=== PATIENT | male | born 1950 | race Caucasian/White ===

== ENCOUNTER → 2017-05-01 09:56 | Outpatient (CLI) | payer MEDICARE, SELFPAY ==
--- NOTE | 2017-05-01 10:01 | US_ITS ---
STUDY: RENAL ULTRASOUND - COMPLETE REASON FOR EXAM: Male, 66 years old. Hematuria TECHNIQUE: Ultrasound evaluation of the kidneys was performed with real-time and static mata-scale imaging. COMPARISON: None. FINDINGS: RIGHT KIDNEY: Normal location of the right kidney, which is normal in size. The right kidney measures 10.7 x 4.9 x 3.7 cm. There is a normal cortex of the right kidney. There is a right renal cyst which measures 3.5 x 3.4 x 1.9 cm. There is a nonobstructing calculus within the lower pole of the right kidney which measures up to 5 mm. There is no right hydronephrosis. DISTAL RIGHT URETER: There is a visualized right ureteral jet. LEFT KIDNEY: Normal location of the left kidney, which is normal in size. The left kidney measures 12.2 x 4.6 x 4.8 cm. There is a normal cortex of the left kidney. . There is a left renal cyst which measures 2.2 x 1.9 x 2.1 cm. There are nonobstructing left renal calculi. There is no left hydronephrosis. DISTAL LEFT URETER: There is no demonstrated left ureteral jet. I.V.C.: The IVC is patent. BLADDER: The bladder is incompletely distended with a volume of 156.7 There is a normal wall thickness of the distended urinary bladder. There is no demonstrated mass within the urinary bladder. There are no demonstrated bladder calculi. The prostate volume measures 38.4 mL. There is a calcification within the prostate gland. US/Kidney and Bladder IMPRESSION: Enlarged prostate gland. Bilateral nonobstructing renal calculi. Bilateral renal cysts. Electronically Signed: Ericka Eller MD at 22:14 EST Tel , Service support ,
== END ==
PROVIDERS: Family Provider Preventive Medicine Occupational Medicine; PCP Preventive Medicine Occupational Medicine; Visit Provider Preventive Medicine Occupational Medicine
DX: R31.9 Hematuria, unspecified (principal)
CPT/HCPCS: 76770

== ENCOUNTER → 2017-05-10 09:58 | Outpatient (CLI) | payer MEDICARE, SELFPAY ==
[2017-05-10 11:32] LABS: PSA,Total - Annual Screen 0.76 ng/mL (0.00-4.00)
== END ==
PROVIDERS: Family Provider Preventive Medicine Occupational Medicine; PCP Preventive Medicine Occupational Medicine; Visit Provider Nurse Practitioner Adult Health
DX: Z12.5 Encounter for screening for malignant neoplasm of prostate (principal)
CPT/HCPCS: 36415; 84153; G0103

== ENCOUNTER → 2017-05-17 13:05 | Outpatient (CLI) | payer MEDICARE, SELFPAY ==
--- NOTE | 2017-05-17 13:07 | CT_ITS ---
CT Abdomen And Pelvis WO/W Contrast INDICATION: Gross hematuria intermittently. Prior cholecystectomy, lumbar. COMPARISON: None TECHNIQUE: Precontrast CT of the abdomen and postcontrast CT of the abdomen and pelvis with coronal and sagittal reformatted images. 75 mL of Isovue-300 were given intravenously. Radiation dose optimization technique applied. FINDINGS: Precontrast images demonstrate numerous bilateral nonobstructing renal calculi, measuring between less than 1 mm and 3 mm on the right and less than 1 mm and 1.5 mm on the left. There is no evidence of hydronephrosis at this time. There is symmetric cortical renal enhancement. A right cortical renal cyst measures 3.8 cm in size, a left cortical renal cyst measures 2.2 cm in size. There is evidence of a heterogeneously enhancing 1.9 cm mass arising from the superior pole region of the right kidney, most compatible with a small renal cell carcinoma. The visualized lung bases are clear. The liver is prominent in size, measuring 20 cm in craniocaudal dimension. The gallbladder is surgically absent. The spleen is normal in size. Adrenal glands and pancreas are unremarkable. The bowel loops are nondistended. The appendix is unremarkable. The urinary bladder is unremarkable. The prostate gland is mildly enlarged and heterogenous, measuring 4 cm in diameter. There is no evidence of free air or free fluid. Osseous structures demonstrate multilevel degenerative disc disease, endplate degenerative changes and facet arthritic changes with lumbar spinal stenosis most severe at L3-4 and L4-5. CT/CT Abd/Pelvis W/WO Contrast IMPRESSION: 1.9 cm mass arising from the superior pole region of the right kidney with heterogenous enhancement, most compatible with a renal cell carcinoma. Bilateral nephrolithiasis. Bilateral cortical renal cysts. No evidence of hydronephrosis at this time. Hepatomegaly. Status post cholecystectomy. Degenerative changes of the lumbar spine with multilevel lumbar spinal stenosis. at 2210 Reported and signed by: Jennifer Mckinney MD N.B. : Dr. Hoskins, Covering Physician, confirmed on 05/17/2017 22:35:17 (ET) that the referring physician received the results and did not require a verbal consultation. Electronically Signed: Jennifer Mckinney MD at 21:09 EST Tel , Service support , Raghavendra : Dr. Hoskins, Covering Physician, confirmed on 05/17/2017 22:35:17 (ET) that the referring physician received the results and did not require a verbal consultation.
[2017-05-17 13:31] LABS: CREATININE FINGERSTICK 1.8 mg/dL (0.70-1.30)
== END ==
PROVIDERS: Family Provider Preventive Medicine Occupational Medicine; PCP Preventive Medicine Occupational Medicine; Visit Provider Nurse Practitioner Adult Health
DX: R31.9 Hematuria, unspecified (principal)
CPT/HCPCS: 74178; Q9967

== ENCOUNTER 2017-09-27 09:41 | Inpatient (IN) | payer MEDICARE, SELFPAY ==
[2017-09-27 09:42] VITALS: BP 123/85; PULSE 80; RESP 16; TEMP 36.9; O2SAT 98; BMI 29.0
--- NOTE | 2017-09-27 09:57 | EKG12_ITS ---
Test Reason : MS CHANGES Blood Pressure : / mmHG Vent. Rate : 063 BPM Atrial Rate : 063 BPM P-R Int : 134 ms QRS Dur : 096 ms QT Int : 430 ms P-R-T Axes : 066 028 025 degrees QTc Int : 440 ms Normal sinus rhythm Normal ECG Confirmed by LEONARDO WEST, RACQUEL ([id number]), assistant editor BLESSING PEREZ ([id number]) on 10/02/2017 3:38:35 PM Referred By: AARON Confirmed By:RACQUEL PATTERSON MD
--- NOTE | 2017-09-27 09:57 | RAD_ITS ---
STUDY: X-RAY CHEST REASON FOR EXAM: Male, 67 years old. Confusion, mental status change TECHNIQUE: Single AP portable view of the chest. COMPARISON: 03/03/2016 FINDINGS: Cardiac monitoring leads overlie the chest. The lungs are clear and expanded. There is no demonstrated pleural abnormality. Normal size heart. Normal mediastinum and mookie. Normal visualized pulmonary arteries. There is atherosclerotic tortuosity of the aortic arch and descending thoracic aorta. There are diffuse degenerative changes of the visualized thoracic spine. Normal visualized ribs, clavicles, and shoulders. There is no demonstrated abnormality of the visualized soft tissue structures of the upper abdomen. RAD/Chest 1 View (Portable) IMPRESSION: Degenerative changes, as described above. No demonstrated acute cardiopulmonary process. Electronically Signed: Lee Ruffin DO at 11:19 EDT Tel , Service support ,
--- NOTE | 2017-09-27 09:57 | CT_ITS ---
STUDY: CT BRAIN WITHOUT CONTRAST REASON FOR EXAM: Male, 67 years old. Confusion RADIATION DOSAGE (If Supplied By Facility): CTDIvol = ( 44.99 ) mGy, DLP = ( 812.98 ) mGycm TECHNIQUE: Transaxial CT imaging of the brain was performed without administration of intravenous contrast material. Sagittal and coronal reconstructed images are provided and reviewed. Individualized dose optimization techniques were used for this CT. COMPARISON: None. FINDINGS: Normal soft tissue structures. Normal calvarium. There is moderate cerebral atrophy with widening of the extra-axial spaces and ventricular dilatation. Normal white matter tracts of the cerebral hemispheres. Normal basal ganglia and thalami. Normal brainstem. Normal cerebellum. There is no intracranial hemorrhage. There are no findings of an acute ischemic infarction. Normal visualized paranasal sinuses. CT/Brain/Head without Contrast IMPRESSION: Chronic involutional changes. No acute intracranial abnormality. Electronically Signed: Lee Ruffin DO at 10:34 EDT Tel , Service support ,
[2017-09-27 10:17] LABS: Absolute Lymphocyte Count 0.72 X10^3/ul (0.83-4.51); Absolute Neutrophil Count 3.9 X10^3/uL (2.0-7.7); Basophil# 0.04 X10^3/uL; Basophil% 0.8 % (0-1); Eosinophil# 0.08 X10^3/uL; Eosinophils% 1.6 % (0-5); Hematocrit 45.1 % (40-54); Hemoglobin 15.5 g/dl (13.0-16.5); Lymphocyte # 0.72 X10^3/ul (4.0); Mean Corp Hgb Conc 34.4 g/gl (32-36); Mean Corpuscular Hgb 29.8 pg (27.0-32.0); Mean Corpuscular Volume 86.6 fL (80-94); Mean Platelet Vol. 9.9 fl (6.2-12.0); Monocyte# 0.43 X10^3/uL; Monocyte% 8.4 % (0-10); Neutrophil # 3.85 X10^3/uL (2.7-7.7); Platelet Count 187 K/mm3 (150-450); RBC Distribution Width CV 12.6 % (11.6-14.6); RBC Distribution Width SD 39.7 fl (35.1-43.9); Red Blood Count 5.21 M/mm3 (4.6-6.2); White Blood Count 5.1 K/mm3 (4.4-11.0)
[2017-09-27 10:18] LABS: POSITIVE COUNT NO; POSITIVE DIFFERENTIAL NO; POSITIVE MORPHOLOGY NO
[2017-09-27 10:34] LABS: Anion Gap 5 (5-15); BUN 14 mg/dL (7-18); BUN/Creat Ratio 9.6 RATIO (10-20); Calcium,Total 8.9 mg/dL (8.5-10.1); Chloride 110 mmol/L (98-107); Creatinine, Serum 1.46 mg/dL (0.70-1.30); EST Glomerular Filtration Rate 51 mL/min (>60); Est Glom Filt Rate - Afr Amer 62 mL/min (>60); Estimated Creatinine Clearance 44.31 ml/min; Glucose 111 mg/dL (74-106); Potassium 3.5 mmol/L (3.5-5.1); Sodium Level 141 mmol/L (136-145)
--- NOTE | 2017-09-27 10:47 | ED.DCSUM_ITS ---
- ER Visit Summary Date of Service: 09/27/17 Chief Complaint: [Mental status change] History of Present Illness: The patient is a 67 M [presents to the emergency department with complaint of mental status change since yesterday morning. Patient states that he developed a sudden onset of a headache and also blurred vision from both eyes. states that patient was confused yesterday and had a hard time figuring out how to open the door to their bedroom. Patient also walked here today and did not recognize areas of town that he should have known. Patient also has been repeating himself. There have been no falls or head injuries. No recent illness. No new medications. Patient has a history of hypertension, high cholesterol, and history of PEs. Patient has been off his Eliquis since the early part of the year. Currently patient rates his headache as an 8 out of 10.] Physical Examination: [HEENT-PERRLA, EOMI. Cranial nerves II through XII grossly intact. TMs clear. Mucous membranes moist. No adenopathy. Cardiovascular-regular rate and rhythm without murmur or ectopy Lungs-clear to auscultation, chest wall stable without crepitus or subcu emphysema Abdomen-normoactive bowel sounds, soft, nontender, no rebound or rigidity, no peritoneal signs. Neuro xrwr-[id number]-[id number] and heel bello testing within normal limits, negative Romberg, negative pronator drift. No focal weakness noted. Extremities-intact ?4, normal range of motion, normal pulses, atraumatic] Test Results: [EKG obtained on arrival showed a sinus rhythm with a ventricular rate of 63 bpm with no acute ST segment changes noted. CT scan of the brain without contrast showed chronic involutional changes otherwise nothing acute. CBC with differential showing a 5.1, hemoglobin 15, hematocrit 45, platelets 187. Chemistries unremarkable. BUN was 14 and creatinine 1.46. Troponin was less than 0.015.] Emergency Department Course and Treatment: [] Treatment Plan: [Admit for further workup and evaluation as the etiology of symptoms unclear at this time. There is still some concern for possibility of stroke. Patient is not a thrombolytic candidate as symptoms have been ongoing for more than 24 hours and his NIH stroke scale here is 0.] Disposition: [Admit] Impression: [Mental status change-etiology uncertain Cephalgia] This note was generated with [employer] dictation software. It may contain incorrect words, spelling, and punctuation that were not noted in review of the chart prior to signing ED Disposition - Plan for ED Patient: Chief Complaint: Mental Status Change Referrals: Damien Vizcarra DO [Primary Care Provider] -
--- NOTE | 2017-09-27 11:51 | CT_ITS ---
STUDY: CTA OF THE BRAIN REASON FOR EXAM: Male, 67 years old. Stroke RADIATION DOSAGE (If Supplied By Facility): CTDIvol = ( 29.70 ) mGy, DLP = ( 1361.83 ) mGycm TECHNIQUE: CT angiography was performed with a multi-detector CT scanner. Data acquisition was obtained from the skull base through the vertex following intravenous administration of 75 ml of Isovue-370. MIP images were reconstructed from the axial data set. Post-processing of the angiographic images was performed, with multiplanar reformation and 3D reconstruction. Individualized dose optimization techniques were used for this CT. COMPARISON: None. FINDINGS: Normal bilateral petrous carotid arteries. Normal right cavernous carotid artery with a normal supraclinoid bifurcation. Normal left cavernous carotid artery with a normal supraclinoid bifurcation. Normal right A1 segments of the anterior cerebral artery. Normal left A1 segments of the anterior cerebral artery. Normal intact anterior communicating artery (ACOM). Normal bilateral A2 segments of the anterior cerebral arteries. Normal right M1 and M2 segments of the middle cerebral arteries, with a normal M1 bifurcation. Normal left M1 and M2 segments of the middle cerebral arteries, with a normal M1 bifurcation. Nonvisualization of the posterior communicating arteries (PCOM). Normal bilateral vertebral arteries. Normal basilar artery with a normal basilar bifurcation. The visualized bilateral superior cerebellar (SCA) arteries are normal. Normal bilateral P1, P2 and visualized P3 segments of the posterior cerebral arteries. There is no demonstrated aneurysm of the [place]. There are chronic age-related changes of the visualized brain. IMPRESSION: Normal [place] without a demonstrated aneurysm or hemodynamically significant stenosis. Electronically Signed: Kwadwo Marcos DO at 13:09 EDT Tel [phone], Service support , STUDY: CTA NECK WITH CONTRAST REASON FOR EXAM: Male, 67 years old. Stroke TECHNIQUE: CT angiography with multi-detector data acquisition was performed from the aortic arch to the skull base following intravenous administration of 75ML ml of Isovue 370 contrast. MIP images were reconstructed from the axial data set. Post-processing of the angiographic images was performed, with multiplanar reformation and 3D reconstruction. Individualized dose optimization techniques were used for this CT. COMPARISON: None. FINDINGS: AORTIC ARCH: Minimal atherosclerotic aspirations of the visualized aortic arch. Normal origins of the brachiocephalic, left common carotid, and left subclavian arteries. RIGHT CAROTID ARTERIES: Normal right common carotid artery (CCA). Normal right common carotid bulb. Normal origin of the right internal carotid (ICA) artery without a hemodynamically significant stenosis. Normal visualized cervical portion of the right internal carotid artery. Normal origin of the right external carotid artery (ECA). LEFT CAROTID ARTERIES: Normal left common carotid artery (CCA). Normal left common carotid bulb. Normal origin of the left internal carotid (ICA) artery without a hemodynamically significant stenosis. Normal visualized cervical portion of the left internal carotid artery. Normal origin of the left external carotid artery (ECA). VERTEBRAL ARTERIES: Normal bilateral vertebral arteries. CT/CTA Head W/WO Contrast IMPRESSION: Normal bilateral cervical carotid and vertebral arteries. Electronically Signed: Kwadwo Marcos DO at 13:10 EDT Tel [phone], Service support ,
--- NOTE | 2017-09-27 11:51 | CT_ITS ---
STUDY: CTA OF THE BRAIN REASON FOR EXAM: Male, 67 years old. Stroke RADIATION DOSAGE (If Supplied By Facility): CTDIvol = ( 29.70 ) mGy, DLP = ( 1361.83 ) mGycm TECHNIQUE: CT angiography was performed with a multi-detector CT scanner. Data acquisition was obtained from the skull base through the vertex following intravenous administration of 75 ml of Isovue-370. MIP images were reconstructed from the axial data set. Post-processing of the angiographic images was performed, with multiplanar reformation and 3D reconstruction. Individualized dose optimization techniques were used for this CT. COMPARISON: None. FINDINGS: Normal bilateral petrous carotid arteries. Normal right cavernous carotid artery with a normal supraclinoid bifurcation. Normal left cavernous carotid artery with a normal supraclinoid bifurcation. Normal right A1 segments of the anterior cerebral artery. Normal left A1 segments of the anterior cerebral artery. Normal intact anterior communicating artery (ACOM). Normal bilateral A2 segments of the anterior cerebral arteries. Normal right M1 and M2 segments of the middle cerebral arteries, with a normal M1 bifurcation. Normal left M1 and M2 segments of the middle cerebral arteries, with a normal M1 bifurcation. Nonvisualization of the posterior communicating arteries (PCOM). Normal bilateral vertebral arteries. Normal basilar artery with a normal basilar bifurcation. The visualized bilateral superior cerebellar (SCA) arteries are normal. Normal bilateral P1, P2 and visualized P3 segments of the posterior cerebral arteries. There is no demonstrated aneurysm of the [place]. There are chronic age-related changes of the visualized brain. IMPRESSION: Normal [place] without a demonstrated aneurysm or hemodynamically significant stenosis. Electronically Signed: Kwadwo Marcos DO at 13:09 EDT Tel [phone], Service support , STUDY: CTA NECK WITH CONTRAST REASON FOR EXAM: Male, 67 years old. Stroke TECHNIQUE: CT angiography with multi-detector data acquisition was performed from the aortic arch to the skull base following intravenous administration of 75ML ml of Isovue 370 contrast. MIP images were reconstructed from the axial data set. Post-processing of the angiographic images was performed, with multiplanar reformation and 3D reconstruction. Individualized dose optimization techniques were used for this CT. COMPARISON: None. FINDINGS: AORTIC ARCH: Minimal atherosclerotic aspirations of the visualized aortic arch. Normal origins of the brachiocephalic, left common carotid, and left subclavian arteries. RIGHT CAROTID ARTERIES: Normal right common carotid artery (CCA). Normal right common carotid bulb. Normal origin of the right internal carotid (ICA) artery without a hemodynamically significant stenosis. Normal visualized cervical portion of the right internal carotid artery. Normal origin of the right external carotid artery (ECA). LEFT CAROTID ARTERIES: Normal left common carotid artery (CCA). Normal left common carotid bulb. Normal origin of the left internal carotid (ICA) artery without a hemodynamically significant stenosis. Normal visualized cervical portion of the left internal carotid artery. Normal origin of the left external carotid artery (ECA). VERTEBRAL ARTERIES: Normal bilateral vertebral arteries. CT/CTA Neck W/WO Contrast IMPRESSION: Normal bilateral cervical carotid and vertebral arteries. Electronically Signed: Kwadwo Marcos DO at 13:10 EDT Tel [phone], Service support ,
--- NOTE | 2017-09-27 12:18 | HP.PCM_ITS ---
Problem List (1) Pulmonary emboli Status: Acute (2) Acute respiratory failure Status: Resolved (3) Altered mental status Status: Acute (4) Ischemic stroke Status: Acute (5) Hypertension Status: Chronic (6) Dyslipidemia Status: Acute History of Present Illness Date of Admission: 09/27/17 Chief Complaint: Altered mental status since yesterday The patient is a 67 year old M with history of bilateral extensive PE and DVT in February 2016 was on Eliquis until early part of the year was brought in by ambulance after patient was not acting right as per the . Patient was confused, not able to understand or comprehend the speech, repeating words, not able to recognize common things and perform simple tasks since yesterday morning. As per the , patient was asking repeated cues as he is not able to understand. He also complained of blurry vision both eyes and to me left eye. Complain of occipital and parietal headache which is new to him. Also noted to have slight left facial droop. Patient denies weakness, numbness , tingling, bowel or bladder incontinence or seizure or syncope. Patient denies any previous history of stroke or NC or cardiac stent. [] In ED, EKG shows normal sinus rhythm at [address] head without contrast does not show any acute change Past Medical History Past Medical History (Chronic Problems): Chronic Problems Hypertension (Chronic) Allergies codeine Adverse Reaction (Verified 09/27/17 09:41) Unknown Home Medications: Ambulatory Orders Medication Instructions Recorded Hydrochlorothiazide 25 mg PO DAILY 01/30/16 Multivitamin [Daily Multiple 1 each PO DAILY 01/30/16 Vitamin] Pravastatin [Pravachol] 40 mg PO QHS 01/30/16 Gabapentin [Neurontin] 300 mg PO BIDCM 03/03/16 Gabapentin [Neurontin] 600 mg PO QHS 03/03/16 Hydrocodone Bitart/Apap 5-325 1 tablet PO Q6H PRN PRN 03/03/16 [[place] 5/325] Ramipril [Altace] 5 mg PO DAILY 03/03/16 Apixaban [Eliquis] 10 mg PO BID #60 tablet 03/05/16 Escitalopram Oxalate [Lexapro] 10 mg PO DAILY #30 tablet 03/05/16 Polyethylene Glycol 3350 [Miralax] 17 gm PO DAILY #15 packet 03/31/16 Smoking Status: Former smoker - *Family History Maternal History Items: No pertinent history Review of Systems Constitutional: Denies: Fever Eyes: Reports: Vision Change HEENT: Reports: Head Aches Cardiovascular: Denies: Chest Pain Respiratory: Denies: Shortness of Breath Unable to obtain accurate/complete ROS d/t: Patient is not able to comprehend verbal command or his speech. VTE Information - Inpt Only VTE Present on Admission: No VTE Mechan Device Prophylaxis: SCD's VTE Pharm Prophylaxis ordered?: Yes Patient Problems: Active and Suspected Problems Altered mental status (Acute) Ischemic stroke (Acute) Dyslipidemia (Acute) - Physical Exam General: Cooperative, Confused, Disoriented - To time, place and situation HEENT: Atraumatic, PERRLA, EOMI, Normocephalic Oral: Moist Mucosa Neck: Supple, No JVD, Negative Carotid Bruits Lungs: Clear to auscultation, No rhonchi, No wheeze, Diminished - Bilateral lung bases Cardiovascular: Regular rate, Regular Rhythm, Normal S1, Normal S2, No murmurs Abdomen: Bowel Sounds Present, Soft, Non Tender, Non-Distended Extremities: No edema, Capillary Refill Less than 3 Seconds Skin: No rashes, No breakdown Musculoskeletal: No Tenderness to Palpation of Joints or Extremities Neurological: Muscle tone normal, Sensory exam intact to light touch and pain, - - Possible loss of vision on left side although difficult to say definitely as patient is not able to comprehend the command. Slight left-sided facial palsy. Inability to comprehend visual, written or spoken language NIH stroke scale although difficult to calculate but seems to be 5-7 Psych/Mental Status: Normal Affect, Appropriate Vital Signs Temp Pulse Resp BP Pulse Ox 98.4 F 80 16 123/85 H 98 09/27/17 09:42 09/27/17 09:42 09/27/17 09:42 09/27/17 09:42 09/27/17 09:42 Oxygen Delivery Method Room Air Weight: 180 lb Body Mass Index (BMI) 29.0 Laboratory Tests Past 24 Hrs 09/27/17 09/27/17 10:10 10:10 WBC 5.1 RBC 5.21 Hgb 15.5 Hct 45.1 MCV 86.6 MCH 29.8 MCHC 34.4 RDW 12.6 RDW Differential 39.7 Plt Count 187 MPV 9.9 Immature Gran % (Auto) 0.200 Neut % (Auto) 75.0 H Lymph % (Auto) 14.0 L [place] % (Auto) 8.4 Eos % (Auto) 1.6 Baso % (Auto) 0.8 Absolute Neuts (auto) 3.9 Absolute Lymphs (auto) 0.72 L Total Counted Not Reportable Sodium 141 Potassium 3.5 Chloride 110 H Carbon Dioxide 26.0 Anion Gap 5 BUN 14 Creatinine 1.46 H Estim Creat Clear Calc 44.31 Est GFR (MDRD) Af Amer 62 Est GFR (MDRD) Non-Af 51 L BUN/Creatinine Ratio 9.6 L Glucose 111 H Calcium 8.9 Troponin I < 0.015 Assessment/Plan All Active Problems Altered mental status (Acute) Ischemic stroke (Acute) Dyslipidemia (Acute) Acute respiratory failure (Resolved) Pulmonary emboli (Acute) The patient is a 67 year old M with history of bilateral extensive PE and DVT in February 2016 was on Eliquis until early part of the year was brought in by ambulance after patient was not acting right as per the . Patient was confused, not able to understand or comprehend the speech, repeating words, not able to recognize common things and perform simple tasks since yesterday morning. As per the , patient was asking repeated cues as he is not able to understand. He also complained of blurry vision both eyes and to me left eye. Complain of occipital and parietal headache which is new to him. Also noted to have slight left facial droop. Patient denies weakness, numbness , tingling, bowel or bladder incontinence or seizure or syncope. Patient denies any previous history of stroke or NC or cardiac stent. [] In ED, EKG shows normal sinus rhythm at [address] head without contrast does not show any acute change. In ED, NIH stroke scale calculated 5, 2 points for LOC questions, partial gaze palsy and complete hemianopia 1. Possible acute/subacute ischemic stroke: Patient has multiple neurological symptoms including severe language aphasia, altered mental status, disorganized behavior probably related to acute ischemic stroke. Patient is being admitted in PCU. Ischemic stroke workup ordered including CT angiogram of head and neck , MRI of brain. Discussed with neurologist Dr. Robles and he advised CTA of head and neck and primary stroke workup. BP and glucose control as per stroke guidelines. 2D echo ordered. On aspirin and a statin. NIH stroke scale 2. Acute encephalopathy possible related to acute stroke/metabolic encephalopathy: U tox, serum alcohol ordered. UA is ordered. 3. Acute kidney injury possibly prerenal: Patient did not had any recent kidney function evaluated. Last creatinine 0.9 in February 2016 with estimated creatinine clearance 72 mL/min. IV fluid normal saline ordered. Monitor electrolytes and kidney function 4. Other chronic problems include chronic back pain, hypertension and dyslipidemia history of pulmonary embolism and DVT in 2016, : Blood pressure is controlled within stroke guidelines. Home medication reconciliation done. DVT prophylaxis: On heparin 5000 subcutaneous twice daily and bilateral SCDs. Laboratory Results 09/27/17 10:10: WBC 5.1, RBC 5.21, Hgb 15.5, Hct 45.1, MCV 86.6, MCH 29.8, MCHC 34.4, RDW 12.6, RDW Differential 39.7, Plt Count 187, MPV 9.9, Immature Gran % ( Auto) 0.200, Neut % (Auto) 75.0 H, Lymph % (Auto) 14.0 L, [place] % (Auto) 8.4, Eos % (Auto) 1.6, Baso % (Auto) 0.8, Absolute Neuts (auto) 3.9, Absolute Lymphs (auto) 0.72 L, Total Counted Not Reportable 09/27/17 10:10: Sodium 141, Potassium 3.5, Chloride 110 H, Carbon Dioxide 26.0, Anion Gap 5, BUN 14, Creatinine 1.46 H, Estim Creat Clear Calc 44.31, Est GFR ( MDRD) Af Amer 62, Est GFR (MDRD) Non-Af 51 L, BUN/Creatinine Ratio 9.6 L, Glucose 111 H, Calcium 8.9, Troponin I < 0.015 Clinical Impression(s) from Imaging Studies Brain CT 09/27/17 09:57 IMPRESSION: Chronic involutional changes. No acute intracranial abnormality. Chest X-Ray 09/27/17 09:57 IMPRESSION: Degenerative changes, as described above. No demonstrated acute cardiopulmonary process. Code Visit Inpatient E&M: 09628 Init Hosp L3
[2017-09-27 12:34] VITALS: BP 132/48; PULSE 60; RESP 18
[2017-09-27] MEDS: 0.9% Normal Saline 1,000 ML 150 ML IV (12:37)
[2017-09-27] MEDS: Acetaminophen 325 MG Tablet 650 MG PO (12:38)
--- NOTE | 2017-09-27 13:14 | MRI_ITS ---
STUDY: MRI BRAIN WITHOUT CONTRAST REASON FOR EXAM: Male, 67 years old. Confusion. Patient is unable to follow instructions. TECHNIQUE: Standardized multiplanar fat and water weighted pulse sequences were obtained. COMPARISON: CT of the head dated September 27, 2017. FINDINGS: There is mild cerebral atrophy with widening of the extra-axial spaces and moderate ventricular dilatation. There are multiple white matter hyperintensities, distributed throughout the deep white matter tracts of the cerebral hemispheres, consistent with moderate chronic white matter ischemic changes. There is a tiny focus of restricted diffusion within the right paramedian piotr that suggest sequela of an acute infarct. There is a small focus of restricted diffusion within the right centrum semiovale ovale consistent with an acute infarct. There is a tiny focus of restricted diffusion and the left basal ganglia suggesting sequela of acute infarct. Normal T2* images of the brain without demonstrated susceptibility artifact. There is no demonstrated hemosiderin stain. Normal bilateral basal ganglia. Normal thalami. There is no extra-axial fluid accumulation. Normal flow voids within the major intracranial circulation suggesting patency by spin echo criteria. There is tortuosity of the vertebrobasilar arteries. Normal sella turcica, pituitary gland, infundibular stalk, optic chiasm and hypothalamus. Normal tectal plate and pineal gland. Normal midbrain, piotr and medulla. There are multiple small areas of encephalomalacia in the cerebellum consistent with old infarcts. There are mild involutional changes of the cerebellum. There are large basal cisterns. Normal bilateral temporal bones. Normal bilateral internal auditory canals. No demonstrated orbital abnormality, within the constraints of a routine brain study. Normal visualized paranasal sinuses. There is mild mucoperiosteal thickening in ethmoid sinuses. There is moderate deviation of the nasal septum towards the right. Normal visualized soft tissue structures. Normal visualized upper cervical spine. MRI/Brain without Contrast IMPRESSION: 1. Involutional changes of the brain, as described above. 2. Multiple scattered tiny infarcts as described. 3. Moderate ventriculomegaly may be the result of normal pressure hydrocephalus. N.B. : The above information has been verbally conveyed by Fawn Godoy MD to Sheryl Green, RN, Hospital- In-Patient RN, on 09/28/2017 11:14:22 (ET). Electronically Signed: Fawn Godoy MD at 11:17 EDT , Service support , N.B. : The above information has been verbally conveyed by Fawn Godoy MD to Sheryl Green, RN, Hospital- In-Patient RN, on 09/28/2017 11:14:22 (ET).
--- NOTE | 2017-09-27 13:14 | ECHOD_ITS ---
Reason For Study: TIA Procedure This was a 2D Doppler, Color Flow transthoracic echocardiogram. Pt has altered mental status s/p TIA . Exam performed portable in patient room. Left Ventricle Normal LV size. Left ventricular systolic function is normal. The estimated ejection fraction is 60 %. Transmitral diastolic flow velocities suggest mild (stage 1) diastolic dysfunction (reversed pattern). No regional wall motion abnormalities noted. Right Ventricle Normal RV size. Normal systolic function. Atria Normal left atrium. Normal right atrium. Probable patent foramen ovale. Mitral Valve Normal mitral valve. Mild (1+) eccentric mitral valve insufficiency. Tricuspid Valve Normal tricuspid valve. Mild (1+) tricuspid valve insufficiency. Pulmonary artery systolic pressure is 25 mmHg. Aortic Valve Normal aortic valve. Trisinus/trileaflet aortic valve. Pulmonic Valve Normal pulmonic valve. Great Vessels Normal aortic root. The pulmonary artery is normal size. Normal inferior vena cava. Pericardium/Pleural No pericardial effusion. Medication Performed a rapid injection of agitated mix of 9 cc saline and 1cc air to assess for atrial septal defect. MMode/2D Measurements & Calculations LVIDd: 4.6 cm IVSd: 0.88 cm Ao root diam: 3.8 cm LVIDs: 2.7 cm LVPWd: 0.92 cm RVDd: 4.0 cm FS: 42.0 % LAV(MOD-bp): 52.4 ml LAV(MOD-bp) Indexed: 27.6 ml/m2 LA A4 area: 10.3 cm2 RA A4 area: 8.2 cm2 LAV(MOD-sp2): 68.3 ml LAV(MOD-sp4): 23.6 ml Time Measurements MV dec time: 0.29 sec Doppler Measurements & Calculations MV E max shashank: 57.5 cm/sec Lat Peak E' Shashank: 7.7 cm/sec Med Peak E' Shashank: 6.8 cm/sec MV A max shashank: 66.1 cm/sec E/E' lat: 7.4 E/E' med: 8.4 MV E/A: 0.87 Ao V2 max: 88.2 cm/sec LV V1 max: 68.6 cm/sec TR max shashank: 234.8 cm/sec Ao max P.1 mmHg LV V1 max P.9 mmHg TR max P.1 mmHg Interpretation Summary Normal LV size. Left ventricular systolic function is normal. The estimated ejection fraction is 60 %. Transmitral diastolic flow velocities suggest mild (stage 1) diastolic dysfunction (reversed pattern). Mild (1+) tricuspid valve insufficiency. Pulmonary artery systolic pressure is 25 mmHg. Ordering Physician: Jamar Kasper Referring Physician: CONRADO MAYA Performed By: Madison Lee, JAVED, RVT
[2017-09-27 13:15] VITALS: BP 141/82; PULSE 53; RESP 18; TEMP 36.6
--- NOTE | 2017-09-27 13:32 | NURSING ---
Pt having difficulty seeing NIH papers. He states it is from not having his glasses...
[2017-09-27 13:39] VITALS: BMI 28.4; BMI 29.1
[2017-09-27 13:58] VITALS: O2SAT 98
[2017-09-27 14:10] LABS: Alcohol, Blood (Medical)-Serum < 3.0 mg/dL
[2017-09-27 14:13] VITALS: PULSE 57
[2017-09-27 14:15] LABS: Ammonia < 10.0 umol/L (11-32)
[2017-09-27 14:23] LABS: AST(SGOT) 16 U/L (15-37); Alanine Aminotransfer ALT/SGPT 16 U/L (16-61); Albumin, Serum 3.6 g/dL (3.2-5.0); Alkaline Phosphatase 98 U/L (45-117); Bilirubin, Direct 0.15 mg/dL (0.00-0.30); Globulin 3.4 g/dL (2.2-4.2); Thyroid Stim Hormone (TSH) 1.47 uIU/mL (0.358-3.74)
[2017-09-27 15:18] VITALS: PULSE 65
[2017-09-27] MEDS: Aspirin 325 MG Tablet PO (15:26)
[2017-09-27] MEDS: 0.9% Normal Saline 1,000 ML 100 ML IV (15:26)
[2017-09-27 16:51] LABS: Bedside Glucose 89 mg/dL (70-110)
[2017-09-27 17:00] VITALS: BMI 28.4
--- NOTE | 2017-09-27 17:00 | NURSING ---
pt getting irritated. refusing vital signs and NIHH stroke scale at this time. Will let pt eat dinner with and try again
[2017-09-27] MEDS: Haloperidol Lactate 5 MG/ML Vial 2 MG IV (17:52)
[2017-09-27] MEDS: Ziprasidone IM 20 MG/ML VIAL IM (18:49)
--- NOTE | 2017-09-27 22:15 | NURSING ---
This RN attempted to obtain patient's blood glucose and vital signs and patient is refusing care at this time. When trying to get BP, patient jerks arm away and starts to get agitated.
[2017-09-28 00:44] VITALS: BMI 28.4
--- NOTE | 2017-09-28 02:00 | NURSING ---
Pt refusing/uncooperative with care. Unable to complete NIH at this time
[2017-09-28 05:40] VITALS: BP 133/79; PULSE 68; RESP 18; TEMP 36.8; O2SAT 97
--- NOTE | 2017-09-28 05:40 | NURSING ---
Patient allowed RN to obtain blood sugar and VS at this time. Attempted NIH with little success, pt starting to get agitated.
[2017-09-28 05:45] LABS: Bedside Glucose 93 mg/dL (70-110)
[2017-09-28 06:32] LABS: Anion Gap 6 (5-15); BUN 11 mg/dL (7-18); BUN/Creat Ratio 7.9 RATIO (10-20); Calcium,Total 9.5 mg/dL (8.5-10.1); Chloride 109 mmol/L (98-107); Cholesterol 147 mg/dL (200); EST Glomerular Filtration Rate 54 mL/min (>60); Est Glom Filt Rate - Afr Amer 65 mL/min (>60); Glucose 102 mg/dL (74-106); High Density Lipoprotein 59 mg/dL; Potassium 4.3 mmol/L (3.5-5.1); Sodium Level 143 mmol/L (136-145); Triglycerides 51 mg/dL; Very Low Density Lipoprotein 10 mg/dL (5-40)
[2017-09-28 06:58] VITALS: O2SAT 97
[2017-09-28 09:29] VITALS: BP 172/92; PULSE 59; RESP 18; TEMP 37.3; O2SAT 97
[2017-09-28] MEDS: Ziprasidone IM 20 MG/ML VIAL IM (09:34)
[2017-09-28] MEDS: Famotidine 20 MG Tablet PO (09:35)
[2017-09-28] MEDS: Aspirin 325 MG Tablet PO (09:35)
[2017-09-28] MEDS: Multivitamins,Therapeutic Tablet 1 TABLET PO (09:38)
[2017-09-28] MEDS: Ramipril 5 MG Capsule PO (09:38)
[2017-09-28] MEDS: Heparin Injection (Vial) 5,000 UNIT/ML VIAL 5000 UNIT SC (09:39)
[2017-09-28] MEDS: Haloperidol Lactate 5 MG/ML Vial 2 MG IM (10:00)
[2017-09-28 11:29] VITALS: BMI 28.4
[2017-09-28 12:11] VITALS: BP 160/95; PULSE 64; RESP 18; TEMP 36.6; O2SAT 97
--- NOTE | 2017-09-28 12:38 | PCM.CONS.GEN ---
Problem List (1) Altered mental status Status: Acute Qualifiers: Altered mental status type: unspecified Qualified Code(s): R41.82 - Altered mental status, unspecified (2) Ischemic stroke Status: Acute Reason for Consult Date of Consultation: 09/28/17 Reason for Consultation: Stroke, confusion History of Present Illness: The patient is a 67 year old CM with PMH HTN, HLD, H/O bilateral PE and DVT in February 2016, was on Eliquis, during the February 2016 admission he had suicidal ideation, diagnosed with depression and started on Lexapro, now admitted with altered mental status. History could not be obtained from patient, History is obtained from medical records. Per documentation on admission patient was confused, repeating words, had difficulty in performing simple tasks since 2 days (09/26/17), per ED documentation there was BINGHAM and blurred vision. At present patient has a sitter, continues to be confused, has agitation episodes, but denies any BINGHAM, visual disturbances, focal motor weakness or sensory loss. Per patient he lives with his , does not use cane or walker to ambulate, denies any frequent falls but complained of some difficulty in walking about 2 weeks ago. He denies any new onset memory issues or urinary incontinence. Per ED documentation NIHSS was 3 on admission since patient had left homonymous hemianopia. MRI brain done on admission reported to show tiny focus of restricted diffusion in the right paramedian piotr, right centrum semiovale and left basal ganglia (report per Dr. Fawn Godoy but on my review probably there is only one area of tiny restricted diffusion in the right AEROSPACE ASSEMBLER) and per Dr. Godoy there is moderate ventriculomegaly may be a result of NPH. CTA head/neck reported not to show any hemodynamically significant stenosis or occlusion. Past Medical History Past Medical History (Chronic Problems): Chronic Problems Hypertension (Chronic) Allergies codeine Adverse Reaction (Verified 09/27/17 09:41) Unknown Home Medications: Ambulatory Orders Medication Instructions Recorded Multivitamin [Daily Multiple 1 each PO DAILY 01/30/16 Vitamin] Pravastatin [Pravachol] 40 mg PO QHS 01/30/16 Hydrocodone Bitart/Apap 5-325 1 tablet PO Q6H PRN PRN 03/03/16 [[place] 5/325] Ramipril [Altace] 5 mg PO DAILY 03/03/16 Escitalopram Oxalate [Lexapro] 10 mg PO DAILY 09/27/17 Polyethylene Glycol 3350 [Miralax] 17 gm PO DAILY 09/27/17 Lives: Spouse/ Significant Other Smoking Status: Unknown if ever smoked Alcohol: None Drugs: None - *Family History Maternal History Items: No pertinent history Review of Systems Constitutional: Reports: - - complete ROS negative except as documented in HPI Patient Problems: Active and Suspected Problems Altered mental status (Acute) Ischemic stroke (Acute) Dyslipidemia (Acute) - Physical Exam General: - - awake, disoriented to place, oreinted to person and time at present. was able to tell his name and age. HEENT: Atraumatic Neck: Supple Lungs: Clear to auscultation Cardiovascular: Normal S1, Normal S2 Abdomen: Bowel Sounds Present Extremities: No cyanosis Skin: No rashes Musculoskeletal: No Tenderness to Palpation of Joints or Extremities Neurological: - - awake,disoriented to place, oreinted to person and time at present. was able to tell his name and age, AoAx2, CN 2-12 grossly intact except left homonymous hemianopia, power 5/5 all 4 extremities, denies any sensory loss, no cerebellar signs, Reflexes + B/L B/S/T/K/A, gait deferred. NIHSS 2 at present. Vital Signs Temp Pulse Resp BP Pulse Ox 97.9 F 64 18 160/95 H 97 09/28/17 12:11 09/28/17 12:11 09/28/17 12:11 09/28/17 12:11 09/28/17 12:11 Oxygen Delivery Method Room Air Weight: 80 kg Body Mass Index (BMI) 28.4 Intake and Output for Last 24 Hours 09/26/17 09/27/17 09/28/17 23:59 23:59 23:59 Intake Total 240 / 240 Output Total 450 / 450 350 / 350 Balance -450 / -450 -110 / -110 Laboratory Tests Past 24 Hrs 09/27/17 09/27/17 09/27/17 13:40 13:40 13:40 Sodium Potassium Chloride Carbon Dioxide Anion Gap BUN Creatinine Estim Creat Clear Calc Est GFR (MDRD) Af Amer Est GFR (MDRD) Non-Af BUN/Creatinine Ratio Glucose Calcium Total Bilirubin 0.50 Direct Bilirubin 0.15 AST 16 ALT 16 Alkaline Phosphatase 98 Ammonia < 10.0 L Troponin I < 0.015 Total Protein 7.0 Albumin 3.6 Globulin 3.4 Triglycerides Cholesterol LDL Cholesterol VLDL Cholesterol HDL Cholesterol TSH 1.47 Ethyl Alcohol < 3.0 09/28/17 05:30 Sodium 143 Potassium 4.3 Chloride 109 H Carbon Dioxide 28.0 Anion Gap 6 BUN 11 Creatinine 1.40 H Estim Creat Clear Calc 46.20 Est GFR (MDRD) Af Amer 65 Est GFR (MDRD) Non-Af 54 L BUN/Creatinine Ratio 7.9 L Glucose 102 Calcium 9.5 Total Bilirubin Direct Bilirubin AST ALT Alkaline Phosphatase Ammonia Troponin I Total Protein Albumin Globulin Triglycerides 51 Cholesterol 147 LDL Cholesterol 78 VLDL Cholesterol 10 HDL Cholesterol 59 TSH Ethyl Alcohol POC Glucose 09/28/17 09/27/17 05:31 16:44 POC Glucose 93 89 Assessment/Plan All Active Problems Altered mental status (Acute) Ischemic stroke (Acute) Dyslipidemia (Acute) Acute respiratory failure (Resolved) Pulmonary emboli (Acute) The patient is a 67 year old CM with PMH HTN, HLD, H/O bilateral PE and DVT in February 2016, was on Eliquis, during the February 2016 admission he had suicidal ideation, diagnosed with depression and started on Lexapro, now admitted with altered mental status. History could not be obtained from patient, History is obtained from medical records. Per documentation on admission patient was confused, repeating words, had difficulty in performing simple tasks since 2 days (09/26/17), per ED documentation there was BINGHAM and blurred vision. At present patient has a sitter, continues to be confused, has agitation episodes, but denies any BINGHAM, visual disturbances, focal motor weakness or sensory loss. Per patient he lives with his , does not use cane or walker to ambulate, denies any frequent falls but complained of some difficulty in walking about 2 weeks ago. He denies any new onset memory issues or urinary incontinence. Per ED documentation NIHSS was 3 on admission since patient had left homonymous hemianopia. MRI brain done on admission reported to show tiny focus of restricted diffusion in the right paramedian piotr, right centrum semiovale and left basal ganglia (report per Dr. Fawn Godoy but on my review probably there is only one area of tiny restricted diffusion in the right AEROSPACE ASSEMBLER) and per Dr. Godoy there is moderate ventriculomegaly may be a result of NPH. CTA head/neck reported not to show any hemodynamically significant stenosis or occlusion. Impression Possible Small Right AEROSPACE ASSEMBLER (right MCA) stroke Metabolic encephalopathy ? NPH Plan -On ASA, Start Plavix 75 mg PO once daily, dual AP for 3 weeks, then switch to single AP, Bleeding risks discussed in detail. Patient understands the same -On Lipitor 80 mg PO q hs -MRI brain images reviewed-reported to show tiny focus of restricted diffusion in the right paramedian piotr, right centrum semiovale and left basal ganglia (report per Dr. Fawn Godoy but on my review probably there is only one area of tiny restricted diffusion in the right AEROSPACE ASSEMBLER) and per Dr. Godoy there is moderate ventriculomegaly may be a result of NPH -CTA head/neck- no hemodynamically significant stenosis or occlusion -LDL-78 -Await Hba1c -TTE-EF 60%, normal LA size, probable PFO -Recommend B/L LE venous Doppler -Recommend ophthalmology consult -Recommend Neurosurgery consult for possible NPH -Recommend Psychiatry consult -Goal BP < 130/80 mmHg and Hba1c <7% -Recommend EEG -Further medical management per primary team -Stroke risk factors discussed, stroke education provided -GI/DVT prophylaxis -Fall precautions -PT/OT/ST -Follow up with Neurology as outpatient in 2-3 weeks after discharge. -Please call with questions if any -Thank you for allowing us to participate in patient's care and management I spent 60 minutes taking history, doing physical examination, reviewing medical records, coordinating care and counseling the patient. Code Visit Inpatient E&M: [id number] Init Hosp L3
--- NOTE | 2017-09-28 12:48 | CON.PCM_ITS ---
Problem List (1) Altered mental status Status: Acute Qualifiers: Altered mental status type: unspecified Qualified Code(s): R41.82 - Altered mental status, unspecified (2) Ischemic stroke Status: Acute Reason for Consult Date of Consultation: 09/28/17 Reason for Consultation: Stroke, confusion History of Present Illness: The patient is a 67 year old CM with PMH HTN, HLD, H/O bilateral PE and DVT in February 2016, was on Eliquis, during the February 2016 admission he had suicidal ideation, diagnosed with depression and started on Lexapro, now admitted with altered mental status. History could not be obtained from patient , History is obtained from medical records. Per documentation on admission patient was confused, repeating words, had difficulty in performing simple tasks since 2 days (09/26/17), per ED documentation there was BINGHAM and blurred vision. At present patient has a sitter, continues to be confused, has agitation episodes, but denies any BINGHAM, visual disturbances, focal motor weakness or sensory loss. Per patient he lives with his , does not use cane or walker to ambulate, denies any frequent falls but complained of some difficulty in walking about 2 weeks ago. He denies any new onset memory issues or urinary incontinence. Per ED documentation NIHSS was 3 on admission since patient had left homonymous hemianopia. MRI brain done on admission reported to show tiny focus of restricted diffusion in the right paramedian piotr, right centrum semiovale and left basal ganglia (report per Dr. Fawn Godoy but on my review probably there is only one area of tiny restricted diffusion in the right WRITER PRODUCER) and per Dr. Godoy there is moderate ventriculomegaly may be a result of NPH. CTA head/neck reported not to show any hemodynamically significant stenosis or occlusion. Past Medical History Past Medical History (Chronic Problems): Chronic Problems Hypertension (Chronic) Allergies codeine Adverse Reaction (Verified 09/27/17 09:41) Unknown Home Medications: Ambulatory Orders Medication Instructions Recorded Multivitamin [Daily Multiple 1 each PO DAILY 01/30/16 Vitamin] Pravastatin [Pravachol] 40 mg PO QHS 01/30/16 Hydrocodone Bitart/Apap 5-325 1 tablet PO Q6H PRN PRN 03/03/16 [[place] 5/325] Ramipril [Altace] 5 mg PO DAILY 03/03/16 Escitalopram Oxalate [Lexapro] 10 mg PO DAILY 09/27/17 Polyethylene Glycol 3350 [Miralax] 17 gm PO DAILY 09/27/17 Lives: Spouse/ Significant Other Smoking Status: Unknown if ever smoked Alcohol: None Drugs: None - *Family History Maternal History Items: No pertinent history Review of Systems Constitutional: Reports: - - complete ROS negative except as documented in HPI Patient Problems: Active and Suspected Problems Altered mental status (Acute) Ischemic stroke (Acute) Dyslipidemia (Acute) - Physical Exam General: - - awake, disoriented to place, oreinted to person and time at present. was able to tell his name and age. HEENT: Atraumatic Neck: Supple Lungs: Clear to auscultation Cardiovascular: Normal S1, Normal S2 Abdomen: Bowel Sounds Present Extremities: No cyanosis Skin: No rashes Musculoskeletal: No Tenderness to Palpation of Joints or Extremities Neurological: - - awake,disoriented to place, oreinted to person and time at present. was able to tell his name and age, AoAx2, CN 2-12 grossly intact except left homonymous hemianopia, power 5/5 all 4 extremities, denies any sensory loss, no cerebellar signs, Reflexes + B/L B/S/T/K/A, gait deferred. NIHSS 2 at present. Vital Signs Temp Pulse Resp BP Pulse Ox 97.9 F 64 18 160/95 H 97 09/28/17 12:11 09/28/17 12:11 09/28/17 12:11 09/28/17 12:11 09/28/17 12:11 Oxygen Delivery Method Room Air Weight: 80 kg Body Mass Index (BMI) 28.4 Intake and Output for Last 24 Hours 09/26/17 09/27/17 09/28/17 23:59 23:59 23:59 Intake Total 240 / 240 Output Total 450 / 450 350 / 350 Balance -450 / -450 -110 / -110 Laboratory Tests Past 24 Hrs 09/27/17 09/27/17 09/27/17 13:40 13:40 13:40 Sodium Potassium Chloride Carbon Dioxide Anion Gap BUN Creatinine Estim Creat Clear Calc Est GFR (MDRD) Af Amer Est GFR (MDRD) Non-Af BUN/Creatinine Ratio Glucose Calcium Total Bilirubin 0.50 Direct Bilirubin 0.15 AST 16 ALT 16 Alkaline Phosphatase 98 Ammonia < 10.0 L Troponin I < 0.015 Total Protein 7.0 Albumin 3.6 Globulin 3.4 Triglycerides Cholesterol LDL Cholesterol VLDL Cholesterol HDL Cholesterol TSH 1.47 Ethyl Alcohol < 3.0 09/28/17 05:30 Sodium 143 Potassium 4.3 Chloride 109 H Carbon Dioxide 28.0 Anion Gap 6 BUN 11 Creatinine 1.40 H Estim Creat Clear Calc 46.20 Est GFR (MDRD) Af Amer 65 Est GFR (MDRD) Non-Af 54 L BUN/Creatinine Ratio 7.9 L Glucose 102 Calcium 9.5 Total Bilirubin Direct Bilirubin AST ALT Alkaline Phosphatase Ammonia Troponin I Total Protein Albumin Globulin Triglycerides 51 Cholesterol 147 LDL Cholesterol 78 VLDL Cholesterol 10 HDL Cholesterol 59 TSH Ethyl Alcohol POC Glucose 09/28/17 09/27/17 05:31 16:44 POC Glucose 93 89 Assessment/Plan All Active Problems Altered mental status (Acute) Ischemic stroke (Acute) Dyslipidemia (Acute) Acute respiratory failure (Resolved) Pulmonary emboli (Acute) The patient is a 67 year old CM with PMH HTN, HLD, H/O bilateral PE and DVT in February 2016, was on Eliquis, during the February 2016 admission he had suicidal ideation, diagnosed with depression and started on Lexapro, now admitted with altered mental status. History could not be obtained from patient , History is obtained from medical records. Per documentation on admission patient was confused, repeating words, had difficulty in performing simple tasks since 2 days (09/26/17), per ED documentation there was BINGHAM and blurred vision. At present patient has a sitter, continues to be confused, has agitation episodes, but denies any BINGHAM, visual disturbances, focal motor weakness or sensory loss. Per patient he lives with his , does not use cane or walker to ambulate, denies any frequent falls but complained of some difficulty in walking about 2 weeks ago. He denies any new onset memory issues or urinary incontinence. Per ED documentation NIHSS was 3 on admission since patient had left homonymous hemianopia. MRI brain done on admission reported to show tiny focus of restricted diffusion in the right paramedian piotr, right centrum semiovale and left basal ganglia (report per Dr. Fawn Godoy but on my review probably there is only one area of tiny restricted diffusion in the right WRITER PRODUCER) and per Dr. Godoy there is moderate ventriculomegaly may be a result of NPH. CTA head/neck reported not to show any hemodynamically significant stenosis or occlusion. Impression Possible Small Right WRITER PRODUCER (right MCA) stroke Metabolic encephalopathy ? NPH Plan -On ASA, Start Plavix 75 mg PO once daily, dual AP for 3 weeks, then switch to single AP, Bleeding risks discussed in detail. Patient understands the same -On Lipitor 80 mg PO q hs -MRI brain images reviewed-reported to show tiny focus of restricted diffusion in the right paramedian piotr, right centrum semiovale and left basal ganglia ( report per Dr. Fawn Godoy but on my review probably there is only one area of tiny restricted diffusion in the right WRITER PRODUCER) and per Dr. Godoy there is moderate ventriculomegaly may be a result of NPH -CTA head/neck- no hemodynamically significant stenosis or occlusion -LDL-78 -Await Hba1c -TTE-EF 60%, normal LA size, probable PFO -Recommend B/L LE venous Doppler -Recommend ophthalmology consult -Recommend Neurosurgery consult for possible NPH -Recommend Psychiatry consult -Goal BP < 130/80 mmHg and Hba1c <7% -Recommend EEG -Further medical management per primary team -Stroke risk factors discussed, stroke education provided -GI/DVT prophylaxis -Fall precautions -PT/OT/ST -Follow up with Neurology as outpatient in 2-3 weeks after discharge. -Please call with questions if any -Thank you for allowing us to participate in patient's care and management I spent 60 minutes taking history, doing physical examination, reviewing medical records, coordinating care and counseling the patient. Code Visit Inpatient E&M: 40956 Init Hosp L3
--- NOTE | 2017-09-28 13:04 | VDLE_ITS ---
Reason For Study: DVT RIGHT LEFT GSV is normal. GSV is normal. CFV is compressible, spontaneous, phasic, CFV is compressible, spontaneous, phasic, competent and demonstrates normal competent, and demonstrates normal augmentation. augmentation. FV is compressible, spontaneous, phasic, FV is compressible, spontaneous, phasic, competent and demonstrates normal competent and demonstrates normal augmentation. augmentation. POP V is compressible, spontaneous, phasic, POP V is compressible, spontaneous, phasic, competent and demonstrates normal competent and demonstrates normal augmentation. augmentation. T/P Trunk is compressible. T/P Trunk is compressible. PTV is compressible. PTV is compressible. RT PerV is compressible. LT PerV is compressible. Procedure Exam performed portable in patient room. The exam was diagnostic. A preliminary report was called and/or faxed to the pt's RN. Interpretation Summary No evidence for acute deep venous thrombosis bilateral lower extremities with patent and compressible bilateral great saphenous veins. Ordering Physician: Carrie Robles Performed By: Octavio Morgan RVT
--- NOTE | 2017-09-28 13:30 | CASEMGMT ---
According to the [facility] website, the following are in-network tertiary facilities: [facility], [place] [facility], [facility], [facility], [facility], and . Fay GAMEZ CM
--- NOTE | 2017-09-28 14:07 | PCM.DC.SUM ---
<Yarelis Ruffin - Last Filed: 09/28/17 14:17> Discharge Date and Diagnosis Date of Admission: 09/27/17 Date of Discharge: 09/28/17 - Primary Discharge Diagnosis Active and Suspected Problems 1. Acute metabolic encephalopathy 2. Acute small right MCA stroke 3. NPH 4. Acute kidney injury - Secondary Discharge Diagnosis Chronic Problems Hypertension (Chronic) Hospital Course and Treatment Imaging Results: Diagnostic Data Brain CT 09/27/17 09:57 IMPRESSION: Chronic involutional changes. No acute intracranial abnormality. Electronically Signed: eLe Ruffin DO at 10:34 EDT Tel , Service support , Chest X-Ray 09/27/17 09:57 IMPRESSION: Degenerative changes, as described above. No demonstrated acute cardiopulmonary process. Electronically Signed: Lee Ruffin DO at 11:19 EDT Tel , Service support , Head CTA 09/27/17 11:51 IMPRESSION: Normal bilateral cervical carotid and vertebral arteries. Electronically Signed: Kwadwo Marcos DO at 13:10 EDT Tel [phone], Service support , Neck CTA 09/27/17 11:51 IMPRESSION: Normal bilateral cervical carotid and vertebral arteries. Electronically Signed: Kwadwo Marcos DO at 13:10 EDT Tel [phone], Service support , Brain MRI 09/27/17 13:14 IMPRESSION: 1. Involutional changes of the brain, as described above. 2. Multiple scattered tiny infarcts as described. 3. Moderate ventriculomegaly may be the result of normal pressure hydrocephalus. N.B. : The above information has been verbally conveyed by Fawn Godoy MD to Sheryl Green, RN, Hospital- In-Patient RN, on 09/28/2017 11:14:22 (ET). Electronically Signed: Fawn Godoy MD at 11:17 EDT , Service support , N.B. : The above information has been verbally conveyed by Fawn Godoy MD to Sheryl Green RN, Hospital- In-Patient RN, on 09/28/2017 11:14:22 (ET). Dr. Robles- Neurology Operations: None Procedures: 2-D Echocardiogram Summary of Care Provided: The patient is a 67 year old M admitted 09/27/2017 due to altered mental status. He has a past medical history of PE/DVT, hypertension, hyperlipidemia, depression with history of suicidal ideation, bipolar disorder. Acute metabolic encephalopathy, unclear etiology. Patient's noted to have small right MCA infarct. Possible NPH. Neurology consulted. Patient started on aspirin 81 mg daily, Plavix 75 mg once daily. Patient will continue dual antiplatelet therapy for 3 weeks. Continue Lipitor 80 mg p.o. nightly. MRI of brain completed, see report above. Neurology recommending transfer to tertiary care facility for neurosurgery evaluation of NPH. Recommend psychiatric and ophthalmology consult. Venous duplex ultrasound and EEG not completed prior to discharge but recommended per neurology. Patient's mental status improved but remains confused. Echocardiogram showed an EF of 60%, stage I diastolic dysfunction, mild tricuspid valve insufficiency, pulmonary artery systolic pressure 25 mmHg. Acute kidney injury improving with IV fluids. Patient stable for transfer to [facility] for evaluation of NPH. Patient seen exam prior to discharge. Alert, confused, no acute distress. Lungs clear. Heart regular in rate and rhythm. Skin intact. No edema. No tenderness to palpation of joints or extremities. Neuro grossly intact. Abdomen soft, nontender. Vital signs stable. This patient was seen by CELSO Trevino under the supervision of Dr. Kasper. Home Medications: Medications to take at Discharge Multivitamin [Daily Multiple Vitamin] 1 each PO DAILY 01/30/16 Pravastatin [Pravachol] 40 mg PO QHS 01/30/16 Hydrocodone Bitart/Apap 5-325 [[place] 5/325] 1 tablet PO Q6H PRN PRN 03/03/16 Ramipril [Altace] 5 mg PO DAILY 03/03/16 Escitalopram Oxalate [Lexapro] 10 mg PO DAILY 09/27/17 Polyethylene Glycol 3350 [Miralax] 17 gm PO DAILY 09/27/17 Primary Care Physician: Damien Vizcarra DO [Primary Care Provider] - Disposition: Acute care Hospital Minutes spent on discharge:: 35 Patient Condition:: Stable Medical Necessity - Tobacco Use Smoking Status: Unknown if ever smoked Meaningful Use Info Meaningful Use Diagnoses (Choose all that apply): Ischemic CVA - CVA Therapy Assessed for PT,OT and/or ST?: Yes - Ischemic Stroke Antithrombotic order at d/c?: Yes Dx of Atrial fib/flutter?: No Statins at discharge?: Yes Primary Dx Acute Ischemic CVA?: Yes IV tPA ordered during stay?: No Reason IV t-PA not ordered: Medical Contraindication <RanjithJamar - Last Filed: 09/28/17 16:37> Discharge Date and Diagnosis - Primary Discharge Diagnosis History of depression and psychosis - Secondary Discharge Diagnosis Chronic Problems Hypertension (Chronic) Hospital Course and Treatment Summary of Care Provided: This patient was seen in conjunction with [employer] INST[employer]ER SUPERVISOR, Yarelis. I have independently interviewed and examined the patient and reviewed pertinent history, examination findings, laboratory and plan of management. I have reviewed the note and agree with the documented findings with the few additional points. In brief, patient is 67 year old M with history of bilateral extensive PE and DVT in February 2016 was on Eliquis until early part of the year (reason for discontinuation unclear possible noncompliance) was brought in by ambulance altered mental status and not able to see on left side as per the . Patient was confused, not able to understand or comprehend the speech, repeating words, not able to recognize common things and perform simple tasks since yesterday morning. As per the , patient was asking repeated cues as he is not able to understand. He also complained of occipital and parietal headache which is new to him. Also noted to have slight left facial droop. Patient denies weakness, numbness, tingling, bowel or bladder incontinence or seizure or syncope. Patient denies any previous history of stroke or [place] or cardiac stent. [] In ED, EKG shows normal sinus rhythm at [address] head without contrast does not show any acute change. Patient also had agitation, confusion and was put on one-to-one watch and was given Haldol Patient was admitted on PCU floor as per stroke protocol CT angiogram of head and neck does not show any major stenosis or occlusion. The patient was seen and examined today General: Not cooperative, Confused, Disoriented - To time, place and situation. HEENT: Atraumatic, PERRLA, EOMI, Normocephalic Oral: Moist Mucosa Neck: Supple, No JVD, Negative Carotid Bruits Lungs: Clear to auscultation, No rhonchi, No wheeze, Diminished - Bilateral lung bases Cardiovascular: Regular rate, Regular Rhythm, Normal S1, Normal S2, No murmurs Abdomen: Bowel Sounds Present, Soft, Non Tender, Non-Distended Extremities: No edema, Capillary Refill Less than 3 Seconds Skin: No rashes, No breakdown Musculoskeletal: No Tenderness to Palpation of Joints or Extremities Neurological: Muscle tone normal, Sensory exam intact to light touch and pain, difficult to assess neurologically as patient is not able to comprehend the command. Slight left-sided facial palsy. Inability to comprehend visual, written or spoken language Psych/Mental Status: Normal Affect, Appropriate His further hospital course as follows MRI brain office today reported multiple scattered tiny infarcts and moderate ventriculomegaly suggestive of possible NPH. As per neurologist, he appreciates only tiny acute infarct on the right paramedian piotr but is more concerned of moderate ventriculomegaly, change in mental status, gait abnormality (patient complaining of balance/disequilibrium about 1-2 weeks ago as per the neurologist), symptom complex suggestive of possible NPH. He suggested transfer to tertiary neurosurgery center for further evaluation of NPH and potential lumbar drainage and monitor for improvement of symptoms. [facility] transfer line was called and clinical information, hospital course was exchanged. Patient is accepted in [facility] and in the process of being transferred. I have discussed my assessment with STEEL POST INSTALLER SUPERVISORYarelis and orders have been reviewed. [] Clinical Impression(s) from Imaging Studies Brain CT 09/27/17 09:57 IMPRESSION: Chronic involutional changes. No acute intracranial abnormality. Electronically Signed: Lee Ruffin DO at 10:34 EDT Tel , Service support , Chest X-Ray 09/27/17 09:57 IMPRESSION: Degenerative changes, as described above. No demonstrated acute cardiopulmonary process. Electronically Signed: Lee Ruffin DO at 11:19 EDT Tel , Service support , Head CTA 09/27/17 11:51 IMPRESSION: Normal bilateral cervical carotid and vertebral arteries. Electronically Signed: Kwadwo Marcos DO at 13:10 EDT Tel [phone], Service support , Neck CTA 09/27/17 11:51 IMPRESSION: Normal bilateral cervical carotid and vertebral arteries. Electronically Signed: Kwadwo Marcos DO at 13:10 EDT Tel [phone], Service support , Brain MRI 09/27/17 13:14 IMPRESSION: 1. Involutional changes of the brain, as described above. 2. Multiple scattered tiny infarcts as described. 3. Moderate ventriculomegaly may be the result of normal pressure hydrocephalus. Code Visit Inpatient E&M: 88024 Disch Hosp
--- NOTE | 2017-09-28 14:16 | DS.PCM_ITS ---
<Yarelis Ruffin - Last Filed: 09/28/17 14:17> Discharge Date and Diagnosis Date of Admission: 09/27/17 Date of Discharge: 09/28/17 - Primary Discharge Diagnosis Active and Suspected Problems 1. Acute metabolic encephalopathy 2. Acute small right MCA stroke 3. NPH 4. Acute kidney injury - Secondary Discharge Diagnosis Chronic Problems Hypertension (Chronic) Hospital Course and Treatment Imaging Results: Diagnostic Data Brain CT 09/27/17 09:57 IMPRESSION: Chronic involutional changes. No acute intracranial abnormality. Electronically Signed: Lee Ruffin DO at 10:34 EDT Tel , Service support , Chest X-Ray 09/27/17 09:57 IMPRESSION: Degenerative changes, as described above. No demonstrated acute cardiopulmonary process. Electronically Signed: Lee Ruffin DO at 11:19 EDT Tel , Service support , Head CTA 09/27/17 11:51 IMPRESSION: Normal bilateral cervical carotid and vertebral arteries. Electronically Signed: Kwadwo Marcos DO at 13:10 EDT Tel [phone], Service support , Neck CTA 09/27/17 11:51 IMPRESSION: Normal bilateral cervical carotid and vertebral arteries. Electronically Signed: Kwadwo Marcos DO at 13:10 EDT Tel [phone], Service support , Brain MRI 09/27/17 13:14 IMPRESSION: 1. Involutional changes of the brain, as described above. 2. Multiple scattered tiny infarcts as described. 3. Moderate ventriculomegaly may be the result of normal pressure hydrocephalus. N.B. : The above information has been verbally conveyed by Fawn Godoy MD to Sheryl Green, RN, Hospital- In-Patient RN, on 09/28/2017 11:14:22 (ET). Electronically Signed: Fawn Godoy MD at 11:17 EDT , Service support , N.B. : The above information has been verbally conveyed by Fawn Godoy MD to Sheryl Green RN, Hospital- In-Patient RN, on 09/28/2017 11:14:22 (ET). Dr. Robles- Neurology Operations: None Procedures: 2-D Echocardiogram Summary of Care Provided: The patient is a 67 year old M admitted 09/27/2017 due to altered mental status. He has a past medical history of PE/DVT, hypertension, hyperlipidemia, depression with history of suicidal ideation, bipolar disorder. Acute metabolic encephalopathy, unclear etiology. Patient's noted to have small right MCA infarct. Possible NPH. Neurology consulted. Patient started on aspirin 81 mg daily, Plavix 75 mg once daily. Patient will continue dual antiplatelet therapy for 3 weeks. Continue Lipitor 80 mg p.o. nightly. MRI of brain completed, see report above. Neurology recommending transfer to tertiary care facility for neurosurgery evaluation of NPH. Recommend psychiatric and ophthalmology consult. Venous duplex ultrasound and EEG not completed prior to discharge but recommended per neurology. Patient's mental status improved but remains confused. Echocardiogram showed an EF of 60%, stage I diastolic dysfunction, mild tricuspid valve insufficiency, pulmonary artery systolic pressure 25 mmHg. Acute kidney injury improving with IV fluids. Patient stable for transfer to [facility] for evaluation of NPH. Patient seen exam prior to discharge. Alert, confused, no acute distress. Lungs clear. Heart regular in rate and rhythm. Skin intact. No edema. No tenderness to palpation of joints or extremities. Neuro grossly intact. Abdomen soft, nontender. Vital signs stable. This patient was seen by CELSO Trevino under the supervision of Dr. Kasper. Home Medications: Medications to take at Discharge Multivitamin [Daily Multiple Vitamin] 1 each PO DAILY 01/30/16 Pravastatin [Pravachol] 40 mg PO QHS 01/30/16 Hydrocodone Bitart/Apap 5-325 [[place] 5/325] 1 tablet PO Q6H PRN PRN 03/03/16 Ramipril [Altace] 5 mg PO DAILY 03/03/16 Escitalopram Oxalate [Lexapro] 10 mg PO DAILY 09/27/17 Polyethylene Glycol 3350 [Miralax] 17 gm PO DAILY 09/27/17 Primary Care Physician: Damien Vizcarra DO [Primary Care Provider] - Disposition: Acute care Hospital Minutes spent on discharge:: 35 Patient Condition:: Stable Medical Necessity - Tobacco Use Smoking Status: Unknown if ever smoked Meaningful Use Info Meaningful Use Diagnoses (Choose all that apply): Ischemic CVA - CVA Therapy Assessed for PT,OT and/or ST?: Yes - Ischemic Stroke Antithrombotic order at d/c?: Yes Dx of Atrial fib/flutter?: No Statins at discharge?: Yes Primary Dx Acute Ischemic CVA?: Yes IV tPA ordered during stay?: No Reason IV t-PA not ordered: Medical Contraindication <RanjithJamar - Last Filed: 09/28/17 16:37> Discharge Date and Diagnosis - Primary Discharge Diagnosis History of depression and psychosis - Secondary Discharge Diagnosis Chronic Problems Hypertension (Chronic) Hospital Course and Treatment Summary of Care Provided: This patient was seen in conjunction with PROJECT PORTFOLIO ANALYST, Yarelis. I have independently interviewed and examined the patient and reviewed pertinent history, examination findings, laboratory and plan of management. I have reviewed the note and agree with the documented findings with the few additional points. In brief, patient is 67 year old M with history of bilateral extensive PE and DVT in February 2016 was on Eliquis until early part of the year (reason for discontinuation unclear possible noncompliance) was brought in by ambulance altered mental status and not able to see on left side as per the . Patient was confused, not able to understand or comprehend the speech, repeating words, not able to recognize common things and perform simple tasks since yesterday morning. As per the , patient was asking repeated cues as he is not able to understand. He also complained of occipital and parietal headache which is new to him. Also noted to have slight left facial droop. Patient denies weakness, numbness , tingling, bowel or bladder incontinence or seizure or syncope. Patient denies any previous history of stroke or [place] or cardiac stent. [] In ED, EKG shows normal sinus rhythm at [address] head without contrast does not show any acute change. Patient also had agitation, confusion and was put on one-to-one watch and was given Haldol Patient was admitted on PCU floor as per stroke protocol CT angiogram of head and neck does not show any major stenosis or occlusion. The patient was seen and examined today General: Not cooperative, Confused, Disoriented - To time, place and situation. HEENT: Atraumatic, PERRLA, EOMI, Normocephalic Oral: Moist Mucosa Neck: Supple, No JVD, Negative Carotid Bruits Lungs: Clear to auscultation, No rhonchi, No wheeze, Diminished - Bilateral lung bases Cardiovascular: Regular rate, Regular Rhythm, Normal S1, Normal S2, No murmurs Abdomen: Bowel Sounds Present, Soft, Non Tender, Non-Distended Extremities: No edema, Capillary Refill Less than 3 Seconds Skin: No rashes, No breakdown Musculoskeletal: No Tenderness to Palpation of Joints or Extremities Neurological: Muscle tone normal, Sensory exam intact to light touch and pain, difficult to assess neurologically as patient is not able to comprehend the command. Slight left-sided facial palsy. Inability to comprehend visual, written or spoken language Psych/Mental Status: Normal Affect, Appropriate His further hospital course as follows MRI brain office today reported multiple scattered tiny infarcts and moderate ventriculomegaly suggestive of possible NPH. As per neurologist, he appreciates only tiny acute infarct on the right paramedian piotr but is more concerned of moderate ventriculomegaly, change in mental status, gait abnormality (patient complaining of balance/disequilibrium about 1-2 weeks ago as per the neurologist), symptom complex suggestive of possible NPH. He suggested transfer to tertiary neurosurgery center for further evaluation of NPH and potential lumbar drainage and monitor for improvement of symptoms. [facility] transfer line was called and clinical information, hospital course was exchanged. Patient is accepted in [facility] and in the process of being transferred. I have discussed my assessment with PROJECT PORTFOLIO ANALYSTYarelis and orders have been reviewed. [] Clinical Impression(s) from Imaging Studies Brain CT 09/27/17 09:57 IMPRESSION: Chronic involutional changes. No acute intracranial abnormality. Electronically Signed: Lee Ruffin DO at 10:34 EDT Tel , Service support , Chest X-Ray 09/27/17 09:57 IMPRESSION: Degenerative changes, as described above. No demonstrated acute cardiopulmonary process. Electronically Signed: Lee Ruffin DO at 11:19 EDT Tel , Service support , Head CTA 09/27/17 11:51 IMPRESSION: Normal bilateral cervical carotid and vertebral arteries. Electronically Signed: Kwadwo Marcos DO at 13:10 EDT Tel [phone], Service support , Neck CTA 09/27/17 11:51 IMPRESSION: Normal bilateral cervical carotid and vertebral arteries. Electronically Signed: Kwadwo Marcos DO at 13:10 EDT Tel [phone], Service support , Brain MRI 09/27/17 13:14 IMPRESSION: 1. Involutional changes of the brain, as described above. 2. Multiple scattered tiny infarcts as described. 3. Moderate ventriculomegaly may be the result of normal pressure hydrocephalus. Code Visit Inpatient E&M: 02541 Disch Hosp
[2017-09-28 14:17] LABS: Hemoglobin A1c 5.4 % (4.2-6.3)
[2017-09-28 16:10] VITALS: BP 138/89; PULSE 74; RESP 16; TEMP 37.1; O2SAT 95
[2017-09-28 16:45] LABS: Bedside Glucose 98 mg/dL (70-110)
[2017-09-28 17:23] LABS: Bacteria 0 SEEN /hpf (None Seen); Mucous, Urine 0 SEEN /hpf (<or=2+); Red Blood Cells-Urine 0 SEEN /hpf (0-5); Squamous Epithelial Cells - UA 0 SEEN /hpf (0-5)
[2017-09-28 17:37] LABS: Color, Urine Yellow (Yellow); Glucose, Dipstick Normal (Normal); Ketone-Dipstick Negative (Negative); Leukocyte Esterase-Dipstick 25 /ul (Negative); Nitrite-Dipstick Negative (Negative); Occult Blood-Urine 10 /ul (Negative); Protein-Dipstick Negative (Negative); Urine Bilirubin Dipstick Negative (Negative); Urine Clarity Clear (Clear); Urine Urobilinogen Normal (Normal); Urine pH 6.5 (5.0 - 8.0)
[2017-09-28 17:50] LABS: White Blood Cells 0-5 SEEN /hpf (0-5)
[2017-09-28 18:12] LABS: Amphetamine Urine VISTA NEGATIVE (<1000 ng/mL); Barbiturate Urine VISTA NEGATIVE (< 200 ng/mL); Benzodiazepine Urine VISTA NEGATIVE (< 200 ng/mL); Cocaine Urine VISTA NEGATIVE (< 300 ng/mL); Ecstacy Urine VISTA NEGATIVE (< 500 ng/mL); Methadone Urine VISTA NEGATIVE (< 300 ng/mL); PCP Urine VISTA NEGATIVE (< 25 ng/mL); THC Urine VISTA NEGATIVE (< 50 ng/mL); Vista UDS pH Range 6
--- NOTE | 2017-09-28 19:42 | NURSING ---
Report called to Yarelis at [facility]
[2017-09-28 20:20] VITALS: BP 125/75; PULSE 70; RESP 18; TEMP 36.6; O2SAT 96
== END 2017-09-28 21:04 | disposition short-term general hospital (02) | DRG 64 ==
LOC: ED 10:16 → PCU 11:52
PROVIDERS: Psychiatry & Neurology Neurology; Admitting Provider Internal Medicine; Emergency Provider Emergency Medicine; Family Provider Preventive Medicine Occupational Medicine; PCP Preventive Medicine Occupational Medicine; Visit Provider Internal Medicine
DX: I63.511 Cerebral infarction due to unspecified occlusion or stenosis of right middle cerebral artery (principal); G93.41 Metabolic encephalopathy; N17.9 Acute kidney failure, unspecified; G91.2 (Idiopathic) normal pressure hydrocephalus; R29.703 NIHSS score 3; I10 Essential (primary) hypertension
CPT/HCPCS: 36415; 70450; 70496; 70498; 70551; 71045; 80048; 80061; 80076; 80307; 80320; 81001; 82140; 82962; 83036; 84443; 84484; 85025; 92507; 92523; 93005; 93306; 93970; 99251; 99283; J7030; Q9967; A4216; G0463; G0480; J3486

== ENCOUNTER 2017-11-19 17:15 | Emergency (ER) | payer MEDICARE, SELFPAY ==
[2017-11-19 17:16] VITALS: BP 146/95; PULSE 70; RESP 17; TEMP 37.1; O2SAT 96; BMI 29.1
--- NOTE | 2017-11-19 17:37 | ED.DCSUM_ITS ---
- ER Visit Summary Date of Service: 11/19/17 Chief Complaint: Fall History of Present Illness: The patient is a 67 M presenting after fall. This occurred 2 days ago. 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 He did hit his head but did not lose consciousness. He is on blood thinners, he does not know which medication he is on. He states that since that time he has felt dizzy. He has had no syncope. Denies other complaints. Physical Examination: Vitals are stable. Patient is afebrile. Alert no acute distress. HEENT exam is unremarkable. Neck is nontender Lungs are clear and equal bilaterally. Heart is regular rate and rhythm. Abdomen is soft nontender nondistended. Extremities are unremarkable. Skin is warm and dry. No focal neurologic deficit. Remainder of exam is unremarkable. Emergency Department Course and Treatment: EKG is sinus rate of 61, unchanged from previous. CBC, Chemistries unremarkable other than potassium 3.2, creatinine 1.47 which is at his baseline. Troponin is negative. CT head and neck showed no acute process. Patient is resting comfortably in the emergency room. He is able to ambulate without difficulty. He will follow-up with his primary care physician. Advised to return to ED for any worsening complaints. Disposition: Discharged home Impression: Closed head injury, dizziness This note was generated with [employer] dictation software. It may contain incorrect words, spelling, and punctuation that were not noted in review of the chart prior to signing ED Disposition - Plan for ED Patient: Chief Complaint: Fall Instructions: ED Mechanical Fall Referrals: Damien Vizcarra DO [Primary Care Provider] -
[2017-11-19 18:05] LABS: Absolute Lymphocyte Count 1.11 X10^3/ul (0.83-4.51); Absolute Neutrophil Count 2.8 X10^3/uL (2.0-7.7); Basophil# 0.03 X10^3/uL; Basophil% 0.7 % (0-1); Eosinophil# 0.08 X10^3/uL; Eosinophils% 1.8 % (0-5); Hematocrit 45.8 % (40-54); Hemoglobin 15.4 g/dl (13.0-16.5); Lymphocyte # 1.11 X10^3/ul (4.0); Lymphocyte % 24.7 % (19-41); Mean Corp Hgb Conc 33.6 g/gl (32-36); Mean Corpuscular Hgb 29.4 pg (27.0-32.0); Mean Corpuscular Volume 87.4 fL (80-94); Mean Platelet Vol. 9.7 fl (6.2-12.0); Monocyte% 11.1 % (0-10); Neutrophil # 2.76 X10^3/uL (2.7-7.7); Neutrophil % 61.5 % (47-70); POSITIVE COUNT NO; POSITIVE DIFFERENTIAL NO; POSITIVE MORPHOLOGY NO; Platelet Count 180 K/mm3 (150-450); RBC Distribution Width CV 12.9 % (11.6-14.6); RBC Distribution Width SD 41.3 fl (35.1-43.9); Red Blood Count 5.24 M/mm3 (4.6-6.2); White Blood Count 4.5 K/mm3 (4.4-11.0)
[2017-11-19 18:13] LABS: Anion Gap 12 (5-15); BUN 16 mg/dL (7-18); BUN/Creat Ratio 10.9 RATIO (10-20); Calcium,Total 9.3 mg/dL (8.5-10.1); Chloride 109 mmol/L (98-107); Creatinine, Serum 1.47 mg/dL (0.70-1.30); EST Glomerular Filtration Rate 51 mL/min (>60); Est Glom Filt Rate - Afr Amer 61 mL/min (>60); Estimated Creatinine Clearance 42.42 ml/min; Glucose 94 mg/dL (74-106); Potassium 3.2 mmol/L (3.5-5.1); Sodium Level 145 mmol/L (136-145)
--- NOTE | 2017-11-19 19:15 | ED.DEP ---
ED Disposition - Plan for ED Patient: Chief Complaint: Fall Instructions: ED Mechanical Fall Referrals: Damien Vizcarra DO [Primary Care Provider] -
[2017-11-19 19:40] VITALS: BP 140/86; PULSE 86; RESP 18; O2SAT 97
== END 2017-11-19 19:41 | disposition home or self-care (01) ==
LOC: ED 18:47
PROVIDERS: Emergency Provider Emergency Medicine; Family Provider Preventive Medicine Occupational Medicine; PCP Preventive Medicine Occupational Medicine
DX: S09.90XA Unspecified injury of head, initial encounter (principal); R42 Dizziness and giddiness; W19.XXXA Unspecified fall, initial encounter; Y93.9 Activity, unspecified; Y92.9 Unspecified place or not applicable; Z86.73 Personal history of transient ischemic attack (TIA), and cerebral infarction without residual deficits; Z79.899 Other long term (current) drug therapy
CPT/HCPCS: 70450; 72125; 80048; 84484; 85025; 93005; 99284; A4216

== ENCOUNTER 2018-03-16 16:30 | Emergency (ER) | payer MEDICARE, SELFPAY ==
[2018-03-16 16:31] VITALS: BP 143/91; PULSE 87; RESP 19; TEMP 36.6; O2SAT 99; BMI 28.3
--- NOTE | 2018-03-16 16:35 | CT_ITS ---
STUDY: CTA NECK WITH AND WITHOUT CONTRAST REASON FOR EXAM: Male, 67 years old. Stroke protocol RADIATION DOSAGE (If Supplied By Facility): CTDIvol = ( 24.80 ) mGy, DLP = ( 823.31 ) mGycm TECHNIQUE: CT angiography with multi-detector data acquisition was performed from the aortic arch to the skull base prior to and after intravenous administration of 100CC ml of Isovue 370 contrast. MIP images were reconstructed from the axial data set. Post-processing of the angiographic images was performed, with multiplanar reformation and 3D reconstruction. Individualized dose optimization techniques were used for this CT. COMPARISON: CT brain March 16, 2018 and CTA neck September 27, 2017 FINDINGS: AORTIC ARCH: Normal visualized aortic arch. Normal origins of the brachiocephalic, left common carotid, and left subclavian arteries. RIGHT CAROTID ARTERIES: Normal right common carotid artery (CCA). Normal right common carotid bulb. Normal origin of the right internal carotid (ICA) artery without a hemodynamically significant stenosis. Normal visualized cervical portion of the right internal carotid artery. Normal origin of the right external carotid artery (ECA). LEFT CAROTID ARTERIES: Normal left common carotid artery (CCA). Normal left common carotid bulb. Normal origin of the left internal carotid (ICA) artery without a hemodynamically significant stenosis. Normal visualized cervical portion of the left internal carotid artery. Normal origin of the left external carotid artery (ECA). VERTEBRAL ARTERIES: Normal bilateral vertebral arteries. CT/CTA Neck W/WO Contrast IMPRESSION: Normal bilateral cervical carotid and vertebral arteries. Electronically Signed: Italo Guadalupe MD at 18:01 EST , Service support ,
--- NOTE | 2018-03-16 16:35 | EKG12_ITS ---
Test Reason : STROKE Blood Pressure : / mmHG Vent. Rate : 084 BPM Atrial Rate : 084 BPM P-R Int : 136 ms QRS Dur : 090 ms QT Int : 370 ms P-R-T Axes : 063 055 032 degrees QTc Int : 437 ms Normal sinus rhythm Normal ECG Confirmed by VAUGHN LOMELI ([id number]), art editor BLESSING PEREZ ([id number]) on 03/19/2018 1:05:37 PM Referred By: BRIANNE Confirmed By:VAUGHN LOMELI
--- NOTE | 2018-03-16 16:35 | CT_ITS ---
STUDY: CTA OF THE BRAIN REASON FOR EXAM: Male, 67 years old. Stroke protocol RADIATION DOSAGE (If Supplied By Facility): CTDIvol = ( 24.80 ) mGy, DLP = ( 823.31 ) mGycm TECHNIQUE: CT angiography was performed with a multi-detector CT scanner. Data acquisition was obtained from the skull base through the vertex following intravenous administration of 100 ml of Isovue-370. MIP images were reconstructed from the axial data set. Post-processing of the angiographic images was performed, with multiplanar reformation and 3D reconstruction. Individualized dose optimization techniques were used for this CT. COMPARISON: CT brain March 16, 2018 and CTA brain September 27, 2017 FINDINGS: Normal bilateral petrous carotid arteries. Normal right cavernous carotid artery with a normal supraclinoid bifurcation. Normal left cavernous carotid artery with a normal supraclinoid bifurcation. Normal right A1 segments of the anterior cerebral artery. Normal left A1 segments of the anterior cerebral artery. Normal intact anterior communicating artery (ACOM). Normal bilateral A2 segments of the anterior cerebral arteries. Normal right M1 and M2 segments of the middle cerebral arteries, with a normal M1 bifurcation. Normal left M1 and M2 segments of the middle cerebral arteries, with a normal M1 bifurcation. There is non-visualization of the right posterior communicating artery (PCOM). There is non-visualization of the left posterior communicating artery (PCOM). Normal bilateral vertebral arteries. Normal basilar artery with a normal basilar bifurcation. The visualized bilateral superior cerebellar (SCA) arteries are normal. Normal bilateral P1, P2 and visualized P3 segments of the posterior cerebral arteries. There is no demonstrated aneurysm of the deering of Hernandez. Dense intraparenchymal hemorrhage is again noted within the tail of the caudate on the left which appears essentially unchanged. Hematocrit effect is noted in the occipital horns bilaterally. IMPRESSION: Stable intraparenchymal hemorrhage left caudate tail and intraventricular hemorrhage otherwise Normal deering of Hernandez without a demonstrated aneurysm or hemodynamically significant stenosis. Electronically Signed: Italo Guadalupe MD at 17:57 EST , Service support , CT/CTA Head W/WO Contrast
--- NOTE | 2018-03-16 16:35 | CT_ITS ---
STUDY: CT BRAIN WITHOUT CONTRAST REASON FOR EXAM: Male, 67 years old. Stroke protocol. RADIATION DOSAGE (If Supplied By Facility): CTDIvol = ( ) mGy, DLP = ( ) mGycm TECHNIQUE: Transaxial CT imaging of the brain was performed without administration of intravenous contrast material. Individualized dose optimization techniques were used for this CT. COMPARISON: November 19, 2017 FINDINGS: Normal soft tissue structures. There are stable postsurgical changes from a right occipital craniotomy. There is mild cerebral atrophy with widening of the extra-axial spaces and ventricular dilatation. There are areas of decreased attenuation within the white matter tracts of the supratentorial brain, consistent with microvascular disease changes. There is an acute left thalamic hemorrhage measuring 1.6 x 2.4 cm. There is associated high attenuation fluid within the posterior horns of the lateral ventricles. Normal visualized paranasal sinuses. CT/Brain/Head without Contrast IMPRESSION: Acute left thalamic hemorrhage with subarachnoid extension of hemorrhage within the lateral ventricles. Small vessel ischemia. N.B. : The above information has been verbally conveyed by Ericka Eller MD to Abran Ma MD t, MD, on 03/16/2018 16:56:35 (ET). Electronically Signed: Ericka Eller MD at 16:57 EST Tel , Service support ,
[2018-03-16 16:48] VITALS: BP 147/93; PULSE 86; RESP 12; TEMP 36.6; O2SAT 97
--- NOTE | 2018-03-16 16:50 | RAD_ITS ---
STUDY: X-RAY CHEST REASON FOR EXAM: Male, 67 years old. Found on bathroom floor with right-sided facial droop. TECHNIQUE: Single frontal view of the chest. COMPARISON: September 27, 2017 FINDINGS: There is a vague nodular rounded opacity within the right mid/upper lung. Normal size heart. Normal mediastinum and mookie. Normal visualized pulmonary arteries. Normal visualized aortic arch and descending thoracic aorta. Normal visualized thoracic spine. Normal visualized ribs, clavicles, and shoulders. There is no demonstrated abnormality of the visualized soft tissue structures of the upper abdomen. RAD/Chest 1 View IMPRESSION: Vague nodular opacity within the right mid/upper lung that is likely secondary to a confluence of shadows however cannot exclude underlying nodule, a PA and lateral radiograph may be useful for further characterization. Electronically Signed: Ericka Eller MD at 17:15 EST Tel , Service support ,
--- NOTE | 2018-03-16 16:57 | CM.ED ---
Social Work Note Responded to stroke alert. Face to face with the pt's . Introduced self and role at [facility]. Per the pt's the pt was last seen by his son around 11 am and she found him on the floor when she returned from work this afternoon and called the squad. Pt had a mild stroke in September per the pt's and also has a hx of dementia. She is his primary caregiver, and also work FT at [employer]. Their son lives with them, but she states that he often stays in his room. In September the pt was transferred to [facility] and then home. She states that someone from [facility] came out once and he was discharged. She states that if he would need additional therapy before returning home [place] would be convenient, but also states it could be stressful as it is her place of employment. Educate the pt to alternative options as well as in addition to [employer]. Made aware of Inpatient Rehab Unit at [facility] if they felt the pt could handle 3 hrs of therapy once discharged from his hospitalization. The pt does not have advanced directives per the . Dr. Robles came to talk to the pt's and informed her that the pt would need to be transferred. Emotional support provided. denies any needs at this time, and is made aware that this manual writer is available if needs arise. PLAN: Transfer to tertiary care center. Yarelis Anglin, PIT CLERK, [employer]
--- NOTE | 2018-03-16 17:00 | CON.PCM_ITS ---
Problem List (1) ICH (intracerebral hemorrhage) Status: Acute (2) Altered mental status Status: Acute Qualifiers: Reason for Consult Date of Consultation: 03/16/18 Reason for Consultation: ICH History of Present Illness: The patient is a 67 year old CM with PMH HTN, HLD, H/O bilateral PE and DVT in February 2016, was on Eliquis, during the February 2016 admission he had suicidal ideation, diagnosed with depression and started on Lexapro, H/O small acute right MCA stroke in September 2017 now admitted with altered mental status as a stroke alert. History could not be obtained from patient, History is obtained from medical records and patients . Per he was last seen normal around 11 am, then when she came back from work in the evening she found him down, in the ED patient has right sided weakness, with right facial droop. NIHSS was 8 on admission. Per he uses cane to ambulate, has intermittent falls, does drive and does need assistance for his ADLs. Per she is not sure if she is taking any AP like ASA or Plavix. 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 Past Medical History Past Medical History (Chronic Problems): Chronic Problems Hypertension (Chronic) Allergies codeine Adverse Reaction (Verified 03/16/18 16:48) Unknown Home Medications: Ambulatory Orders Medication Instructions Recorded Multivitamin [Daily Multiple 1 each PO DAILY 01/30/16 Vitamin] Pravastatin [Pravachol] 40 mg PO QHS 01/30/16 Hydrocodone Bitart/Apap 5-325 1 tablet PO Q6H PRN PRN 03/03/16 [[place] 5/325] Ramipril [Altace] 5 mg PO DAILY 03/03/16 Escitalopram Oxalate [Lexapro] 10 mg PO DAILY 09/27/17 Polyethylene Glycol 3350 [Miralax] 17 gm PO DAILY 09/27/17 Lives: With Family Smoking Status: Former smoker Alcohol: None Drugs: None - *Family History Maternal History Items: No pertinent history Review of Systems Constitutional: Reports: - - ROS could not be obtained as patient has AMS Patient Problems: Active and Suspected Problems ICH (intracerebral hemorrhage) (Acute) - Physical Exam General: - - awake, intermittently follows VC. HEENT: Normocephalic Neck: Supple Lungs: Normal air movement Cardiovascular: Normal S1, Normal S2 Abdomen: Bowel Sounds Present Extremities: No cyanosis Neurological: - - awake, intermittently follows VC, CN 2-12 grossly intact except right UMN facial palsy, ? right homonymous hemianopia, Power right UE/LE 3/5, pronator drift present both right UE/LE, denies any sensory loss, no cerebellar signs, Reflexes + B/L B/S/T/K/A, gait deferred, NIHSS 8 at present. mRS 2 at baseline Vital Signs Temp Pulse Resp BP Pulse Ox 98 F 87 19 H 143/91 H 99 03/16/18 16:31 03/16/18 16:31 03/16/18 16:31 03/16/18 16:31 03/16/18 16:31 Oxygen Delivery Method Room Air Weight: 82.2 kg Body Mass Index (BMI) 28.3 Assessment/Plan All Active Problems ICH (intracerebral hemorrhage) (Acute) Altered mental status (Acute) Ischemic stroke (Acute) Dyslipidemia (Acute) Acute respiratory failure (Resolved) Pulmonary emboli (Acute) The patient is a 67 year old CM with PMH HTN, HLD, H/O bilateral PE and DVT in February 2016, was on Eliquis, during the February 2016 admission he had suicidal ideation, diagnosed with depression and started on Lexapro, H/O small acute right MCA stroke in September 2017 now admitted with altered mental status as a stroke alert. History could not be obtained from patient, History is obtained from medical records and patients . Per he was last seen normal around 11 am, then when she came back from work in the evening she found him down, in the ED patient has right sided weakness, with right facial droop. NIHSS was 8 on admission. Per he uses cane to ambulate, has intermittent falls, does drive and does need assistance for his ADLs. Per she is not sure if she is taking any AP like ASA or Plavix. 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 -Neurosurgery consult -Frequent neuro checks -Monitor BP, keep SBP between 140-160 mmHg -Further management per neurosurgery -Further medical management per hospitalist -GI/DVT prophylaxis -PT/OT/ST -Fall precautions -Please call with questions if any -Thank you for allowing us to participate in patient's care and management Code Visit Inpatient E&M: [id number] Init Hosp L3
[2018-03-16 17:01] VITALS: BP 139/97; PULSE 92; RESP 16; O2SAT 97
[2018-03-16 17:08] LABS: Absolute Lymphocyte Count 0.36 X10^3/ul (0.83-4.51); Absolute Neutrophil Count 8.6 X10^3/uL (2.0-7.7); Basophil# 0.01 X10^3/uL; Basophil% 0.1 % (0-1); Hematocrit 43.6 % (40-54); Hemoglobin 15.1 g/dl (13.0-16.5); Lymphocyte # 0.36 X10^3/ul (4.0); Lymphocyte % 3.8 % (19-41); Mean Corp Hgb Conc 34.6 g/gl (32-36); Mean Corpuscular Hgb 30.3 pg (27.0-32.0); Mean Corpuscular Volume 87.4 fL (80-94); Mean Platelet Vol. 9.8 fl (6.2-12.0); Monocyte# 0.63 X10^3/uL; Monocyte% 6.6 % (0-10); Neutrophil # 8.55 X10^3/uL (2.7-7.7); Neutrophil % 89.3 % (47-70); Platelet Count 191 K/mm3 (150-450); RBC Distribution Width CV 12.8 % (11.6-14.6); RBC Distribution Width SD 40.3 fl (35.1-43.9); Red Blood Count 4.99 M/mm3 (4.6-6.2); White Blood Count 9.6 K/mm3 (4.4-11.0)
[2018-03-16 17:10] LABS: International Normalized Ratio 1.2; Prothrombin Time (Protime)PT. 15.2 SECONDS (11.7-14.9)
[2018-03-16 17:11] LABS: Differential Indicated SCAN CRITERIA MET; POSITIVE COUNT NO; POSITIVE DIFFERENTIAL YES; POSITIVE MORPHOLOGY NO
[2018-03-16 17:20] LABS: Anion Gap 10 (5-15); BUN 16 mg/dL (7-18); BUN/Creat Ratio 11.2 RATIO (10-20); Bedside Glucose 114 mg/dL (70-110); Calcium,Total 9.1 mg/dL (8.5-10.1); Chloride 107 mmol/L (98-107); Creatinine, Serum 1.43 mg/dL (0.70-1.30); EST Glomerular Filtration Rate 52 mL/min (>60); Est Glom Filt Rate - Afr Amer 63 mL/min (>60); Estimated Creatinine Clearance 46.87 ml/min; Glucose 106 mg/dL (74-106); Potassium 3.3 mmol/L (3.5-5.1); Sodium Level 141 mmol/L (136-145)
--- NOTE | 2018-03-16 17:26 | NURSING ---
CALLED [facility]
--- NOTE | 2018-03-16 17:33 | ED.DCSUM_ITS ---
- ER Visit Summary Date of Service: 03/16/18 Chief Complaint: Right-sided weakness, facial droop, speech difficulty History of Present Illness: The patient is a 67 M who around 11 AM started with the symptoms. He had weakness on the right side as well as a facial droop. When family returned to 4 PM he had the symptoms. He denies a headache, nausea or vomiting. He had a stroke, ischemic in September. states that he was on a blood thinner and aspirin but she did not refill the medication when it ran out and she does not believe he is taking any aspirin. Physical Examination: Vital signs reviewed. HEENT exam unremarkable. Heart is regular rate and rhythm without murmurs. Lungs are clear to auscultation. Abdomen is soft and nontender. Extremities reveal no edema. Skin exam normal. Neurologic exam shows right-sided weakness with facial droop and slurred speech. He does have some expressive aphasia. NIH score is 9 Test Results: CAT scan of the head reveals a left thalamic bleed with intraventricular extension. INR 1.2. Potassium 3.3. Emergency Department Course and Treatment: The neurologist, Dr. Robles was present at bedside upon patient's arrival. He dilated the CAT scan and recommended transfer. I discussed with family and they would like to be through to [place]. I discussed to the emergency department and patient will be transferred through the emergency department there. 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 It may contain incorrect words, spelling, and punctuation that were not noted in review of the chart prior to signing ED Disposition - Plan for ED Patient: Chief Complaint: Neuro S/Sx Referrals: Damien Vizcarra DO [Primary Care Provider] -
--- NOTE | 2018-03-16 17:40 | NURSING ---
[id number] CALLED
[2018-03-16 18:32] VITALS: BP 145/91; PULSE 82; RESP 18; O2SAT 98
== END 2018-03-16 18:15 | disposition short-term general hospital (02) ==
PROVIDERS: Emergency Provider Emergency Medicine; Family Provider Preventive Medicine Occupational Medicine; PCP Preventive Medicine Occupational Medicine
DX: I61.8 Other nontraumatic intracerebral hemorrhage (principal); G81.91 Hemiplegia, unspecified affecting right dominant side; R29.810 Facial weakness; R47.01 Aphasia; R29.709 NIHSS score 9; I10 Essential (primary) hypertension; E78.00 Pure hypercholesterolemia, unspecified; Z86.73 Personal history of transient ischemic attack (TIA), and cerebral infarction without residual deficits; Z86.711 Personal history of pulmonary embolism; Z79.899 Other long term (current) drug therapy; Z72.0 Tobacco use
CPT/HCPCS: 70450; 70496; 70498; 71045; 80048; 82962; 84484; 85025; 85610; 85730; 93005; 99285; Q9967

== ENCOUNTER 2018-04-14 10:50 | Inpatient (IN) | payer MEDICARE, SELFPAY ==
[2018-04-14] VITALS (9 sets, daily range): BP systolic 90–108; BP diastolic 62–78; PULSE 67–77; RESP 15–20; TEMP 36.5–38.2; O2SAT 93–96; BMI 28.0; BMI 28.1
--- NOTE | 2018-04-14 11:29 | CT_ITS ---
STUDY: CT ABDOMEN AND PELVIS WITHOUT CONTRAST REASON FOR EXAM: Male, 67 years old. Fever, acute renal failure and urinary tract infection. RADIATION DOSAGE (If Supplied By Facility): CTDIvol = ( 13.79 ) mGy, DLP = ( 682.31 ) mGycm TECHNIQUE: Transaxial images were obtained from the dome of the diaphragm to the symphysis pubis without oral contrast, and without intravenous contrast. Sagittal and coronal images were reconstructed. Individualized dose optimization techniques were used for this CT. COMPARISON: 05/17/2017. FINDINGS: The visualized portions of lung bases demonstrate prominent pulmonary vasculature in the left lower lung and mild atelectatic changes. The visualized portions of the heart are within normal limits. There are significant artifacts. No focal lesion is definitely identified in the liver on this noncontrast examination. The liver is enlarged. There are surgical clips in the gallbladder fossa consistent with a prior cholecystectomy. Normal spleen. Normal pancreas. Normal bilateral adrenal glands. There again is a lesion in the upper pole of the right kidney posteriorly unchanged since the prior examination difficult to accurately evaluate without contrast and due to motion artifact. There is no evidence of hydronephrosis. Bilateral nonobstructing renal stones are again seen. Normal visualized stomach. The small bowel loops are normal in caliber. The examination is limited due to motion. There is no evidence of acute diverticulitis. There is fecal retention. The appendix is not definitely identified. There is tortuosity of the abdominal aorta without evidence of aneurysm. Normal inferior vena cava. Normal retroperitoneum. Normal urinary bladder. The prostate is slightly prominent. There are prostatic calcifications. Normal abdominal wall. There are diffuse degenerative changes of the visualized lumbar spine. CT/Abdomen/Pelvis without Cont IMPRESSION: 1. Right renal lesion as described above essentially unchanged since prior examination. 2. Stable bilateral nonobstructing renal stones. No evidence of hydronephrosis. 3. Hepatomegaly. 4. Status post cholecystectomy. Electronically Signed: Christopher Gamble MD at 13:35 EST Tel , Service support ,
--- NOTE | 2018-04-14 11:52 | ED.VISSUMM ---
- ER Visit Summary Date of Service: 04/14/18 Chief Complaint: [] Renal failure fever recent stroke History of Present Illness: The patient is a 67 M [] patient has a history of having a recent hemorrhagic stroke he was recently admitted to [facility] and discharged to local senior living facility, Dr. Abel Godoy his physician was notified today that the patient had poor urine output and was having fevers despite the institution of Rocephin a few days ago. Dr. Godoy called gave the above information and asked the patient be evaluated in the emergency department for further management and disposition and admission, per the who is here with the patient she reports the same history nothing additional he has had poor p.o. intake, she indicates nurses cath him at the senior living today and got what sounds like 10 cc of urine, he is unable to able to provide history he is otherwise at his normal status he breathes through his mouth he is paralyzed to the right side and cannot move, he has a red afsaneh on his coccyx that is being managed with local skin care but otherwise has no lesions to his skin otherwise he has had no cough he has had no vomiting no obvious signs of aspiration he is taking thickened foods by mouth He is DNR Comfort Care arrest with reasonable medical management no ACLS or intubation prime focus is his comfort Physical Examination: [] 100.7, 98/60 General, no distress resting comfortably HEENT is generally unremarkable, he is breathing through his mouth his mucous memories are very dry The neck is supple no adenopathy Cardiovascular, regular rate and rhythm Lungs, clear bilateral Abdomen, soft nontender Extremities, no clubbing cyanosis or 4+ bilaterally edema, to the posterior coccyx there is a red lesion it is not ulcerated there is no drainage no fluid no fluctuance the rest of the skin is unremarkable Neurologic, awake scanning the room he is nonverbal he has no movement really to any of his extremities to palpation or stimuli at this time Test Results: [] Emergency Department Course and Treatment: [] In all the above screening labs are obtained IV fluids blood and urine cultures Patient screening labs reveal a creatinine of about 8, see those reports, the chest x-ray and abdominal CT showed nothing acute nonspecific prior changes, he has been he with IV fluids, pending UA bladder scan antibiotics at this time given all the above we have asked the hospital see him further management and admission Treatment Plan: [] Disposition: [] Admit stable Impression: [] Febrile illness, acute renal failure, stroke with right-sided paralysis, DNR Comfort Care reasonable medical management no ACLS This note was generated with [employer] dictation software. It may contain incorrect words, spelling, and punctuation that were not noted in review of the chart prior to signing ED Disposition - Plan for ED Patient: Chief Complaint: Abn Labs Referrals: Damien Vizcarra DO [Primary Care Provider] -
--- NOTE | 2018-04-14 11:55 | ED.DCSUM_ITS ---
- ER Visit Summary Date of Service: 04/14/18 Chief Complaint: [] Renal failure fever recent stroke History of Present Illness: The patient is a 67 M [] patient has a history of having a recent hemorrhagic stroke he was recently admitted to [facility] and discharged to local [facility] facility, Dr. Abel Goody his physician was notified today that the patient had poor urine output and was having fevers despite the institution of Rocephin a few days ago. Dr. Godoy called gave the above information and asked the patient be evaluated in the emergency department for further management and disposition and admission, per the who is here with the patient she reports the same history nothing additional he has had poor p.o. intake, she indicates nurses cath him at the [facility] today and got what sounds like 10 cc of urine, he is unable to able to provide history he is otherwise at his normal status he breathes through his mouth he is paralyzed to the right side and cannot move, he has a red afsaneh on his coccyx that is being managed with local skin care but otherwise has no lesions to his skin otherwise he has had no cough he has had no vomiting no obvious signs of aspiration he is taking thickened foods by mouth He is DNR Comfort Care arrest with reasonable medical management no ACLS or intubation prime focus is his comfort Physical Examination: [] 100.7, 98/60 General, no distress resting comfortably HEENT is generally unremarkable, he is breathing through his mouth his mucous memories are very dry The neck is supple no adenopathy Cardiovascular, regular rate and rhythm Lungs, clear bilateral Abdomen, soft nontender Extremities, no clubbing cyanosis or 4+ bilaterally edema, to the posterior coccyx there is a red lesion it is not ulcerated there is no drainage no fluid no fluctuance the rest of the skin is unremarkable Neurologic, awake scanning the room he is nonverbal he has no movement really to any of his extremities to palpation or stimuli at this time Test Results: [] Emergency Department Course and Treatment: [] In all the above screening labs are obtained IV fluids blood and urine cultures Patient screening labs reveal a creatinine of about 8, see those reports, the chest x-ray and abdominal CT showed nothing acute nonspecific prior changes, he has been he with IV fluids, pending UA bladder scan antibiotics at this time given all the above we have asked the hospital see him further management and admission Treatment Plan: [] Disposition: [] Admit stable Impression: [] Febrile illness, acute renal failure, stroke with right-sided paralysis, DNR Comfort Care reasonable medical management no ACLS This note was generated with [employer] dictation software. It may contain incorrect words, spelling, and punctuation that were not noted in review of the chart prior to signing ED Disposition - Plan for ED Patient: Chief Complaint: Abn Labs Referrals: Damien Vizcarra DO [Primary Care Provider] -
--- NOTE | 2018-04-14 11:55 | RAD_ITS ---
STUDY: X-RAY CHEST REASON FOR EXAM: Male, 67 years old. Fever TECHNIQUE: Single view of the chest was obtained COMPARISON: March 16, 2018 FINDINGS: Ill-defined nodular density in the right middle and upper lobe seen on previous examination is not well characterized on this exam however patient may benefit from outpatient chest CT. Aortic tortuosity. Prominent aortic knob. No pneumothorax. No definite consolidation. Osseous structures demonstrate no acute abnormalities. IMPRESSION: No evidence for focal airspace disease. Ill-defined nodular density in the right middle and upper lobe seen on previous examination is not well characterized on this exam however patient may benefit from outpatient chest CT Electronically Signed: Lopez Pereira, at 12:47 EST Tel , Service support , RAD/Chest 1 View (Portable)
[2018-04-14 12:05] LABS: Absolute Lymphocyte Count 0.77 X10^3/ul (0.83-4.51); Basophil# 0.02 X10^3/uL; Basophil% 0.1 % (0-1); Hematocrit 40.9 % (40-54); Hemoglobin 13.3 g/dl (13.0-16.5); Lymphocyte # 0.77 X10^3/ul (4.0); Lymphocyte % 3.4 % (19-41); Mean Corp Hgb Conc 32.5 g/gl (32-36); Mean Corpuscular Hgb 29.8 pg (27.0-32.0); Mean Corpuscular Volume 91.7 fL (80-94); Mean Platelet Vol. 10.8 fl (6.2-12.0); Monocyte# 2.03 X10^3/uL; Monocyte% 8.9 % (0-10); Neutrophil # 20.01 X10^3/uL (2.7-7.7); Neutrophil % 87.2 % (47-70); Platelet Count 109 K/mm3 (150-450); RBC Distribution Width CV 14.5 % (11.6-14.6); RBC Distribution Width SD 48.2 fl (35.1-43.9); Red Blood Count 4.46 M/mm3 (4.6-6.2); White Blood Count 22.9 K/mm3 (4.4-11.0)
[2018-04-14 12:08] LABS: Differential Indicated SCAN CRITERIA MET; POSITIVE COUNT NO; POSITIVE DIFFERENTIAL YES; POSITIVE MORPHOLOGY NO
[2018-04-14 12:10] LABS: Lactic Acid 0.9 mmol/L (0.4-2.0)
[2018-04-14 12:17] LABS: AST(SGOT) 99 U/L (15-37); Alanine Aminotransfer ALT/SGPT 140 U/L (16-61); Albumin, Serum 1.9 g/dL (3.2-5.0); Alkaline Phosphatase 162 U/L (45-117); Anion Gap 11 (5-15); BUN 103 mg/dL (7-18); BUN/Creat Ratio 14.9 RATIO (10-20); Bilirubin, Direct 0.97 mg/dL (0.00-0.30); Calcium,Total 9.1 mg/dL (8.5-10.1); Chloride 112 mmol/L (98-107); Creatinine, Serum 6.89 mg/dL (0.70-1.30); EST Glomerular Filtration Rate 9 mL/min (>60); Est Glom Filt Rate - Afr Amer 10 mL/min (>60); Estimated Creatinine Clearance 9.05 ml/min; Globulin 3.7 g/dL (2.2-4.2); Glucose 123 mg/dL (74-106); Lipase 134 U/L (73-393); Potassium 5.4 mmol/L (3.5-5.1); Protein, Total 5.6 g/dL (6.4-8.2); Sodium Level 145 mmol/L (136-145)
--- NOTE | 2018-04-14 12:17 | ED.RN ---
LAB CALLS WITH CRITICAL RESULTS, BUN 103, CREATININE 6.89, DR. KINCAID MADE AWARE.
[2018-04-14 12:25] LABS: Differential Comment SCANNED
[2018-04-14] MEDS: Piperacil/Tazobactam 3.375 GM/50 ML ML IV (12:26)
[2018-04-14] MEDS: 0.9% Normal Saline 1,000 ML 1000 ML IV (12:26)
--- NOTE | 2018-04-14 13:45 | EKG12_ITS ---
Test Reason : ABNORMAL LABS Blood Pressure : / mmHG Vent. Rate : 070 BPM Atrial Rate : 070 BPM P-R Int : 114 ms QRS Dur : 090 ms QT Int : 412 ms P-R-T Axes : 067 021 031 degrees QTc Int : 444 ms Normal sinus rhythm Normal ECG Confirmed by CHACE WEST, AUNG ([id number]), online content editor BLESSING PEREZ ([id number]) on 04/24/2018 3:56:43 PM Referred By: ALLISON Confirmed By:AUNG MAS MD
--- NOTE | 2018-04-14 14:35 | HP.PCM_ITS ---
Problem List (1) ICH (intracerebral hemorrhage) Status: Chronic (2) Altered mental status Status: Acute Qualifiers: (3) Ischemic stroke Status: Acute (4) Hypertension Status: Chronic (5) Dyslipidemia Status: Chronic (6) Acute respiratory failure Status: Resolved (7) Pulmonary emboli Status: Chronic (8) KEIKO (acute kidney injury) Status: Acute History of Present Illness Date of Admission: 04/14/18 Chief Complaint: Unresponsive and acute kidney injury The patient is a 67 year old M with recent history of left thalamic hemorrhage for which she was transferred to [facility] on 03/16/2018 and after that he was in acute rehab for 2 weeks and then transferred to [facility] SN[facility] was brought into ER for fever, acute kidney injury and unresponsiveness. As per the , he was awake and ate his food about 2 days ago after that becoming less responsive and was unresponsive in the morning today. Patient also had poor urine output for last 2 days although exact urine output not known. Patient has condom catheter. Patient having fever, decreased urine output and unresponsiveness despite put on Rocephin a few days ago in the retirement and therefore his PCP Dr. Godoy sent to ER. Patient is DNR CC arrest with no intubation or ACLS. In ED, vital signs temperature 100.7 Fahrenheit, pulse 73, BP 97/78, pulse ox 93% on room air respiratory rate 16-17/min. Blood work in ED shows leukocytosis 23,000, with left shift, platelet count 109,000, lactic acid normal, BUN 103, creatinine 6.89, K5.4, bicarb 22, anion gap 11. No coagulopathy. Total bili 1.4, elevated ALT and AST. Patient had vancomycin and Zosyn 1 dose in ED. He had about 2 L of normal saline fluid. Patient is further admitted in PCU. Past Medical History Past Medical History (Chronic Problems): Chronic Problems ICH (intracerebral hemorrhage) (Chronic) Hypertension (Chronic) Dyslipidemia (Chronic) Pulmonary emboli (Chronic) Allergies codeine Adverse Reaction (Verified 04/14/18 10:52) Unknown Home Medications: Ambulatory Orders Medication Instructions Recorded Acetaminophen 650 mg RC Q4H PRN 04/14/18 Acetaminophen [Tylenol] 2 tab PO Q4H PRN 04/14/18 Albuterol Aerosols [Ventolin 2.5 mg INHALATION Q4HWA.RT 04/14/18 Aerosols] Amlodipine [Norvasc] 10 mg PO DAILY 04/14/18 Ceftriaxone [Rocephin] 1 gm IV DAILY 04/14/18 Docusate Sodium [Colace] 100 mg PO BID 04/14/18 Ensure Enlive 120 ml PO BID 04/14/18 Levetiracetam [Keppra] 4 ml PO BID 04/14/18 Magnesium Hydroxide [Milk Of 30 ml PO DAILY PRN PRN 04/14/18 Magnesia] Metoprolol Tartrate 25 mg PO DAILY 04/14/18 Ramipril [Altace] 10 mg PO BID 04/14/18 Smoking Status: Former smoker - *Family History Maternal History Items: No pertinent history Review of Systems Constitutional: Reports: Anorexia, Chills, Fever. Denies: Weight Change Eyes: Reports: - - Eyes closed. Cardiovascular: Denies: Palpitations Respiratory: Reports: Shortness of Breath Genitourinary: Reports: - - Condom catheter present Skin: Reports: Rash - On the coccyx. Stage I coccyx with erythema.. Denies: Wounds Hematologic/ Lymphatic: Denies: Easy Bruising, Easy Bleeding Comment: Patient is unresponsive. 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 VTE Information - Inpt Only VTE Present on Admission: No VTE Mechan Device Prophylaxis: SCD's VTE Pharm Prophylaxis ordered?: Yes Patient Problems: Active and Suspected Problems KEIKO (acute kidney injury) (Acute) - Physical Exam General: - - Unresponsive with eye closed. Grimaces on painful stimulus. HEENT: Atraumatic, PERRLA, Normocephalic Oral: Dry Mucosa - Dry and crusted mucous membrane. Neck: Supple, No JVD, Negative Carotid Bruits Lungs: Diminished - Air entry is diminished., Short of Breath Cardiovascular: Regular rate, Regular Rhythm, Normal S1, Normal S2, No murmurs Abdomen: Bowel Sounds Present, Soft, Non Tender, Non-Distended, Hypoactive Bowel Sounds Extremities: No cyanosis, Capillary Refill Less than 3 Seconds, Edema Skin: Rash Present - Stage I coccygeal pressure sore with nonblanching erythema Musculoskeletal: No Muscle Wasting, Muscle Wasting Neurological: - - Aphasia with right-sided hemiplegia. Right-sided facial droop. Unresponsive. Psych/Mental Status: Normal Affect, Appropriate Vital Signs Temp Pulse Resp BP Pulse Ox 97.7 F L 69 17 104/70 95 04/14/18 13:00 04/14/18 14:00 04/14/18 14:00 04/14/18 14:00 04/14/18 13:00 Oxygen Delivery Method Room Air Weight: 168 lb 13.985 oz Body Mass Index (BMI) 28.0 Finger Stick Blood Glucose 114 Laboratory Tests Past 24 Hrs 04/14/18 04/14/18 04/14/18 11:38 11:38 11:38 WBC 22.9 H RBC 4.46 L Hgb 13.3 Hct 40.9 MCV 91.7 MCH 29.8 MCHC 32.5 RDW 14.5 RDW Differential 48.2 H Plt Count 109 L MPV 10.8 Immature Gran % (Auto) 0.400 Neut % (Auto) 87.2 H Lymph % (Auto) 3.4 L [place] % (Auto) 8.9 Eos % (Auto) 0.0 Baso % (Auto) 0.1 Absolute Neuts (auto) 20.0 H Absolute Lymphs (auto) 0.77 L Total Counted Not Reportable Differential Comment SCANNED Sodium 145 Potassium 5.4 H Chloride 112 H Carbon Dioxide 22.0 Anion Gap 11 BUN 103 H* Creatinine 6.89 H Estim Creat Clear Calc 9.05 Est GFR (MDRD) Af Amer 10 L Est GFR (MDRD) Non-Af 9 L BUN/Creatinine Ratio 14.9 Glucose 123 H Lactic Acid 0.9 Calcium 9.1 Total Bilirubin 1.40 H Direct Bilirubin 0.97 H AST 99 H ALT 140 H Alkaline Phosphatase 162 H Total Protein 5.6 L Albumin 1.9 L Globulin 3.7 Lipase 134 Assessment/Plan All Active Problems KEIKO (acute kidney injury) (Acute) Altered mental status (Acute) Ischemic stroke (Acute) Acute respiratory failure (Resolved) The patient is a 67 year old M with recent history of left thalamic hemorrhage for which she was transferred to [facility] on 03/16/2018 and after that he was in acute rehab for 2 weeks and then transferred to [facility] SN[facility] was brought into ER for fever, acute kidney injury and unresponsiveness. As per the , he was awake and ate his food about 2 days ago after that becoming less responsive and was unresponsive in the morning today. Patient also had poor urine output for last 2 days although exact urine output not known. Patient has condom catheter. Patient having fever, decreased urine output and unresponsiveness despite put on Rocephin a few days ago in the retirement and therefore his PCP Dr. Godoy sent to ER. Patient is DNR CC arrest with no intubation or ACLS. In ED, vital signs temperature 100.7 Fahrenheit, pulse 73, BP 97/78, pulse ox 93% on room air respiratory rate 16-17/min. Blood work in ED shows leukocytosis 23,000, with left shift, platelet count 109,000, lactic acid normal, BUN 103, creatinine 6.89, K5.4, bicarb 22, anion gap 11. No coagulopathy. Total bili 1.4, elevated ALT and AST. Patient had vancomycin and Zosyn 1 dose in ED. He had about 2 L of normal saline fluid. Patient is further admitted in PCU. 1. Severe sepsis, exact etiology unclear but suspicion of UTI: UA done in retirement from today shows WBC 0-5, LE 500, nitrite negative, 0 bacteria therefore no convincing evidence of UTI. Chin catheter ordered. Patient had 2 L of IV fluid normal saline. 1 L of normal saline bolus and then RL 150 mL/h. Monitor intake and output. Discussed with the welding machine operator electro gas, Dr. Cabrera and agree with the plan. CT abdomen shows right renal lesion unchanged from previous CT of 04/2017, stable bilateral nonobstructive renal stones. No evidence of hydronephrosis. Echo in September 2017 shows EF 60% with a stage I diastolic dysfunction suggestive of chronic diastolic heart failure. Mild TR, RVSP 25 ABG. Mild eccentric MR. 2. Acute kidney injury, most likely prerenal.: Patient had normal creatinine 1.18 in April 11, 2018. Prior to that had one instance of acute kidney injury and October 2017. IV fluid normal saline. Discussed was the welding machine operator electro gas, for now patient does not need VEHICLE MONITOR TECHNICIAN/hemodialysis. Rest as above. 3. 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 As per the he was taking food by mouth, last one 2 days ago. PT OT and speech evaluation when patient improves. Patient is on Keppra by retirement, most likely after hemorrhagic stroke. 4. Other comorbidities include hypertension, dyslipidemia and pulmonary emboli in the past: Home medication reconciliation done. Patient on metoprolol, amlodipine, and ramipril: Hold the medication as patient in severe sepsis and hypotension. DVT propylaxis: Heparin 500 units subcutaneous twice daily; discontinue if platelet count drops less than 90,000 or hemoglobin less than 8 g%. Bilateral SCDs Advanced directive: Discussed with the patient's near the bedside. She agrees with DNR CC arrest with no intubation and no S ileus protocol. Discussed briefly about future need of renal replacement therapy/hemodialysis, she is not clear not sure. Clinical Impression(s) from Imaging Studies Abdomen/Pelvis CT 04/14/18 11:29 IMPRESSION: 1. Right renal lesion as described above essentially unchanged since prior examination. 2. Stable bilateral nonobstructing renal stones. No evidence of hydronephrosis. 3. Hepatomegaly. 4. Status post cholecystectomy. Laboratory Results 04/14/18 11:38: WBC 22.9 H, RBC 4.46 L, Hgb 13.3, Hct 40.9, MCV 91.7, MCH 29.8, MCHC 32.5, RDW 14.5, RDW Differential 48.2 H, Plt Count 109 L, MPV 10.8, Immature Gran % (Auto) 0.400, Neut % (Auto) 87.2 H, Lymph % (Auto) 3.4 L, [place] % (Auto) 8.9, Eos % (Auto) 0.0, Baso % (Auto) 0.1, Absolute Neuts (auto) 20.0 H, Absolute Lymphs (auto) 0.77 L, Total Counted Not Reportable, Differential Comment SCANNED 04/14/18 11:38: Sodium 145, Potassium 5.4 H, Chloride 112 H, Carbon Dioxide 22.0, Anion Gap 11, BUN 103 H*, Creatinine 6.89 H, Estim Creat Clear Calc 9.05, Est GFR (MDRD) Af Amer 10 L, Est GFR (MDRD) Non-Af 9 L, BUN/Creatinine Ratio 14.9, Glucose 123 H, Calcium 9.1, Total Bilirubin 1.40 H, Direct Bilirubin 0.97 H, AST 99 H, ALT 140 H, Alkaline Phosphatase 162 H, Total Protein 5.6 L, Albumin 1.9 L, Globulin 3.7, Lipase 134 04/14/18 11:38: Lactic Acid 0.9 04/14/18 11:38: Magnesium 2.6 Code Visit Inpatient E&M: 50331 Init Hosp L3 Procedures: 65547 Advncd Care Plan 30 Min
[2018-04-14 15:23] LABS: Magnesium 2.6 mg/dL (1.6-2.6)
[2018-04-14] MEDS: 0.9% Normal Saline 1,000 ML 999 ML IV (15:54)
[2018-04-14 17:43] LABS: AST(SGOT) 104 U/L (15-37); Alanine Aminotransfer ALT/SGPT 133 U/L (16-61); Albumin, Serum 1.9 g/dL (3.2-5.0); Alkaline Phosphatase 183 U/L (45-117); Bilirubin, Direct 0.96 mg/dL (0.00-0.30); Protein, Total 4.9 g/dL (6.4-8.2)
[2018-04-14] MEDS: Lactated Ringers 1,000 ML 150 ML IV ×2 (17:56→22:35)
[2018-04-14 18:07] LABS: Mucous, Urine 0 SEEN /hpf (<or=2+)
[2018-04-14 18:13] LABS: Color, Urine Yellow (Yellow); Glucose, Dipstick Normal (Normal); Ketone-Dipstick Negative (Negative); Leukocyte Esterase-Dipstick 100 /ul (Negative); Nitrite-Dipstick Negative (Negative); Occult Blood-Urine 250 /ul (Negative); Protein-Dipstick 500 mg/dl (Negative); Specific Gravity, Urine 1.015 (1.002-1.030); Urine Bilirubin Dipstick Negative (Negative); Urine Clarity Sl. Cloudy (Clear); Urine Urobilinogen Normal (Normal)
--- NOTE | 2018-04-14 18:18 | EKG12_ITS ---
Test Reason : Blood Pressure : / mmHG Vent. Rate : 076 BPM Atrial Rate : 076 BPM P-R Int : 112 ms QRS Dur : 098 ms QT Int : 398 ms P-R-T Axes : 065 022 016 degrees QTc Int : 447 ms Normal sinus rhythm Inferior infarct , age undetermined Abnormal ECG When compared with ECG of 14-APR-2018 13:55, MANUAL COMPARISON REQUIRED, DATA IS UNCONFIRMED Confirmed by LEONARDO WEST, RACQUEL ([id number]), greeting card editor MARYANN JAVIER ([id number]) on 04/17/2018 1:14:44 PM Referred By: BRET Confirmed By:RACQUEL PATTERSON MD
[2018-04-14 18:23] LABS: Bacteria RARE /hpf (None Seen); Red Blood Cells-Urine 25-50 SEEN /hpf (0-5); White Blood Cells 10-25 SEEN /hpf (0-5)
[2018-04-14 18:25] LABS: Squamous Epithelial Cells - UA 0-5 SEEN /hpf (0-5)
[2018-04-14 18:26] LABS: Fine Granular Cast- Urine 0-5 SEEN /lpf (0-5)
[2018-04-14] MEDS: Albuterol 2.5 MG/3 ML VIAL.NEB. INHALATION (19:39)
[2018-04-14] MEDS: Heparin Injection (Vial) 5,000 UNIT/ML VIAL 5000 UNIT SC (22:35)
[2018-04-15] VITALS (17 sets, daily range): BP systolic 122–145; BP diastolic 70–81; PULSE 74–92; RESP 16–20; TEMP 36.3–37.3; O2SAT 92–95
[2018-04-15] MEDS: Lactated Ringers 1,000 ML 150 ML IV ×2 (05:57→20:43)
[2018-04-15 06:16] LABS: Absolute Lymphocyte Count 0.76 X10^3/ul (0.83-4.51); Absolute Neutrophil Count 13.2 X10^3/uL (2.0-7.7); Basophil# 0.01 X10^3/uL; Basophil% 0.1 % (0-1); Eosinophil# 0.02 X10^3/uL; Eosinophils% 0.1 % (0-5); Hematocrit 36.7 % (40-54); Hemoglobin 11.7 g/dl (13.0-16.5); Lymphocyte # 0.76 X10^3/ul (4.0); Mean Corp Hgb Conc 31.9 g/gl (32-36); Mean Corpuscular Hgb 29.3 pg (27.0-32.0); Mean Corpuscular Volume 91.8 fL (80-94); Mean Platelet Vol. 10.8 fl (6.2-12.0); Monocyte# 1.04 X10^3/uL; Monocyte% 6.9 % (0-10); Neutrophil # 13.18 X10^3/uL (2.7-7.7); Neutrophil % 87.6 % (47-70); Platelet Count 90 K/mm3 (150-450); RBC Distribution Width CV 14.2 % (11.6-14.6); RBC Distribution Width SD 48.3 fl (35.1-43.9); White Blood Count 15.1 K/mm3 (4.4-11.0)
[2018-04-15 06:20] LABS: POSITIVE COUNT NO; POSITIVE DIFFERENTIAL NO; POSITIVE MORPHOLOGY NO
[2018-04-15 06:34] LABS: Anion Gap 14 (5-15); BUN 117 mg/dL (7-18); BUN/Creat Ratio 16.3 RATIO (10-20); Calcium,Total 8.7 mg/dL (8.5-10.1); Chloride 115 mmol/L (98-107); Creatinine, Serum 7.17 mg/dL (0.70-1.30); EST Glomerular Filtration Rate 8 mL/min (>60); Est Glom Filt Rate - Afr Amer 10 mL/min (>60); Glucose 97 mg/dL (74-106); Potassium 5.2 mmol/L (3.5-5.1); Sodium Level 148 mmol/L (136-145)
[2018-04-15] MEDS: Albuterol 2.5 MG/3 ML VIAL.NEB. INHALATION ×4 (07:34→19:52)
[2018-04-15] MEDS: Heparin Injection (Vial) 5,000 UNIT/ML VIAL 5000 UNIT SC ×2 (09:17→22:23)
--- NOTE | 2018-04-15 09:32 | PCM.PN.HOSP ---
Patient Problems: Active and Suspected Problems KEIKO (acute kidney injury) (Acute) Subjective: Seen and examined. Patient is more awake. No fever after admission. Follows simple commands like closing eyes. Had 700 mL urine output yesterday. Urine was 225 mL until 9:00 a.m. Day, 1 L normal saline over 2 hours ordered and patient had 210 mL after that total for 435 midnight Vitals/I&O's: Vital Signs Temp Pulse Resp BP Pulse Ox 98.6 F 84 18 145/70 H 94 04/15/18 09:22 04/15/18 09:22 04/15/18 09:22 04/15/18 09:22 04/15/18 09:22 Oxygen Delivery Method Room Air Weight: 168 lb 13.985 oz Body Mass Index (BMI) 28.0 Finger Stick Blood Glucose 114 Intake and Output for Last 24 Hours 04/13/18 04/14/18 04/15/18 23:59 23:59 23:59 Intake Total 3727 / 3727 778 / 778 Output Total 700 / 700 225 / 225 Balance 3027 / 3027 553 / 553 General: - - Awake. Opens eyes follows simple commands. Verbal. HEENT: Atraumatic, PERRLA, EOMI, Normocephalic, - Neck: Supple, No JVD, Negative Carotid Bruits Lungs: No rhonchi, No wheeze, No rales, Diminished - Air entry diminished in bilateral lung bases Cardiovascular: Regular rate, Regular Rhythm, Normal S1, Normal S2, No murmurs Abdomen: Bowel Sounds Present, Soft, Non Tender, Non-Distended Extremities: No edema, Capillary Refill Less than 3 Seconds Musculoskeletal: No Tenderness to Palpation of Joints or Extremities, Arthritic Changes, Muscle Wasting Neurological: - - Left-sided hemiplegia. Aphasia. Right-sided facial droop. Psych/Mental Status: Normal Affect, Appropriate Laboratory Results 04/14/18 11:38: WBC 22.9 H, RBC 4.46 L, Hgb 13.3, Hct 40.9, MCV 91.7, MCH 29.8, MCHC 32.5, RDW 14.5, RDW Differential 48.2 H, Plt Count 109 L, MPV 10.8, Immature Gran % (Auto) 0.400, Neut % (Auto) 87.2 H, Lymph % (Auto) 3.4 L, [place] % (Auto) 8.9, Eos % (Auto) 0.0, Baso % (Auto) 0.1, Absolute Neuts (auto) 20.0 H, Absolute Lymphs (auto) 0.77 L, Total Counted Not Reportable, Differential Comment SCANNED 04/14/18 11:38: Sodium 145, Potassium 5.4 H, Chloride 112 H, Carbon Dioxide 22.0, Anion Gap 11, BUN 103 H*, Creatinine 6.89 H, Estim Creat Clear Calc 9.05, Est GFR (MDRD) Af Amer 10 L, Est GFR (MDRD) Non-Af 9 L, BUN/Creatinine Ratio 14.9, Glucose 123 H, Calcium 9.1, Total Bilirubin 1.40 H, Direct Bilirubin 0.97 H, AST 99 H, ALT 140 H, Alkaline Phosphatase 162 H, Total Protein 5.6 L, Albumin 1.9 L, Globulin 3.7, Lipase 134 04/14/18 11:38: Lactic Acid 0.9 04/14/18 11:38: Magnesium 2.6 04/14/18 11:38: Hepatitis A IgM Ab Pending, Hepatitis A Ab Total Pending, Hep Bs Antigen Pending, Hep B Core Total Ab Pending, Hep B Core IgM Ab Pending 04/14/18 16:52: Total Bilirubin 1.40 H, Direct Bilirubin 0.96 H, AST 104 H, ALT 133 H, Alkaline Phosphatase 183 H, Total Protein 4.9 L, Albumin 1.9 L, Globulin 3.0 04/14/18 18:00: Urine Color Yellow, Urine Clarity Sl. Cloudy, Urine pH 6.0, Ur Specific [place] 1.015, Urine Protein 500 H, Urine Glucose (UA) Normal, Urine Ketones Negative, Urine Occult Blood 250 H, Urine Nitrite Negative, Urine Bilirubin Negative, Urine Urobilinogen Normal, Ur Leukocyte Esterase 100 H, Urine RBC 25-50 SEEN, Urine WBC 10-25 SEEN, Ur Squamous Epith Cells 0-5 SEEN, Urine Bacteria RARE, Fine Granular Casts 0-5 SEEN, Urine Mucus 0 SEEN 04/15/18 05:10: Sodium 148 H, Potassium 5.2 H, Chloride 115 H, Carbon Dioxide 19.0 L, Anion Gap 14, BUN 117 H*, Creatinine 7.17 H, Estim Creat Clear Calc 8.70, Est GFR (MDRD) Af Amer 10 L, Est GFR (MDRD) Non-Af 8 L, BUN/Creatinine Ratio 16.3, Glucose 97, Calcium 8.7 04/15/18 05:10: WBC 15.1 H, RBC 4.00 L, Hgb 11.7 L, Hct 36.7 L, MCV 91.8, MCH 29.3, MCHC 31.9 L, RDW 14.2, RDW Differential 48.3 H, Plt Count 90 L, MPV 10.8, Immature Gran % (Auto) 0.300, Neut % (Auto) 87.6 H, Lymph % (Auto) 5.0 L, [place] % (Auto) 6.9, Eos % (Auto) 0.1, Baso % (Auto) 0.1, Absolute Neuts (auto) 13.2 H, Absolute Lymphs (auto) 0.76 L, Total Counted Not Reportable Current Medications Acetaminophen (Tylenol) 650 mg PO Q6H PRN PRN PRN Reason: Mild Pain (scale 0-3)/T>100.7 Albuterol Sulfate (Ventolin Aerosols) 2.5 mg INHALATION Q4HWA.RT [facility] Last Admin: 04/15/18 07:34 Dose: 2.5 mg Heparin Sodium (Porcine) (Heparin Na) 5,000 unit SC Q12 [facility] Last Admin: 04/15/18 09:17 Dose: 5,000 unit Pantoprazole Sodium 40 mg/ (Sodium Chloride) 110 mls @ 330 mls/hr IV Q24 [facility] Last Admin: 04/15/18 09:17 Dose: 330 mls/hr Lactated Ringer's () 1,000 mls @ 150 mls/hr IV .Q6H40M [facility] Last Admin: 04/15/18 05:57 Dose: 150 mls/hr Nutritional Formula (Lactose Free) (Ensure Enlive) 120 ml PO 4X/DAY [facility] Last Admin: 04/15/18 09:17 Dose: Not Given Ondansetron HCl (Zofran) 4 mg IV Q6H PRN PRN PRN Reason: NAUSEA Sodium Chloride () 5 - 15 ml IV UD PRN PRN Reason: SALINE FLUSH Medical Necessity - Tobacco Use Smoking Status: Former smoker Assessment/Plan All Active Problems KEIKO (acute kidney injury) (Acute) Altered mental status (Acute) Ischemic stroke (Acute) Acute respiratory failure (Resolved) The patient is a 67 year old M with recent history of left thalamic hemorrhage for which she was transferred to [facility] on 03/16/2018 and after that he was in acute rehab for 2 weeks and then transferred to [facility] SN[facility] was brought into ER for fever, acute kidney injury and unresponsiveness. As per the , he was awake and ate his food about 2 days ago after that becoming less responsive and was unresponsive in the morning today. Patient had 102 Fahrenheit fever in [facility]. Patient also had poor urine output for last 2 days although exact urine output not known. Patient has condom catheter. Patient having fever, decreased urine output and unresponsiveness despite put on Rocephin a few days ago in the [place] [facility] and therefore his PCP Dr. Godoy sent to ER. Patient is DNR CC arrest with no intubation or ACLS. In ED, vital signs temperature 100.7 Fahrenheit, pulse 73, BP 97/78, pulse ox 93% on room air respiratory rate 16-17/min. Blood work in ED shows leukocytosis 23,000, with left shift, platelet count 109,000, lactic acid normal, BUN 103, creatinine 6.89, K5.4, bicarb 22, anion gap 11. No coagulopathy. Total bili 1.4, elevated ALT and AST. Patient had vancomycin and Zosyn 1 dose in ED. He had about 2 L of normal saline fluid. Patient is further admitted in PCU. 1. sepsis, exact focus unclear unclear but suspicion of UTI: Septic shock/severe sepsis ruled out. LA normal. UA done in [facility] from today shows WBC 0-5, LE 500, nitrite negative, 0 bacteria therefore no convincing evidence of UTI. Chin catheter ordered. Patient had 2 L of IV fluid normal saline. 1 L of normal saline bolus and then RL 150 mL/h. Monitor intake and output. Discussed with the clinical athletic instructor, Dr. Cabrera and agree with the plan. CT abdomen shows right renal lesion unchanged from previous CT of 04/2017, stable bilateral nonobstructive renal stones. No evidence of hydronephrosis. Respiratory panel negative. Blood culture and urine culture pending. On broad-spectrum IV Zosyn for empiric coverage. Patient had vancomycin and Zosyn in ED. MRSA PCR negative. ID consult. Echo in September 2017 shows EF 60% with a stage I diastolic dysfunction suggestive of chronic diastolic heart failure. Mild TR, RVSP 25 ABG. Mild eccentric MR. 2. Acute kidney injury, most likely prerenal, with oliguria.: Patient had normal creatinine 1.18 in April 11, 2018. Prior to that had one instance of acute kidney injury and October 2017. IV fluid normal saline. 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 1 L normal saline was given in 2 hours. Urine output 210 mL after normal saline bolus. Total urine output 435 mL after midnight. 3. 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 As per the he was taking food by mouth, last one 2 days ago. PT OT and speech evaluation when patient improves. Patient is on Keppra by [facility], most likely after hemorrhagic stroke. 4. Other comorbidities include hypertension, dyslipidemia and pulmonary emboli in the past: Home medication reconciliation done. Patient on metoprolol, amlodipine, and ramipril: Hold the medication as patient in severe sepsis and hypotension. DVT propylaxis: Heparin 500 units subcutaneous twice daily; discontinue if platelet count drops less than 90,000 or hemoglobin less than 8 g%. Bilateral SCDs Erythema at the coccyx, nonblanching stage I sacral decubitus, present on admission: Change position every 2 hourly. Severe protein calorie malnutrition and debilitation secondary to hemiplegia: Filling Winder is consulted. PT OT and speech evaluation Advanced directive: Discussed with the patient's near the bedside. She agrees with DNR CC arrest with no intubation and ACLS protocol. Discussed briefly about future need of renal replacement therapy/hemodialysis, she is not clear AND not sure. Clinical Impression(s) from Imaging Studies Abdomen/Pelvis CT 04/14/18 11:29 IMPRESSION: 1. Right renal lesion as described above essentially unchanged since prior examination. 2. Stable bilateral nonobstructing renal stones. No evidence of hydronephrosis. 3. Hepatomegaly. 4. Status post cholecystectomy. Microbiology Past 72 Hours 04/14/18 18:00 Urine, Clean Catch Urine Culture - Preliminary Culture exhibits no growth. 04/14/18 19:55 Mucosa - Nasopharyngeal Respiratory Panel (PCR) - Final Laboratory Results 04/14/18 11:38: Magnesium 2.6 04/14/18 11:38: Hepatitis A IgM Ab Pending, Hepatitis A Ab Total Pending, Hep Bs Antigen Pending, Hep B Core Total Ab Pending, Hep B Core IgM Ab Pending 04/14/18 16:52: Total Bilirubin 1.40 H, Direct Bilirubin 0.96 H, AST 104 H, ALT 133 H, Alkaline Phosphatase 183 H, Total Protein 4.9 L, Albumin 1.9 L, Globulin 3.0 04/14/18 18:00: Urine Color Yellow, Urine Clarity Sl. Cloudy, Urine pH 6.0, Ur Specific [place] 1.015, Urine Protein 500 H, Urine Glucose (UA) Normal, Urine Ketones Negative, Urine Occult Blood 250 H, Urine Nitrite Negative, Urine Bilirubin Negative, Urine Urobilinogen Normal, Ur Leukocyte Esterase 100 H, Urine RBC 25-50 SEEN, Urine WBC 10-25 SEEN, Ur Squamous Epith Cells 0-5 SEEN, Urine Bacteria RARE, Fine Granular Casts 0-5 SEEN, Urine Mucus 0 SEEN 04/15/18 05:10: Sodium 148 H, Potassium 5.2 H, Chloride 115 H, Carbon Dioxide 19.0 L, Anion Gap 14, BUN 117 H*, Creatinine 7.17 H, Estim Creat Clear Calc 8.70, Est GFR (MDRD) Af Amer 10 L, Est GFR (MDRD) Non-Af 8 L, BUN/Creatinine Ratio 16.3, Glucose 97, Calcium 8.7 04/15/18 05:10: WBC 15.1 H, RBC 4.00 L, Hgb 11.7 L, Hct 36.7 L, MCV 91.8, MCH 29.3, MCHC 31.9 L, RDW 14.2, RDW Differential 48.3 H, Plt Count 90 L, MPV 10.8, Immature Gran % (Auto) 0.300, Neut % (Auto) 87.6 H, Lymph % (Auto) 5.0 L, [place] % (Auto) 6.9, Eos % (Auto) 0.1, Baso % (Auto) 0.1, Absolute Neuts (auto) 13.2 H, Absolute Lymphs (auto) 0.76 L, Total Counted Not Reportable 04/15/18 10:45: MRSA (PCR) Negative Code Visit Inpatient E&M: 29231 Subs Hosp L3
[2018-04-15] MEDS: 0.9% Normal Saline 1,000 ML 500 ML IV (10:14)
[2018-04-15] MEDS: Piperacil/Tazobactam 3.375 GM/50 ML ML IV ×2 (10:14→22:22)
[2018-04-15 12:24] LABS: M R Staph aureus DNA By PCR Negative (Negative); Probe Check PASS; Specimen Processing Control PASS
[2018-04-15] MEDS: levETIRAcetam Oral Solution 500 MG/5 ML 200 MG PO ×2 (16:29→22:23)
[2018-04-16] VITALS (17 sets, daily range): BP systolic 135–157; BP diastolic 83–88; PULSE 78–90; RESP 18–22; TEMP 36.8–37.4; O2SAT 94–97
[2018-04-16] MEDS: Lactated Ringers 1,000 ML 150 ML IV ×4 (02:47→22:43)
[2018-04-16] MEDS: Albuterol 2.5 MG/3 ML VIAL.NEB. INHALATION ×4 (06:59→19:25)
[2018-04-16 07:33] LABS: Absolute Neutrophil Count 8.7 X10^3/uL (2.0-7.7); Basophil# 0.01 X10^3/uL; Basophil% 0.1 % (0-1); Eosinophil# 0.07 X10^3/uL; Eosinophils% 0.7 % (0-5); Hematocrit 34.8 % (40-54); Hemoglobin 11.7 g/dl (13.0-16.5); Lymphocyte % 5.8 % (19-41); Mean Corp Hgb Conc 33.6 g/gl (32-36); Mean Corpuscular Hgb 30.2 pg (27.0-32.0); Mean Corpuscular Volume 89.9 fL (80-94); Mean Platelet Vol. 10.7 fl (6.2-12.0); Monocyte# 0.99 X10^3/uL; Monocyte% 9.5 % (0-10); Neutrophil # 8.69 X10^3/uL (2.7-7.7); Neutrophil % 83.3 % (47-70); Platelet Count 99 K/mm3 (150-450); RBC Distribution Width SD 45.4 fl (35.1-43.9); Red Blood Count 3.87 M/mm3 (4.6-6.2); White Blood Count 10.4 K/mm3 (4.4-11.0)
[2018-04-16 07:38] LABS: Differential Indicated SCAN CRITERIA MET; POSITIVE COUNT NO; POSITIVE DIFFERENTIAL YES; POSITIVE MORPHOLOGY NO
[2018-04-16 07:46] LABS: Anion Gap 13 (5-15); BUN 126 mg/dL (7-18); BUN/Creat Ratio 17.1 RATIO (10-20); Calcium,Total 8.6 mg/dL (8.5-10.1); Chloride 116 mmol/L (98-107); Creatinine, Serum 7.39 mg/dL (0.70-1.30); EST Glomerular Filtration Rate 8 mL/min (>60); Est Glom Filt Rate - Afr Amer 10 mL/min (>60); Estimated Creatinine Clearance 8.44 ml/min; Glucose 106 mg/dL (74-106); Potassium 5.3 mmol/L (3.5-5.1); Sodium Level 147 mmol/L (136-145)
[2018-04-16 08:12] LABS: Platelet Estimate MOD DEC (ADEQ); Platelet Morphology LARGE
[2018-04-16] MEDS: Heparin Injection (Vial) 5,000 UNIT/ML VIAL 5000 UNIT SC ×2 (09:29→22:54)
[2018-04-16] MEDS: levETIRAcetam Oral Solution 500 MG/5 ML 200 MG PO (09:30)
--- NOTE | 2018-04-16 09:47 | PCM.CONS.R ---
Problem List (1) KEIKO (acute kidney injury) Status: Acute Consultation - Renal PCP/ Referring MD: Requesting physician: [] Primary care physician: Damien Vizcarra DO - History of Present Illness History of Present Illness: The patient is a 67 year old M past medical history of recent hemorrhagic stroke. Patient has been in the rehab center for 2 weeks. Patient was brought into the hospital for change in mental status along with fever. Patient was found to have fever along with severe acute kidney injury with creatinine up to 6.8 at presentation from baseline 1.18 milligrams per deciliter 2 days prior to presentation. Patient received 1 L of normal saline in the emergency room then was kept on IV fluid Ringer lactate at 150 cc/h. Reviewed the patient medication at the intermediate. Patient has been on Rocephin for fever at intermediate also was on ramipril 10 grams p.o. by twice daily. Patient had condom urinary catheter at the intermediate. Patient was admitted for sepsis. Patient was started on antibiotics. Creatinine continues to rise. Creatinine today up to 7.3 mg a deciliter. Patient is making urine. As per the , patient is back to his mental status after the stroke. Patient currently is having Chin catheter. He is nonverbal but as per the that his baseline. Recent IV contrast exposure, no NSAIDs used. Review of system: 12 systems review cannot be obtained due to the patient's condition - Allergies Allergies: Allergies codeine Adverse Reaction (Verified 04/14/18 10:52) Unknown - Current Medications Current Medications: Current Medications Acetaminophen (Tylenol) 650 mg PO Q6H PRN PRN PRN Reason: Mild Pain (scale 0-3)/T>100.7 Albuterol Sulfate (Ventolin Aerosols) 2.5 mg INHALATION Q4HWA.RT [facility] Last Admin: 04/16/18 06:59 Dose: 2.5 mg Heparin Sodium (Porcine) (Heparin Na) 5,000 unit SC Q12 [facility] Last Admin: 04/16/18 09:29 Dose: 5,000 unit Pantoprazole Sodium 40 mg/ (Sodium Chloride) 110 mls @ 330 mls/hr IV Q24 [facility]ARREN Last Admin: 04/16/18 09:19 Dose: 330 mls/hr Lactated Ringer's () 1,000 mls @ 150 mls/hr IV .Q6H40M [facility] Last Admin: 04/16/18 09:18 Dose: 150 mls/hr Piperacillin Sod/Tazobactam Sod (Zosyn) 3.375 gm in 50 mls @ 12.5 mls/hr IV Q12 [facility] Last Admin: 04/15/18 22:22 Dose: 12.5 mls/hr Levetiracetam (Keppra Oral Solution) 200 mg PO BID [facility] Last Admin: 04/16/18 09:30 Dose: 200 mg Nutritional Formula (Lactose Free) (Ensure Enlive) 120 ml PO BID [facility] Last Admin: 04/16/18 09:30 Dose: 120 ml Ondansetron HCl (Zofran) 4 mg IV Q6H PRN PRN PRN Reason: NAUSEA Sodium Chloride () 5 - 15 ml IV UD PRN PRN Reason: SALINE FLUSH - Past Medical History Past Medical History (Chronic Problems): Chronic Problems ICH (intracerebral hemorrhage) (Chronic) Hypertension (Chronic) Dyslipidemia (Chronic) Pulmonary emboli (Chronic) - Social History Smoking Status: Former smoker - Family History Maternal History Items: No pertinent history Patient Problems: Active and Suspected Problems KEIKO (acute kidney injury) (Acute) - Physical Exam General: Lethargic HEENT: Atraumatic Oral: Dry Mucosa Neck: Supple, No JVD Lungs: Clear to auscultation, Normal air movement, No rhonchi Cardiovascular: Regular rate, Regular Rhythm, Normal S1, Normal S2 Abdomen: Bowel Sounds Present, Soft, Non Tender, Non-Distended Extremities: No clubbing, No cyanosis, No edema Skin: No rashes Lymphatic: No Cervical, Supraclavicular, or Inguinal Adenopathy Comment: Patient is not awake alert oriented during my encounter. Vital Signs Temp Pulse Resp BP Pulse Ox 98.2 F 90 18 157/88 H 94 04/16/18 07:52 04/16/18 07:58 04/16/18 07:52 04/16/18 07:52 04/16/18 08:16 Oxygen Delivery Method Room Air Weight: 76.6 kg Body Mass Index (BMI) 28.0 Finger Stick Blood Glucose 114 Intake and Output for Last 24 Hours 04/14/18 04/15/18 04/16/18 23:59 23:59 23:59 Intake Total 3727 / 3727 3808 / 3808 928.6 / 928.6 Output Total 700 / 700 850 / 850 425 / 425 Balance 3027 / 3027 2958 / 2958 503.6 / 503.6 Microbiology Past 72 Hours 04/14/18 18:00 Urine Culture - Preliminary Urine, Clean Catch Culture exhibits no growth. 04/14/18 19:55 Respiratory Panel (PCR) - Final Mucosa - Nasopharyngeal Laboratory Tests Past 24 Hrs 04/15/18 04/16/18 04/16/18 10:45 06:54 06:54 WBC 10.4 RBC 3.87 L Hgb 11.7 L Hct 34.8 L MCV 89.9 MCH 30.2 MCHC 33.6 RDW 14.0 RDW Differential 45.4 H Plt Count 99 L MPV 10.7 Immature Gran % (Auto) 0.600 Neut % (Auto) 83.3 H Lymph % (Auto) 5.8 L [place] % (Auto) 9.5 Eos % (Auto) 0.7 Baso % (Auto) 0.1 Absolute Neuts (auto) 8.7 H Absolute Lymphs (auto) 0.60 L Total Counted Not Reportable Platelet Estimate MOD DEC Plt Morphology Comment LARGE Sodium 147 H Potassium 5.3 H Chloride 116 H Carbon Dioxide 18.0 L Anion Gap 13 BUN 126 H* Creatinine 7.39 H Estim Creat Clear Calc 8.44 Est GFR (MDRD) Af Amer 10 L Est GFR (MDRD) Non-Af 8 L BUN/Creatinine Ratio 17.1 Glucose 106 Calcium 8.6 Total Creatine Kinase Total Protein (PEP) Albumin (PEP) Globulin (PEP) Albumin/Globulin (PEP) Yxvtd-8-Waiocxgzh Azuox-8-Rayscankd Beta Globulins Gamma Globulins M-Cabrera Rheumatoid Factor JOSEPHINE Screen c-ANCA Antibody p-ANCA Antibody SUHAIL-1 Antibody SS-A/Ro IgG Antibody SS-B/La IgG Antibody Sm (Hdez) Antibody CUSTOMS COMPLIANCE DIRECTOR Antibody Scl-70 Scleroderma Ab Double Strand DNA Ab Centromere B Antibody Glomerular Base Memb Ab Complement C3 Complement C4 MRSA (PCR) Negative 04/16/18 04/16/18 04/16/18 09:40 09:40 09:40 WBC RBC Hgb Hct MCV MCH MCHC RDW RDW Differential Plt Count MPV Immature Gran % (Auto) Neut % (Auto) Lymph % (Auto) [place] % (Auto) Eos % (Auto) Baso % (Auto) Absolute Neuts (auto) Absolute Lymphs (auto) Total Counted Platelet Estimate Plt Morphology Comment Sodium Potassium Chloride Carbon Dioxide Anion Gap BUN Creatinine Estim Creat Clear Calc Est GFR (MDRD) Af Amer Est GFR (MDRD) Non-Af BUN/Creatinine Ratio Glucose Calcium Total Creatine Kinase Pending Total Protein (PEP) Pending Albumin (PEP) Pending Globulin (PEP) Pending Albumin/Globulin (PEP) Pending Udqva-7-Fsfsjpfnk Pending Gkqmt-0-Rboxijawo Pending Beta Globulins Pending Gamma Globulins Pending M-Cabrera Pending Rheumatoid Factor Pending JOSEPHINE Screen Pending c-ANCA Antibody Pending p-ANCA Antibody Pending SUHAIL-1 Antibody Pending SS-A/Ro IgG Antibody Pending SS-B/La IgG Antibody Pending Sm (Hdez) Antibody Pending CUSTOMS COMPLIANCE DIRECTOR Antibody Pending Scl-70 Scleroderma Ab Pending Double Strand DNA Ab Pending Centromere B Antibody Pending Glomerular Base Memb Ab Pending Complement C3 Pending Complement C4 Pending MRSA (PCR) Assessment/Plan All Active Problems KEIKO (acute kidney injury) (Acute) Altered mental status (Acute) Ischemic stroke (Acute) Acute respiratory failure (Resolved) 1-Acute kidney injury on chronic kidney disease. Baseline creatinine 1.1 mg a deciliter. UA showed 500 protein, 250 blood, RBCs 25-50, WBC 10-25 Acute kidney injury might be related to prerenal versus ATN induced by sepsis and prolonged ischemia. Glomerulonephritis needs to rule out. She has been on IV fluid Ringer lactate 150 cc/h. Kidney function continues to worsen. Creatinine up to 7.39 today. BUN 126. Order C3-C4, JOSEPHINE, ANCA, anti-GBM, hepatitis panel, and rheumatoid factor No clear indication for dialysis. No kim uremic symptoms,slight hyperkalemia and mild acidosis. Patient made 850 mL of urine in the last 24-hour. I agree to continue IV fluids for now. I spoke to the and explained to her that dialysis is a possibility for him if his kidney function does not improve. Patient's is leaning toward dialysis if needed. I will reevaluate the patient for dialysis tomorrow. Please avoid NSAIDs and keep mean arterial pressure more than 65. Please dose medication for GFR less than 10 ml/min 2-hyperkalemia: Most probably related to acute kidney injury. I will give the patient Kayexalate 15 g p.o. 1 time. Renal diet 3-metabolic acidosis. Most probably from acute kidney injury. Continue Ringer lactate no indication for hemodialysis. Thank you for the consult. Renal team will continue to follow
--- NOTE | 2018-04-16 09:52 | CON.PCM_ITS ---
Problem List (1) KEIKO (acute kidney injury) Status: Acute Consultation - Renal PCP/ Referring MD: Requesting physician: [] Primary care physician: Damien Vizcarra DO - History of Present Illness History of Present Illness: The patient is a 67 year old M past medical history of recent hemorrhagic stroke. Patient has been in the rehab center for 2 weeks. Patient was brought into the hospital for change in mental status along with fever. Patient was found to have fever along with severe acute kidney injury with creatinine up to 6.8 at presentation from baseline 1.18 milligrams per deciliter 2 days prior to presentation. Patient received 1 L of normal saline in the emergency room then was kept on IV fluid Ringer lactate at 150 cc/h. Reviewed the patient medication at the half-way. Patient has been on Rocephin for fever at half-way also was on ramipril 10 grams p.o. by twice daily. Patient had condom urinary catheter at the half-way. Patient was admitted for sepsis. Patient was started on antibiotics. Creatinine continues to rise. Creatinine today up to 7.3 mg a deciliter. Patient is making urine. As per the , patient is back to his mental status after the stroke. Patient currently is having Chin catheter. He is nonverbal but as per the that his baseline. Recent IV contrast exposure, no NSAIDs used. Review of system: 12 systems review cannot be obtained due to the patient's condition - Allergies Allergies: Allergies codeine Adverse Reaction (Verified 04/14/18 10:52) Unknown - Current Medications Current Medications: Current Medications Acetaminophen (Tylenol) 650 mg PO Q6H PRN PRN PRN Reason: Mild Pain (scale 0-3)/T>100.7 Albuterol Sulfate (Ventolin Aerosols) 2.5 mg INHALATION Q4HWA.RT [facility] Last Admin: 04/16/18 06:59 Dose: 2.5 mg Heparin Sodium (Porcine) (Heparin Na) 5,000 unit SC Q12 [facility] Last Admin: 04/16/18 09:29 Dose: 5,000 unit Pantoprazole Sodium 40 mg/ (Sodium Chloride) 110 mls @ 330 mls/hr IV Q24 [facility] Last Admin: 04/16/18 09:19 Dose: 330 mls/hr Lactated Ringer's () 1,000 mls @ 150 mls/hr IV .Q6H40M [facility] Last Admin: 04/16/18 09:18 Dose: 150 mls/hr Piperacillin Sod/Tazobactam Sod (Zosyn) 3.375 gm in 50 mls @ 12.5 mls/hr IV Q12 [facility] Last Admin: 04/15/18 22:22 Dose: 12.5 mls/hr Levetiracetam (Keppra Oral Solution) 200 mg PO BID [facility] Last Admin: 04/16/18 09:30 Dose: 200 mg Nutritional Formula (Lactose Free) (Ensure Enlive) 120 ml PO BID [facility] Last Admin: 04/16/18 09:30 Dose: 120 ml Ondansetron HCl (Zofran) 4 mg IV Q6H PRN PRN PRN Reason: NAUSEA Sodium Chloride () 5 - 15 ml IV UD PRN PRN Reason: SALINE FLUSH - Past Medical History Past Medical History (Chronic Problems): Chronic Problems ICH (intracerebral hemorrhage) (Chronic) Hypertension (Chronic) Dyslipidemia (Chronic) Pulmonary emboli (Chronic) - Social History Smoking Status: Former smoker - Family History Maternal History Items: No pertinent history Patient Problems: Active and Suspected Problems KEIKO (acute kidney injury) (Acute) - Physical Exam General: Lethargic HEENT: Atraumatic Oral: Dry Mucosa Neck: Supple, No JVD Lungs: Clear to auscultation, Normal air movement, No rhonchi Cardiovascular: Regular rate, Regular Rhythm, Normal S1, Normal S2 Abdomen: Bowel Sounds Present, Soft, Non Tender, Non-Distended Extremities: No clubbing, No cyanosis, No edema Skin: No rashes Lymphatic: No Cervical, Supraclavicular, or Inguinal Adenopathy Comment: Patient is not awake alert oriented during my encounter. Vital Signs Temp Pulse Resp BP Pulse Ox 98.2 F 90 18 157/88 H 94 04/16/18 07:52 04/16/18 07:58 04/16/18 07:52 04/16/18 07:52 04/16/18 08:16 Oxygen Delivery Method Room Air Weight: 76.6 kg Body Mass Index (BMI) 28.0 Finger Stick Blood Glucose 114 Intake and Output for Last 24 Hours 04/14/18 04/15/18 04/16/18 23:59 23:59 23:59 Intake Total 3727 / 3727 3808 / 3808 928.6 / 928.6 Output Total 700 / 700 850 / 850 425 / 425 Balance 3027 / 3027 2958 / 2958 503.6 / 503.6 Microbiology Past 72 Hours 04/14/18 18:00 Urine Culture - Preliminary Urine, Clean Catch Culture exhibits no growth. 04/14/18 19:55 Respiratory Panel (PCR) - Final Mucosa - Nasopharyngeal Laboratory Tests Past 24 Hrs 04/15/18 04/16/18 04/16/18 10:45 06:54 06:54 WBC 10.4 RBC 3.87 L Hgb 11.7 L Hct 34.8 L MCV 89.9 MCH 30.2 MCHC 33.6 RDW 14.0 RDW Differential 45.4 H Plt Count 99 L MPV 10.7 Immature Gran % (Auto) 0.600 Neut % (Auto) 83.3 H Lymph % (Auto) 5.8 L [place] % (Auto) 9.5 Eos % (Auto) 0.7 Baso % (Auto) 0.1 Absolute Neuts (auto) 8.7 H Absolute Lymphs (auto) 0.60 L Total Counted Not Reportable Platelet Estimate MOD DEC Plt Morphology Comment LARGE Sodium 147 H Potassium 5.3 H Chloride 116 H Carbon Dioxide 18.0 L Anion Gap 13 BUN 126 H* Creatinine 7.39 H Estim Creat Clear Calc 8.44 Est GFR (MDRD) Af Amer 10 L Est GFR (MDRD) Non-Af 8 L BUN/Creatinine Ratio 17.1 Glucose 106 Calcium 8.6 Total Creatine Kinase Total Protein (PEP) Albumin (PEP) Globulin (PEP) Albumin/Globulin (PEP) Rieks-6-Wxpqrdmto Agwil-5-Zwqznaaol Beta Globulins Gamma Globulins M-Cabrera Rheumatoid Factor JOSEPHINE Screen c-ANCA Antibody p-ANCA Antibody SUHAIL-1 Antibody SS-A/Ro IgG Antibody SS-B/La IgG Antibody Sm (Hdez) Antibody NAIL MAKING MACHINE TENDER Antibody Scl-70 Scleroderma Ab Double Strand DNA Ab Centromere B Antibody Glomerular Base Memb Ab Complement C3 Complement C4 MRSA (PCR) Negative 04/16/18 04/16/18 04/16/18 09:40 09:40 09:40 WBC RBC Hgb Hct MCV MCH MCHC RDW RDW Differential Plt Count MPV Immature Gran % (Auto) Neut % (Auto) Lymph % (Auto) [place] % (Auto) Eos % (Auto) Baso % (Auto) Absolute Neuts (auto) Absolute Lymphs (auto) Total Counted Platelet Estimate Plt Morphology Comment Sodium Potassium Chloride Carbon Dioxide Anion Gap BUN Creatinine Estim Creat Clear Calc Est GFR (MDRD) Af Amer Est GFR (MDRD) Non-Af BUN/Creatinine Ratio Glucose Calcium Total Creatine Kinase Pending Total Protein (PEP) Pending Albumin (PEP) Pending Globulin (PEP) Pending Albumin/Globulin (PEP) Pending Xhakh-2-Poojylcut Pending Pbbdz-6-Amguonzcx Pending Beta Globulins Pending Gamma Globulins Pending M-Cabrera Pending Rheumatoid Factor Pending JOSEPHINE Screen Pending c-ANCA Antibody Pending p-ANCA Antibody Pending SUHAIL-1 Antibody Pending SS-A/Ro IgG Antibody Pending SS-B/La IgG Antibody Pending Sm (Hdez) Antibody Pending NAIL MAKING MACHINE TENDER Antibody Pending Scl-70 Scleroderma Ab Pending Double Strand DNA Ab Pending Centromere B Antibody Pending Glomerular Base Memb Ab Pending Complement C3 Pending Complement C4 Pending MRSA (PCR) Assessment/Plan All Active Problems KEIKO (acute kidney injury) (Acute) Altered mental status (Acute) Ischemic stroke (Acute) Acute respiratory failure (Resolved) 1-Acute kidney injury on chronic kidney disease. Baseline creatinine 1.1 mg a deciliter. UA showed 500 protein, 250 blood, RBCs 25-50, WBC 10-25 Acute kidney injury might be related to prerenal versus ATN induced by sepsis and prolonged ischemia. Glomerulonephritis needs to rule out. She has been on IV fluid Ringer lactate 150 cc/h. Kidney function continues to worsen. Creatinine up to 7.39 today. BUN 126. Order C3-C4, JOSEPHINE, ANCA, anti-GBM, hepatitis panel, and rheumatoid factor No clear indication for dialysis. No kim uremic symptoms,slight hyperkalemia and mild acidosis. Patient made 850 mL of urine in the last 24-hour. I agree to continue IV fluids for now. I spoke to the and explained to her that dialysis is a possibility for him if his kidney function does not improve. Patient's is leaning toward dialysis if needed. I will reevaluate the patient for dialysis tomorrow. Please avoid NSAIDs and keep mean arterial pressure more than 65. Please dose medication for GFR less than 10 ml/min 2-hyperkalemia: Most probably related to acute kidney injury. I will give the patient Kayexalate 15 g p.o. 1 time. Renal diet 3-metabolic acidosis. Most probably from acute kidney injury. Continue Ringer lactate no indication for hemodialysis. Thank you for the consult. Renal team will continue to follow
[2018-04-16] MEDS: Piperacil/Tazobactam 3.375 GM/50 ML ML IV ×2 (10:07→22:52)
[2018-04-16 10:28] LABS: CPK Total, Creatine Kinase 65 U/L (39-308); Rheumatoid Factor < 10.0 IU/mL (<15)
[2018-04-16 10:38] LABS: Urine Sodium 81 mmol/L (Not Establ.)
--- NOTE | 2018-04-16 13:06 | PCM.HP.ID ---
Problem List (1) KEIKO (acute kidney injury) Status: Acute Reason for Consult: pneumonia, keiko Consulted by: Dr. Dunne History of Present Illness: The patient is a 67 year old M with recent hemorrhagic stroke who presented with several days of altered mental status, not feeling well. Had concern for pneumonia at [facility], so had been started on ceftriaxone recently. Now with KEIKO, cr up to 7. at bedside who provided history as he is nonverbal. Reports mental status close to baseline this AM. Tmax 100.7 here, now afebrile. Wbc improved. ROS unobtainable due to mental status. - Medical History Past Medical History (Chronic Problems): Chronic Problems ICH (intracerebral hemorrhage) (Chronic) Hypertension (Chronic) Dyslipidemia (Chronic) Pulmonary emboli (Chronic) Allergies/Adverse Reactions: Allergies codeine Adverse Reaction (Verified 04/14/18 10:52) Unknown Home Medications: Ambulatory Orders Medication Instructions Recorded Acetaminophen 650 mg RC Q4H PRN 04/14/18 Acetaminophen [Tylenol] 2 tab PO Q4H PRN 04/14/18 Albuterol Aerosols [Ventolin 2.5 mg INHALATION Q4HWA.RT 04/14/18 Aerosols] Amlodipine [Norvasc] 10 mg PO DAILY 04/14/18 Ceftriaxone [Rocephin] 1 gm IV DAILY 04/14/18 Docusate Sodium [Colace] 100 mg PO BID 04/14/18 Ensure Enlive 120 ml PO BID 04/14/18 Levetiracetam [Keppra] 4 ml PO BID 04/14/18 Magnesium Hydroxide [Milk Of 30 ml PO DAILY PRN PRN 04/14/18 Magnesia] Metoprolol Tartrate 25 mg PO DAILY 04/14/18 Ramipril [Altace] 10 mg PO BID 04/14/18 - Social History SMOKING STATUS:: Former smoker Vital Signs Temp Pulse Resp BP Pulse Ox 98.2 F 90 18 157/88 H 94 04/16/18 07:52 04/16/18 11:00 04/16/18 10:40 04/16/18 07:52 04/16/18 08:16 Oxygen Delivery Method Room Air Weight: 76.6 kg Body Mass Index (BMI) 28.0 Finger Stick Blood Glucose 114 Microbiology Past 72 Hours 04/14/18 18:00 Urine Culture - Preliminary Urine, Clean Catch Culture exhibits no growth. 04/14/18 19:55 Respiratory Panel (PCR) - Final Mucosa - Nasopharyngeal Laboratory Tests Past 24 Hrs 04/16/18 04/16/18 04/16/18 06:54 06:54 09:40 WBC 10.4 RBC 3.87 L Hgb 11.7 L Hct 34.8 L MCV 89.9 MCH 30.2 MCHC 33.6 RDW 14.0 RDW Differential 45.4 H Plt Count 99 L MPV 10.7 Immature Gran % (Auto) 0.600 Neut % (Auto) 83.3 H Lymph % (Auto) 5.8 L [place] % (Auto) 9.5 Eos % (Auto) 0.7 Baso % (Auto) 0.1 Absolute Neuts (auto) 8.7 H Absolute Lymphs (auto) 0.60 L Total Counted Not Reportable Platelet Estimate MOD DEC Plt Morphology Comment LARGE Sodium 147 H Potassium 5.3 H Chloride 116 H Carbon Dioxide 18.0 L Anion Gap 13 BUN 126 H* Creatinine 7.39 H Estim Creat Clear Calc 8.44 Est GFR (MDRD) Af Amer 10 L Est GFR (MDRD) Non-Af 8 L BUN/Creatinine Ratio 17.1 Glucose 106 Calcium 8.6 Total Creatine Kinase Total Protein (PEP) Pending Albumin (PEP) Pending Globulin (PEP) Pending Albumin/Globulin (PEP) Pending Opmap-9-Mzxfgjybp Pending Iazkb-0-Hocskoqsa Pending Beta Globulins Pending Gamma Globulins Pending M-Cabrera Pending Ur Random Sodium Urine Creatinine Urine Total Protein Urine Albumin U Cgoif-0-Vglnqdyz U Orsyi-7-Aztkgjkd U Beta Globulin U Gamma Globulin U PEP M-Cabrera Rheumatoid Factor JOSEHPINE Screen c-ANCA Antibody Pending p-ANCA Antibody Pending SUHAIL-1 Antibody SS-A/Ro IgG Antibody SS-B/La IgG Antibody Sm (Hdez) Antibody QUALITY CONTROL ENGINEERING TECHNICIAN Antibody Scl-70 Scleroderma Ab Double Strand DNA Ab Centromere B Antibody Glomerular Base Memb Ab Pending Complement C3 Pending Complement C4 Pending 04/16/18 04/16/18 04/16/18 09:40 09:40 10:15 WBC RBC Hgb Hct MCV MCH MCHC RDW RDW Differential Plt Count MPV Immature Gran % (Auto) Neut % (Auto) Lymph % (Auto) [place] % (Auto) Eos % (Auto) Baso % (Auto) Absolute Neuts (auto) Absolute Lymphs (auto) Total Counted Platelet Estimate Plt Morphology Comment Sodium Potassium Chloride Carbon Dioxide Anion Gap BUN Creatinine Estim Creat Clear Calc Est GFR (MDRD) Af Amer Est GFR (MDRD) Non-Af BUN/Creatinine Ratio Glucose Calcium Total Creatine Kinase 65 Total Protein (PEP) Albumin (PEP) Globulin (PEP) Albumin/Globulin (PEP) Dhfmp-0-Rzpiaykoc Pxzby-7-Gikqxbmmz Beta Globulins Gamma Globulins M-Cabrera Ur Random Sodium Urine Creatinine Urine Total Protein Pending Urine Albumin Pending U Gbvdp-9-Azfnltfj Pending U Nmfxb-5-Zholhtcs Pending U Beta Globulin Pending U Gamma Globulin Pending U PEP M-Cabrera Pending Rheumatoid Factor < 10.0 JOSEPHINE Screen Pending c-ANCA Antibody p-ANCA Antibody SUHAIL-1 Antibody Pending SS-A/Ro IgG Antibody Pending SS-B/La IgG Antibody Pending Sm (Hdez) Antibody Pending QUALITY CONTROL ENGINEERING TECHNICIAN Antibody Pending Scl-70 Scleroderma Ab Pending Double Strand DNA Ab Pending Centromere B Antibody Pending Glomerular Base Memb Ab Complement C3 Complement C4 04/16/18 10:15 WBC RBC Hgb Hct MCV MCH MCHC RDW RDW Differential Plt Count MPV Immature Gran % (Auto) Neut % (Auto) Lymph % (Auto) [place] % (Auto) Eos % (Auto) Baso % (Auto) Absolute Neuts (auto) Absolute Lymphs (auto) Total Counted Platelet Estimate Plt Morphology Comment Sodium Potassium Chloride Carbon Dioxide Anion Gap BUN Creatinine Estim Creat Clear Calc Est GFR (MDRD) Af Amer Est GFR (MDRD) Non-Af BUN/Creatinine Ratio Glucose Calcium Total Creatine Kinase Total Protein (PEP) Albumin (PEP) Globulin (PEP) Albumin/Globulin (PEP) Lmaab-3-Dizwmnzii Oneme-8-Cadazskeu Beta Globulins Gamma Globulins M-Cabrera Ur Random Sodium 81 Urine Creatinine 38.20 Urine Total Protein Urine Albumin U Wmlps-2-Hnnufrqr U Nlrsw-7-Zhytmtdp U Beta Globulin U Gamma Globulin U PEP M-Cabrera Rheumatoid Factor JOSEPHINE Screen c-ANCA Antibody p-ANCA Antibody SUHAIL-1 Antibody SS-A/Ro IgG Antibody SS-B/La IgG Antibody Sm (Hdez) Antibody QUALITY CONTROL ENGINEERING TECHNICIAN Antibody Scl-70 Scleroderma Ab Double Strand DNA Ab Centromere B Antibody Glomerular Base Memb Ab Complement C3 Complement C4 - Other Studies Radiology: [] reviewed Other Studies: [] Route of nutrition/ use of supplements: [] Nutritional Intake: [] IV Site: [] Chin Catheter: [] - Physical Exam General: Non-Cooperative HEENT: Atraumatic, PERRLA, EOMI Neck: Supple, No Nodes Lungs: Clear to auscultation, Normal air movement Cardiovascular: Regular rate, Regular Rhythm Abdomen: Soft, Non Tender, Non-Distended Extremities: Edema - some BLE Skin: No rashes, Rash Present IV Site: Peripheral, without redness Musculoskeletal: No Tenderness to Palpation of Joints or Extremities Neurological: - - s/p stroke - Assessment/Plan Antibiotics: [] Assessment/Plan: [] Active and Suspected Problems KEIKO (acute kidney injury) (Acute) Sepsis with leukocytosis and low grade fever with recent diagnosis of pneumonia - cxr here clear, on room air. On zosyn; had been on ceftriaxone at [facility]. Respiratory viral panel neg. UA with 10-25 wbc. Some transaminitis. Cr rising. Neph following. says she is not interested in dialysis. Will check urine eosinophils. Will follow, thank you.
--- NOTE | 2018-04-16 13:11 | CON.PCM_ITS ---
Problem List (1) KEIKO (acute kidney injury) Status: Acute Reason for Consult: pneumonia, keiko Consulted by: Dr. Dunne History of Present Illness: The patient is a 67 year old M with recent hemorrhagic stroke who presented with several days of altered mental status, not feeling well. Had concern for pneumonia at [facility], so had been started on ceftriaxone recently. Now with KEIKO, cr up to 7. at bedside who provided history as he is nonverbal. Reports mental status close to baseline this AM. Tmax 100.7 here, now afebrile. Wbc improved. ROS unobtainable due to mental status. - Medical History Past Medical History (Chronic Problems): Chronic Problems ICH (intracerebral hemorrhage) (Chronic) Hypertension (Chronic) Dyslipidemia (Chronic) Pulmonary emboli (Chronic) Allergies/Adverse Reactions: Allergies codeine Adverse Reaction (Verified 04/14/18 10:52) Unknown Home Medications: Ambulatory Orders Medication Instructions Recorded Acetaminophen 650 mg RC Q4H PRN 04/14/18 Acetaminophen [Tylenol] 2 tab PO Q4H PRN 04/14/18 Albuterol Aerosols [Ventolin 2.5 mg INHALATION Q4HWA.RT 04/14/18 Aerosols] Amlodipine [Norvasc] 10 mg PO DAILY 04/14/18 Ceftriaxone [Rocephin] 1 gm IV DAILY 04/14/18 Docusate Sodium [Colace] 100 mg PO BID 04/14/18 Ensure Enlive 120 ml PO BID 04/14/18 Levetiracetam [Keppra] 4 ml PO BID 04/14/18 Magnesium Hydroxide [Milk Of 30 ml PO DAILY PRN PRN 04/14/18 Magnesia] Metoprolol Tartrate 25 mg PO DAILY 04/14/18 Ramipril [Altace] 10 mg PO BID 04/14/18 - Social History SMOKING STATUS:: Former smoker Vital Signs Temp Pulse Resp BP Pulse Ox 98.2 F 90 18 157/88 H 94 04/16/18 07:52 04/16/18 11:00 04/16/18 10:40 04/16/18 07:52 04/16/18 08:16 Oxygen Delivery Method Room Air Weight: 76.6 kg Body Mass Index (BMI) 28.0 Finger Stick Blood Glucose 114 Microbiology Past 72 Hours 04/14/18 18:00 Urine Culture - Preliminary Urine, Clean Catch Culture exhibits no growth. 04/14/18 19:55 Respiratory Panel (PCR) - Final Mucosa - Nasopharyngeal Laboratory Tests Past 24 Hrs 04/16/18 04/16/18 04/16/18 06:54 06:54 09:40 WBC 10.4 RBC 3.87 L Hgb 11.7 L Hct 34.8 L MCV 89.9 MCH 30.2 MCHC 33.6 RDW 14.0 RDW Differential 45.4 H Plt Count 99 L MPV 10.7 Immature Gran % (Auto) 0.600 Neut % (Auto) 83.3 H Lymph % (Auto) 5.8 L [place] % (Auto) 9.5 Eos % (Auto) 0.7 Baso % (Auto) 0.1 Absolute Neuts (auto) 8.7 H Absolute Lymphs (auto) 0.60 L Total Counted Not Reportable Platelet Estimate MOD DEC Plt Morphology Comment LARGE Sodium 147 H Potassium 5.3 H Chloride 116 H Carbon Dioxide 18.0 L Anion Gap 13 BUN 126 H* Creatinine 7.39 H Estim Creat Clear Calc 8.44 Est GFR (MDRD) Af Amer 10 L Est GFR (MDRD) Non-Af 8 L BUN/Creatinine Ratio 17.1 Glucose 106 Calcium 8.6 Total Creatine Kinase Total Protein (PEP) Pending Albumin (PEP) Pending Globulin (PEP) Pending Albumin/Globulin (PEP) Pending Ynvrz-1-Noxugxggx Pending Mcfrk-1-Ycjuujypg Pending Beta Globulins Pending Gamma Globulins Pending M-Cabrera Pending Ur Random Sodium Urine Creatinine Urine Total Protein Urine Albumin U Zetcp-1-Sgwmoaif U Ctkne-9-Nnviuvkd U Beta Globulin U Gamma Globulin U PEP M-Cabrera Rheumatoid Factor JOSEPHINE Screen c-ANCA Antibody Pending p-ANCA Antibody Pending SUHAIL-1 Antibody SS-A/Ro IgG Antibody SS-B/La IgG Antibody Sm (Hdez) Antibody ROOF BOLTER Antibody Scl-70 Scleroderma Ab Double Strand DNA Ab Centromere B Antibody Glomerular Base Memb Ab Pending Complement C3 Pending Complement C4 Pending 04/16/18 04/16/18 04/16/18 09:40 09:40 10:15 WBC RBC Hgb Hct MCV MCH MCHC RDW RDW Differential Plt Count MPV Immature Gran % (Auto) Neut % (Auto) Lymph % (Auto) [place] % (Auto) Eos % (Auto) Baso % (Auto) Absolute Neuts (auto) Absolute Lymphs (auto) Total Counted Platelet Estimate Plt Morphology Comment Sodium Potassium Chloride Carbon Dioxide Anion Gap BUN Creatinine Estim Creat Clear Calc Est GFR (MDRD) Af Amer Est GFR (MDRD) Non-Af BUN/Creatinine Ratio Glucose Calcium Total Creatine Kinase 65 Total Protein (PEP) Albumin (PEP) Globulin (PEP) Albumin/Globulin (PEP) Ixcri-5-Vwyqimdqv Cwgkl-5-Simmyjfch Beta Globulins Gamma Globulins M-Cabrera Ur Random Sodium Urine Creatinine Urine Total Protein Pending Urine Albumin Pending U Akybu-6-Affverwc Pending U Efybs-4-Yykbgyff Pending U Beta Globulin Pending U Gamma Globulin Pending U PEP M-Cabrera Pending Rheumatoid Factor < 10.0 JOSEPHINE Screen Pending c-ANCA Antibody p-ANCA Antibody SUHAIL-1 Antibody Pending SS-A/Ro IgG Antibody Pending SS-B/La IgG Antibody Pending Sm (Hdez) Antibody Pending ROOF BOLTER Antibody Pending Scl-70 Scleroderma Ab Pending Double Strand DNA Ab Pending Centromere B Antibody Pending Glomerular Base Memb Ab Complement C3 Complement C4 04/16/18 10:15 WBC RBC Hgb Hct MCV MCH MCHC RDW RDW Differential Plt Count MPV Immature Gran % (Auto) Neut % (Auto) Lymph % (Auto) [place] % (Auto) Eos % (Auto) Baso % (Auto) Absolute Neuts (auto) Absolute Lymphs (auto) Total Counted Platelet Estimate Plt Morphology Comment Sodium Potassium Chloride Carbon Dioxide Anion Gap BUN Creatinine Estim Creat Clear Calc Est GFR (MDRD) Af Amer Est GFR (MDRD) Non-Af BUN/Creatinine Ratio Glucose Calcium Total Creatine Kinase Total Protein (PEP) Albumin (PEP) Globulin (PEP) Albumin/Globulin (PEP) Beani-3-Egiaeclda Eycva-0-Qiyyaphnn Beta Globulins Gamma Globulins M-Cabrera Ur Random Sodium 81 Urine Creatinine 38.20 Urine Total Protein Urine Albumin U Eammr-6-Wdapydjl U Qcvvs-6-Jlixovrf U Beta Globulin U Gamma Globulin U PEP M-Cabrera Rheumatoid Factor JOSEPHINE Screen c-ANCA Antibody p-ANCA Antibody SUHAIL-1 Antibody SS-A/Ro IgG Antibody SS-B/La IgG Antibody Sm (Hdez) Antibody ROOF BOLTER Antibody Scl-70 Scleroderma Ab Double Strand DNA Ab Centromere B Antibody Glomerular Base Memb Ab Complement C3 Complement C4 - Other Studies Radiology: [] reviewed Other Studies: [] Route of nutrition/ use of supplements: [] Nutritional Intake: [] IV Site: [] Chin Catheter: [] - Physical Exam General: Non-Cooperative HEENT: Atraumatic, PERRLA, EOMI Neck: Supple, No Nodes Lungs: Clear to auscultation, Normal air movement Cardiovascular: Regular rate, Regular Rhythm Abdomen: Soft, Non Tender, Non-Distended Extremities: Edema - some BLE Skin: No rashes, Rash Present IV Site: Peripheral, without redness Musculoskeletal: No Tenderness to Palpation of Joints or Extremities Neurological: - - s/p stroke - Assessment/Plan Antibiotics: [] Assessment/Plan: [] Active and Suspected Problems KEIKO (acute kidney injury) (Acute) Sepsis with leukocytosis and low grade fever with recent diagnosis of pneumonia - cxr here clear, on room air. On zosyn; had been on ceftriaxone at [facility]. Resp iratory viral panel neg. UA with 10-25 wbc. Some transaminitis. Cr rising. Neph following. says she is not interested in dialysis. Will check urine eosinophils. Will follow, thank you.
--- NOTE | 2018-04-16 14:33 | PCM.PN.HOSP ---
Patient Problems: Active and Suspected Problems KEIKO (acute kidney injury) (Acute) Subjective: Patient confused and unable to provide any history. According to his , patient's mental status and is worse from today as he has not had any coherent conversation yet today. Vitals/I&O's: Vital Signs Temp Pulse Resp BP Pulse Ox 37.1 C 90 20 H 135/87 H 97 04/16/18 14:19 04/16/18 14:20 04/16/18 14:19 04/16/18 14:19 04/16/18 14:19 Oxygen Delivery Method Room Air Weight: 76.6 kg Body Mass Index (BMI) 28.0 Finger Stick Blood Glucose 114 Intake and Output for Last 24 Hours 04/14/18 04/15/18 04/16/18 23:59 23:59 23:59 Intake Total 3727 / 3727 3808 / 3808 1748.6 / 1748.6 Output Total 700 / 700 850 / 850 875 / 875 Balance 3027 / 3027 2958 / 2958 873.6 / 873.6 General: No apparent distress, - - Unresponsive to verbal or noxious stimuli HEENT: Atraumatic, Normocephalic Oral: Moist Mucosa, No Gingival or Mucosal Lesions/ Ulcerations Neck: No Nodes, Thyroid Normal Size and Texture Lungs: Clear to auscultation, Normal air movement, No rhonchi, No wheeze Cardiovascular: Regular rate, Regular Rhythm, Normal S1, Normal S2 Abdomen: Bowel Sounds Present, Soft, Non Tender, Non-Distended Extremities: No edema, No Calf Tenderness Microbiology Past 72 Hours 04/14/18 18:00 Urine, Clean Catch Urine Culture - Preliminary Culture exhibits no growth. 04/14/18 19:55 Mucosa - Nasopharyngeal Respiratory Panel (PCR) - Final Laboratory Results 04/16/18 06:54: WBC 10.4, RBC 3.87 L, Hgb 11.7 L, Hct 34.8 L, MCV 89.9, MCH 30.2, MCHC 33.6, RDW 14.0, RDW Differential 45.4 H, Plt Count 99 L, MPV 10.7, Immature Gran % (Auto) 0.600, Neut % (Auto) 83.3 H, Lymph % (Auto) 5.8 L, [place] % (Auto) 9.5, Eos % (Auto) 0.7, Baso % (Auto) 0.1, Absolute Neuts (auto) 8.7 H, Absolute Lymphs (auto) 0.60 L, Total Counted Not Reportable, Platelet Estimate MOD DEC, Plt Morphology Comment LARGE 04/16/18 06:54: Sodium 147 H, Potassium 5.3 H, Chloride 116 H, Carbon Dioxide 18.0 L, Anion Gap 13, BUN 126 H*, Creatinine 7.39 H, Estim Creat Clear Calc 8.44, Est GFR (MDRD) Af Amer 10 L, Est GFR (MDRD) Non-Af 8 L, BUN/Creatinine Ratio 17.1, Glucose 106, Calcium 8.6 04/16/18 09:40: Total Protein (PEP) Pending, Albumin (PEP) Pending, Globulin (PEP) Pending, Albumin/Globulin (PEP) Pending, Xpnyj-4-Zmqmplfpc Pending, Ghugr-4-Dcbbwarxz Pending, Beta Globulins Pending, Gamma Globulins Pending, M-Cabrera Pending, c-ANCA Antibody Pending, p-ANCA Antibody Pending, Glomerular Base Memb Ab Pending, Complement C3 Pending, Complement C4 Pending 04/16/18 09:40: JOSEPHINE Screen Pending, SUHAIL-1 Antibody Pending, SS-A/Ro IgG Antibody Pending, SS-B/La IgG Antibody Pending, Sm (Hdez) Antibody Pending, TROLLEY CLEANER Antibody Pending, Scl-70 Scleroderma Ab Pending, Double Strand DNA Ab Pending, Centromere B Antibody Pending 04/16/18 09:40: Total Creatine Kinase 65, Rheumatoid Factor < 10.0 04/16/18 10:15: Eos Smear Total Cells Pending, Urine Total Protein Pending, Urine Albumin Pending, U Qvmys-0-Bzkrvcso Pending, U Spcbg-7-Pvxnvdtg Pending, U Beta Globulin Pending, U Gamma Globulin Pending, U PEP M-Cabrera Pending 04/16/18 10:15: Ur Random Sodium 81, Urine Creatinine 38.20 04/16/18 10:15: Eos Smear Total Cells Cancelled 04/16/18 10:15: Absolute Eos (auto) Cancelled Current Medications Acetaminophen (Tylenol) 650 mg PO Q6H PRN PRN PRN Reason: Mild Pain (scale 0-3)/T>100.7 Albuterol Sulfate (Ventolin Aerosols) 2.5 mg INHALATION Q4HWA.RT [facility] Last Admin: 04/16/18 10:51 Dose: 2.5 mg Heparin Sodium (Porcine) (Heparin Na) 5,000 unit SC Q12 [facility] Last Admin: 04/16/18 09:29 Dose: 5,000 unit Pantoprazole Sodium 40 mg/ (Sodium Chloride) 110 mls @ 330 mls/hr IV Q24 [facility] Last Admin: 04/16/18 09:19 Dose: 330 mls/hr Lactated Ringer's () 1,000 mls @ 150 mls/hr IV .Q6H40M [facility] Last Admin: 04/16/18 09:18 Dose: 150 mls/hr Piperacillin Sod/Tazobactam Sod (Zosyn) 3.375 gm in 50 mls @ 12.5 mls/hr IV Q12 [facility] Last Admin: 04/16/18 10:07 Dose: 12.5 mls/hr Levetiracetam (Keppra Oral Solution) 200 mg PO BID [facility] Last Admin: 04/16/18 09:30 Dose: 200 mg Nutritional Formula (Lactose Free) (Ensure Enlive) 120 ml PO BID [facility] Last Admin: 04/16/18 09:30 Dose: 120 ml Ondansetron HCl (Zofran) 4 mg IV Q6H PRN PRN PRN Reason: NAUSEA Sodium Chloride () 5 - 15 ml IV UD PRN PRN Reason: SALINE FLUSH Medical Necessity - Tobacco Use Smoking Status: Former smoker Assessment/Plan All Active Problems KEIKO (acute kidney injury) (Acute) Altered mental status (Acute) Ischemic stroke (Acute) Acute respiratory failure (Resolved) 1. KEIKO non-oliguric FENA 10.72% suspect ATN continue IVF 2.SIRS POA etiology not identified infectious workup (resp panel, UCx, BCx negative so far) ID on consult 3. Metabolic encephalopathy 2/2 SIRS, KEIKO, prior CVA monitor avoid potentiating medications at this time 4. DVT proph: SQ heparin 5. Prognosis: guarded. DW patient's . She would like to see how the patient does overnight, if no change or even worse, she may pursue hospice care for the patient given his already poor quality of life and prior desire for no aggressive intervention. Code Visit Inpatient E&M: 49501 Subs Hosp L2
[2018-04-16] MEDS: Sodium Polystyrene Sulfonate 15 GM/60 ML UDC PO (14:37)
--- NOTE | 2018-04-16 14:44 | PN_ITS ---
Patient Problems: Active and Suspected Problems KEIKO (acute kidney injury) (Acute) Subjective: Patient confused and unable to provide any history. According to his , patient's mental status and is worse from today as he has not had any coherent conversation yet today. Vitals/I&O's: Vital Signs Temp Pulse Resp BP Pulse Ox 37.1 C 90 20 H 135/87 H 97 04/16/18 14:19 04/16/18 14:20 04/16/18 14:19 04/16/18 14:19 04/16/18 14:19 Oxygen Delivery Method Room Air Weight: 76.6 kg Body Mass Index (BMI) 28.0 Finger Stick Blood Glucose 114 Intake and Output for Last 24 Hours 04/14/18 04/15/18 04/16/18 23:59 23:59 23:59 Intake Total 3727 / 3727 3808 / 3808 1748.6 / 1748.6 Output Total 700 / 700 850 / 850 875 / 875 Balance 3027 / 3027 2958 / 2958 873.6 / 873.6 General: No apparent distress, - - Unresponsive to verbal or noxious stimuli HEENT: Atraumatic, Normocephalic Oral: Moist Mucosa, No Gingival or Mucosal Lesions/ Ulcerations Neck: No Nodes, Thyroid Normal Size and Texture Lungs: Clear to auscultation, Normal air movement, No rhonchi, No wheeze Cardiovascular: Regular rate, Regular Rhythm, Normal S1, Normal S2 Abdomen: Bowel Sounds Present, Soft, Non Tender, Non-Distended Extremities: No edema, No Calf Tenderness Microbiology Past 72 Hours 04/14/18 18:00 Urine, Clean Catch Urine Culture - Preliminary Culture exhibits no growth. 04/14/18 19:55 Mucosa - Nasopharyngeal Respiratory Panel (PCR) - Final Laboratory Results 04/16/18 06:54: WBC 10.4, RBC 3.87 L, Hgb 11.7 L, Hct 34.8 L, MCV 89.9, MCH 30.2, MCHC 33.6, RDW 14.0, RDW Differential 45.4 H, Plt Count 99 L, MPV 10.7, Immature Gran % (Auto) 0.600, Neut % (Auto) 83.3 H, Lymph % (Auto) 5.8 L, [place] % (Auto) 9.5, Eos % (Auto) 0.7, Baso % (Auto) 0.1, Absolute Neuts (auto) 8.7 H, A bsolute Lymphs (auto) 0.60 L, Total Counted Not Reportable, Platelet Estimate MOD DEC, Plt Morphology Comment LARGE 04/16/18 06:54: Sodium 147 H, Potassium 5.3 H, Chloride 116 H, Carbon Dioxide 18.0 L, Anion Gap 13, BUN 126 H*, Creatinine 7.39 H, Estim Creat Clear Calc 8.44, Est GFR (MDRD) Af Amer 10 L, Est GFR (MDRD) Non-Af 8 L, BUN/Creatinine Ratio 17.1, Glucose 106, Calcium 8.6 04/16/18 09:40: Total Protein (PEP) Pending, Albumin (PEP) Pending, Globulin (PEP) Pending, Albumin/Globulin (PEP) Pending, Btgtv-0-Eiwxzhhbk Pending, Rkavs-4-Xjyimtgiw Pending, Beta Globulins Pending, Gamma Globulins Pending, M- Cabrera Pending, c-ANCA Antibody Pending, p-ANCA Antibody Pending, Glomerular Base Memb Ab Pending, Complement C3 Pending, Complement C4 Pending 04/16/18 09:40: JOSEPHINE Screen Pending, SUHAIL-1 Antibody Pending, SS-A/Ro IgG Antibody Pending, SS-B/La IgG Antibody Pending, Sm (Hdez) Antibody Pending, COOK HELPER PRESERVES Antibody Pending, Scl-70 Scleroderma Ab Pending, Double Strand DNA Ab Pending, Centromere B Antibody Pending 04/16/18 09:40: Total Creatine Kinase 65, Rheumatoid Factor < 10.0 04/16/18 10:15: Eos Smear Total Cells Pending, Urine Total Protein Pending, Urine Albumin Pending, U Ejwkz-0-Xwsvfhbo Pending, U Lrnal-3-Fmkbmyxz Pending, U Beta Globulin Pending, U Gamma Globulin Pending, U PEP M-Cabrera Pending 04/16/18 10:15: Ur Random Sodium 81, Urine Creatinine 38.20 04/16/18 10:15: Eos Smear Total Cells Cancelled 04/16/18 10:15: Absolute Eos (auto) Cancelled Current Medications Acetaminophen (Tylenol) 650 mg PO Q6H PRN PRN PRN Reason: Mild Pain (scale 0-3)/T>100.7 Albuterol Sulfate (Ventolin Aerosols) 2.5 mg INHALATION Q4HWA.RT [facility] Last Admin: 04/16/18 10:51 Dose: 2.5 mg Heparin Sodium (Porcine) (Heparin Na) 5,000 unit SC Q12 [facility] Last Admin: 04/16/18 09:29 Dose: 5,000 unit Pantoprazole Sodium 40 mg/ (Sodium Chloride) 110 mls @ 330 mls/hr IV Q24 [facility] Last Admin: 04/16/18 09:19 Dose: 330 mls/hr Lactated Ringer's () 1,000 mls @ 150 mls/hr IV .Q6H40M [facility] Last Admin: 04/16/18 09:18 Dose: 150 mls/hr Piperacillin Sod/Tazobactam Sod (Zosyn) 3.375 gm in 50 mls @ 12.5 mls/hr IV Q12 [facility] Last Admin: 04/16/18 10:07 Dose: 12.5 mls/hr Levetiracetam (Keppra Oral Solution) 200 mg PO BID [facility] Last Admin: 04/16/18 09:30 Dose: 200 mg Nutritional Formula (Lactose Free) (Ensure Enlive) 120 ml PO BID [facility] Last Admin: 04/16/18 09:30 Dose: 120 ml Ondansetron HCl (Zofran) 4 mg IV Q6H PRN PRN PRN Reason: NAUSEA Sodium Chloride () 5 - 15 ml IV UD PRN PRN Reason: SALINE FLUSH Medical Necessity - Tobacco Use Smoking Status: Former smoker Assessment/Plan All Active Problems KEIKO (acute kidney injury) (Acute) Altered mental status (Acute) Ischemic stroke (Acute) Acute respiratory failure (Resolved) 1. KEIKO non-oliguric FENA 10.72% suspect ATN continue IVF 2.SIRS POA etiology not identified infectious workup (resp panel, UCx, BCx negative so far) ID on consult 3. Metabolic encephalopathy 2/2 SIRS, KEIKO, prior CVA monitor avoid potentiating medications at this time 4. DVT proph: SQ heparin 5. Prognosis: guarded. DW patient's . She would like to see how the patient does overnight, if no change or even worse, she may pursue hospice care for the patient given his already poor quality of life and prior desire for no aggressive intervention. Code Visit Inpatient E&M: [id number] Subs Hosp L2
--- NOTE | 2018-04-16 15:11 | NURSING ---
wound photo: sacrum/right buttock
--- NOTE | 2018-04-16 15:13 | NURSING ---
wound photo: right lateral ankle
--- NOTE | 2018-04-16 15:13 | NURSING ---
Avery from pharmacy was notified that med now is ordered to give rectally. Will send insert. Rosalia the pharmacist will check into this order and will enter the appropriate order.
[2018-04-16] MEDS: Sodium Polystyrene Sulfonate 15 GM/60 ML UDC 30 GM RECTAL (16:10)
[2018-04-16] MEDS: Menthol/Lanolin/Calamine/Znox 113 GM Tube 1 APPLIC TOPICAL (23:14)
[2018-04-17] VITALS (10 sets, daily range): BP systolic 136–145; BP diastolic 78–90; PULSE 77–89; RESP 18–21; TEMP 37.2–37.3; O2SAT 93–97
[2018-04-17] MEDS: Menthol/Lanolin/Calamine/Znox 113 GM Tube 1 APPLIC TOPICAL ×2 (05:59→13:18)
[2018-04-17] MEDS: Lactated Ringers 1,000 ML 150 ML IV (05:59)
[2018-04-17 06:07] LABS: HEPATITIS B SURFACE AG Negative (Negative); Hepatitis A AB, Total Negative (Negative); Hepatitis A IgM Antibody Negative (Negative); Hepatitis B Core AB IgM Negative (Negative); Hepatitis B Core Ab Total Negative (Negative); Hepatitis C Ab 0.1 s/co ratio (0.0-0.9)
[2018-04-17] MEDS: Albuterol 2.5 MG/3 ML VIAL.NEB. INHALATION ×3 (07:19→13:44)
--- NOTE | 2018-04-17 09:29 | PCM.PN.REN ---
Patient Problems: Active and Suspected Problems KEIKO (acute kidney injury) (Acute) Subjective: Patient is nonverbal. Patient opens his eyes but does not follow commands Cannot do ROS - Physical Exam General: Lethargic HEENT: Atraumatic Oral: Dry Mucosa Neck: Supple, No JVD Lungs: Clear to auscultation, Normal air movement, No rhonchi Cardiovascular: Regular rate, Regular Rhythm, Normal S1, Normal S2 Abdomen: Bowel Sounds Present, Soft, Non Tender Extremities: Edema - Trace edema of both feet Skin: No rashes Musculoskeletal: No Tenderness to Palpation of Joints or Extremities Lymphatic: No Cervical, Supraclavicular, or Inguinal Adenopathy Neurological: - - Not awake alert oriented. Patient does open his eyes. Does not follow commands Vital Signs Temp Pulse Resp BP Pulse Ox 99.2 F H 87 18 139/78 H 94 04/17/18 08:12 04/17/18 08:12 04/17/18 08:12 04/17/18 08:12 04/17/18 08:12 Oxygen Delivery Method Room Air Weight: 76.6 kg Body Mass Index (BMI) 28.0 Finger Stick Blood Glucose 114 Intake and Output for Last 24 Hours 04/15/18 04/16/18 04/17/18 23:59 23:59 23:59 Intake Total 3808 / 3808 3364.6 / 3364.6 969 / 969 Output Total 850 / 850 1675 / 1675 650 / 650 Balance 2958 / 2958 1689.6 / 1689.6 319 / 319 Microbiology Past 72 Hours 04/14/18 18:00 Urine Culture - Final Urine, Clean Catch Culture exhibits no growth. 04/14/18 19:55 Respiratory Panel (PCR) - Final Mucosa - Nasopharyngeal Laboratory Tests Past 24 Hrs 04/16/18 04/16/18 04/16/18 09:40 09:40 09:40 Absolute Eos (auto) Eos Smear Total Cells Sodium Potassium Chloride Carbon Dioxide BUN Creatinine Est GFR (MDRD) Af Amer Est GFR (MDRD) Non-Af BUN/Creatinine Ratio Glucose Calcium Phosphorus Total Creatine Kinase 65 Total Protein (PEP) Pending Albumin Albumin (PEP) Pending Globulin (PEP) Pending Albumin/Globulin (PEP) Pending Ymddh-8-Ssefhrkhl Pending Bovmw-9-Poiyrcnly Pending Beta Globulins Pending Gamma Globulins Pending M-Cabrera Pending Ur Random Sodium Urine Creatinine Urine Total Protein Urine Albumin U Udtde-3-Vopecvwy U Aaose-0-Vrfuhedm U Beta Globulin U Gamma Globulin U PEP M-Cabrera Rheumatoid Factor < 10.0 JOSEPHINE Screen Pending c-ANCA Antibody Pending p-ANCA Antibody Pending SUHAIL-1 Antibody Pending SS-A/Ro IgG Antibody Pending SS-B/La IgG Antibody Pending Sm (Hdez) Antibody Pending PLASTIC SHEETS SUPERVISOR Antibody Pending Scl-70 Scleroderma Ab Pending Double Strand DNA Ab Pending Centromere B Antibody Pending Glomerular Base Memb Ab Pending Complement C3 Pending Complement C4 Pending 04/16/18 04/16/18 04/16/18 10:15 10:15 10:15 Absolute Eos (auto) Eos Smear Total Cells Pending Cancelled Sodium Potassium Chloride Carbon Dioxide BUN Creatinine Est GFR (MDRD) Af Amer Est GFR (MDRD) Non-Af BUN/Creatinine Ratio Glucose Calcium Phosphorus Total Creatine Kinase Total Protein (PEP) Albumin Albumin (PEP) Globulin (PEP) Albumin/Globulin (PEP) Onzqg-4-Eywhwbluj Tmmbn-5-Tzhjpvqgk Beta Globulins Gamma Globulins M-Cabrera Ur Random Sodium 81 Urine Creatinine 38.20 Urine Total Protein Pending Urine Albumin Pending U Huvxr-4-Acgvopby Pending U Mqlnt-3-Nsqsatay Pending U Beta Globulin Pending U Gamma Globulin Pending U PEP M-Cabrera Pending Rheumatoid Factor JOSEPHINE Screen c-ANCA Antibody p-ANCA Antibody SUHAIL-1 Antibody SS-A/Ro IgG Antibody SS-B/La IgG Antibody Sm (Hdez) Antibody PLASTIC SHEETS SUPERVISOR Antibody Scl-70 Scleroderma Ab Double Strand DNA Ab Centromere B Antibody Glomerular Base Memb Ab Complement C3 Complement C4 04/16/18 04/17/18 10:15 08:48 Absolute Eos (auto) Cancelled Eos Smear Total Cells Sodium Pending Potassium Pending Chloride Pending Carbon Dioxide Pending BUN Pending Creatinine Pending Est GFR (MDRD) Af Amer Pending Est GFR (MDRD) Non-Af Pending BUN/Creatinine Ratio Pending Glucose Pending Calcium Pending Phosphorus Pending Total Creatine Kinase Total Protein (PEP) Albumin Pending Albumin (PEP) Globulin (PEP) Albumin/Globulin (PEP) Mwodb-2-Oelcdmlay Fyplg-8-Noouumzdu Beta Globulins Gamma Globulins M-Cabrera Ur Random Sodium Urine Creatinine Urine Total Protein Urine Albumin U Xvwyk-3-Jkuijywb U Cyhij-5-Vjkdxits U Beta Globulin U Gamma Globulin U PEP M-Cabrera Rheumatoid Factor JOSEPHINE Screen c-ANCA Antibody p-ANCA Antibody SUHAIL-1 Antibody SS-A/Ro IgG Antibody SS-B/La IgG Antibody Sm (Hdez) Antibody PLASTIC SHEETS SUPERVISOR Antibody Scl-70 Scleroderma Ab Double Strand DNA Ab Centromere B Antibody Glomerular Base Memb Ab Complement C3 Complement C4 Medical Necessity - Tobacco Use Smoking Status: Former smoker Assessment/Plan All Active Problems KEIKO (acute kidney injury) (Acute) Altered mental status (Acute) Ischemic stroke (Acute) Acute respiratory failure (Resolved) 1-Acute kidney injury on chronic kidney disease. Baseline creatinine 1.1 mg a deciliter. UA showed 500 protein, 250 blood, RBCs 25-50, WBC 10-25 Acute kidney injury might be related to prerenal versus ATN induced by sepsis and prolonged ischemia Vs AIN VS Glomerulonephritis needs to rule out. No labs for today. Renal chemistry still pending. Patient is making urine. Urine output 1.6 clear the last 24-hour. Creatinine was 7.39 mg/dL as of yesterday and BUN 126. I will continue IV fluid same rate at 150 cc/h. I will follow renal chemistry result for today C3-C4, JOSEPHINE, ANCA, anti-GBM, hepatitis panel, urine eosinophils and rheumatoid factor all pending No clear indication for dialysis for now. If kidney function continues to worsen, will arrange for hemodialysis tomorrow I spoke to the and explained to her that dialysis is a possibility for him if his kidney function does not improve. Patient's is leaning toward dialysis if needed. I will reevaluate the patient for dialysis tomorrow. Please avoid NSAIDs and keep mean arterial pressure more than 65. Please dose medication for GFR less than 10 ml/min 2-hyperkalemia: Most probably related to acute kidney injury. received kayexalate yesterday. check K today Renal diet 3-metabolic acidosis. Most probably from acute kidney injury. Continue Ringer lactate. follow HCO3 today Thank you for the consult. Renal team will continue to follow
--- NOTE | 2018-04-17 09:36 | PN.RENAL_ITS ---
Patient Problems: Active and Suspected Problems KEIKO (acute kidney injury) (Acute) Subjective: Patient is nonverbal. Patient opens his eyes but does not follow commands Cannot do ROS - Physical Exam General: Lethargic HEENT: Atraumatic Oral: Dry Mucosa Neck: Supple, No JVD Lungs: Clear to auscultation, Normal air movement, No rhonchi Cardiovascular: Regular rate, Regular Rhythm, Normal S1, Normal S2 Abdomen: Bowel Sounds Present, Soft, Non Tender Extremities: Edema - Trace edema of both feet Skin: No rashes Musculoskeletal: No Tenderness to Palpation of Joints or Extremities Lymphatic: No Cervical, Supraclavicular, or Inguinal Adenopathy Neurological: - - Not awake alert oriented. Patient does open his eyes. Does not follow commands Vital Signs Temp Pulse Resp BP Pulse Ox 99.2 F H 87 18 139/78 H 94 04/17/18 08:12 04/17/18 08:12 04/17/18 08:12 04/17/18 08:12 04/17/18 08:12 Oxygen Delivery Method Room Air Weight: 76.6 kg Body Mass Index (BMI) 28.0 Finger Stick Blood Glucose 114 Intake and Output for Last 24 Hours 04/15/18 04/16/18 04/17/18 23:59 23:59 23:59 Intake Total 3808 / 3808 3364.6 / 3364.6 969 / 969 Output Total 850 / 850 1675 / 1675 650 / 650 Balance 2958 / 2958 1689.6 / 1689.6 319 / 319 Microbiology Past 72 Hours 04/14/18 18:00 Urine Culture - Final Urine, Clean Catch Culture exhibits no growth. 04/14/18 19:55 Respiratory Panel (PCR) - Final Mucosa - Nasopharyngeal Laboratory Tests Past 24 Hrs 04/16/18 04/16/18 04/16/18 09:40 09:40 09:40 Absolute Eos (auto) Eos Smear Total Cells Sodium Potassium Chloride Carbon Dioxide BUN Creatinine Est GFR (MDRD) Af Amer Est GFR (MDRD) Non-Af BUN/Creatinine Ratio Glucose Calcium Phosphorus Total Creatine Kinase 65 Total Protein (PEP) Pending Albumin Albumin (PEP) Pending Globulin (PEP) Pending Albumin/Globulin (PEP) Pending Wepuh-3-Mpthscnza Pending Lktnx-5-Mytsgysul Pending Beta Globulins Pending Gamma Globulins Pending M-Cabrera Pending Ur Random Sodium Urine Creatinine Urine Total Protein Urine Albumin U Vxpbj-6-Sxzrarpo U Umjdf-8-Pnfhbtts U Beta Globulin U Gamma Globulin U PEP M-Cabrera Rheumatoid Factor < 10.0 JOSEPHINE Screen Pending c-ANCA Antibody Pending p-ANCA Antibody Pending SUHAIL-1 Antibody Pending SS-A/Ro IgG Antibody Pending SS-B/La IgG Antibody Pending Sm (Hdez) Antibody Pending OPEN CLAIMS REPRESENTATIVE Antibody Pending Scl-70 Scleroderma Ab Pending Double Strand DNA Ab Pending Centromere B Antibody Pending Glomerular Base Memb Ab Pending Complement C3 Pending Complement C4 Pending 04/16/18 04/16/18 04/16/18 10:15 10:15 10:15 Absolute Eos (auto) Eos Smear Total Cells Pending Cancelled Sodium Potassium Chloride Carbon Dioxide BUN Creatinine Est GFR (MDRD) Af Amer Est GFR (MDRD) Non-Af BUN/Creatinine Ratio Glucose Calcium Phosphorus Total Creatine Kinase Total Protein (PEP) Albumin Albumin (PEP) Globulin (PEP) Albumin/Globulin (PEP) Jflax-1-Xugupcaxo Eufcu-5-Hwsobljlm Beta Globulins Gamma Globulins M-Cabrera Ur Random Sodium 81 Urine Creatinine 38.20 Urine Total Protein Pending Urine Albumin Pending U Inyee-2-Clcslksm Pending U Axoae-2-Tzkpsktw Pending U Beta Globulin Pending U Gamma Globulin Pending U PEP M-Cabrera Pending Rheumatoid Factor JOSEPHINE Screen c-ANCA Antibody p-ANCA Antibody SUHAIL-1 Antibody SS-A/Ro IgG Antibody SS-B/La IgG Antibody Sm (Hdez) Antibody OPEN CLAIMS REPRESENTATIVE Antibody Scl-70 Scleroderma Ab Double Strand DNA Ab Centromere B Antibody Glomerular Base Memb Ab Complement C3 Complement C4 04/16/18 04/17/18 10:15 08:48 Absolute Eos (auto) Cancelled Eos Smear Total Cells Sodium Pending Potassium Pending Chloride Pending Carbon Dioxide Pending BUN Pending Creatinine Pending Est GFR (MDRD) Af Amer Pending Est GFR (MDRD) Non-Af Pending BUN/Creatinine Ratio Pending Glucose Pending Calcium Pending Phosphorus Pending Total Creatine Kinase Total Protein (PEP) Albumin Pending Albumin (PEP) Globulin (PEP) Albumin/Globulin (PEP) Xqfrb-0-Zflxawdmi Uewni-3-Ttjmhrbvj Beta Globulins Gamma Globulins M-Cabrera Ur Random Sodium Urine Creatinine Urine Total Protein Urine Albumin U Ptlfw-1-Qbjpails U Hhacs-3-Mejzynus U Beta Globulin U Gamma Globulin U PEP M-Cabrera Rheumatoid Factor JOSEPHINE Screen c-ANCA Antibody p-ANCA Antibody SUHAIL-1 Antibody SS-A/Ro IgG Antibody SS-B/La IgG Antibody Sm (Hdez) Antibody OPEN CLAIMS REPRESENTATIVE Antibody Scl-70 Scleroderma Ab Double Strand DNA Ab Centromere B Antibody Glomerular Base Memb Ab Complement C3 Complement C4 Medical Necessity - Tobacco Use Smoking Status: Former smoker Assessment/Plan All Active Problems KEIKO (acute kidney injury) (Acute) Altered mental status (Acute) Ischemic stroke (Acute) Acute respiratory failure (Resolved) 1-Acute kidney injury on chronic kidney disease. Baseline creatinine 1.1 mg a deciliter. UA showed 500 protein, 250 blood, RBCs 25-50, WBC 10-25 Acute kidney injury might be related to prerenal versus ATN induced by sepsis and prolonged ischemia Vs AIN VS Glomerulonephritis needs to rule out. No labs for today. Renal chemistry still pending. Patient is making urine. Urine output 1.6 clear the last 24-hour. Creatinine was 7.39 mg/dL as of yesterday and BUN 126. I will continue IV fluid same rate at 150 cc/h. I will follow renal chemistry result for today C3-C4, JOSEPHINE, ANCA, anti-GBM, hepatitis panel, urine eosinophils and rheumatoid factor all pending No clear indication for dialysis for now. If kidney function continues to worsen, will arrange for hemodialysis tomorrow I spoke to the and explained to her that dialysis is a possibility for him if his kidney function does not improve. Patient's is leaning toward dialysis if needed. I will reevaluate the patient for dialysis tomorrow. Please avoid NSAIDs and keep mean arterial pressure more than 65. Please dose medication for GFR less than 10 ml/min 2-hyperkalemia: Most probably related to acute kidney injury. received kayexalate yesterday. check K today Renal diet 3-metabolic acidosis. Most probably from acute kidney injury. Continue Ringer lactate. follow HCO3 today Thank you for the consult. Renal team will continue to follow
[2018-04-17 09:42] LABS: Albumin, Serum 1.6 g/dL (3.2-5.0); BUN 134 mg/dL (7-18); BUN/Creat Ratio 17.6 RATIO (10-20); Calcium,Total 8.1 mg/dL (8.5-10.1); Chloride 117 mmol/L (98-107); Creatinine, Serum 7.62 mg/dL (0.70-1.30); EST Glomerular Filtration Rate 8 mL/min (>60); Est Glom Filt Rate - Afr Amer 9 mL/min (>60); Estimated Creatinine Clearance 8.18 ml/min; Glucose 99 mg/dL (74-106); Potassium 5.4 mmol/L (3.5-5.1); Sodium Level 148 mmol/L (136-145)
[2018-04-17] MEDS: Heparin Injection (Vial) 5,000 UNIT/ML VIAL 5000 UNIT SC (10:32)
[2018-04-17] MEDS: Piperacil/Tazobactam 3.375 GM/50 ML ML IV (10:57)
--- NOTE | 2018-04-17 11:17 | PCM.PN.HOSP ---
Patient Problems: Active and Suspected Problems KEIKO (acute kidney injury) (Acute) Subjective: Still confused today. Unable to provide any history, given his confusion. Vitals/I&O's: Vital Signs Temp Pulse Resp BP Pulse Ox 37.3 C H 78 21 H 139/78 H 94 04/17/18 08:12 04/17/18 10:40 04/17/18 10:40 04/17/18 08:12 04/17/18 08:12 Oxygen Delivery Method Room Air Weight: 76.6 kg Body Mass Index (BMI) 28.0 Finger Stick Blood Glucose 114 Intake and Output for Last 24 Hours 04/15/18 04/16/18 04/17/18 23:59 23:59 23:59 Intake Total 3808 / 3808 3364.6 / 3364.6 969 / 969 Output Total 850 / 850 1675 / 1675 650 / 650 Balance 2958 / 2958 1689.6 / 1689.6 319 / 319 General: Confused, - - Afebrile. Opens eyes to voice and response to verbal stimuli but is incoherent. HEENT: Atraumatic, Normocephalic Oral: Dry Mucosa Lungs: Clear to auscultation, No rhonchi, No wheeze, Diminished Cardiovascular: Regular rate, Regular Rhythm, Normal S1, Normal S2, No murmurs Abdomen: Bowel Sounds Present, Soft, Non Tender, Non-Distended Extremities: No edema, No Calf Tenderness Skin: No rashes, No breakdown Psych/Mental Status: Normal Affect, Appropriate Microbiology Past 72 Hours 04/14/18 18:00 Urine, Clean Catch Urine Culture - Final Culture exhibits no growth. 04/14/18 19:55 Mucosa - Nasopharyngeal Respiratory Panel (PCR) - Final Laboratory Results 04/16/18 10:15: Eos Smear Total Cells Pending, Urine Total Protein Pending, Urine Albumin Pending, U Oqwrn-1-Yqrbtswd Pending, U Cbtcf-4-Xsxcavjr Pending, U Beta Globulin Pending, U Gamma Globulin Pending, U PEP M-Cabrera Pending 04/16/18 10:15: Eos Smear Total Cells Cancelled 04/16/18 10:15: Absolute Eos (auto) Cancelled 04/17/18 08:48: Sodium 148 H, Potassium 5.4 H, Chloride 117 H, Carbon Dioxide 17.0 L, BUN 134 H*, Creatinine 7.62 H*, Estim Creat Clear Calc 8.18, Est GFR (MDRD) Af Amer 9 L, Est GFR (MDRD) Non-Af 8 L, BUN/Creatinine Ratio 17.6, Glucose 99, Calcium 8.1 L, Phosphorus 6.0 H, Albumin 1.6 L Current Medications Acetaminophen (Tylenol) 650 mg PO Q6H PRN PRN PRN Reason: Mild Pain (scale 0-3)/T>100.7 Albuterol Sulfate (Ventolin Aerosols) 2.5 mg INHALATION Q4HWA.RT [facility] Last Admin: 04/17/18 10:25 Dose: 2.5 mg Calamine/Phenol (Calmoseptine Ointment) 1 applic TOPICAL TID [facility]; Protocol Last Admin: 04/17/18 05:59 Dose: 1 applicatio Heparin Sodium (Porcine) (Heparin Na) 5,000 unit SC Q12 [facility] Last Admin: 04/17/18 10:32 Dose: 5,000 unit Pantoprazole Sodium 40 mg/ (Sodium Chloride) 110 mls @ 330 mls/hr IV Q24 [facility] Last Admin: 04/17/18 10:29 Dose: 330 mls/hr Lactated Ringer's () 1,000 mls @ 150 mls/hr IV .Q6H40M [facility] Last Admin: 04/17/18 05:59 Dose: 150 mls/hr Piperacillin Sod/Tazobactam Sod (Zosyn) 3.375 gm in 50 mls @ 12.5 mls/hr IV Q12 [facility] Last Admin: 04/17/18 10:57 Dose: 12.5 mls/hr Levetiracetam (Keppra Oral Solution) 200 mg PO BID [facility] Last Admin: 04/17/18 10:24 Dose: Not Given Nutritional Formula (Lactose Free) (Ensure Enlive) 120 ml PO BID [facility] Last Admin: 04/17/18 10:24 Dose: Not Given Ondansetron HCl (Zofran) 4 mg IV Q6H PRN PRN PRN Reason: NAUSEA Sodium Chloride () 5 - 15 ml IV UD PRN PRN Reason: SALINE FLUSH Medical Necessity - Tobacco Use Smoking Status: Former smoker Assessment/Plan All Active Problems KEIKO (acute kidney injury) (Acute) Altered mental status (Acute) Ischemic stroke (Acute) Acute respiratory failure (Resolved) 1. KEIKO non-oliguric FENA 10.72% suspect ATN continue IVF Nephrology recommended dialysis, however the patient's declined as it will not necessary provide him any quality of life. She is a requesting hospice services at this time. Without dialysis and is ever worsening, patient will likely continue to decline without aggressive medical care. Patient's understands that and still insists on hospice services. 2.SIRS POA etiology not identified infectious workup (resp panel, UCx, BCx negative so far) ID on consult On Zosyn 3. Metabolic encephalopathy 2/2 SIRS, KEIKO, prior CVA monitor avoid potentiating medications at this time 4. DVT proph: SQ heparin 5. Prognosis: guarded. Given the overall worsening of his kidney function despite IV fluids, the patient's declining dialysis, hospice will evaluate the patient. In the meantime, we will de-escalate therapy and focus only on symptom control at this time. Without dialysis and other aggressive measures, life expectancy is less than 6 months. Code Visit Inpatient E&M: [id number] Subs Hosp L2
--- NOTE | 2018-04-17 11:21 | PN_ITS ---
Patient Problems: Active and Suspected Problems KEIKO (acute kidney injury) (Acute) Subjective: Still confused today. Unable to provide any history, given his confusion. Vitals/I&O's: Vital Signs Temp Pulse Resp BP Pulse Ox 37.3 C H 78 21 H 139/78 H 94 04/17/18 08:12 04/17/18 10:40 04/17/18 10:40 04/17/18 08:12 04/17/18 08:12 Oxygen Delivery Method Room Air Weight: 76.6 kg Body Mass Index (BMI) 28.0 Finger Stick Blood Glucose 114 Intake and Output for Last 24 Hours 04/15/18 04/16/18 04/17/18 23:59 23:59 23:59 Intake Total 3808 / 3808 3364.6 / 3364.6 969 / 969 Output Total 850 / 850 1675 / 1675 650 / 650 Balance 2958 / 2958 1689.6 / 1689.6 319 / 319 General: Confused, - - Afebrile. Opens eyes to voice and response to verbal stimuli but is incoherent. HEENT: Atraumatic, Normocephalic Oral: Dry Mucosa Lungs: Clear to auscultation, No rhonchi, No wheeze, Diminished Cardiovascular: Regular rate, Regular Rhythm, Normal S1, Normal S2, No murmurs Abdomen: Bowel Sounds Present, Soft, Non Tender, Non-Distended Extremities: No edema, No Calf Tenderness Skin: No rashes, No breakdown Psych/Mental Status: Normal Affect, Appropriate Microbiology Past 72 Hours 04/14/18 18:00 Urine, Clean Catch Urine Culture - Final Culture exhibits no growth. 04/14/18 19:55 Mucosa - Nasopharyngeal Respiratory Panel (PCR) - Final Laboratory Results 04/16/18 10:15: Eos Smear Total Cells Pending, Urine Total Protein Pending, Urine Albumin Pending, U Qtntu-9-Rfkfowus Pending, U Eiynd-9-Kqmvyfxa Pending, U Beta Globulin Pending, U Gamma Globulin Pending, U PEP M-Cabrera Pending 04/16/18 10:15: Eos Smear Total Cells Cancelled 04/16/18 10:15: Absolute Eos (auto) Cancelled 04/17/18 08:48: Sodium 148 H, Potassium 5.4 H, Chloride 117 H, Carbon Dioxide 17.0 L, BUN 134 H*, Creatinine 7.62 H*, Estim Creat Clear Calc 8.18, Est GFR (MDRD) Af Amer 9 L, Est GFR (MDRD) Non-Af 8 L, BUN/Creatinine Ratio 17.6, Glucose 99, Calcium 8.1 L, Phosphorus 6.0 H, Albumin 1.6 L Current Medications Acetaminophen (Tylenol) 650 mg PO Q6H PRN PRN PRN Reason: Mild Pain (scale 0-3)/T>100.7 Albuterol Sulfate (Ventolin Aerosols) 2.5 mg INHALATION Q4HWA.RT [facility] Last Admin: 04/17/18 10:25 Dose: 2.5 mg Calamine/Phenol (Calmoseptine Ointment) 1 applic TOPICAL TID [facility]; Protocol Last Admin: 04/17/18 05:59 Dose: 1 applicatio Heparin Sodium (Porcine) (Heparin Na) 5,000 unit SC Q12 [facility] Last Admin: 04/17/18 10:32 Dose: 5,000 unit Pantoprazole Sodium 40 mg/ (Sodium Chloride) 110 mls @ 330 mls/hr IV Q24 [facility] Last Admin: 04/17/18 10:29 Dose: 330 mls/hr Lactated Ringer's () 1,000 mls @ 150 mls/hr IV .Q6H40M [facility] Last Admin: 04/17/18 05:59 Dose: 150 mls/hr Piperacillin Sod/Tazobactam Sod (Zosyn) 3.375 gm in 50 mls @ 12.5 mls/hr IV Q12 [facility] Last Admin: 04/17/18 10:57 Dose: 12.5 mls/hr Levetiracetam (Keppra Oral Solution) 200 mg PO BID [facility] Last Admin: 04/17/18 10:24 Dose: Not Given Nutritional Formula (Lactose Free) (Ensure Enlive) 120 ml PO BID [facility] Last Admin: 04/17/18 10:24 Dose: Not Given Ondansetron HCl (Zofran) 4 mg IV Q6H PRN PRN PRN Reason: NAUSEA Sodium Chloride () 5 - 15 ml IV UD PRN PRN Reason: SALINE FLUSH Medical Necessity - Tobacco Use Smoking Status: Former smoker Assessment/Plan All Active Problems KEIKO (acute kidney injury) (Acute) Altered mental status (Acute) Ischemic stroke (Acute) Acute respiratory failure (Resolved) 1. KEIKO non-oliguric FENA 10.72% suspect ATN continue IVF Nephrology recommended dialysis, however the patient's declined as it will not necessary provide him any quality of life. She is a requesting hospice services at this time. Without dialysis and is ever worsening, patient will likely continue to decline without aggressive medical care. Patient's understands that and still insists on hospice services. 2.SIRS POA etiology not identified infectious workup (resp panel, UCx, BCx negative so far) ID on consult On Zosyn 3. Metabolic encephalopathy 2/2 SIRS, KEIKO, prior CVA monitor avoid potentiating medications at this time 4. DVT proph: SQ heparin 5. Prognosis: guarded. Given the overall worsening of his kidney function despite IV fluids, the patient's declining dialysis, hospice will evaluate the patient. In the meantime, we will de-escalate therapy and focus only on symptom control at this time. Without dialysis and other aggressive measures, life expectancy is less than 6 months. Code Visit Inpatient E&M: [id number] Subs Hosp L2
--- NOTE | 2018-04-17 11:35 | CASEMGMT ---
Social Work Pt received referral from physician that pt is interested in hospice care. SW met with pt and in room. Pt not responding at this time. Pt is tearful throughout the conversation. is agreeable to hospice consult and states she has had end of life conversations with pt in the past and pt would not want to live like this. Emotional support provided to pt and states her sister will be in shortly to be with her and pt dgt will come after work. Phone call to [facility] and Referral made to Amaya. Estefanias faxed. [facility] and set up [facility] for today. MOSES Oleary
--- NOTE | 2018-04-17 12:27 | PCM.PN.ID ---
Patient Problems: Active and Suspected Problems KEIKO (acute kidney injury) (Acute) Subjective: has decided not to pursue aggressive care at this point. No fever. - Physical Exam General: No apparent distress Lungs: Clear to auscultation, Normal air movement Cardiovascular: Regular rate, Regular Rhythm Abdomen: Soft, Non Tender, Non-Distended Skin: No rashes Vital Signs Temp Pulse Resp BP Pulse Ox 99.2 F H 78 21 H 139/78 H 94 04/17/18 08:12 04/17/18 10:40 04/17/18 10:40 04/17/18 08:12 04/17/18 08:12 Oxygen Delivery Method Room Air Weight: 76.6 kg Body Mass Index (BMI) 28.0 Finger Stick Blood Glucose 114 Intake and Output for Last 24 Hours 04/15/18 04/16/18 04/17/18 23:59 23:59 23:59 Intake Total 3808 / 3808 3364.6 / 3364.6 969 / 969 Output Total 850 / 850 1675 / 1675 650 / 650 Balance 2958 / 2958 1689.6 / 1689.6 319 / 319 Microbiology Past 72 Hours 04/14/18 18:00 Urine Culture - Final Urine, Clean Catch Culture exhibits no growth. 04/14/18 19:55 Respiratory Panel (PCR) - Final Mucosa - Nasopharyngeal Laboratory Tests Past 24 Hrs 04/16/18 04/16/18 04/16/18 10:15 10:15 10:15 Absolute Eos (auto) Cancelled Eos Smear Total Cells Pending Cancelled Sodium Potassium Chloride Carbon Dioxide BUN Creatinine Estim Creat Clear Calc Est GFR (MDRD) Af Amer Est GFR (MDRD) Non-Af BUN/Creatinine Ratio Glucose Calcium Phosphorus Albumin Urine Total Protein Pending Urine Albumin Pending U Qgmaj-[id number] Pending U Ljwck-4-Klepoqyn Pending U Beta Globulin Pending U Gamma Globulin Pending U PEP M-Cabrera Pending 04/17/18 08:48 Absolute Eos (auto) Eos Smear Total Cells Sodium 148 H Potassium 5.4 H Chloride 117 H Carbon Dioxide 17.0 L BUN 134 H* Creatinine 7.62 H* Estim Creat Clear Calc 8.18 Est GFR (MDRD) Af Amer 9 L Est GFR (MDRD) Non-Af 8 L BUN/Creatinine Ratio 17.6 Glucose 99 Calcium 8.1 L Phosphorus 6.0 H Albumin 1.6 L Urine Total Protein Urine Albumin U Nntgt-7-Nsvbxjhj U Erjbn-4-Fcibtotq U Beta Globulin U Gamma Globulin U PEP M-Cabrera Medical Necessity - Tobacco Use Smoking Status: Former smoker Route of nutrition/ use of supplements: [] Nutritional Intake: [] IV Site: [] Chin Catheter: [] - Assessment/Plan Antibiotics: [] Assessment/Plan: [] Active and Suspected Problems KEIKO (acute kidney injury) (Acute) Sepsis with leukocytosis and low grade fever with recent diagnosis of pneumonia - Off abx now, addressing goals of care. Will sign off.
[2018-04-17] MEDS: 0.9% NaCl Peripheral Flush Adult/Peds IV (13:18)
--- NOTE | 2018-04-17 15:37 | DCINST_ITS ---
- Discharge Diagnoses Current Active Problems: Current Active and Chronic Problems KEIKO (acute kidney injury) (Acute) You will use the following diet at home:: No restrictions Your food should be the consistency of: Regular Your liquids should be the consistency of: Regular/Thin Discharge Activity: - - activity as tolerated Allergies/Adverse Reactions: Allergies codeine Adverse Reaction (Verified 04/14/18 10:52) Unknown Medications to take at Discharge Acetaminophen 650 mg RC Q4H PRN 04/14/18 Acetaminophen [Tylenol] 2 tab PO Q4H PRN 04/14/18 Albuterol Aerosols [Ventolin Aerosols] 2.5 mg INHALATION Q4HWA.RT 04/14/18 Docusate Sodium [Colace] 100 mg PO BID 04/14/18 Levetiracetam [Keppra] 4 ml PO BID 04/14/18 Glycopyrrolate [Robinul] 1 mg PO TID PRN tablet 04/17/18 Primary Care Physician: Damien Vizcarra DO [Primary Care Provider] - Test Results: Test results from this visit will be discussed in further detail at your follow- up appointment, if applicable. Proposed Discharge Date: 04/17/18
--- NOTE | 2018-04-17 15:37 | PCM.DC.SUM ---
Discharge Date and Diagnosis - Problem List Patient Problems: Active and Suspected Problems KEIKO (acute kidney injury) (Acute) SIRS (systemic inflammatory response syndrome) (Acute) Date of Admission: 04/14/18 Date of Discharge: 04/17/18 - Primary Discharge Diagnosis Active and Suspected Problems KEIKO (acute kidney injury) (Acute) - Secondary Discharge Diagnosis Chronic Problems ICH (intracerebral hemorrhage) (Chronic) Hypertension (Chronic) Dyslipidemia (Chronic) Pulmonary emboli (Chronic) Hospital Course and Treatment Imaging Results: Clinical Impression(s) from Imaging Studies Abdomen/Pelvis CT 04/14/18 11:29 IMPRESSION: 1. Right renal lesion as described above essentially unchanged since prior examination. 2. Stable bilateral nonobstructing renal stones. No evidence of hydronephrosis. 3. Hepatomegaly. 4. Status post cholecystectomy. Electronically Signed: Christopher Gamble MD at 13:35 EST Tel , Service support , Chest X-Ray 04/14/18 11:55 Damien Celaya MD: Infectious Disease Leeann Cabrera MD: Nephrology. Operations: None Procedures: None Summary of Care Provided: The patient is a 67 year old M present with unresponsiveness, fever and KEIKO. Admission creatinine was 6.7, a day after it was 1.18. Etiology of KEIKO may have been due to ATN v AIN v glomerulonephritis. His creatinine seemed to get worse despite IV fluids. Today, the software security consultant recommended dialysis. The patient's declined that, patient is unable to make decisions on his own. She made the decision because she expressed that the patient had previously requested no life sustaining treatments of situation such as this. She has requested hospice and has been evaluated by hospice and move forward with hospice care. Will patient will be evaluated for the hospice care center today and if accepted the patient will be discharged. It was documented patient had severe sepsis but there is no sepsis source identified. Patient was put on empiric Zosyn. I do not feel the patient met criteria for severe sepsis but patient certainly had systemic inflammatory response syndrome. No further infectious workup is being performed given the patient's transition over to hospice and antibiotics will be discontinued. [] Patient Problems: Active and Suspected Problems KEIKO (acute kidney injury) (Acute) SIRS (systemic inflammatory response syndrome) (Acute) - Physical Exam Vital Signs Temp Pulse Resp BP Pulse Ox 37.2 C 86 19 H 145/90 H 97 04/17/18 14:55 04/17/18 14:55 04/17/18 14:55 04/17/18 14:55 04/17/18 14:55 Oxygen Delivery Method Room Air Weight: 76.6 kg Body Mass Index (BMI) 28.0 Finger Stick Blood Glucose 114 Intake and Output for Last 24 Hours 04/15/18 04/16/18 04/17/18 23:59 23:59 23:59 Intake Total 3808 / 3808 3364.6 / 3364.6 2068 / 2068 Output Total 850 / 850 1675 / 1675 1350 / 1350 Balance 2958 / 2958 1689.6 / 1689.6 718 / 718 Microbiology Past 72 Hours 04/14/18 18:00 Urine Culture - Final Urine, Clean Catch Culture exhibits no growth. 04/14/18 19:55 Respiratory Panel (PCR) - Final Mucosa - Nasopharyngeal Laboratory Tests Past 24 Hrs 04/17/18 08:48 Sodium 148 H Potassium 5.4 H Chloride 117 H Carbon Dioxide 17.0 L BUN 134 H* Creatinine 7.62 H* Estim Creat Clear Calc 8.18 Est GFR (MDRD) Af Amer 9 L Est GFR (MDRD) Non-Af 8 L BUN/Creatinine Ratio 17.6 Glucose 99 Calcium 8.1 L Phosphorus 6.0 H Albumin 1.6 L Discharge Diet: No Restrictions Discharge Activity: - - activity as tolerated Home Medications: Medications to take at Discharge Acetaminophen 650 mg RC Q4H PRN 04/14/18 Acetaminophen [Tylenol] 2 tab PO Q4H PRN 04/14/18 Albuterol Aerosols [Ventolin Aerosols] 2.5 mg INHALATION Q4HWA.RT 04/14/18 Docusate Sodium [Colace] 100 mg PO BID 04/14/18 Levetiracetam [Keppra] 4 ml PO BID 04/14/18 Glycopyrrolate [Robinul] 1 mg PO TID PRN tablet 04/17/18 Primary Care Physician: Damien Vizcarra DO [Primary Care Provider] - Disposition: Hospice Medical Facility Minutes spent on discharge:: 34 Patient Condition:: Poor Medical Necessity - Tobacco Use Smoking Status: Former smoker Meaningful Use Info Meaningful Use Diagnoses (Choose all that apply): None applicable Code Visit Inpatient E&M: 63249 Disch Hosp
--- NOTE | 2018-04-17 15:43 | DS.PCM_ITS ---
Discharge Date and Diagnosis - Problem List Patient Problems: Active and Suspected Problems KEIKO (acute kidney injury) (Acute) SIRS (systemic inflammatory response syndrome) (Acute) Date of Admission: 04/14/18 Date of Discharge: 04/17/18 - Primary Discharge Diagnosis Active and Suspected Problems KEIKO (acute kidney injury) (Acute) - Secondary Discharge Diagnosis Chronic Problems ICH (intracerebral hemorrhage) (Chronic) Hypertension (Chronic) Dyslipidemia (Chronic) Pulmonary emboli (Chronic) Hospital Course and Treatment Imaging Results: Clinical Impression(s) from Imaging Studies Abdomen/Pelvis CT 04/14/18 11:29 IMPRESSION: 1. Right renal lesion as described above essentially unchanged since prior examination. 2. Stable bilateral nonobstructing renal stones. No evidence of hydronephrosis. 3. Hepatomegaly. 4. Status post cholecystectomy. Electronically Signed: Christopher Gamble MD at 13:35 EST Tel , Service support , Chest X-Ray 04/14/18 11:55 Damien Celaya MD: Infectious Disease Leeann Cabrera MD: Nephrology. Operations: None Procedures: None Summary of Care Provided: The patient is a 67 year old M present with unresponsiveness, fever and KEIKO. Admission creatinine was 6.7, a day after it was 1.18. Etiology of KEIKO may have been due to ATN v AIN v glomerulonephritis. His creatinine seemed to get worse despite IV fluids. Today, the mechanical detailer recommended dialysis. The patient's declined that, patient is unable to make decisions on his own. She made the decision because she expressed that the patient had previously requested no life sustaining treatments of situation such as this. She has requested hospice and has been evaluated by hospice and move forward with hospice care. Will patient will be evaluated for the hospice care center today and if accepted the patient will be discharged. It was documented patient had severe sepsis but there is no sepsis source identified. Patient was put on empiric Zosyn. I do not feel the patient met criteria for severe sepsis but patient certainly had systemic inflammatory response syndrome. No further infectious workup is being performed given the patient's transition over to hospice and antibiotics will be discontinued. [] Patient Problems: Active and Suspected Problems KEIKO (acute kidney injury) (Acute) SIRS (systemic inflammatory response syndrome) (Acute) - Physical Exam Vital Signs Temp Pulse Resp BP Pulse Ox 37.2 C 86 19 H 145/90 H 97 04/17/18 14:55 04/17/18 14:55 04/17/18 14:55 04/17/18 14:55 04/17/18 14:55 Oxygen Delivery Method Room Air Weight: 76.6 kg Body Mass Index (BMI) 28.0 Finger Stick Blood Glucose 114 Intake and Output for Last 24 Hours 04/15/18 04/16/18 04/17/18 23:59 23:59 23:59 Intake Total 3808 / 3808 3364.6 / 3364.6 2068 / 2068 Output Total 850 / 850 1675 / 1675 1350 / 1350 Balance 2958 / 2958 1689.6 / 1689.6 718 / 718 Microbiology Past 72 Hours 04/14/18 18:00 Urine Culture - Final Urine, Clean Catch Culture exhibits no growth. 04/14/18 19:55 Respiratory Panel (PCR) - Final Mucosa - Nasopharyngeal Laboratory Tests Past 24 Hrs 04/17/18 08:48 Sodium 148 H Potassium 5.4 H Chloride 117 H Carbon Dioxide 17.0 L BUN 134 H* Creatinine 7.62 H* Estim Creat Clear Calc 8.18 Est GFR (MDRD) Af Amer 9 L Est GFR (MDRD) Non-Af 8 L BUN/Creatinine Ratio 17.6 Glucose 99 Calcium 8.1 L Phosphorus 6.0 H Albumin 1.6 L Discharge Diet: No Restrictions Discharge Activity: - - activity as tolerated Home Medications: Medications to take at Discharge Acetaminophen 650 mg RC Q4H PRN 04/14/18 Acetaminophen [Tylenol] 2 tab PO Q4H PRN 04/14/18 Albuterol Aerosols [Ventolin Aerosols] 2.5 mg INHALATION Q4HWA.RT 04/14/18 Docusate Sodium [Colace] 100 mg PO BID 04/14/18 Levetiracetam [Keppra] 4 ml PO BID 04/14/18 Glycopyrrolate [Robinul] 1 mg PO TID PRN tablet 04/17/18 Primary Care Physician: Damien Vizcarra DO [Primary Care Provider] - Disposition: Hospice Medical Facility Minutes spent on discharge:: 34 Patient Condition:: Poor Medical Necessity - Tobacco Use Smoking Status: Former smoker Meaningful Use Info Meaningful Use Diagnoses (Choose all that apply): None applicable Code Visit Inpatient E&M: 01428 Disch Hosp
--- NOTE | 2018-04-17 16:08 | CASEMGMT ---
Social Work Per Hospice nurse, pt will be transferring to Inpatient Hospice Unit today. Phone call to Lindsey at [facility] and updated on this information. MOSES Oleary
[2018-04-18 15:58] LABS: Complement C3 144 mg/dL (82-167); Cytoplasmic Ab (C-ANCA) <1:20 titer (Neg:<1:20); PROEL- A/G Ratio 0.7 (0.7-1.7); PROEL- Albumin 1.8 g/dL (2.9-4.4); PROEL- Alpha-1 Globulin 0.5 g/dL (0.0-0.4); PROEL- Alpha-2 Globulin 0.4 g/dL (0.4-1.0); PROEL- Beta Globulin 0.9 g/dL (0.7-1.3); PROEL- Gamma Globulin 0.7 g/dL (0.4-1.8); PROEL- Globulin, Total 2.5 g/dL (2.2-3.9); PROEL- TOTAL PROTEIN 4.3 g/dL (6.0-8.5)
[2018-04-18 16:26] LABS: Anti-Glomerular Basement Memb 4 units (0-20); Perinuclear Ab (P-ANCA) <1:20 titer (Neg:<1:20)
[2018-04-18 16:30] LABS: Hep B Surface Antibodies Non Reactive (.)
[2018-04-18 16:30] LABS: ANTINUCLEAR ANTIBODIES DIRECT Negative (Negative)
[2018-04-19 16:09] LABS: PROELU- Albumin, Urine 35.2 % (.); PROELU- Alpha-1-Globulin,Ur 10.2 % (.); PROELU- Alpha-2-Globulin,Ur 10.5 % (.); PROELU- Beta Globulin, Ur 22.8 % (.); PROELU- Gamma Globulin, Ur 21.2 % (.); PROELU- M-Spike, Ur 8.7 % (Not Observed); Total Protein, Ur 131.1 mg/dL (Not Estab.)
[2018-04-20 11:23] LABS: Eosinophil Ct. Urine No Eosinophils Seen % (.)
--- OUTSIDE RECORDS SUMMARY | 2018-06-18 10:14 | XMS RPT_ITS ---
:1950 Author Organization OHIP Support Name Relationship Address Phone R Unavailable Unavailable Unavailable JAZMIN CHILDS Unavailable [address] + [place] [address] R Unavailable Unavailable Unavailable JAZMIN CHILDS Unavailable [address] + [place] [address] R Unavailable Unavailable Unavailable JAZMIN CHILDS Unavailable [address] + [place] [address] R Unavailable Unavailable Unavailable JAZMIN CHILDS Unavailable [address] + [place] [address] R Unavailable Unavailable Unavailable JAZMIN CHILDS Unavailable [address] + [place] [address] R Unavailable Unavailable Unavailable Jazmin Childs Unavailable [address] + [place] [address] JAZMIN CHILDS Unavailable [address] + [place] [address] R Unavailable Unavailable Unavailable JAZMIN CHILDS Unavailable [address] + [place] [address] R Unavailable Unavailable Unavailable Jazmin Childs Unavailable [address] + [place] [address] JAZMIN CHILDS Unavailable [address] + [place] [address] JAZMIN CHILDS Unavailable [address] + [place] [address] R Unavailable Unavailable Unavailable JAZMIN CHILDS Unavailable [address] + [place] [address] JAZMIN CHILDS Unavailable [address] + [place] [address] JAZMIN CHILDS Unavailable [address] + [place] [address] AMADEO, JAZMIN Unavailable [address] + [place] [address] AMADEO JAZMIN Unavailable [address] + [place] [address] R Unavailable Unavailable Unavailable AMADEO JAZMIN Unavailable [address] + [place] [address] Amadeo Jazmin Unavailable Unavailable + R Unavailable Unavailable Unavailable AMADEO JAZMIN Unavailable [address] + [place] [address] R Unavailable Unavailable Unavailable AMADEO JAZMIN Unavailable [address] + [place] [address] R Unavailable Unavailable Unavailable AMADEO JAZMIN Unavailable [address] + [place] [address] R Unavailable Unavailable Unavailable AMADEO JAZMIN Unavailable [address] + [place] [address] R Unavailable Unavailable Unavailable AMADEO JAZMIN Unavailable [address] + [place] [address] JULITA CHILDSRA Unavailable [address] + [place] [address] JULITA CHILDSRA Unavailable [address] + [place] [address] R Unavailable Unavailable Unavailable AMADEOJULITARA Unavailable [address] + [place] [address] R Unavailable Unavailable Unavailable AMADEOJULITARA Unavailable [address] + [place] [address] R Unavailable Unavailable Unavailable AMADEO JAZMIN Unavailable [address] + [place] [address] Care Team Providers Name Role Phone Brenden Reynolds Attending Unavailable PROVIDER, UNKNOWN Referring Unavailable No, PCP Primary Care Unavailable CONRADO MAYA Attending Unavailable CONRADO MAYA Primary Care Unavailable KALANI ZAYAS MD, JR. Attending Unavailable CONRADO MAYA Primary Care Unavailable KALANI ZAYAS MD, JR. Attending Unavailable CONRADO MAYA Primary Care Unavailable CONRADO MAYA Primary Care Unavailable AYSE TUCKER MD Admitting Unavailable KRUPA JAIME, DR. HIRAM Carvajal Consulting Unavailable LOWELL HUANG Attending Unavailable KNOCH MD, VEE F. Consulting Unavailable SHERLEY WEST, MARK Consulting Unavailable ALIYA WEST, CONCETTA Consulting Unavailable EMETERIO SANTO Attending Unavailable FRANCESCO, CONRADO Primary Care Unavailable Francesco, Conrado Primary Care Unavailable Abran Ma Attending Unavailable Abel Perez Attending Unavailable Walt, Abel Attending Unavailable Abel Perez Attending Unavailable Francesco, Conrado Primary Care Unavailable Ranjith, Jamar Admitting Unavailable Bakhous, Aziz Consulting Unavailable Jopperi, Leandro Attending Unavailable Yomi, Conrado Consulting Unavailable Cebul, Conrado Consulting Unavailable Ranjith, Jamar Admitting Unavailable Ranjith, Jamar Attending Unavailable Francesco, Conrado Primary Care Unavailable Bakhous, Aziz Consulting Unavailable Ranjith, Jamar Consulting Unavailable Francesco, Conrado Attending Unavailable Francesco, Conrado Referring Unavailable Francesco, Conrado Primary Care Unavailable Neyda Roberts Attending Unavailable Neyda Roberts Referring Unavailable Francesco, Conrado Primary Care Unavailable Neyda Roberts Attending Unavailable Neyda Roberts Referring Unavailable Francesco, Conrado Primary Care Unavailable Francesco, Conrado Primary Care Unavailable Paintsil, Ripon Admitting Unavailable Margaret, Hemanth S. Consulting Unavailable Ranjith, Jamar Attending Unavailable Paintsil, Ripon Admitting Unavailable Ranjith, Jamar Attending Unavailable Francesco, Conrado Primary Care Unavailable Margaret, Hemanth S. Consulting Unavailable Paintsil, Ripon Consulting Unavailable Ranjith, Jamar Admitting Unavailable Ranjith, Jamar Attending Unavailable Francesco, Conrado Primary Care Unavailable Bakhous, Aziz Consulting Unavailable Ranjith, Jamar Consulting Unavailable Ranjith, Jamar Admitting Unavailable Vibha, Leandro Attending Unavailable Francesco, Conrado Primary Care Unavailable Bakhous, Aziz Consulting Unavailable Yomi, Conrado Consulting Unavailable Jopperi, Leandro Consulting Unavailable Ranjith, Jamar Admitting Unavailable Jopperi, Leandro Attending Unavailable Francesco, Conrado Primary Care Unavailable Bakhous, Aziz Consulting Unavailable Yomi, Conrado Consulting Unavailable Cebul, Conrado Consulting Unavailable Jopperi, Leandro Consulting Unavailable Paintsil, Ripon Admitting Unavailable Francesco, Conrado Primary Care Unavailable Margaret, Hemanth S. Consulting Unavailable Ranjith, Jamar Attending Unavailable Ranjith, Jamar Consulting Unavailable Cebul, Conrado Attending Unavailable Nicholas Isaac Attending Unavailable Francesco, Conrado Primary Care Unavailable Laquita Harris Attending Unavailable PROBLEMS PROBLEMS DATE TYPE CONDITION / CODE ATTENDING STATUS SOURCE 03/16/2018 Admitting Nontraumatic BAIBERS, Active [employer] Diagnosis [facility] hemorrhage, Repository unspecified / I61.9(ICD-10) 09/28/2017 Admitting Hydrocephalus, Elizak, Active [facility] Diagnosis unspecified / [facility] G91.9(ICD-10) Repository 09/28/2017 Admitting Cerebral Elinorarik, Active [facility] Diagnosis infarction, [facility] unspecified / Repository I63.9(ICD-10) 09/28/2017 Admitting Essential (primary) Elizak, Active [facility] Diagnosis hypertension / [facility] I10(ICD-10) Repository 09/28/2017 Admitting Hyperlipidemia, Elizak, Active [facility] Diagnosis unspecified / [facility] E78.5(ICD-10) Repository 09/28/2017 Admitting Personal history of Elizak, Active [facility] Diagnosis pulmonary embolism [facility] / Z86.711(ICD-10) Repository 09/28/2017 Admitting Personal history of Elinorarik, Active [facility] Diagnosis other venous [facility] thrombosis and Repository embolism / Z86.718(ICD-10) 09/28/2017 Admitting Overweight / Kolarik, Active [facility] Diagnosis E66.3(ICD-10) [facility] Repository 09/28/2017 Admitting Unspecified hearing Kolarik, Active [facility] Diagnosis loss, unspecified [facility] ear / Repository H91.90(ICD-10) 09/28/2017 Admitting [facility]esophageal [facility] Diagnosis reflux disease [facility] without esophagitis Repository / K21.9(ICD-10) 09/28/2017 Admitting NIHSS score 5 / Elizak, Active [facility] Diagnosis R29.705(ICD-10) [facility] Repository 09/28/2017 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 / [facility] Z79.82(ICD-10) Repository 09/28/2017 Admitting Disorientation, Eliazk, Active [facility] Diagnosis unspecified / [facility] R41.0(ICD-10) Repository 09/28/2017 Admitting Other visual [facility], [facility] Diagnosis disturbances / [facility] H53.8(ICD-10) Repository 10/20/2017 Unknown I82.409 - Acute CebulConrado Active [facility] embol[facility] Community thrombosis of Hospital unspecified deep Repository veins of unspecified lower extremity / I82.409(ICD-10) 07/12/2017 Admitting Other amnesia / FRANCESCO CONRADO Active [facility] Diagnosis R41.3(ICD-10) Foundation Repository 05/17/2017 Unknown R31.0 - Gross Neyda Roberts Active [facility] hematuria / [facility] R31.0(ICD-10) Hospital Repository PROCEDURES PROCEDURES No Procedure Records FoundRESULTS RESULTS DISCHARGE SUMMARY Observed: 04/17/2018 Status: F Source: [place] 3:[address] [facility] Medical Records Department [address] [place] [address] Discharge Summary 04/17/18 1537 MR#: [id number] Acct: [id number] Name: RICARDO CHILDS Rep #: [id number] : 1950 67 From: Leandro Dunne DO PCP: Conrado Maya DO Status: ADM IN Y Location: [place] [address] Discharge Date and Diagnosis - Problem List Patient Problems: Active and Suspected Problems BUTCH (acute kidney injury) (Acute) SIRS (systemic inflammatory response syndrome) (Acute) Date of Admission: 04/14/18 Date of Discharge: 04/17/18 - Primary Discharge Diagnosis Active and Suspected Problems BUTCH (acute kidney injury) (Acute) - Secondary Discharge Diagnosis Chronic Problems ICH (intracerebral hemorrhage) (Chronic) Hypertension (Chronic) Dyslipidemia (Chronic) Pulmonary emboli (Chronic) Hospital Course and Treatment Imaging Results: Clinical Impression(s) from Imaging Studies Abdomen/Pelvis CT 04/14/18 11:29 IMPRESSION: 1. Right renal lesion as described above essentially unchanged since prior examination. 2. Stable bilateral nonobstructing renal stones. No evidence of hydronephrosis. 3. Hepatomegaly. 4. Status post cholecystectomy. Electronically Signed: Christopher Gamble MD at 13:35 EST Tel , Service support , Chest X-Ray 04/14/18 11:55 Conrado Celaya MD: Infectious Disease Leeann Cabrera MD: Nephrology. Operations: None Procedures: None Summary of Care Provided: The patient is a 67 year old M present with unresponsiveness, fever and BUTCH. Admission creatinine was 6.7, a day after it was 1.18. Etiology of BUTCH may have been due to ATN v AIN v glomerulonephritis. His creatinine seemed to get worse despite IV fluids. Today, the mobile developer recommended dialysis. The patient's declined that, patient is unable to make decisions on his own. She made the decision because she expressed that the patient had previously requested no life sustaining treatments of situation such as this. She has requested hospice and has been evaluated by hospice and move forward with hospice care. Will patient will be evaluated for the hospice care center today and if accepted the patient will be discharged. It was documented patient had severe sepsis but there is no sepsis source identified. Patient was put on empiric Zosyn. I do not feel the patient met criteria for severe sepsis but patient certainly had systemic inflammatory response syndrome. No further infectious workup is being performed given the patient's transition over to hospice and antibiotics will be discontinued. [] Patient Problems: Active and Suspected Problems BUTCH (acute kidney injury) (Acute) SIRS (systemic inflammatory response syndrome) (Acute) - Physical Exam Vital Signs Temp Pulse Resp BP Pulse Ox 37.2 C 86 19 H 145/90 H 97 04/17/18 14:55 04/17/18 14:55 04/17/18 14:55 04/17/18 14:55 04/17/18 14:55 Oxygen Delivery Method Room Air Weight: 76.6 kg Body Mass Index (BMI) 28.0 Finger Stick Blood Glucose 114 Intake and Output for Last 24 Hours Microbiology Past 72 Hours 04/14/18 18:00 Urine Culture - Final Urine, Clean Catch Culture exhibits no growth. 04/14/18 19:55 Respiratory Panel (PCR) - Final Mucosa - Nasopharyngeal Laboratory Tests Past 24 Hrs Sodium 148 H Potassium 5.4 H Chloride 117 H Carbon Dioxide 17.0 L BUN 134 H* Creatinine 7.62 H* Discharge Diet: No Restrictions Discharge Activity: - - activity as tolerated Home Medications: Medications to take at Discharge Acetaminophen 650 mg RC Q4H PRN 04/14/18 Acetaminophen [Tylenol] 2 tab PO Q4H PRN 04/14/18 Albuterol Aerosols [Ventolin Aerosols] 2.5 mg INHALATION Q4HWA.RT 04/14/18 Docusate Sodium [Colace] 100 mg PO BID 04/14/18 Levetiracetam [Keppra] 4 ml PO BID 04/14/18 Glycopyrrolate [Robinul] 1 mg PO TID PRN tablet 04/17/18 Primary Care Physician: Conrado Maya DO [Primary Care Provider] - Disposition: Hospice Medical Facility Minutes spent on discharge:: 34 Patient Condition:: Poor Medical Necessity - Tobacco Use Smoking Status: Former smoker Meaningful Use Info Meaningful Use Diagnoses (Choose all that apply): None applicable Code Visit Inpatient E AND M: 19340 Disch Hosp 04/17/18 1544 <Electronically signed by Leandro Dunne DO> Date Leandro Dunne DO Cosigner Signature (if applicable): Date CC: Leandro Dunne DO; Conrado Maya DO Signed DISCHARGE INSTRUCTION Observed: 04/17/2018 Status: F Source: [place] 3:[address] [facility] Medical Records Department [address] [place] [address] Instructions for Home/Discharge Instructions 04/17/18 1536 MR#: [id number] Acct: [id number] Name: RICARDO CHILDS Rep #: [id number] : 1950 67 From: Leandro Dunne DO PCP: Conrado Maya DO Status: ADM IN - Discharge Diagnoses Current Active Problems: Current Active and Chronic Problems BUTCH (acute kidney injury) (Acute) You will use the following diet at home:: No restrictions Your food should be the consistency of: Regular Your liquids should be the consistency of: Regular/Thin Discharge Activity: - - activity as tolerated Allergies/Adverse Reactions: Allergies codeine Adverse Reaction (Verified 04/14/18 10:52) Unknown Medications to take at Discharge Acetaminophen 650 mg RC Q4H PRN 04/14/18 Acetaminophen [Tylenol] 2 tab PO Q4H PRN 04/14/18 Albuterol Aerosols [Ventolin Aerosols] 2.5 mg INHALATION Q4HWA.RT 04/14/18 Docusate Sodium [Colace] 100 mg PO BID 04/14/18 Levetiracetam [Keppra] 4 ml PO BID 04/14/18 Glycopyrrolate [Robinul] 1 mg PO TID PRN tablet 04/17/18 Primary Care Physician: Conrado Maya DO [Primary Care Provider] - Test Results: Test results from this visit will be discussed in further detail at your follow-up appointment, if applicable. Proposed Discharge Date: 04/17/18 04/17/18 1537 <Electronically signed by Leandro Dunne DO> Date Leandro Dunne DO CC: Leeann Cabrera MD; Conrado Lundy MD; Conrado Celaya MD; Conrado Maya DO Signed 12 LEAD ELECTROCARDIOGRAM Observed: 04/17/2018 Status: F Source: [place] 1:[address] [facility] Cardiovascular Services [address] [place] [address] 12 Lead EKG 04/14/18 1855 MR#: [id number] Acct: [id number] Name: RICARDO CHILDS Rep #: [id number] : 1950 67 From: Nicholas Isaac MD Attending Dr: Leandro Dunne DO Status: ADM IN Ordering Dr: Jamar Kasper MD Date: 04/14/18 Location: [facility] Sex: M C Admitted: 04/14/18 Test Reason : Blood Pressure : / mmHG Vent. Rate : 076 BPM Atrial Rate : 076 BPM P-R Int : 112 ms QRS Dur : 098 ms QT Int : 398 ms P-R-T Axes : 065 022 016 degrees QTc Int : 447 ms Normal sinus rhythm Inferior infarct , age undetermined Abnormal ECG When compared with ECG of 14-APR-2018 13:55, MANUAL COMPARISON REQUIRED, DATA IS UNCONFIRMED Confirmed by LEONARDO WEST, NICHOLAS ([id number]), publication editor MARYANN JAVIER ([id number]) on 04/17/2018 1:14:44 PM Referred By: RANJITH Confirmed By:NICHOLAS ISAAC MD 04/17/18 1314 Date Nicholas Isaac MD CC: Leandro Dunne DO; Jamar Kasper MD; Conrado Maya DO Signed RENAL PROFILE Collected: 04/17/2018 Status: F Source: [place] 8:[address] [facility] REPOSITORY TYPE CODE TESTS RESULT OUT OF RANGE REFERENCE UNITS LAB L501.0100 74-106 mg/dL Normal GLU 99 Result Comment: Please note revised GLUCOSE reference range effective 2017. LAB L501.1000 7-18 mg/dL High alert BUN 134 Result Comment: Critical Result(s) Called at: 09:43:06 04/17/2018 by: Aury Gao LAB L501.1100 0.70-1.30 mg/dL CREAT,SERUM High alert 7.62 Result Comment: Critical Result(s) Called at: 09:43:16 04/17/2018 by: Aury Gao The validity of the calculated GFR AND GFRAA in patients over 70 years has not been determined. Clinical correlation is essential. LAB L501.1110 >60 mL/min Low EST GFR 8 Result Comment: Non- GFR Calc LAB L501.1115 >60 mL/min Low EST GFR - AA 9 Result Comment: GFR Calc LAB L501.1255 ml/min Normal Estimated CRCL 8.18 LAB L501.1300 10-20 RATIO Normal BUN/CRE 17.6 LAB L501.1800 3.2-5.0 g/dL Low ALB 1.6 LAB L501.2200 8.5-10. mg/dL Low 1 CA 8.1 LAB L501.2300 2.5-4.9 mg/dL High PHOS 6.0 LAB L501.5300 136-145 mmol/L High NA 148 LAB L501.5600 3.5-5.1 mmol/L High K 5.4 LAB L501.5900 98-107 mmol/L High CL 117 LAB L501.6100 21.0-32 mmol/L Low .0 CO2 17.0 Performed By: #### L500.3600 #### [facility] [address] [place], [address] CONSULTATION Observed: 04/16/2018 Status: F Source: [place] 1:[address] [facility] Medical Records Department [address] [place] [address] Consultation 04/16/18 1306 MR#: [id number] Acct: [id number] Name: RICARDO CHILDS Rep #: [id number] : 1950 67 From: Conrado Celaya MD PCP: Conrado Maya DO Status: ADM IN Y Location: [place] [id number] Problem List (1) BUTCH (acute kidney injury) Status: Acute Reason for Consult: pneumonia, butch Consulted by: Dr. Dunne History of Present Illness: The patient is a 67 year old M with recent hemorrhagic stroke who presented with several days of altered mental status, not feeling well. Had concern for pneumonia at F, so had been started on ceftriaxone recently. Now with BUTCH, cr up to 7. at bedside who provided history as he is nonverbal. Reports mental status close to baseline this AM. Tmax 100.7 here, now afebrile. Wbc improved. ROS unobtainable due to mental status. - Medical History Past Medical History (Chronic Problems): Chronic Problems ICH (intracerebral hemorrhage) (Chronic) Hypertension (Chronic) Dyslipidemia (Chronic) Pulmonary emboli (Chronic) Allergies/Adverse Reactions: Allergies codeine Adverse Reaction (Verified 04/14/18 10:52) Unknown Home Medications: Ambulatory Orders Medication Instructions Recorded - Social History SMOKING STATUS:: Former smoker Vital Signs Temp Pulse Resp BP Pulse Ox 98.2 F 90 18 157/88 H 94 04/16/18 07:52 04/16/18 11:00 04/16/18 10:40 04/16/18 07:52 04/16/18 08:16 Oxygen Delivery Method Room Air Weight: 76.6 kg Body Mass Index (BMI) 28.0 Finger Stick Blood Glucose 114 Microbiology Past 72 Hours 04/14/18 18:00 Urine Culture - Preliminary Urine, Clean Catch Culture exhibits no growth. 04/14/18 19:55 Respiratory Panel (PCR) - Final Mucosa - Nasopharyngeal Laboratory Tests Past 24 Hrs WBC 10.4 RBC 3.87 L Hgb 11.7 L Hct 34.8 L MCV 89.9 MCH 30.2 WBC RBC Hgb Hct MCV MCH MCHC RDW RDW Differential Plt Count WBC RBC Hgb Hct MCV - Other Studies Radiology: [] reviewed Other Studies: [] Route of nutrition/ use of supplements: [] Nutritional Intake: [] IV Site: [] Chin Catheter: [] - Physical Exam General: Non-Cooperative HEENT: Atraumatic, PERRLA, EOMI Neck: Supple, No Nodes Lungs: Clear to auscultation, Normal air movement Cardiovascular: Regular rate, Regular Rhythm Abdomen: Soft, Non Tender, Non-Distended Extremities: Edema - some BLE Skin: No rashes, Rash Present IV Site: Peripheral, without redness Musculoskeletal: No Tenderness to Palpation of Joints or Extremities Neurological: - - s/p stroke - Assessment/Plan Antibiotics: [] Assessment/Plan: [] Active and Suspected Problems BUTCH (acute kidney injury) (Acute) Sepsis with leukocytosis and low grade fever with recent diagnosis of pneumonia - cxr here clear, on room air. On zosyn; had been on ceftriaxone at F. Respiratory viral panel neg. UA with 10-25 wbc. Some transaminitis. Cr rising. Neph following. says she is not interested in dialysis. Will check urine eosinophils. Will follow, thank you. 04/16/18 1311 <Electronically signed by Conrado Celaya MD> Date Conrado Celaya MD Cosigner Signature (if applicable): Date CC: Leeann Cabrera MD; Conrado Celaya MD; Conrado Maya DO Signed URINE SODIUM Collected: 04/16/2018 Status: F Source: [place] 10:[address] [facility] REPOSITORY TYPE CODE TESTS RESULT OUT OF RANGE REFERENCE UNITS LAB L501.5500 Not Establ. mmol/L Normal UR NA 81 Performed By: #### L501.5500, L502.0300 #### [facility] [address] [place], [place], [address] CREATININE, URINE Collected: 04/16/2018 Status: F Source: [place] 10:[address] [facility] REPOSITORY TYPE CODE TESTS RESULT OUT OF RANGE REFERENCE UNITS LAB L502.0300 NO RANGE EST. mg/dL Normal URINE 38.20 CREAT Performed By: #### L501.5500, L502.0300 #### [facility] [address] [place], [place], [address] EOSINOPHIL CT. URINE Collected: 04/16/2018 Status: F Source: [place] 10:[address] [facility] REPOSITORY TYPE CODE TESTS RESULT OUT OF RANGE REFERENCE UNITS LAB L3100.6600 . % No Normal EOS CT Eosinophils Seen [id number] Result Comment: <5% few or none seen Performed at: - [facility] [address] [id number] Financial Reserve Clerk: Oc Chow PhD, Phone: [phone] Performed By: #### L3100.6600, L3600.4000 #### [facility] (refer to report for specific site) refer to report for address and phone number PROTEIN [email or web address] Collected: Status: F Source: [place] 04/16/2018 10:[address] [facility] REPOSITORY TYPE CODE TESTS RESULT OUT OF RANGE REFERENCE UNITS LAB L3600.4100 Not Estab. mg/dL Normal 131.1 PROTEIN,UR LAB L3600.4200 . % Normal 35.2 ALBUMIN,UR LAB L3600.4300 . % Normal 10.2 XLXCD-8-WZSS ,U LAB L3600.4400 . % Normal 10.5 JSVSI-6-NCZS ,U LAB L3600.4500 . % Normal BETA 22.8 GLOB,U LAB L3600.4600 . % Normal GAMMA 21.2 GLOB,U LAB L3600.4720 Not Observed % High M-SPIKE,U 8.7 LAB L3600.4800 . Normal NOTE Comment Result Comment: Protein electrophoresis scan will follow via computer, mail, or capital equipment specialist delivery. Performed By: #### L3100.6600, L3600.4000 #### [facility] (refer to report for specific site) refer to report for address and phone number CONSULTATION Observed: 04/16/2018 Status: F Source: [place] 10:[address] [facility] Medical Records Department [address] [place] [address] Consultation 04/16/18 0947 MR#: [id number] Acct: [id number] Name: RICARDO CHILDS Rep #: [id number] : 1950 67 From: Leeann Cabrera MD PCP: Conrado Maya DO Status: ADM IN Y Location: [place] 3592022-1 Problem List (1) BUTCH (acute kidney injury) Status: Acute Consultation - Renal PCP/ Referring MD: Requesting physician: [] Primary care physician: Conrado Maya DO - History of Present Illness History of Present Illness: The patient is a 67 year old M past medical history of recent hemorrhagic stroke. Patient has been in the rehab center for 2 weeks. Patient was brought into the hospital for change in mental status along with fever. Patient was found to have fever along with severe acute kidney injury with creatinine up to 6.8 at presentation from baseline 1.18 milligrams per deciliter 2 days prior to presentation. Patient received 1 L of normal saline in the emergency room then was kept on IV fluid Ringer lactate at 150 cc/h. Reviewed the patient medication at the [facility]. Patient has been on Rocephin for fever at [facility] also was on ramipril 10 grams p.o. by twice daily. Patient had condom urinary catheter at the [facility]. Patient was admitted for sepsis. Patient was started on antibiotics. Creatinine continues to rise. Creatinine today up to 7.3 mg a deciliter. Patient is making urine. As per the , patient is back to his mental status after the stroke. Patient currently is having Chin catheter. He is nonverbal but as per the that his baseline. Recent IV contrast exposure, no NSAIDs used. Review of system: 12 systems review cannot be obtained due to the patient's condition - Allergies Allergies: Allergies codeine Adverse Reaction (Verified 04/14/18 10:52) Unknown - Current Medications Current Medications: Current Medications Acetaminophen (Tylenol) 650 mg PO Q6H PRN PRN PRN Reason: Mild Pain (scale 0-3)/T>100.7 Albuterol Sulfate (Ventolin Aerosols) 2.5 mg INHALATION Q4HWA.RT [facility] Last Admin: 04/16/18 06:59 Dose: 2.5 mg Heparin Sodium (Porcine) (Heparin Na) 5,000 unit SC Q12 [facility] Last Admin: 04/16/18 09:29 Dose: 5,000 unit Pantoprazole Sodium 40 mg/ (Sodium Chloride) 110 mls @ 330 mls/hr IV Q24 [facility] Last Admin: 04/16/18 09:19 Dose: 330 mls/hr Lactated Ringer's () 1,000 mls @ 150 mls/hr IV .Q6H40M [facility] Last Admin: 04/16/18 09:18 Dose: 150 mls/hr Piperacillin Sod/Tazobactam Sod (Zosyn) 3.375 gm in 50 mls @ 12.5 mls/hr IV Q12 [facility] Last Admin: 04/15/18 22:22 Dose: 12.5 mls/hr Levetiracetam (Keppra Oral Solution) 200 mg PO BID [facility] Last Admin: 04/16/18 09:30 Dose: 200 mg Nutritional Formula (Lactose Free) (Ensure Enlive) 120 ml PO BID [facility] Last Admin: 04/16/18 09:30 Dose: 120 ml Ondansetron HCl (Zofran) 4 mg IV Q6H PRN PRN PRN Reason: NAUSEA Sodium Chloride () 5 - 15 ml IV UD PRN PRN Reason: SALINE FLUSH - Past Medical History Past Medical History (Chronic Problems): Chronic Problems ICH (intracerebral hemorrhage) (Chronic) Hypertension (Chronic) Dyslipidemia (Chronic) Pulmonary emboli (Chronic) - Social History Smoking Status: Former smoker - Family History Maternal History Items: No pertinent history Patient Problems: Active and Suspected Problems BUTCH (acute kidney injury) (Acute) - Physical Exam General: Lethargic HEENT: Atraumatic Oral: Dry Mucosa Neck: Supple, No JVD Lungs: Clear to auscultation, Normal air movement, No rhonchi Cardiovascular: Regular rate, Regular Rhythm, Normal S1, Normal S2 Abdomen: Bowel Sounds Present, Soft, Non Tender, Non-Distended Extremities: No clubbing, No cyanosis, No edema Skin: No rashes Lymphatic: No Cervical, Supraclavicular, or Inguinal Adenopathy Comment: Patient is not awake alert oriented during my encounter. Vital Signs Temp Pulse Resp BP Pulse Ox 98.2 F 90 18 157/88 H 94 04/16/18 07:52 04/16/18 07:58 04/16/18 07:52 04/16/18 07:52 04/16/18 08:16 Oxygen Delivery Method Room Air Weight: 76.6 kg Body Mass Index (BMI) 28.0 Finger Stick Blood Glucose 114 Intake and Output for Last 24 Hours Intake Total 3727 / 3727 3808 / 3808 928.6 / 928.6 Output Total 700 / 700 850 / 850 425 / 425 Balance 3027 / 3027 2958 / 2958 503.6 / 503.6 Microbiology Past 72 Hours 04/14/18 18:00 Urine Culture - Preliminary Urine, Clean Catch Culture exhibits no growth. 04/14/18 19:55 Respiratory Panel (PCR) - Final Mucosa - Nasopharyngeal Laboratory Tests Past 24 Hrs Assessment/Plan All Active Problems BUTCH (acute kidney injury) (Acute) Altered mental status (Acute) Ischemic stroke (Acute) Acute respiratory failure (Resolved) 1-Acute kidney injury on chronic kidney disease. Baseline creatinine 1.1 mg a deciliter. UA showed 500 protein, 250 blood, RBCs 25-50, WBC 10-25 Acute kidney injury might be related to prerenal versus ATN induced by sepsis and prolonged ischemia. Glomerulonephritis needs to rule out. She has been on IV fluid Ringer lactate 150 cc/h. Kidney function continues to worsen. Creatinine up to 7.39 today. BUN 126. Order C3-C4, JOSEPHINE, ANCA, anti-GBM, hepatitis panel, and rheumatoid factor No clear indication for dialysis. No kim uremic symptoms,slight hyperkalemia and mild acidosis. Patient made 850 mL of urine in the last 24-hour. I agree to continue IV fluids for now. I spoke to the and explained to her that dialysis is a possibility for him if his kidney function does not improve. Patient's is leaning toward dialysis if needed. I will reevaluate the patient for dialysis tomorrow. Please avoid NSAIDs and keep mean arterial pressure more than 65. Please dose medication for GFR less than 10 ml/min 2-hyperkalemia: Most probably related to acute kidney injury. I will give the patient Kayexalate 15 g p.o. 1 time. Renal diet 3-metabolic acidosis. Most probably from acute kidney injury. Continue Ringer lactate no indication for hemodialysis. Thank you for the consult. Renal team will continue to follow 04/16/18 1000 <Electronically signed by Leeann Cabrera MD> Date Leeann Cabrera MD Cosigner Signature (if applicable): Date CC: Leeann Cabrera MD; Conrado Celaya MD; Conrado Rao CPK TOTAL, CREATINE Collected: 04/16/2018 Status: F Source: [facility] KINASE 9:[address] [facility] REPOSITORY TYPE CODE TESTS RESULT OUT OF RANGE REFERENCE UNITS LAB L501.3620 39-308 U/L Normal CPK TOTAL 65 Performed By: #### L501.3620, L505.7010 #### [facility] [address] [place], [address] RHEUMATOID FACTOR Collected: 04/16/2018 Status: F Source: [facility]SCAR 9:[address] [facility] REPOSITORY TYPE CODE TESTS RESULT OUT OF RANGE REFERENCE UNITS LAB L505.7010 <15 IU/mL Normal RHEUMATOID FAC < 10.0 Performed By: #### L501.3620, L505.7010 #### [facility] [address] [place], [address] PROTEIN ELECTROPH, S Collected: 04/16/2018 Status: F Source: OSCAR 9:[address] [facility] REPOSITORY TYPE CODE TESTS RESULT OUT OF RANGE REFERENCE UNITS LAB L3100.3500 6.0-8.5 g/dL Low PROTEIN,TOTAL 4.3 LAB L3100.3600 2.9-4.4 g/dL Low ALBUMIN 1.8 LAB L3100.3700 0.0-0.4 g/dL High ALPHA-1 GLOBUL 0.5 LAB L3100.3800 0.4-1.0 g/dL Normal ALPHA-2 GLOBUL 0.4 LAB L3100.3900 0.7-1.3 g/dL Normal BETA GLOBULIN 0.9 LAB L3100.4000 0.4-1.8 g/dL Normal GAMMA GLOBULIN 0.7 LAB L3100.4110 Normal M-SPIKE Result Comment: Not Observed LAB L3100.4200 2.2-3.9 g/dL GLOBULIN, TOTAL Normal 2.5 LAB L3100.4300 0.7-1.7 A/G RATIO Normal 0.7 LAB L3100.4320 . INTERPRETATION Normal Comment Result Comment: Protein electrophoresis scan will follow via computer, mail, or capital equipment specialist delivery. LAB L3100.4340 . Normal NOTE: Comment Result Comment: The SPE pattern reflects non-selective protein loss. Protein losing syndromes, in which this pattern has been observed include: malnutrition, exudative dermatopathies, macdonald, exudative pulmonary disease, essential hypoproteinemia, protein losing gastroentero-pathies, blood loss, and plasmaphoresis. Monoclonal protein is not apparent. Performed By: #### L3100.3450, L3100.5700, L3100.5800, L3300.1200, L3400.4200 #### [facility] (refer to report for specific site) refer to report for address and phone number COMPLEMENT C3 Collected: 04/16/2018 Status: F Source: [facility] 9:[address] [facility] REPOSITORY TYPE CODE TESTS RESULT OUT OF RANGE REFERENCE UNITS LAB L3100.5700 82-167 mg/dL Normal COMP C3 144 Performed By: #### L3100.3450, L3100.5700, L3100.5800, L3300.1200, L3400.4200 #### [facility] (refer to report for specific site) refer to report for address and phone number COMPLEMENT C4 Collected: 04/16/2018 Status: F Source: [facility] 9:[address] [facility] REPOSITORY TYPE CODE TESTS RESULT OUT OF RANGE REFERENCE UNITS LAB L3100.5800 14-44 mg/dL Normal COMP C4 28 Performed By: #### L3100.3450, L3100.5700, L3100.5800, L3300.1200, L3400.4200 #### [facility] (refer to report for specific site) refer to report for address and phone number ANCA Collected: 04/16/2018 Status: F Source: [facility] 9:[address] [facility] REPOSITORY TYPE CODE TESTS RESULT OUT OF RANGE REFERENCE UNITS LAB L3300.1225 Neg:<1:20 titer CYTOPLASMIC Normal Ab <1:20 LAB L3300.1250 Neg:<1:20 titer PERINUCLEAR Normal Ab <1:20 Result Comment: The presence of positive fluorescence exhibiting P-ANCA or C-ANCA patterns alone is not specific for the diagnosis of Clay's Granulomatosis (WG) or microscopic polyangiitis. Decisions about treatment should not be based solely on ANCA IFA results. The International ANCA Group Consensus recommends follow up testing of positive sera with both PA- 3 and MPO-ANCA enzyme immunoassays. As many as 5% serum samples are positive only by EIA. Ref. AM J Clin Pathol 1999;111:507-513. LAB L3300.1285 Neg:<1:20 titer Normal Atypical pANCA <1:20 Result Comment: The atypical pANCA pattern has been observed in a significant percentage of patients with ulcerative colitis, primary sclerosing cholangitis and autoimmune hepatitis. Performed By: #### L3100.3450, L3100.5700, L3100.5800, L3300.1200, L3400.4200 #### [facility] (refer to report for specific site) refer to report for address and phone number ANTI-GLOMERULAR BASEMENT Collected: 04/16/2018 Status: F [facility] [facility] REPOSITORY TYPE CODE TESTS RESULT OUT OF RANGE REFERENCE UNITS LAB L3400.4200 0-20 units Normal ANTI-GBM 4 19872 Result Comment: Negative 0 - 20 Weak Positive 21 - 30 Moderate to Strong Positive >30 Performed at: - [facility] [address] [id number] Financial Reserve Clerk: Oc Chow PhD, Phone: [phone] Performed at: - [facility] [id number] Financial Reserve Clerk: Brii Baird MD, Phone: [phone] Performed By: #### L3100.3450, L3100.5700, L3100.5800, L3300.1200, L3400.4200 #### [facility] (refer to report for specific site) refer to report for address and phone number JOSEPHINE W/ REFLEX MULT Collected: 04/16/2018 Status: F Source: [facility] CONFIRM 9:[address] [facility] REPOSITORY TYPE CODE TESTS RESULT OUT OF RANGE REFERENCE UNITS LAB L3100.5475 Negative Normal Negative JOSEPHINE-DIRECT Result Comment: Performed at: - [facility] [address] [id number] Financial Reserve Clerk: Oc Chow PhD, Phone: [phone] Performed By: #### L3100.5450 #### [facility] (refer to report for specific site) refer to report for address and phone number CBC W/DIFF, AUTOMATED Collected: 04/16/2018 Status: F Source: [facility] 6:[address] [facility] REPOSITORY TYPE CODE TESTS RESULT OUT OF RANGE REFERENCE UNITS LAB L100.1000 4.4-11.0 K/mm3 Normal WBC 10.4 LAB L100.1200 4.6-6.2 M/mm3 Low RBC 3.87 LAB L100.1300 13.0-16.5 g/dl Low HGB 11.7 LAB L100.1400 40-54 % Low HCT 34.8 LAB L100.1500 80-94 fL Normal MCV 89.9 LAB L100.1600 27.0-32.0 pg Normal MCH 30.2 LAB L100.1700 32-36 g/gl Normal MCHC 33.6 LAB L100.1810 11.6-14.6 % Normal RDW CV 14.0 LAB L100.1820 35.1-43.9 fl High RDW SD 45.4 LAB L100.1900 150-450 K/mm3 Low PLT 99 LAB L100.2000 6.2-12.0 fl Normal MPV 10.7 LAB L100.2100 47-70 % High NEUT% 83.3 LAB L100.2200 19-41 % Low LY% 5.8 LAB L100.2300 0-10 % Normal MONO% 9.5 LAB L100.2400 0-5 % Normal EO% 0.7 LAB L100.2500 0-1 % Normal BASO% 0.1 LAB L100.2550 0.0-0.9 % Normal IM GRAN % 0.600 Result Comment: IG% - Immature Granulocytes (promyelocytes, myelocytes and metamyelocytes) > 1% indicates that a LEFT SHIFT is Present. LAB L100.2620 2.0-7.7 X10 3/uL High Absolute Neut 8.7 LAB L100.2720 0.83-4.51 X10 3/ul Low Absolute Lymph 0.60 LAB L100.5500 ADEQ Normal PLT EST MOD DEC LAB L100.5650 Normal PLT MORPH LARGE Performed By: #### L100.0100 #### [facility] [address] [place], [address] BASIC METABOLIC Collected: 04/16/2018 Status: F Source: [place] PROFILE (BMP) 6:[address] [facility] REPOSITORY TYPE CODE TESTS RESULT OUT OF RANGE REFERENCE UNITS LAB L501.0100 74-106 mg/dL Normal GLU 106 Result Comment: Fasting Glucose result from 100 to 125 mg/dL suggests IMPAIRED HOMEOSTASIS per A.D.A. criteria. Please note revised GLUCOSE reference range effective 2017. LAB L501.1000 7-18 mg/dL High alert BUN 126 Result Comment: Critical Result(s) Called at: 07:46:46 04/16/2018 by: Aury sHu to [facility] LAB L501.1100 0.70-1.30 mg/dL CREAT,SERUM High 7.39 Result Comment: The validity of the calculated GFR AND GFRAA in patients over 70 years has not been determined. Clinical correlation is essential. LAB L501.1110 >60 mL/min Low EST GFR 8 Result Comment: Non- GFR Calc LAB L501.1115 >60 mL/min Low EST GFR - AA 10 Result Comment: GFR Calc LAB L501.1255 ml/min Normal Estimated CRCL 8.44 LAB L501.1300 10-20 RATIO Normal BUN/CRE 17.1 LAB L501.2200 8.5-10. mg/dL Normal 1 CA 8.6 LAB L501.5300 136-145 mmol/L High NA 147 LAB L501.5600 3.5-5.1 mmol/L High K 5.3 LAB L501.5900 98-107 mmol/L High CL 116 LAB L501.6100 21.0-32 mmol/L Low .0 CO2 18.0 LAB L501.6200 5-15 Normal GAP 13 Performed By: #### L500.2500 #### [facility] [address] [place], [address] M R STAPH AUREUS Collected: 04/15/2018 Status: F Source: [facility] DNA BY PCR 10:[address] [facility] REPOSITORY TYPE CODE TESTS RESULT OUT OF RANGE REFERENCE UNITS LAB L8200.1100 Negative Normal MRSA Negative RESULT Performed By: #### L8200.1000 #### [facility] [address] [place], [address] CBC W/DIFF, AUTOMATED Collected: 04/15/2018 Status: F Source: [facility] 5:[address] [facility] REPOSITORY TYPE CODE TESTS RESULT OUT OF RANGE REFERENCE UNITS LAB L100.1000 4.4-11.0 K/mm3 High WBC 15.1 LAB L100.1200 4.6-6.2 M/mm3 Low RBC 4.00 LAB L100.1300 13.0-16.5 g/dl Low HGB 11.7 LAB L100.1400 40-54 % Low HCT 36.7 LAB L100.1500 80-94 fL Normal MCV 91.8 LAB L100.1600 27.0-32.0 pg Normal MCH 29.3 LAB L100.1700 32-36 g/gl Low MCHC 31.9 LAB L100.1810 11.6-14.6 % Normal RDW CV 14.2 LAB L100.1820 35.1-43.9 fl High RDW SD 48.3 LAB L100.1900 150-450 K/mm3 Low PLT 90 LAB L100.2000 6.2-12.0 fl Normal MPV 10.8 LAB L100.2100 47-70 % High NEUT% 87.6 LAB L100.2200 19-41 % Low LY% 5.0 LAB L100.2300 0-10 % Normal MONO% 6.9 LAB L100.2400 0-5 % Normal EO% 0.1 LAB L100.2500 0-1 % Normal BASO% 0.1 LAB L100.2550 0.0-0.9 % Normal IM GRAN % 0.300 Result Comment: IG% - Immature Granulocytes (promyelocytes, myelocytes and metamyelocytes) > 1% indicates that a LEFT SHIFT is Present. LAB L100.2620 2.0-7.7 X10 3/uL High Absolute Neut 13.2 LAB L100.2720 0.83-4.51 X10 3/ul Low Absolute Lymph 0.76 Performed By: #### L100.0100 #### [facility] [address] [place], [address] BASIC METABOLIC Collected: 04/15/2018 Status: F Source: [facility] PROFILE (BMP) 5:[address] [facility] REPOSITORY TYPE CODE TESTS RESULT OUT OF RANGE REFERENCE UNITS LAB L501.0100 74-106 mg/dL Normal GLU 97 Result Comment: Please note revised GLUCOSE reference range effective 2017. LAB L501.1000 7-18 mg/dL High alert BUN 117 Result Comment: Critical Result(s) Called at: 06:35:42 04/15/2018 by: Aury Hsu to [facility] LAB L501.1100 0.70-1.30 mg/dL CREAT,SERUM High 7.17 Result Comment: The validity of the calculated GFR AND GFRAA in patients over 70 years has not been determined. Clinical correlation is essential. LAB L501.1110 >60 mL/min Low EST GFR 8 Result Comment: Non- GFR Calc LAB L501.1115 >60 mL/min Low EST GFR - AA 10 Result Comment: GFR Calc LAB L501.1255 ml/min Normal Estimated CRCL 8.70 LAB L501.1300 10-20 RATIO Normal BUN/CRE 16.3 LAB L501.2200 8.5-10. mg/dL Normal 1 CA 8.7 LAB L501.5300 136-145 mmol/L High NA 148 LAB L501.5600 3.5-5.1 mmol/L High K 5.2 LAB L501.5900 98-107 mmol/L High CL 115 LAB L501.6100 21.0-32 mmol/L Low .0 CO2 19.0 LAB L501.6200 5-15 Normal GAP 14 Performed By: #### L500.2500 #### [facility] [address] [place], [address] Observed: 04/14/2018 Status: F Source: [facility] RESPIRATORY PANEL 7:[address] [facility] MOLECULAR REPOSITORY RP PANEL ADENOVIRUS Not Detected HUMAN METAPHNEUMO Not Detected INFLUENZA A Not Detected INFLUENZA A (SUBTYPE H1) Not Detected INFLUENZA A (SUBTYPE H3) Not Detected INFLUENZA B Not Detected PARAINFLUENZA 1 Not Detected PARAINFLUENZA 2 Not Detected PARAINFLUENZA 3 Not Detected PARAINFLUENZA 4 Not Detected RHINOVIRUS Not Detected RSV A Not Detected RSV B Not Detected NAAT METHOD Testing was performed using nucleic acid amplification Performed By: #### M100.638 #### [facility] [address] [place], [place], [address] URINALYSIS, COMPLETE Collected: 04/14/2018 Status: F Source: [place] 6:[address] [facility] REPOSITORY Order Comment: Order Date: 04/14/18 How was Urine Obtained? CLEAN CATCH TYPE CODE TESTS RESULT OUT OF RANGE REFERENCE UNITS LAB L400.3000 Yellow COLOR Normal Yellow LAB L400.3050 Clear Normal CLARITY Sl. Cloudy LAB L400.3200 Normal mg/dl Normal GLUCOSE, UR Normal LAB L400.3300 Negative mg/dL Normal BILIRUBIN URINE Negative LAB L400.3400 Negative mg/dl Normal KETONE UR Negative LAB L400.3465 1.002-1.030 Normal SP.GR. DIPSTX 1.015 LAB L400.3550 5.0 - 8.0 pH UR Normal 6.0 LAB L400.3600 Negative mg/dl High PROT DIPSTX 500 LAB L400.3700 Normal mg/dl Normal UROBILI Normal LAB L400.3750 Negative Normal NITRITE UR Negative LAB L400.3780 Negative /ul High OCCULT BLOOD-UR 250 LAB L400.3800 Negative /ul High LEUK ESTERASE 100 LAB L400.4050 0-5 /hpf WBC Normal 10-25 SEEN LAB L400.4100 0-5 /hpf Normal RBC-UA 25-50 SEEN LAB L400.4150 0-5 /hpf SQUAM Normal EPI 0-5 SEEN LAB L400.4300 None Seen /hpf Normal BACTERIA RARE LAB L400.4350 <or=2+ /hpf 0 Normal MUCUS, URINE SEEN LAB L400.4450 0-5 /lpf FINE Normal GRAN CAST 0-5 SEEN Performed By: #### L400.0001 #### [facility] [address] [place], [address] Observed: 04/14/2018 Status: F Source: [facility] CULTURE, URINE 6:[address] [facility] REPOSITORY Order Date: 04/14/18 Urine Culture Culture exhibits no growth. Performed By: #### M100.0650 #### [facility] [address] [place], [address] LIVER PROFILE Collected: 04/14/2018 Status: F Source: OSCAR 4:[address] [facility] REPOSITORY TYPE CODE TESTS RESULT OUT OF RANGE REFERENCE UNITS LAB L501.1500 6.4-8.2 g/dL Low T PROT 4.9 LAB L501.1800 3.2-5.0 g/dL Low ALB 1.9 LAB L501.1950 2.2-4.2 g/dL Normal GLOB 3.0 LAB L501.4100 15-37 U/L High AST 104 LAB L501.4305 45-117 U/L High ALK P 183 LAB L501.4405 16-61 U/L High ALT 133 LAB L501.4600 0.20-1.00 mg/dL High T BILI 1.40 LAB L501.4700 0.00-0.30 mg/dL High D BILI 0.96 Performed By: #### L500.3400 #### [facility] [address] [place], [address] Observed: 04/14/2018 Status: F Source: [facility] CULTURE, BLOOD (WB) 4:[address] [facility] REPOSITORY BC No growth in 5 days. Performed By: #### M200.1000 #### [facility] [address], [place], [address] HISTORY AND PHYSICAL Observed: 04/14/2018 Status: F Source: [facility] EXAM 4:[address] [facility] REPOSITORY [facility] Medical Records Department [facility] [place] [address] History and Physical 04/14/18 1435 MR#: [id number] Acct: [id number] Name: RICARDO CHILDS Rep #: [id number] : 1950 67 From: Jamar Kasper MD PCP: Conrado Maya DO Status: ADM IN Y Location: PCU [place] [address] Problem List (1) ICH (intracerebral hemorrhage) Status: Chronic (2) Altered mental status Status: Acute Qualifiers: (3) Ischemic stroke Status: Acute (4) Hypertension Status: Chronic (5) Dyslipidemia Status: Chronic (6) Acute respiratory failure Status: Resolved (7) Pulmonary emboli Status: Chronic (8) BUTCH (acute kidney injury) Status: Acute History of Present Illness Date of Admission: 04/14/18 Chief Complaint: Unresponsive and acute kidney injury The patient is a 67 year old M with recent history of left thalamic hemorrhage for which she was transferred to [facility] on 03/16/2018 and after that he was in acute rehab for 2 weeks and then transferred to [facility] SN[facility] was brought into ER for fever, acute kidney injury and unresponsiveness. As per the , he was awake and ate his food about 2 days ago after that becoming less responsive and was unresponsive in the morning today. Patient also had poor urine output for last 2 days although exact urine output not known. Patient has condom catheter. Patient having fever, decreased urine output and unresponsiveness despite put on Rocephin a few days ago in the [facility] and therefore his PCP Dr. Perez sent to ER. Patient is DNR CC arrest with no intubation or ACLS. In ED, vital signs temperature 100.7 Fahrenheit, pulse 73, BP 97/78, pulse ox 93% on room air respiratory rate 16-17/min. Blood work in ED shows leukocytosis 23,000, with left shift, platelet count 109,000, lactic acid normal, BUN 103, creatinine 6.89, K5.4, bicarb 22, anion gap 11. No coagulopathy. Total bili 1.4, elevated ALT and AST. Patient had vancomycin and Zosyn 1 dose in ED. He had about 2 L of normal saline fluid. Patient is further admitted in PCU. Past Medical History Past Medical History (Chronic Problems): Chronic Problems ICH (intracerebral hemorrhage) (Chronic) Hypertension (Chronic) Dyslipidemia (Chronic) Pulmonary emboli (Chronic) Allergies codeine Adverse Reaction (Verified 04/14/18 10:52) Unknown Home Medications: Ambulatory Orders Medication Instructions Recorded Smoking Status: Former smoker - *Family History Maternal History Items: No pertinent history Review of Systems Constitutional: Reports: Anorexia, Chills, Fever. Denies: Weight Change Eyes: Reports: - - Eyes closed. Cardiovascular: Denies: Palpitations Respiratory: Reports: Shortness of Breath Genitourinary: Reports: - - Condom catheter present Skin: Reports: Rash - On the coccyx. Stage I coccyx with erythema.. Denies: Wounds Hematologic/ Lymphatic: Denies: Easy Bruising, Easy Bleeding Comment: Patient is unresponsive. 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 VTE Information - Inpt Only VTE Present on Admission: No VTE Mechan Device Prophylaxis: SCD's VTE Pharm Prophylaxis ordered?: Yes Patient Problems: Active and Suspected Problems BUTCH (acute kidney injury) (Acute) - Physical Exam General: - - Unresponsive with eye closed. Grimaces on painful stimulus. HEENT: Atraumatic, PERRLA, Normocephalic Oral: Dry Mucosa - Dry and crusted mucous membrane. Neck: Supple, No JVD, Negative Carotid Bruits Lungs: Diminished - Air entry is diminished., Short of Breath Cardiovascular: Regular rate, Regular Rhythm, Normal S1, Normal S2, No murmurs Abdomen: Bowel Sounds Present, Soft, Non Tender, Non-Distended, Hypoactive Bowel Sounds Extremities: No cyanosis, Capillary Refill Less than 3 Seconds, Edema Skin: Rash Present - Stage I coccygeal pressure sore with nonblanching erythema Musculoskeletal: No Muscle Wasting, Muscle Wasting Neurological: - - Aphasia with right-sided hemiplegia. Right- sided facial droop. Unresponsive. Psych/Mental Status: Normal Affect, Appropriate Vital Signs Temp Pulse Resp BP Pulse Ox 97.7 F L 69 17 104/70 95 04/14/18 13:00 04/14/18 14:00 04/14/18 14:00 04/14/18 14:00 04/14/18 13:00 Oxygen Delivery Method Room Air Weight: 168 lb 13.985 oz Body Mass Index (BMI) 28.0 Finger Stick Blood Glucose 114 Laboratory Tests Past 24 Hrs Assessment/Plan All Active Problems BUTCH (acute kidney injury) (Acute) Altered mental status (Acute) Ischemic stroke (Acute) Acute respiratory failure (Resolved) The patient is a 67 year old M with recent history of left thalamic hemorrhage for which she was transferred to [facility] on 03/16/2018 and after that he was in acute rehab for 2 weeks and then transferred to [facility] SN[facility] was brought into ER for fever, acute kidney injury and unresponsiveness. As per the , he was awake and ate his food about 2 days ago after that becoming less responsive and was unresponsive in the morning today. Patient also had poor urine output for last 2 days although exact urine output not known. Patient has condom catheter. Patient having fever, decreased urine output and unresponsiveness despite put on Rocephin a few days ago in the [facility] and therefore his PCP Dr. Perez sent to ER. Patient is DNR CC arrest with no intubation or ACLS. In ED, vital signs temperature 100.7 Fahrenheit, pulse 73, BP 97/78, pulse ox 93% on room air respiratory rate 16-17/min. Blood work in ED shows leukocytosis 23,000, with left shift, platelet count 109,000, lactic acid normal, BUN 103, creatinine 6.89, K5.4, bicarb 22, anion gap 11. No coagulopathy. Total bili 1.4, elevated ALT and AST. Patient had vancomycin and Zosyn 1 dose in ED. He had about 2 L of normal saline fluid. Patient is further admitted in PCU. 1. Severe sepsis, exact etiology unclear but suspicion of UTI: UA done in [facility] from today shows WBC 0-5, LE 500, nitrite negative, 0 bacteria therefore no convincing evidence of UTI. Chin catheter ordered. Patient had 2 L of IV fluid normal saline. 1 L of normal saline bolus and then RL 150 mL/h. Monitor intake and output. Discussed with the mobile developer, Dr. Cabrera and agree with the plan. CT abdomen shows right renal lesion unchanged from previous CT of 04/2017, stable bilateral nonobstructive renal stones. No evidence of hydronephrosis. Echo in September 2017 shows EF 60% with a stage I diastolic dysfunction suggestive of chronic diastolic heart failure. Mild TR, RVSP 25 ABG. Mild eccentric MR. 2. Acute kidney injury, most likely prerenal.: Patient had normal creatinine 1.18 in April 11, 2018. Prior to that had one instance of acute kidney injury and October 2017. IV fluid normal saline. Discussed was the mobile developer, for now patient does not need [employer]/hemodialysis. Rest as above. 3. 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 As per the he was taking food by mouth, last one 2 days ago. PT OT and speech evaluation when patient improves. Patient is on Keppra by [facility], most likely after hemorrhagic stroke. 4. Other comorbidities include hypertension, dyslipidemia and pulmonary emboli in the past: Home medication reconciliation done. Patient on metoprolol, amlodipine, and ramipril: Hold the medication as patient in severe sepsis and hypotension. DVT propylaxis: Heparin 500 units subcutaneous twice daily; discontinue if platelet count drops less than 90,000 or hemoglobin less than 8 g%. Bilateral SCDs Advanced directive: Discussed with the patient's near the bedside. She agrees with DNR CC arrest with no intubation and no S ileus protocol. Discussed briefly about future need of renal replacement therapy/hemodialysis, she is not clear not sure. Clinical Impression(s) from Imaging Studies Abdomen/Pelvis CT 04/14/18 11:29 IMPRESSION: 1. Right renal lesion as described above essentially unchanged since prior examination. 2. Stable bilateral nonobstructing renal stones. No evidence of hydronephrosis. 3. Hepatomegaly. 4. Status post cholecystectomy. Laboratory Results 04/14/18 11:38: WBC 22.9 H, RBC 4.46 L, Hgb 13.3, Hct 40.9, MCV 91.7, MCH 29.8, MCHC 32.5, RDW 14.5, RDW Differential 48.2 H, Plt Count 109 L, MPV 10.8, Immature Gran % (Auto) 0.400, Neut % (Auto) 87.2 H, Lymph % (Auto) 3.4 L, Mccreary % (Auto) 8.9, Eos % (Auto) 0.0, Baso % (Auto) 0.1, Absolute Neuts (auto) 20.0 H, Absolute Lymphs (auto) 0.77 L, Total Counted Not Reportable, Differential Comment SCANNED 04/14/18 11:38: Sodium 145, Potassium 5.4 H, Chloride 112 H, Carbon Dioxide 22.0, Anion Gap 11, BUN 103 H*, Creatinine 6.89 H, Estim Creat Clear Calc 9.05, Est GFR (MDRD) Af Amer 10 L, Est GFR (MDRD) Non-Af 9 L, BUN/Creatinine Ratio 14.9, Glucose 123 H, Calcium 9.1, Total Bilirubin 1.40 H, Direct Bilirubin 0.97 H, AST 99 H, ALT 140 H, Alkaline Phosphatase 162 H, Total Protein 5.6 L, Albumin 1.9 L, Globulin 3.7, Lipase 134 04/14/18 11:38: Lactic Acid 0.9 04/14/18 11:38: Magnesium 2.6 Code Visit Inpatient E AND M: 39158 Init Hosp L3 Procedures: 51095 Advncd Care Plan 30 Min 04/14/18 1603 <Electronically signed by Jamar Kasper MD> Date Jamar Kasper MD Cosigner Signature: Date (if applicable) CC: Jamar Kasper MD; Conrado Maya DO Signed EMERGENCY DEPARTMENT Observed: 04/14/2018 Status: F Source: [place] SUMMARY 2:[address] [facility] Medical Records Department [address] [place] [address] Emergency Department Summary 04/14/18 1152 MR#: [id number] Acct: [id number] Name: RICARDO CHILDS Rep #: [id number] : 1950 67 From: Kasmhir Duff MD PCP: Conrado Maya DO Status: ADM IN - ER Visit Summary Date of Service: 04/14/18 Chief Complaint: [] Renal failure fever recent stroke History of Present Illness: The patient is a 67 M [] patient has a history of having a recent hemorrhagic stroke he was recently admitted to [facility] and [facility] to local [facility] facility, Dr. Abel Perez his physician was notified today that the patient had poor urine output and was having fevers despite the institution of Rocephin a few days ago. Dr. Perez called gave the above information and asked the patient be evaluated in the emergency department for further management and disposition and admission, per the who is here with the patient she reports the same history nothing additional he has had poor p.o. intake, she indicates nurses cath him at the [facility] today and got what sounds like 10 cc of urine, he is unable to able to provide history he is otherwise at his normal status he breathes through his mouth he is paralyzed to the right side and cannot move, he has a red ayse on his coccyx that is being managed with local skin care but otherwise has no lesions to his skin otherwise he has had no cough he has had no vomiting no obvious signs of aspiration he is taking thickened foods by mouth He is DNR Comfort Care arrest with reasonable medical management no ACLS or intubation prime focus is his comfort Physical Examination: [] 100.7, 98/60 General, no distress resting comfortably HEENT is generally unremarkable, he is breathing through his mouth his mucous memories are very dry The neck is supple no adenopathy Cardiovascular, regular rate and rhythm Lungs, clear bilateral Abdomen, soft nontender Extremities, no clubbing cyanosis or 4+ bilaterally edema, to the posterior coccyx there is a red lesion it is not ulcerated there is no drainage no fluid no fluctuance the rest of the skin is unremarkable Neurologic, awake scanning the room he is nonverbal he has no movement really to any of his extremities to palpation or stimuli at this time Test Results: [] Emergency Department Course and Treatment: [] In all the above screening labs are obtained IV fluids blood and urine cultures Patient screening labs reveal a creatinine of about 8, see those reports, the chest x-ray and abdominal CT showed nothing acute nonspecific prior changes, he has been he with IV fluids, pending UA bladder scan antibiotics at this time given all the above we have asked the hospital see him further management and admission Treatment Plan: [] Disposition: [] Admit stable Impression: [] Febrile illness, acute renal failure, stroke with right-sided paralysis, DNR Comfort Care reasonable medical management no ACLS This note was generated with [employer] dictation software. It may contain incorrect words, spelling, and punctuation that were not noted in review of the chart prior to signing ED Disposition - Plan for ED Patient: Chief Complaint: Abn Labs Referrals: Conrado Maya DO [Primary Care Provider] - What to do if you have Problems For any increased pain, shortness of breath, bleeding, nausea or vomiting, chest pain, or any unexpected problems, contact your Primary Care Provider. Call [facility] ([phone]) or report to the closest Emergency Room. Call 911 if necessary. 04/14/18 9874 <Electronically signed by Kashmir Duff MD> Date Kashmir Duff MD Cosigner Signature (If Indicated): Date CC: Conrado Maya DO CHEST 1 VIEW Observed: 04/14/2018 Status: F Source: [place] (PORTABLE) 11:[address] [facility] Imaging Services [address] [place] [address] [place] [address] Chest 1 View (Portable) MR#: [id number] Acct: [id number] Name: RICARDO CHILDS Rep #: [id number] : 1950 [facility] From: Lopez Pereira MD PCP: Conrado Maya DO Status: REG ER Study: Chest 1 View (Portable) Date of Exam: 04/14/18 Exam# [id number] Ordering Dr: Kashmir Duff MD STUDY: X-RAY CHEST REASON FOR EXAM: Male, 67 years old. Fever TECHNIQUE: Single view of the chest was obtained COMPARISON: March 16, 2018 FINDINGS: Ill-defined nodular density in the right middle and upper lobe seen on previous examination is not well characterized on this exam however patient may benefit from outpatient chest CT. Aortic tortuosity. Prominent aortic knob. No pneumothorax. No definite consolidation. Osseous structures demonstrate no acute abnormalities. IMPRESSION: No evidence for focal airspace disease. Ill-defined nodular density in the right middle and upper lobe seen on previous examination is not well characterized on this exam however patient may benefit from outpatient chest CT Electronically Signed: Lopez Pereira, at 12:47 EST Tel , Service support , RAD/Chest 1 View (Portable) CC: MD Karlos Duff; Conrado Maya DO Information Security Analyst: Signed CBC W/DIFF, AUTOMATED Collected: 04/14/2018 Status: F Source: [place] 11:[address] [facility] REPOSITORY TYPE CODE TESTS RESULT OUT OF RANGE REFERENCE UNITS LAB L100.1000 4.4-11.0 K/mm3 High WBC 22.9 LAB L100.1200 4.6-6.2 M/mm3 Low RBC 4.46 LAB L100.1300 13.0-16.5 g/dl Normal HGB 13.3 LAB L100.1400 40-54 % Normal HCT 40.9 LAB L100.1500 80-94 fL Normal MCV 91.7 LAB L100.1600 27.0-32.0 pg Normal MCH 29.8 LAB L100.1700 32-36 g/gl Normal MCHC 32.5 LAB L100.1810 11.6-14.6 % Normal RDW CV 14.5 LAB L100.1820 35.1-43.9 fl High RDW SD 48.2 LAB L100.1900 150-450 K/mm3 Low PLT 109 LAB L100.2000 6.2-12.0 fl Normal MPV 10.8 LAB L100.2100 47-70 % High NEUT% 87.2 LAB L100.2200 19-41 % Low LY% 3.4 LAB L100.2300 0-10 % Normal MONO% 8.9 LAB L100.2400 0-5 % Normal EO% 0.0 LAB L100.2500 0-1 % Normal BASO% 0.1 LAB L100.2550 0.0-0.9 % Normal IM GRAN % 0.400 Result Comment: IG% - Immature Granulocytes (promyelocytes, myelocytes and metamyelocytes) > 1% indicates that a LEFT SHIFT is Present. LAB L100.2620 2.0-7.7 X10 3/uL High Absolute Neut 20.0 LAB L100.2720 0.83-4.51 X10 3/ul Low Absolute Lymph 0.77 LAB L100.4500 Normal SMEAR COMMENT SCANNED Performed By: #### L100.0100 #### [facility] [address] [place], [address] LACTIC ACID Collected: 04/14/2018 Status: F Source: [facility] 11:[address] [facility] REPOSITORY Order Comment: Yes/No query for Sepsis Lactate Rule Y TYPE CODE TESTS RESULT OUT OF RANGE REFERENCE UNITS LAB L503.6005 0.4-2.0 mmol/L Normal LACTIC ACID 0.9 Performed By: #### L503.6005 #### [facility] [address] [place], [address] BASIC METABOLIC Collected: 04/14/2018 Status: F Source: [place] PROFILE (BMP) 11:[address] [facility] REPOSITORY TYPE CODE TESTS RESULT OUT OF RANGE REFERENCE UNITS LAB L501.0100 74-106 mg/dL High GLU 123 Result Comment: Fasting Glucose result from 100 to 125 mg/dL suggests IMPAIRED HOMEOSTASIS per A.D.A. criteria. Please note revised GLUCOSE reference range effective 2017. LAB L501.1000 7-18 mg/dL High alert BUN 103 Result Comment: Critical Result(s) Called at: 12:18:33 04/14/2018 by: Aury Hsu to [place] LAB L501.1100 0.70-1.30 mg/dL CREAT,SERUM High 6.89 Result Comment: The validity of the calculated GFR AND GFRAA in patients over 70 years has not been determined. Clinical correlation is essential. LAB L501.1110 >60 mL/min Low EST GFR 9 Result Comment: Non- GFR Calc LAB L501.1115 >60 mL/min Low EST GFR - AA 10 Result Comment: GFR Calc LAB L501.1255 ml/min Normal Estimated CRCL 9.05 LAB L501.1300 10-20 RATIO Normal BUN/CRE 14.9 LAB L501.2200 8.5-10. mg/dL Normal 1 CA 9.1 LAB L501.5300 136-145 mmol/L Normal NA 145 LAB L501.5600 3.5-5.1 mmol/L High K 5.4 LAB L501.5900 98-107 mmol/L High CL 112 LAB L501.6100 21.0-32 mmol/L Normal .0 CO2 22.0 LAB L501.6200 5-15 Normal GAP 11 Performed By: #### L500.2500, L500.3400, L501.2450 #### [facility] [address] [place], [address] LIVER PROFILE Collected: 04/14/2018 Status: F Source: [facility] 11:[address] [facility]POS[facility]ORY TYPE CODE TESTS RESULT OUT OF RANGE REFERENCE UNITS LAB L501.1500 6.4-8.2 g/dL Low T PROT 5.6 LAB L501.1800 3.2-5.0 g/dL Low ALB 1.9 LAB L501.1950 2.2-4.2 g/dL Normal GLOB 3.7 LAB L501.4100 15-37 U/L High AST 99 LAB L501.4305 45-117 U/L High ALK P 162 LAB L501.4405 16-61 U/L High ALT 140 LAB L501.4600 0.20-1.00 mg/dL High T BILI 1.40 LAB L501.4700 0.00-0.30 mg/dL High D BILI 0.97 Performed By: #### L500.2500, L500.3400, L501.2450 #### [facility] [address] [place], [address] LIPASE Collected: 04/14/2018 Status: F Source: [facility] 11:[address] [facility] REPOS[facility]ORY TYPE CODE TESTS RESULT OUT OF RANGE REFERENCE UNITS LAB L501.2450 73-393 U/L Normal LIPASE 134 Performed By: #### L500.2500, L500.3400, L501.2450 #### [facility] [address] [place], [address] MAGNESIUM Collected: 04/14/2018 Status: F Source: [facility] 11:[address] [facility] REPOS[facility]ORY TYPE CODE TESTS RESULT OUT OF RANGE REFERENCE UNITS LAB L501.5200 1.6-2.6 mg/dL Normal MG 2.6 Performed By: #### L501.5200 #### [facility] [address] [place], [address] Observed: 04/14/2018 Status: F Source: [place] CULTURE, BLOOD (WB) 11:[address] [facility] REPOSITORY BC No growth in 5 days. Performed By: #### M200.1000 #### [facility] [address] [place] [address]. [place], [place], [address] HEPATITIS ABC PROFILE Collected: 04/14/2018 Status: F Source: [place] 11:[address] [facility]POS[facility]ORY TYPE CODE TESTS RESULT OUT OF RANGE REFERENCE UNITS LAB L3100.0200 Negative Normal HEP A Negative IgM 6734 LAB L3100.0300 Negative Normal HEP A Negative AB,T.6726 LAB L3100.0400 Negative Normal HB Negative SURF AG LAB L3100.0440 Negative Normal HB Negative CORE [id number] LAB L3100.0460 Negative Normal HEP B Negative CORE,TOT LAB L3100.0510 . Normal Hep B Non Reactive Franko AB Result Comment: Non Reactive: Inconsistent with immunity, less than 10 mIU/mL Reactive: Consistent with immunity, greater than 9.9 mIU/mL LAB L3100.0750 0.0-0.9 s/co ratio Normal HCV Ab 0.1 LAB L3100.0765 . Normal COMMENT Comment Result Comment: Non reactive HCV antibody screen is consistent with no HCV infection, unless recent infection is suspected or other evidence exists to indicate HCV infection. Performed at: - [facility] [address] [id number] Financial Reserve Clerk: Oc Chow PhD, Phone: [phone] Performed By: #### L3000.0700 #### [facility] (refer to report for specific site) refer to report for address and phone number ABDOMEN/PELVIS WITHOUT Observed: 04/14/2018 Status: F Source: [facility] CONT 11:[address] [facility] Imaging Services [address] [place] [address] Abdomen/Pelvis without Cont MR#: [id number] Acct: [id number] Name: RICARDO CHILDS Rep #: [id number] : 1950 M 67 From: Christopher Gamble MD PCP: Conrado Maya DO Status: REG ER Study: Abdomen/Pelvis without Cont Date of Exam: 04/14/18 Exam# [id number] Ordering Dr: Kashmir Duff MD STUDY: CT ABDOMEN AND PELVIS WITHOUT CONTRAST REASON FOR EXAM: Male, 67 years old. Fever, acute renal failure and urinary tract infection. RADIATION DOSAGE (If Supplied By Facility): CTDIvol = ( 13.79 ) mGy, DLP = ( 682.31 ) mGycm TECHNIQUE: Transaxial images were obtained from the dome of the diaphragm to the symphysis pubis without oral contrast, and without intravenous contrast. Sagittal and coronal images were reconstructed. Individualized dose optimization techniques were used for this CT. COMPARISON: 05/17/2017. FINDINGS: The visualized portions of lung bases demonstrate prominent pulmonary vasculature in the left lower lung and mild atelectatic changes. The visualized portions of the heart are within normal limits. There are significant artifacts. No focal lesion is definitely identified in the liver on this noncontrast examination. The liver is enlarged. There are surgical clips in the gallbladder fossa consistent with a prior cholecystectomy. Normal spleen. Normal pancreas. Normal bilateral adrenal glands. There again is a lesion in the upper pole of the right kidney posteriorly unchanged since the prior examination difficult to accurately evaluate without contrast and due to motion artifact. There is no evidence of hydronephrosis. Bilateral nonobstructing renal stones are again seen. Normal visualized stomach. The small bowel loops are normal in caliber. The examination is limited due to motion. There is no evidence of acute diverticulitis. There is fecal retention. The appendix is not definitely identified. There is tortuosity of the abdominal aorta without evidence of aneurysm. Normal inferior vena cava. Normal retroperitoneum. Normal urinary bladder. The prostate is slightly prominent. There are prostatic calcifications. Normal abdominal wall. There are diffuse degenerative changes of the visualized lumbar spine. CT/Abdomen/Pelvis without Cont IMPRESSION: 1. Right renal lesion as described above essentially unchanged since prior examination. 2. Stable bilateral nonobstructing renal stones. No evidence of hydronephrosis. 3. Hepatomegaly. 4. Status post cholecystectomy. Electronically Signed: Christopher Gamble MD at 13:35 EST Tel , Service support , CC: MD Karlos Duff; Conrado Maya DO Information Security Analyst: Signed CBC W/DIFF, AUTOMATED Collected: 04/14/2018 Status: F Source: [facility] 8:[address] [facility]POS[facility] TYPE CODE TESTS RESULT OUT OF RANGE REFERENCE UNITS LAB L100.1000 4.4-11.0 K/mm3 High WBC 22.1 LAB L100.1200 4.6-6.2 M/mm3 Low RBC 4.55 LAB L100.1300 13.0-16.5 g/dl Normal HGB 13.4 LAB L100.1400 40-54 % Normal HCT 42.1 LAB L100.1500 80-94 fL Normal MCV 92.5 LAB L100.1600 27.0-32.0 pg Normal MCH 29.5 LAB L100.1700 32-36 g/gl Low MCHC 31.8 LAB L100.1810 11.6-14.6 % Normal RDW CV 14.4 LAB L100.1820 35.1-43.9 fl High RDW SD 49.1 LAB L100.1900 150-450 K/mm3 Low PLT 99 LAB L100.2000 6.2-12.0 fl Normal MPV 11.1 LAB L100.2100 47-70 % High NEUT% 87.6 LAB L100.2200 19-41 % Low LY% 2.9 LAB L100.2300 0-10 % Normal MONO% 9.0 LAB L100.2400 0-5 % Normal EO% 0.0 LAB L100.2500 0-1 % Normal BASO% 0.0 LAB L100.2550 0.0-0.9 % Normal IM GRAN % 0.500 Result Comment: IG% - Immature Granulocytes (promyelocytes, myelocytes and metamyelocytes) > 1% indicates that a LEFT SHIFT is Present. LAB L100.2620 2.0-7.7 X10 3/uL High Absolute Neut 19.4 LAB L100.2720 0.83-4.51 X10 3/ul Low Absolute Lymph 0.65 LAB L100.4500 Normal SMEAR COMMENT SCANNED Performed By: #### L100.0100 #### [facility] [address] [place], [address] URINALYSIS, ROUTINE Collected: 04/14/2018 Status: F Source: [facility] (DIPSTICK) 8:[address] [facility] REPOSITORY Order Comment: How was Urine Obtained? CLEAN CATCH TYPE CODE TESTS RESULT OUT OF RANGE REFERENCE UNITS LAB L400.3000 Yellow COLOR Normal Yellow LAB L400.3050 Clear Normal CLARITY Cloudy LAB L400.3200 Normal mg/dl High GLUCOSE, UR 50 LAB L400.3300 Negative mg/dL High BILIRUBIN URINE 1 Result Comment: COLOR OF URINE MAY AFFECT DIPSTICK RESULTS. LAB L400.3400 Negative mg/dl Normal KETONE UR Negative LAB L400.3465 1.002-1.030 Normal SP.GR. DIPSTX 1.015 LAB L400.3550 5.0 - 8.0 pH Normal UR 6.0 LAB L400.3600 Negative mg/dl High PROT DIPSTX 500 LAB L400.3700 Normal mg/dl High UROBILI 1 LAB L400.3750 Negative Normal NITRITE UR Negative LAB L400.3780 Negative /ul High OCCULT 250 BLOOD-UR LAB L400.3800 Negative /ul High LEUK ESTERASE 500 Performed By: #### L400.2011 #### [facility] [address] [place], [address] COMPREHENSIVE METABOLIC Collected: 04/14/2018 Status: F Source: [facility] PROFIL 8:[address] [facility] REPOSITORY TYPE CODE TESTS RESULT OUT OF RANGE REFERENCE UNITS LAB L501.0100 74-106 mg/dL High GLU 135 Result Comment: Fasting Glucose result greater than or equal to 126 mg/dL suggests DIABETES MELLITUS per A.D.A. criteria. Please note revised GLUCOSE reference range effective 2017. LAB L501.1000 7-18 mg/dL High alert BUN 101 Result Comment: Critical Result(s) Called at: 09:30:14 04/14/2018 by: Aury Hsu to [facility] LAB L501.1100 0.70-1.30 mg/dL CREAT,SERUM High 6.71 Result Comment: The validity of the calculated GFR AND GFRAA in patients over 70 years has not been determined. Clinical correlation is essential. LAB L501.1110 >60 mL/min Low EST GFR 9 Result Comment: Non- GFR Calc LAB L501.1115 >60 mL/min Low EST GFR - AA 11 Result Comment: GFR Calc LAB L501.1300 10-20 RATIO Normal BUN/CRE 15.1 LAB L501.1500 6.4-8.2 g/dL Low T PROT 5.6 LAB L501.1800 3.2-5.0 g/dL Low ALB 1.9 LAB L501.1950 2.2-4.2 g/dL Normal GLOB 3.7 LAB L501.2000 0.9-2.4 RATIO Low A/G 0.5 LAB L501.2200 8.5-10.1 mg/dL CA Normal 9.1 LAB L501.4100 15-37 U/L High AST 103 LAB L501.4305 45-117 U/L High ALK P 153 LAB L501.4405 16-61 U/L High ALT 141 LAB L501.4600 0.20-1.00 mg/dL High T BILI 1.50 LAB L501.5300 136-145 mmol/L NA Normal 145 LAB L501.5600 3.5-5.1 mmol/L K Normal 5.1 LAB L501.5900 98-107 mmol/L High CL 111 LAB L501.6100 21.0-32.0 mmol/L Normal CO2 21.0 LAB L501.6200 5-15 Normal GAP 13 Performed By: #### L500.4050 #### [facility] [address] [place], [place], [address] Observed: 04/14/2018 Status: F Source: [place] CULTURE, URINE 8:[address] [facility] REPOSITORY Urine Culture Culture exhibits no growth. Performed By: #### M100.0650 #### [facility] [address] [place], [place], [address] CBC-COMPLETE BLOOD CNT Collected: 04/11/2018 Status: F Source: [place] NO DIFF 6:[address] [facility] REPOSITORY Order Comment: ROOM 413 TYPE CODE TESTS RESULT OUT OF RANGE REFERENCE UNITS LAB L100.1000 4.4-11.0 K/mm3 Normal WBC 9.6 LAB L100.1200 4.6-6.2 M/mm3 Normal RBC 5.27 LAB L100.1300 13.0-16.5 g/dl Normal HGB 16.0 LAB L100.1400 40-54 % Normal HCT 47.5 LAB L100.1500 80-94 fL Normal MCV 90.1 LAB L100.1600 27.0-32.0 pg Normal MCH 30.4 LAB L100.1700 32-36 g/gl Normal MCHC 33.7 LAB L100.1810 11.6-14.6 % Normal RDW CV 13.4 LAB L100.1820 35.1-43.9 fl High RDW SD 44.1 LAB L100.1900 150-450 K/mm3 Low PLT 138 LAB L100.2000 6.2-12.0 fl Normal MPV 10.5 Performed By: #### L100.0500 #### [facility] [address] [place], [address] BASIC METABOLIC Collected: 04/11/2018 Status: F Source: [place] PROFILE ([facility]) 6:[address] [facility] REPOS[facility] Order Comment: ROOM 413 TYPE CODE TESTS RESULT OUT OF RANGE REFERENCE UNITS LAB L501.0100 74-106 mg/dL High GLU 111 Result Comment: Fasting Glucose result from 100 to 125 mg/dL suggests IMPAIRED HOMEOSTASIS per A.D.A. criteria. Please note revised GLUCOSE reference range effective 2017. LAB L501.1000 7-18 mg/dL High BUN 27 LAB L501.1100 0.70-1.30 mg/dL Normal CREAT,SERUM 1.18 Result Comment: The validity of the calculated GFR AND GFRAA in patients over 70 years has not been determined. Clinical correlation is essential. LAB L501.1110 >60 mL/min Normal EST GFR 65 Result Comment: Non- GFR Calc LAB L501.1115 >60 mL/min Normal EST GFR - AA 79 Result Comment: GFR Calc LAB L501.1300 10-20 RATIO High BUN/CRE 22.9 LAB L501.2200 8.5-10.1 mg/dL CA Normal 9.6 LAB L501.5300 136-145 mmol/L NA Normal 143 LAB L501.5600 3.5-5.1 mmol/L K Normal 4.4 LAB L501.5900 98-107 mmol/L High CL 109 LAB L501.6100 21.0-32.0 mmol/L Normal CO2 27.0 LAB L501.6200 5-15 Normal GAP 7 Performed By: #### L500.2500 #### [facility] [address] [place], [place], [id number] BASIC METABOLIC Collected: 04/04/2018 Status: F Source: [place]SC[place] PROFILE (BMP) 6:[address] [facility] REPOS[facility]ORY Order Comment: 413 TYPE CODE TESTS RESULT OUT OF RANGE REFERENCE UNITS LAB L501.0100 74-106 mg/dL High GLU 109 Result Comment: Fasting Glucose result from 100 to 125 mg/dL suggests IMPAIRED HOMEOSTASIS per A.D.A. criteria. Please note revised GLUCOSE reference range effective 2017. LAB L501.1000 7-18 mg/dL High BUN 27 LAB L501.1100 0.70-1.30 mg/dL Normal CREAT,SERUM 0.95 Result Comment: The validity of the calculated GFR AND GFRAA in patients over 70 years has not been determined. Clinical correlation is essential. LAB L501.1110 >60 mL/min Normal EST GFR 84 Result Comment: Non- GFR Calc LAB L501.1115 >60 mL/min Normal EST GFR - AA 102 Result Comment: GFR Calc LAB L501.1300 10-20 RATIO High BUN/CRE 28.5 LAB L501.2200 8.5-10.1 mg/dL CA Normal 9.6 LAB L501.5300 136-145 mmol/L NA Normal 141 LAB L501.5600 3.5-5.1 mmol/L K Normal 4.0 LAB L501.5900 98-107 mmol/L CL Normal 107 LAB L501.6100 21.0-32.0 mmol/L Normal CO2 26.0 LAB L501.6200 5-15 Normal GAP 8 Performed By: #### L500.2500 #### [facility] [address] [place], [place], [address] CBC-COMPLETE BLOOD CNT Collected: 04/04/2018 Status: F Source: [place] NO DIFF 6:[address] [facility] REPOSITORY Order Comment: 413 TYPE CODE TESTS RESULT OUT OF RANGE REFERENCE UNITS LAB L100.1000 4.4-11.0 K/mm3 Normal WBC 9.7 LAB L100.1200 4.6-6.2 M/mm3 Normal RBC 5.16 LAB L100.1300 13.0-16.5 g/dl Normal HGB 15.6 LAB L100.1400 40-54 % Normal HCT 46.3 LAB L100.1500 80-94 fL Normal MCV 89.7 LAB L100.1600 27.0-32.0 pg Normal MCH 30.2 LAB L100.1700 32-36 g/gl Normal MCHC 33.7 LAB L100.1810 11.6-14.6 % Normal RDW CV 13.1 LAB L100.1820 35.1-43.9 fl Normal RDW SD 42.5 LAB L100.1900 150-450 K/mm3 Normal PLT 191 LAB L100.2000 6.2-12.0 fl Normal MPV 10.2 Performed By: #### L100.0500 #### [facility] [address] [place], [address] CONSULTATION Observed: 04/02/2018 Status: F Source: [place] 8:[address] [facility] REPOSITORY [facility] Medical Records Department [address] [place] [address] Consultation 03/16/18 1657 MR#: [id number] Acct: [id number] Name: RICARDO CHILDS [employer] Rep #: [id number] : [id number] 67 From: Hemanth Robles MD PCP: Conrado Maya DO Status: DEP ER Y Location: ED Problem List (1) ICH (intracerebral hemorrhage) Status: Acute (2) Altered mental status Status: Acute Qualifiers: Reason for Consult Date of Consultation: 03/16/18 Reason for Consultation: ICH History of Present Illness: The patient is a 67 year old CM with PMH HTN, HLD, H/O bilateral PE and DVT in February 2016, was on Eliquis, during the February 2016 admission he had suicidal ideation, diagnosed with depression and started on Lexapro, H/O small acute right MCA stroke in September 2017 now admitted with altered mental status as a stroke alert. History could not be obtained from patient, History is obtained from medical records and patients . Per he was last seen normal around 11 am, then when she came back from work in the evening she found him down, in the ED patient has right sided weakness, with right facial droop. NIHSS was 8 on admission. Per he uses cane to ambulate, has intermittent falls, does drive and does need assistance for his ADLs. Per she is not sure if she is taking any AP like ASA or Plavix. 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 Past Medical History Past Medical History (Chronic Problems): Chronic Problems Hypertension (Chronic) Allergies codeine Adverse Reaction (Verified 03/16/18 16:48) Unknown Home Medications: Ambulatory Orders Medication Instructions Recorded Multivitamin [Daily Multiple 1 each PO DAILY 01/30/16 Vitamin] Pravastatin [Pravachol] 40 mg PO QHS 01/30/16 Hydrocodone Bitart/Apap 5-325 1 tablet PO Q6H PRN PRN 03/03/16 Lives: With Family Smoking Status: Former smoker Alcohol: None Drugs: None - *Family History Maternal History Items: No pertinent history Review of Systems Constitutional: Reports: - - ROS could not be obtained as patient has AMS Patient Problems: Active and Suspected Problems ICH (intracerebral hemorrhage) (Acute) - Physical Exam General: - - awake, intermittently follows VC. HEENT: Normocephalic Neck: Supple Lungs: Normal air movement Cardiovascular: Normal S1, Normal S2 Abdomen: Bowel Sounds Present Extremities: No cyanosis Neurological: - - awake, intermittently follows VC, CN 2-12 grossly intact except right UMN facial palsy, ? right homonymous hemianopia, Power right UE/LE 3/5, pronator drift present both right UE/LE, denies any sensory loss, no cerebellar signs, Reflexes + B/L B/S/T/K/A, gait deferred, NIHSS 8 at present. mRS 2 at baseline Vital Signs Temp Pulse Resp BP Pulse Ox 98 F 87 19 H 143/91 H 99 03/16/18 16:31 03/16/18 16:31 03/16/18 16:31 03/16/18 16:31 03/16/18 16:31 Oxygen Delivery Method Room Air Weight: 82.2 kg Body Mass Index (BMI) 28.3 Assessment/Plan All Active Problems ICH (intracerebral hemorrhage) (Acute) Altered mental status (Acute) Ischemic stroke (Acute) Dyslipidemia (Acute) Acute respiratory failure (Resolved) Pulmonary emboli (Acute) The patient is a 67 year old CM with PMH HTN, HLD, H/O bilateral PE and DVT in February 2016, was on Eliquis, during the February 2016 admission he had suicidal ideation, diagnosed with depression and started on Lexapro, H/O small acute right MCA stroke in September 2017 now admitted with altered mental status as a stroke alert. History could not be obtained from patient, History is obtained from medical records and patients . Per he was last seen normal around 11 am, then when she came back from work in the evening she found him down, in the ED patient has right sided weakness, with right facial droop. NIHSS was 8 on admission. Per he uses cane to ambulate, has intermittent falls, does drive and does need assistance for his ADLs. Per she is not sure if she is taking any AP like ASA or Plavix. 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 -Neurosurgery consult -Frequent neuro checks -Monitor BP, keep SBP between 140-160 mmHg -Further management per neurosurgery -Further medical management per hospitalist -GI/DVT prophylaxis -PT/OT/ST -Fall precautions -Please call with questions if any -Thank you for allowing us to participate in patient's care and management Code Visit Inpatient E AND M: [id number] Init Hosp L3 04/02/182056 <Electronically signed by Hemanth Robles MD> Date Hemanth Robles MD Cosigner Signature (if applicable): Date CC: Conrado Maya DO Signed CBC Collected: 03/26/2018 Status: F Source: [facility] 4:03 AM [facility] REPOSITORY TYPE CODE TESTS RESULT OUT OF REFERENCE UNITS RANGE LAB WBC(LOINC) 4.50-10.80 10 3/mcL WBC 9.10 LAB RBCCT(LOINC 4.50-6.00 10 6/mcL ) RBC 5.55 LAB HGB(LOINC) 13.0-17.5 G/dL Hgb 16.5 LAB HCT(LOINC) 40.0-52.0 % Hct 49.4 LAB MCV(LOINC) 81.0-100.0 fL MCV 89.0 LAB MCH(LOINC) 27.0-33.0 pg MCH 29.7 LAB MCHC(LOINC) 32.0-36.0 G/dL MCHC 33.4 LAB RDW(LOINC) 11.5-15.5 % RDW 13.3 LAB PLT(LOINC) 150-450 10 3/mcL Platelet 236 LAB MPV(LOINC) 6.4-10.5 fL MPV 8.3 Performed By: #### CBC, ADIFF, ANEU, BMP, GFR #### [place] [address] .AUTO DIFF Collected: 03/26/2018 Status: F Source: [facility] 4:03 [facility] REPOSITORY TYPE CODE TESTS RESULT OUT OF REFERENCE UNITS RANGE LAB JOE(LOINC) 50.0-75.0 % High Neutrophil % 75.4 LAB LYM(LOINC) 20.0-40.0 % Low Lymphocyte % 12.8 LAB MON(LOINC) 2.0-13.0 % Monocyte % 10.4 LAB EO(LOINC) 0.0-6.0 % Eosinophil % 0.9 LAB BAS(LOINC) 0.0-2.5 % Basophil % 0.5 LAB ABLYM(LOIN 0.90-4.32 10 3/mcL C) Lymphocyte, 1.20 Absolute LAB BINU(LOINC 0.09-1.40 10 3/mcL ) Monocyte, 0.90 Absolute LAB AEOS(LOINC 0.00-0.65 10 3/mcL ) Eosinophil, 0.10 Absolute LAB ABAS(LOINC 0.00-0.27 10 3/mcL ) Basophil, 0.00 Absolute Performed By: #### CBC, ADIFF, ANEU, BMP, GFR #### [address] [address] .NEUABS Collected: 03/26/2018 Status: F Source: [facility] 4:03 AM [facility] REPOSITORY TYPE CODE TESTS RESULT OUT OF REFERENCE UNITS RANGE LAB ANEU(LOINC) 2.25-8.10 10 3/mcL Neutrophil, 6.90 Absolute Performed By: #### CBC, ADIFF, ANEU, BMP, GFR #### [place] [id number] BMP Collected: 03/26/2018 Status: F Source: [facility] 4:03 AM [facility] REPOSITORY TYPE CODE TESTS RESULT OUT OF REFERENCE UNITS RANGE LAB GLU(LOINC) 82-115 mg/dL Glucose Level 105 LAB NA(LOINC) 136-145 mEq/L Sodium Level 140 LAB K(LOINC) 3.5-5.0 mEq/L Potassium Level 4.1 LAB CL(LOINC) 98-110 mEq/L Chloride 106 LAB CO2(LOINC) 22-32 mEq/L CO2 27 LAB EBAL(LOINC 4.0-15.0 mEq/L ) Electrolyte Balance 7.0 LAB BUN(LOINC) 8.0-22.0 mg/dL BUN 21.0 LAB CRE(LOINC) 0.60-1.40 mg/dL Creatinine Lvl (s) 1.12 LAB BC(LOINC) 10.0-22.0 ratio BUN/Creatinine 18.8 Ratio LAB CA(LOINC) 8.4-10.1 mg/dL Calcium Lvl 8.8 Performed By: #### CBC, ADIFF, ANEU, BMP, GFR #### [address] [address] .GFR Collected: 03/26/2018 Status: F Source: [facility] 4:03 AM [facility] REPOSITORY TYPE CODE TESTS RESULT OUT OF REFERENCE UNITS RANGE LAB GFRAA(LOINC ml/min/1.73 ) sqm GFR >60 [place]an Result Comment: GFR Population mean for , Non- Americans Ages 20-29 = 116 mL/min/1.73 sq.m. Ages 30-39 = 107 mL/min/1.73 sq.m. Ages 40-49 = 99 mL/min/1.73 sq.m. Ages 50-59 = 93 mL/min/1.73 sq.m. Ages 60-69 = 85 mL/min/1.73 sq.m. Ages 70+ = 75 mL/min/1.73 sq.m. Chronic Kidney Disease: Less than 60 mL/min/1.73 square meters End Stage Renal Disease: Less than 15 mL/min/1.73 square meters LAB GFRNO(LOINC) ml/min/1.73sqm GFR Non- >60 Result Comment: GFR Population mean for , Non- Americans Ages 20-29 = 116 mL/min/1.73 sq.m. Ages 30-39 = 107 mL/min/1.73 sq.m. Ages 40-49 = 99 mL/min/1.73 sq.m. Ages 50-59 = 93 mL/min/1.73 sq.m. Ages 60-69 = 85 mL/min/1.73 sq.m. Ages 70+ = 75 mL/min/1.73 sq.m. Chronic Kidney Disease: Less than 60 mL/min/1.73 square meters End Stage Renal Disease: Less than 15 mL/min/1.73 square meters Performed By: #### CBC, ADIFF, ANEU, BMP, GFR #### [place] [address] Observed: 03/25/2018 Status: F Source: [facility] 8:15 PM [facility] REPOSITORY . MICRO - Microbiology PROCEDURE: Legionella Urine Ag [*1] SOURCE: Urine BODY SITE: COLLECTED DATE/TIME: 03/25/2018 20:15 EST RECEIVED DATE/TIME: 03/25/2018 20:33 EST START DATE/TIME: 03/25/2018 20:33 EST FREE TEXT SOURCE: FINAL REPORTS Final Report [] Verified Date/Time/Personnel: 03/25/2018 20:57 EST Presumptive negative for L. pneumophila serogroup 1 antigen in urine, suggesting no recent or current infection. Legionnaire's disease cannot be ruled out since other serogroups and species may also cause disease. Performing Locations *1: This test was performed at: [address], [address] [place] [address] Performed By: #### JOSTIN #### [place] [address] Observed: 03/25/2018 Status: F Source: [facility] 8:15 PM [facility] REPOSITORY . MICRO - Microbiology PROCEDURE: Streptococcus Pneumoniae Urine Antig [^1 *1] SOURCE: Urine BODY SITE: COLLECTED DATE/TIME: 03/25/2018 20:15 EST RECEIVED DATE/TIME: 03/25/2018 20:33 EST START DATE/TIME: 03/25/2018 20:33 EST FREE TEXT SOURCE: FINAL REPORTS Final Report [] Verified Date/Time/Personnel: 03/25/2018 20:57 EST Presumptive negative for pneumococcal pneumonia, suggesting no current or recent pneumococcal infection. Infection due to Strep pneumoniae cannot be ruled out since the antigen present in the sample may be below the detection limit of the test. Interpretive Data ^1: Streptococcus Pneumoniae Urine Antig This test has not been evaluated on patients taking antibiotics for greater than 24 hours or on patients who have recently completed an antibiotic regimen. The accuracy of this test has not been proven in young children. Performing Locations *1: This test was performed at: [facility], [address] [place] [address], [address] [place] [address] Performed By: #### SPAG #### [place] [address] UA Collected: 03/25/2018 Status: F Source: [facility] 8:15 PM [facility] REPOSITORY TYPE CODE TESTS RESULT OUT OF REFERENCE UNITS RANGE LAB SPCUA(LOIN C) UA Specimen Type Catheter LAB CLRUA(LOIN C) UA Color Yellow LAB APPUA(LOIN Clear C) UA Appear Clear LAB SGUA(LOINC 1.006-1.029 ) UA Spec Grav 1.015 LAB GLUA(LOINC Negative mg/dL ) UA Glucose Negative LAB BILUA(LOIN Neg-Trace C) UA Bili Negative LAB KETUA(LOIN Neg-Trace mg/dL C) UA Ketones Negative LAB BLDUA(LOIN Neg-Trace C) UA Blood Negative LAB PHUA(LOINC 5.0 - 8.0 ) UA pH 6.0 LAB PROUA(LOIN Negative mg/dL C) UA Protein Negative LAB UROUA(LOIN 0.2-1.0 E.U./dL C) UA Urobilinogen 1.0 LAB NITUA(LOIN Negative C) UA Nitrite Negative LAB LEUUA(LOIN Negative C) UA Leuk Est Negative Performed By: #### UA #### [place] [address] Observed: 03/25/2018 Status: F Source: [facility] 8:15 PM [facility] REPOSITORY . MICRO - Microbiology PROCEDURE: Urine Culture [*1] SOURCE: Urine BODY SITE: COLLECTED DATE/TIME: 03/25/2018 20:15 EST RECEIVED DATE/TIME: 03/25/2018 20:54 EST START DATE/TIME: 03/25/2018 20:54 EST FREE TEXT SOURCE: FINAL REPORTS Final Report [] Verified Date/Time/Personnel: 03/27/2018 07:55 EST 10,000 organisms per mL Mixed without predominant isolate(s). Sensitivity Testing not indicated. Probably contamination. Repeat culture suggested. PRELIMINARY REPORTS Preliminary Report [] Verified Date/Time/Personnel: 03/26/2018 13:32 EST Culture results pending. Performing Locations *1: This test was performed at: [facility], [address] [place] [address], [address] [place] [address] Performed By: #### CUR #### [place] [address] Observed: 03/25/2018 Status: F Source: [facility] 10:22 AM [facility] REPOSITORY . MICRO - Microbiology PROCEDURE: Blood Culture (bacterial) [*1] SOURCE: Blood BODY SITE: COLLECTED DATE/TIME: 03/25/2018 10:22 EST RECEIVED DATE/TIME: 03/25/2018 10:40 EST START DATE/TIME: 03/25/2018 10:41 EST FREE TEXT SOURCE: FINAL REPORTS Final Report [] Verified Date/Time/Personnel: 03/30/2018 10:59 EST Blood Culture: No Growth at 5 days. PRELIMINARY REPORTS Preliminary Report [] Verified Date/Time/Personnel: 03/25/2018 11:59 EST Culture has been received in lab and is no growth to date. Routine cultures are held for 5 days. Performing Locations *1: This test was performed at: [facility], [address] [place] [address], [address] [place] [address] Performed By: #### CBL #### [address] [address] LAC Collected: 03/25/2018 Status: F Source: [facility] 10:21 AM [facility] REPOSITORY TYPE CODE TESTS RESULT OUT OF REFERENCE UNITS RANGE LAB LAC(LOINC) 0.2-2.0 mmol/L Lactic Acid 1.6 Lvl Performed By: #### LAC #### [place] [address] Observed: 03/25/2018 Status: F Source: [facility] 10:21 AM [facility] REPOSITORY . MICRO - Microbiology PROCEDURE: Blood Culture (bacterial) [*1] SOURCE: Blood BODY SITE: COLLECTED DATE/TIME: 03/25/2018 10:21 EST RECEIVED DATE/TIME: 03/25/2018 10:40 EST START DATE/TIME: 03/25/2018 10:41 EST FREE TEXT SOURCE: FINAL REPORTS Final Report [] Verified Date/Time/Personnel: 03/30/2018 10:59 EST Blood Culture: No Growth at 5 days. PRELIMINARY REPORTS Preliminary Report [] Verified Date/Time/Personnel: 03/25/2018 11:59 EST Culture has been received in lab and is no growth to date. Routine cultures are held for 5 days. Performing Locations *1: This test was performed at: [address], [address] [place] [address] Performed By: #### CBL #### [address] [address] MYCO Collected: 03/25/2018 Status: F Source: [facility] 10:21 AM [facility] REPOSITORY TYPE CODE TESTS RESULT OUT OF REFERENCE UNITS RANGE LAB AMYCM(LOIN C) Mycoplasma IgM Negative Result Comment: INTERPRETATION OF MYCOPLASMA BY EIA (Effective 04/01/04): Negative No detectable antibodies to M. pneumoniae. Indicates absence of current or previous infection. Positive Reactive for antibodies to M. pneumoniae. Indicates a past or recent infection. Equivocal Equivocal for antibodies to M. pneumoniae. Repeat testing by an alternate method suggested. LAB AMYCG(LOINC) Mycoplasma IgG Neg Result Comment: INTERPRETATION OF MYCOPLASMA BY EIA (Effective 04/01/04): Negative No detectable antibodies to M. pneumoniae. Indicates absence of current or previous infection. Positive Reactive for antibodies to M. pneumoniae. Indicates a past or recent infection. Equivocal Equivocal for antibodies to M. pneumoniae. Repeat testing by an alternate method suggested. Performed By: #### MYCO #### [place] [address] XR CHEST 1 VIEW Observed: 03/25/2018 Status: F Source: [facility] 10:06 AM [facility] REPOSITORY ORIGINAL XR CHEST 1 VIEW CLINICAL STATEMENT: Leukocytosis. Weakness COMPARISON: [None] FINDINGS: The heart and mediastinal structures are normal . The lungs are clear and the pulmonary vasculature is normal. There are no pleural effusions. The bones are unremarkable. IMPRESSION: No acute thoracic process Interpreted By: José Avitia MD Preliminary Report By: José Avitia MD Electronically Signed By: José Avitia MD Dictated Date: 03/25/2018 11:13:47 AM Prelim Date: 03/25/2018 11:13:47 AM Sign Date: 03/25/2018 11:14:03 AM BMP Collected: 03/25/2018 Status: F Source: [facility] 3:59 AM [facility] REPOSITORY TYPE CODE TESTS RESULT OUT OF REFERENCE UNITS RANGE LAB GLU(LOINC) 82-115 mg/dL Glucose High Level 122 LAB NA(LOINC) 136-145 mEq/L Sodium Level 143 LAB K(LOINC) 3.5-5.0 mEq/L Potassium Level 4.1 LAB CL(LOINC) 98-110 mEq/L Chloride 110 LAB CO2(LOINC) 22-32 mEq/L CO2 24 LAB EBAL(LOINC 4.0-15.0 mEq/L ) Electrolyte Balance 9.0 LAB BUN(LOINC) 8.0-22.0 mg/dL BUN High 25.0 LAB CRE(LOINC) 0.60-1.40 mg/dL Creatinine Lvl (s) 0.98 LAB BC(LOINC) 10.0-22.0 ratio High BUN/Creatinine 25.5 Ratio LAB CA(LOINC) 8.4-10.1 mg/dL Calcium Lvl 9.3 Performed By: #### BMP, GFR, CBC, DIFF, MORPH #### [address] [address] .GFR Collected: 03/25/2018 Status: F Source: [facility] 3:59 AM [facility] REPOSITORY TYPE CODE TESTS RESULT OUT OF REFERENCE UNITS RANGE LAB GFRAA(LOINC ml/min/1.73 ) sqm GFR >60 [place]an Result Comment: GFR Population mean for , Non- Americans Ages 20-29 = 116 mL/min/1.73 sq.m. Ages 30-39 = 107 mL/min/1.73 sq.m. Ages 40-49 = 99 mL/min/1.73 sq.m. Ages 50-59 = 93 mL/min/1.73 sq.m. Ages 60-69 = 85 mL/min/1.73 sq.m. Ages 70+ = 75 mL/min/1.73 sq.m. Chronic Kidney Disease: Less than 60 mL/min/1.73 square meters End Stage Renal Disease: Less than 15 mL/min/1.73 square meters LAB GFRNO(LOINC) ml/min/1.73sqm GFR Non- >60 Result Comment: GFR Population mean for , Non- Americans Ages 20-29 = 116 mL/min/1.73 sq.m. Ages 30-39 = 107 mL/min/1.73 sq.m. Ages 40-49 = 99 mL/min/1.73 sq.m. Ages 50-59 = 93 mL/min/1.73 sq.m. Ages 60-69 = 85 mL/min/1.73 sq.m. Ages 70+ = 75 mL/min/1.73 sq.m. Chronic Kidney Disease: Less than 60 mL/min/1.73 square meters End Stage Renal Disease: Less than 15 mL/min/1.73 square meters Performed By: #### BMP, GFR, CBC, DIFF, MORPH #### [address] [address] CBC Collected: 03/25/2018 Status: F Source: [facility] 3:59 AM [facility] REPOSITORY TYPE CODE TESTS RESULT OUT OF REFERENCE UNITS RANGE LAB WBC(LOINC) 4.50-10.80 10 3/mcL High WBC 14.60 LAB RBCCT(LOINC 4.50-6.00 10 6/mcL ) RBC 5.61 LAB HGB(LOINC) 13.0-17.5 G/dL Hgb 16.8 LAB HCT(LOINC) 40.0-52.0 % Hct 50.0 LAB MCV(LOINC) 81.0-100.0 fL MCV 89.1 LAB MCH(LOINC) 27.0-33.0 pg MCH 30.0 LAB MCHC(LOINC) 32.0-36.0 G/dL MCHC 33.6 LAB RDW(LOINC) 11.5-15.5 % RDW 13.5 LAB PLT(LOINC) 150-450 10 3/mcL Platelet 174 LAB MPV(LOINC) 6.4-10.5 fL MPV 9.5 Performed By: #### BMP, GFR, CBC, DIFF, MORPH #### [address] [address] .MANUAL DIFF Collected: 03/25/2018 Status: F Source: [facility] 3:59 AM [facility] REPOSITORY TYPE CODE TESTS RESULT OUT OF REFERENCE UNITS RANGE LAB LIMIT(LOIN C) Cells Counted 100 LAB NEUM(LOINC 50.0-75.0 % ) High Neutrophil %, 83.0 Manual LAB LYMM(LOINC 20.0-40.0 % ) Low Lymphocyte %, 11.0 Manual LAB MONM(LOINC 2.0-13.0 % ) Monocyte %, Manual 5.0 LAB EOM(LOINC) 0.0-6.0 % Eosinophil %, 0.0 Manual LAB BASM(LOINC 0.0-2.5 % ) Basophil %, Manual 1.0 LAB ANEUM(LOIN 2.25-8.10 10 3/mcL C) High Neutrophil, Abs 12.12 Manual LAB ABLYMM(MICHELLE 0.90-4.32 10 3/mcL NC) Lymphocyte, Abs 1.61 Manual LAB AMONM(LOIN 0.09-1.40 10 3/mcL C) Monocyte, Abs 0.73 Manual LAB AEOSM(LOIN 0.00-0.65 10 3/mcL C) Eosinophil, Abs 0.00 Manual LAB ABASM(LOIN 0.00-0.27 10 3/mcL C) Basophil, Abs 0.15 Manual Performed By: #### BMP, GFR, CBC, DIFF, MORPH #### [place] [id number] .MORPH Collected: 03/25/2018 Status: F Source: [facility] 3:59 AM [facility] REPOSITORY TYPE CODE TESTS RESULT OUT OF REFERENCE UNITS RANGE LAB PLTE(LOINC) Platelet Normal Estimate LAB RBCM(LOINC) RBC Morph Normal Performed By: #### BMP, GFR, CBC, DIFF, MORPH #### [place] [address] CBC Collected: 03/24/2018 Status: F Source: [facility] 4:21 AM [facility] REPOSITORY TYPE CODE TESTS RESULT OUT OF REFERENCE UNITS RANGE LAB WBC(LOINC) 4.50-10.80 10 3/mcL WBC 8.10 LAB RBCCT(LOINC 4.50-6.00 10 6/mcL ) RBC 5.31 LAB HGB(LOINC) 13.0-17.5 G/dL Hgb 15.8 LAB HCT(LOINC) 40.0-52.0 % Hct 47.2 LAB MCV(LOINC) 81.0-100.0 fL MCV 89.0 LAB MCH(LOINC) 27.0-33.0 pg MCH 29.8 LAB MCHC(LOINC) 32.0-36.0 G/dL MCHC 33.5 LAB RDW(LOINC) 11.5-15.5 % RDW 13.6 LAB PLT(LOINC) 150-450 10 3/mcL Platelet 213 LAB MPV(LOINC) 6.4-10.5 fL MPV 8.1 Performed By: #### CBC, ADIFF, ANEU, MG, BMP, GFR #### [place] [address] .AUTO DIFF Collected: 03/24/2018 Status: F Source: [facility] 4:21 AM [facility] REPOSITORY TYPE CODE TESTS RESULT OUT OF REFERENCE UNITS RANGE LAB JOE(LOINC) 50.0-75.0 % Neutrophil % 74.9 LAB LYM(LOINC) 20.0-40.0 % Low Lymphocyte % 13.4 LAB MON(LOINC) 2.0-13.0 % Monocyte % 9.7 LAB EO(LOINC) 0.0-6.0 % Eosinophil % 1.0 LAB BAS(LOINC) 0.0-2.5 % Basophil % 1.0 LAB ABLYM(LOIN 0.90-4.32 10 3/mcL C) Lymphocyte, 1.10 Absolute LAB BINU(LOINC 0.09-1.40 10 3/mcL ) Monocyte, 0.80 Absolute LAB AEOS(LOINC 0.00-0.65 10 3/mcL ) Eosinophil, 0.10 Absolute LAB ABAS(LOINC 0.00-0.27 10 3/mcL ) Basophil, 0.10 Absolute Performed By: #### CBC, ADIFF, ANEU, MG, BMP, GFR #### [place] [id number] .NEUABS Collected: 03/24/2018 Status: F Source: [facility] 4:21 AM [facility] REPOSITORY TYPE CODE TESTS RESULT OUT OF REFERENCE UNITS RANGE LAB ANEU(LOINC) 2.25-8.10 10 3/mcL Neutrophil, 6.10 Absolute Performed By: #### CBC, ADIFF, ANEU, MG, BMP, GFR #### [place] [address] MG Collected: 03/24/2018 Status: F Source: [facility] 4:21 AM [facility] REPOSITORY TYPE CODE TESTS RESULT OUT OF REFERENCE UNITS RANGE LAB MG(LOINC) 1.6-2.4 mg/dL Magnesium Lvl 2.3 Performed By: #### CBC, ADIFF, ANEU, MG, BMP, GFR #### [place] [address] BMP Collected: 03/24/2018 Status: F Source: [facility] 4:21 AM [facility] REPOSITORY TYPE CODE TESTS RESULT OUT OF REFERENCE UNITS RANGE LAB GLU(LOINC) 82-115 mg/dL Glucose Level 115 LAB NA(LOINC) 136-145 mEq/L Sodium Level 145 LAB K(LOINC) 3.5-5.0 mEq/L Potassium Level 3.9 LAB CL(LOINC) 98-110 mEq/L Chloride High 111 LAB CO2(LOINC) 22-32 mEq/L CO2 25 LAB EBAL(LOINC 4.0-15.0 mEq/L ) Electrolyte Balance 9.0 LAB BUN(LOINC) 8.0-22.0 mg/dL BUN High 30.0 LAB CRE(LOINC) 0.60-1.40 mg/dL Creatinine Lvl (s) 1.07 LAB BC(LOINC) 10.0-22.0 ratio High BUN/Creatinine 28.0 Ratio LAB CA(LOINC) 8.4-10.1 mg/dL Calcium Lvl 9.1 Performed By: #### CBC, ADIFF, ANEU, MG, BMP, GFR #### [address] [address] .GFR Collected: 03/24/2018 Status: F Source: [facility] 4:21 AM [facility] REPOSITORY TYPE CODE TESTS RESULT OUT OF REFERENCE UNITS RANGE LAB GFRAA(LOINC ml/min/1.73 ) sqm GFR >60 [place] Result Comment: GFR Population mean for , Non- Americans Ages 20-29 = 116 mL/min/1.73 sq.m. Ages 30-39 = 107 mL/min/1.73 sq.m. Ages 40-49 = 99 mL/min/1.73 sq.m. Ages 50-59 = 93 mL/min/1.73 sq.m. Ages 60-69 = 85 mL/min/1.73 sq.m. Ages 70+ = 75 mL/min/1.73 sq.m. Chronic Kidney Disease: Less than 60 mL/min/1.73 square meters End Stage Renal Disease: Less than 15 mL/min/1.73 square meters LAB GFRNO(LOINC) ml/min/1.73sqm GFR Non- >60 Result Comment: GFR Population mean for , Non- Americans Ages 20-29 = 116 mL/min/1.73 sq.m. Ages 30-39 = 107 mL/min/1.73 sq.m. Ages 40-49 = 99 mL/min/1.73 sq.m. Ages 50-59 = 93 mL/min/1.73 sq.m. Ages 60-69 = 85 mL/min/1.73 sq.m. Ages 70+ = 75 mL/min/1.73 sq.m. Chronic Kidney Disease: Less than 60 mL/min/1.73 square meters End Stage Renal Disease: Less than 15 mL/min/1.73 square meters Performed By: #### CBC, ADIFF, ANEU, MG, BMP, GFR #### [address] [address] CBC Collected: 03/23/2018 Status: F Source: [facility] 4:18 AM [facility] REPOSITORY TYPE CODE TESTS RESULT OUT OF REFERENCE UNITS RANGE LAB WBC(LOINC) 4.50-10.80 10 3/mcL WBC 8.70 LAB RBCCT(LOINC 4.50-6.00 10 6/mcL ) RBC 5.49 LAB HGB(LOINC) 13.0-17.5 G/dL Hgb 16.5 LAB HCT(LOINC) 40.0-52.0 % Hct 48.5 LAB MCV(LOINC) 81.0-100.0 fL MCV 88.3 LAB MCH(LOINC) 27.0-33.0 pg MCH 30.0 LAB MCHC(LOINC) 32.0-36.0 G/dL MCHC 34.0 LAB RDW(LOINC) 11.5-15.5 % RDW 13.8 LAB PLT(LOINC) 150-450 10 3/mcL Platelet 212 LAB MPV(LOINC) 6.4-10.5 fL MPV 8.6 Performed By: #### CBC, ADIFF, ANEU, MG, GFR, BMP #### [place] [address] .AUTO DIFF Collected: 03/23/2018 Status: F Source: [facility] 4:18 AM [facility] REPOSITORY TYPE CODE TESTS RESULT OUT OF REFERENCE UNITS RANGE LAB JOE(LOINC) 50.0-75.0 % High Neutrophil % 78.8 LAB LYM(LOINC) 20.0-40.0 % Low Lymphocyte % 11.3 LAB MON(LOINC) 2.0-13.0 % Monocyte % 8.8 LAB EO(LOINC) 0.0-6.0 % Eosinophil % 0.5 LAB BAS(LOINC) 0.0-2.5 % Basophil % 0.6 LAB ABLYM(LOIN 0.90-4.32 10 3/mcL C) Lymphocyte, 1.00 Absolute LAB BINU(LOINC 0.09-1.40 10 3/mcL ) Monocyte, 0.80 Absolute LAB AEOS(LOINC 0.00-0.65 10 3/mcL ) Eosinophil, 0.00 Absolute LAB ABAS(LOINC 0.00-0.27 10 3/mcL ) Basophil, 0.10 Absolute Performed By: #### CBC, ADIFF, ANEU, MG, GFR, BMP #### [facility] [address] [place] [address] .NEUABS Collected: 03/23/2018 Status: F Source: [facility] 4:18 AM [facility] REPOSITORY TYPE CODE TESTS RESULT OUT OF REFERENCE UNITS RANGE LAB ANEU(LOINC) 2.25-8.10 10 3/mcL Neutrophil, 6.90 Absolute Performed By: #### CBC, ADIFF, ANEU, MG, GFR, BMP #### [facility] [address] [place] [address] MG Collected: 03/23/2018 Status: F Source: [facility] 4:18 AM [facility] REPOSITORY TYPE CODE TESTS RESULT OUT OF REFERENCE UNITS RANGE LAB MG(LOINC) 1.6-2.4 mg/dL Magnesium Lvl 2.4 Performed By: #### CBC, ADIFF, ANEU, MG, GFR, BMP #### [address] [address] .GFR Collected: 03/23/2018 Status: F Source: [facility] 4:18 AM [facility] REPOSITORY TYPE CODE TESTS RESULT OUT OF REFERENCE UNITS RANGE LAB GFRAA(LOINC ml/min/1.73 ) sqm GFR >60 [place]an Result Comment: GFR Population mean for , Non- Americans Ages 20-29 = 116 mL/min/1.73 sq.m. Ages 30-39 = 107 mL/min/1.73 sq.m. Ages 40-49 = 99 mL/min/1.73 sq.m. Ages 50-59 = 93 mL/min/1.73 sq.m. Ages 60-69 = 85 mL/min/1.73 sq.m. Ages 70+ = 75 mL/min/1.73 sq.m. Chronic Kidney Disease: Less than 60 mL/min/1.73 square meters End Stage Renal Disease: Less than 15 mL/min/1.73 square meters LAB GFRNO(LOINC) ml/min/1.73sqm GFR Non- >60 Result Comment: GFR Population mean for , Non- Americans Ages 20-29 = 116 mL/min/1.73 sq.m. Ages 30-39 = 107 mL/min/1.73 sq.m. Ages 40-49 = 99 mL/min/1.73 sq.m. Ages 50-59 = 93 mL/min/1.73 sq.m. Ages 60-69 = 85 mL/min/1.73 sq.m. Ages 70+ = 75 mL/min/1.73 sq.m. Chronic Kidney Disease: Less than 60 mL/min/1.73 square meters End Stage Renal Disease: Less than 15 mL/min/1.73 square meters Performed By: #### CBC, ADIFF, ANEU, MG, GFR, BMP #### [address] [address] BMP Collected: 03/23/2018 Status: F Source: [facility] 4:18 AM [facility] REPOSITORY TYPE CODE TESTS RESULT OUT OF REFERENCE UNITS RANGE LAB GLU(LOINC) 82-115 mg/dL Glucose Level 109 LAB NA(LOINC) 136-145 mEq/L Sodium Level 144 LAB K(LOINC) 3.5-5.0 mEq/L Potassium Level 3.8 LAB CL(LOINC) 98-110 mEq/L Chloride High 111 LAB CO2(LOINC) 22-32 mEq/L CO2 24 LAB EBAL(LOINC 4.0-15.0 mEq/L ) Electrolyte Balance 9.0 LAB BUN(LOINC) 8.0-22.0 mg/dL BUN High 27.0 LAB CRE(LOINC) 0.60-1.40 mg/dL Creatinine Lvl (s) 0.97 LAB BC(LOINC) 10.0-22.0 ratio High BUN/Creatinine 27.8 Ratio LAB CA(LOINC) 8.4-10.1 mg/dL Calcium Lvl 9.2 Performed By: #### CBC, ADIFF, ANEU, MG, GFR, BMP #### [address] [address] CBC Collected: 03/21/2018 Status: F Source: [facility] 3:38 AM [facility] REPOSITORY TYPE CODE TESTS RESULT OUT OF REFERENCE UNITS RANGE LAB WBC(LOINC) 4.50-10.80 10 3/mcL WBC 8.90 LAB RBCCT(LOINC 4.50-6.00 10 6/mcL ) RBC 5.24 LAB HGB(LOINC) 13.0-17.5 G/dL Hgb 15.7 LAB HCT(LOINC) 40.0-52.0 % Hct 46.9 LAB MCV(LOINC) 81.0-100.0 fL MCV 89.4 LAB MCH(LOINC) 27.0-33.0 pg MCH 30.0 LAB MCHC(LOINC) 32.0-36.0 G/dL MCHC 33.6 LAB RDW(LOINC) 11.5-15.5 % RDW 13.9 LAB PLT(LOINC) 150-450 10 3/mcL Platelet 203 LAB MPV(LOINC) 6.4-10.5 fL MPV 8.1 Performed By: #### CBC, ADIFF, ANEU, BMP, GFR #### [address] [address] .AUTO DIFF Collected: 03/21/2018 Status: F Source: [facility] 3:38 AM [facility] REPOSITORY TYPE CODE TESTS RESULT OUT OF REFERENCE UNITS RANGE LAB JOE(LOINC) 50.0-75.0 % High Neutrophil % 76.6 LAB LYM(LOINC) 20.0-40.0 % Low Lymphocyte % 11.9 LAB MON(LOINC) 2.0-13.0 % Monocyte % 10.0 LAB EO(LOINC) 0.0-6.0 % Eosinophil % 0.9 LAB BAS(LOINC) 0.0-2.5 % Basophil % 0.6 LAB ABLYM(LOIN 0.90-4.32 10 3/mcL C) Lymphocyte, 1.10 Absolute LAB BINU(LOINC 0.09-1.40 10 3/mcL ) Monocyte, 0.90 Absolute LAB AEOS(LOINC 0.00-0.65 10 3/mcL ) Eosinophil, 0.10 Absolute LAB ABAS(LOINC 0.00-0.27 10 3/mcL ) Basophil, 0.00 Absolute Performed By: #### CBC, ADIFF, ANEU, BMP, GFR #### [address] [address] .NEUABS Collected: 03/21/2018 Status: F Source: [facility] 3:38 AM [facility] REPOSITORY TYPE CODE TESTS RESULT OUT OF REFERENCE UNITS RANGE LAB ANEU(LOINC) 2.25-8.10 10 3/mcL Neutrophil, 6.80 Absolute Performed By: #### CBC, ADIFF, ANEU, BMP, GFR #### [place] [address] BMP Collected: 03/21/2018 Status: F Source: [facility] 3:38 AM [facility] REPOSITORY TYPE CODE TESTS RESULT OUT OF REFERENCE UNITS RANGE LAB GLU(LOINC) 82-115 mg/dL Glucose Level 107 LAB NA(LOINC) 136-145 mEq/L Sodium Level 142 LAB K(LOINC) 3.5-5.0 mEq/L Potassium Level 4.1 LAB CL(LOINC) 98-110 mEq/L Chloride High 111 LAB CO2(LOINC) 22-32 mEq/L Low CO2 21 LAB EBAL(LOINC 4.0-15.0 mEq/L ) Electrolyte Balance 10.0 LAB BUN(LOINC) 8.0-22.0 mg/dL BUN 22.0 LAB CRE(LOINC) 0.60-1.40 mg/dL Creatinine Lvl (s) 1.01 LAB BC(LOINC) 10.0-22.0 ratio BUN/Creatinine 21.8 Ratio LAB CA(LOINC) 8.4-10.1 mg/dL Calcium Lvl 9.0 Performed By: #### CBC, ADIFF, ANEU, BMP, GFR #### [facility] [address] [place] [address] .GFR Collected: 03/21/2018 Status: F Source: [facility] 3:38 AM [facility] REPOSITORY TYPE CODE TESTS RESULT OUT OF REFERENCE UNITS RANGE LAB GFRAA(LOINC ml/min/1.73 ) sqm GFR >60 [place] Result Comment: GFR Population mean for , Non- Americans Ages 20-29 = 116 mL/min/1.73 sq.m. Ages 30-39 = 107 mL/min/1.73 sq.m. Ages 40-49 = 99 mL/min/1.73 sq.m. Ages 50-59 = 93 mL/min/1.73 sq.m. Ages 60-69 = 85 mL/min/1.73 sq.m. Ages 70+ = 75 mL/min/1.73 sq.m. Chronic Kidney Disease: Less than 60 mL/min/1.73 square meters End Stage Renal Disease: Less than 15 mL/min/1.73 square meters LAB GFRNO(LOINC) ml/min/1.73sqm GFR Non- >60 Result Comment: GFR Population mean for , Non- Americans Ages 20-29 = 116 mL/min/1.73 sq.m. Ages 30-39 = 107 mL/min/1.73 sq.m. Ages 40-49 = 99 mL/min/1.73 sq.m. Ages 50-59 = 93 mL/min/1.73 sq.m. Ages 60-69 = 85 mL/min/1.73 sq.m. Ages 70+ = 75 mL/min/1.73 sq.m. Chronic Kidney Disease: Less than 60 mL/min/1.73 square meters End Stage Renal Disease: Less than 15 mL/min/1.73 square meters Performed By: #### CBC, ADIFF, ANEU, BMP, GFR #### [place] [address] BMP Collected: 03/20/2018 Status: F Source: [facility] 4:26 AM [facility] REPOSITORY TYPE CODE TESTS RESULT OUT OF REFERENCE UNITS RANGE LAB GLU(LOINC) 82-115 mg/dL Glucose Level 111 LAB NA(LOINC) 136-145 mEq/L Sodium Level 141 LAB K(LOINC) 3.5-5.0 mEq/L Potassium Level 3.8 LAB CL(LOINC) 98-110 mEq/L Chloride 108 LAB CO2(LOINC) 22-32 mEq/L Low CO2 21 LAB EBAL(LOINC 4.0-15.0 mEq/L ) Electrolyte Balance 12.0 LAB BUN(LOINC) 8.0-22.0 mg/dL BUN 14.0 LAB CRE(LOINC) 0.60-1.40 mg/dL Creatinine Lvl (s) 0.92 LAB BC(LOINC) 10.0-22.0 ratio BUN/Creatinine 15.2 Ratio LAB CA(LOINC) 8.4-10.1 mg/dL Calcium Lvl 9.3 Performed By: #### BMP, GFR #### [address] [address] .GFR Collected: 03/20/2018 Status: F Source: [facility] 4:26 [facility] REPOSITORY TYPE CODE TESTS RESULT OUT OF REFERENCE UNITS RANGE LAB GFRAA(LOINC ml/min/1.73 ) sqm GFR >60 [place] Result Comment: GFR Population mean for , Non- Americans Ages 20-29 = 116 mL/min/1.73 sq.m. Ages 30-39 = 107 mL/min/1.73 sq.m. Ages 40-49 = 99 mL/min/1.73 sq.m. Ages 50-59 = 93 mL/min/1.73 sq.m. Ages 60-69 = 85 mL/min/1.73 sq.m. Ages 70+ = 75 mL/min/1.73 sq.m. Chronic Kidney Disease: Less than 60 mL/min/1.73 square meters End Stage Renal Disease: Less than 15 mL/min/1.73 square meters LAB GFRNO(LOINC) ml/min/1.73sqm GFR Non- >60 Result Comment: GFR Population mean for , Non- Americans Ages 20-29 = 116 mL/min/1.73 sq.m. Ages 30-39 = 107 mL/min/1.73 sq.m. Ages 40-49 = 99 mL/min/1.73 sq.m. Ages 50-59 = 93 mL/min/1.73 sq.m. Ages 60-69 = 85 mL/min/1.73 sq.m. Ages 70+ = 75 mL/min/1.73 sq.m. Chronic Kidney Disease: Less than 60 mL/min/1.73 square meters End Stage Renal Disease: Less than 15 mL/min/1.73 square meters Performed By: #### BMP, GFR #### [place] [address] 12 LEAD ELECTROCARDIOGRAM Observed: 03/19/2018 Status: F Source: [facility] 1:[address] [facility] [address] Cardiovascular Services [address] [place] [address] 12 Lead EKG 03/16/18 1655 MR#: [id number] Acct: [id number] Name: RICARDO CHILDS Rep #: [id number] : 1950 67 From: Guanaco Lomeli MD Attending Dr: Status: DEP ER Ordering Dr: Abran Ma MD Date: 03/16/18 Location: ED Sex: M C Admitted: Test Reason : STROKE Blood Pressure : / mmHG Vent. Rate : 084 BPM Atrial Rate : 084 BPM P-R Int : 136 ms QRS Dur : 090 ms QT Int : 370 ms P-R-T Axes : 063 055 032 degrees QTc Int : 437 ms Normal sinus rhythm Normal ECG Confirmed by GUANACO LOMELI ([id number]), publication editor JENNIFER PEREZ ([id number]) on 03/19/2018 1:05:37 PM Referred By: BRIANNE Confirmed By:GUANACO LOMELI 03/19/18 1305 Date Guanaco Lomeli MD CC: Abran Ma MD; Conrado Maya Signed CT HEAD OR BRAIN W/O Observed: 03/19/2018 Status: F Source: [facility] 5:25 AM [facility] RE[facility]IGINAL CT HEAD OR BRAIN W/O CONTRAST This exam was performed according to our departmental dose optimization program, and includes the following measures where applicable: automated exposure control, adjustment of the mAs and/or kVp accord ing to patient size and/or exam, and an iterative reconstruction algorithm. CLINICAL STATEMENT: ICH with IVH. COMPARISON: CT head on 03/17/2018 FINDINGS: The acute intraparenchymal hematoma in the LEFT thalamus extending into the basal ganglia measures 2.8 cm maximum AP diameter and is unchanged. A small amount of subarachnoid hemorrhage in the sylvian f issures bilaterally and over the LEFT cerebral convexity is unchanged. Intraventricular hemorrhage appears to be slightly decreased in volume. Ventriculomegaly is unchanged. Bifrontal diameter of 5.2 cm is stable. No new intracranial hemorrhage is present. There is no shift of midline structures. IMPRESSION: LEFT thalamic and basal ganglia hemorrhage is stable in size. Ventriculomegaly is unchanged with slight decrease in amount of intraventricular blood. Subarachnoid hemorrhage is still visible. No new abnormality. Interpreted By: Chas Lezama MD Preliminary Report By: Chas Lezama MD Electronically Signed By: Chas Lezama MD Dictated Date: 03/19/2018 5:41:40 AM Prelim Date: 03/19/2018 5:41:40 AM Sign Date: 03/19/2018 5:45:21 AM BMP Collected: 03/19/2018 Status: F Source: [facility] 3:30 AM [facility] REPOSITORY TYPE CODE TESTS RESULT OUT OF REFERENCE UNITS RANGE LAB GLU(LOINC) 82-115 mg/dL Glucose Level 113 LAB NA(LOINC) 136-145 mEq/L Sodium Level 140 LAB K(LOINC) 3.5-5.0 mEq/L Potassium Level 3.7 LAB CL(LOINC) 98-110 mEq/L Chloride 110 LAB CO2(LOINC) 22-32 mEq/L CO2 22 LAB EBAL(LOINC 4.0-15.0 mEq/L ) Electrolyte Balance 8.0 LAB BUN(LOINC) 8.0-22.0 mg/dL BUN 14.0 LAB CRE(LOINC) 0.60-1.40 mg/dL Creatinine Lvl (s) 1.02 LAB BC(LOINC) 10.0-22.0 ratio BUN/Creatinine 13.7 Ratio LAB CA(LOINC) 8.4-10.1 mg/dL Calcium Lvl 8.7 Performed By: #### BMP, GFR #### [facility] [address] [place] [address] .GFR Collected: 03/19/2018 Status: F Source: [facility] 3:30 AM [facility] REPOSITORY TYPE CODE TESTS RESULT OUT OF REFERENCE UNITS RANGE LAB GFRAA(LOINC ml/min/1.73 ) sqm GFR >60 [place] Result Comment: GFR Population mean for , Non- Americans Ages 20-29 = 116 mL/min/1.73 sq.m. Ages 30-39 = 107 mL/min/1.73 sq.m. Ages 40-49 = 99 mL/min/1.73 sq.m. Ages 50-59 = 93 mL/min/1.73 sq.m. Ages 60-69 = 85 mL/min/1.73 sq.m. Ages 70+ = 75 mL/min/1.73 sq.m. Chronic Kidney Disease: Less than 60 mL/min/1.73 square meters End Stage Renal Disease: Less than 15 mL/min/1.73 square meters LAB GFRNO(LOINC) ml/min/1.73sqm GFR Non- >60 Result Comment: GFR Population mean for , Non- Americans Ages 20-29 = 116 mL/min/1.73 sq.m. Ages 30-39 = 107 mL/min/1.73 sq.m. Ages 40-49 = 99 mL/min/1.73 sq.m. Ages 50-59 = 93 mL/min/1.73 sq.m. Ages 60-69 = 85 mL/min/1.73 sq.m. Ages 70+ = 75 mL/min/1.73 sq.m. Chronic Kidney Disease: Less than 60 mL/min/1.73 square meters End Stage Renal Disease: Less than 15 mL/min/1.73 square meters Performed By: #### BMP, GFR #### [address] [address] CBC Collected: 03/18/2018 Status: F Source: [facility] 3:27 AM [facility] REPOSITORY TYPE CODE TESTS RESULT OUT OF REFERENCE UNITS RANGE LAB WBC(LOINC) 4.50-10.80 10 3/mcL WBC 7.10 LAB RBCCT(LOINC 4.50-6.00 10 6/mcL ) RBC 5.09 LAB HGB(LOINC) 13.0-17.5 G/dL Hgb 15.3 LAB HCT(LOINC) 40.0-52.0 % Hct 45.0 LAB MCV(LOINC) 81.0-100.0 fL MCV 88.5 LAB MCH(LOINC) 27.0-33.0 pg MCH 30.1 LAB MCHC(LOINC) 32.0-36.0 G/dL MCHC 34.0 LAB RDW(LOINC) 11.5-15.5 % RDW 13.7 LAB PLT(LOINC) 150-450 10 3/mcL Platelet 180 LAB MPV(LOINC) 6.4-10.5 fL MPV 7.9 Performed By: #### CBC, ADIFF, ANEU, BMP, GFR #### [address] [address] .AUTO DIFF Collected: 03/18/2018 Status: F Source: [facility] 3:27 AM [facility] REPOSITORY TYPE CODE TESTS RESULT OUT OF REFERENCE UNITS RANGE LAB JOE(LOINC) 50.0-75.0 % High Neutrophil % 78.9 LAB LYM(LOINC) 20.0-40.0 % Low Lymphocyte % 12.0 LAB MON(LOINC) 2.0-13.0 % Monocyte % 8.1 LAB EO(LOINC) 0.0-6.0 % Eosinophil % 0.4 LAB BAS(LOINC) 0.0-2.5 % Basophil % 0.6 LAB ABLYM(LOIN 0.90-4.32 10 3/mcL C) Low Lymphocyte, 0.80 Absolute LAB BINU(LOINC 0.09-1.40 10 3/mcL ) Monocyte, 0.60 Absolute LAB AEOS(LOINC 0.00-0.65 10 3/mcL ) Eosinophil, 0.00 Absolute LAB ABAS(LOINC 0.00-0.27 10 3/mcL ) Basophil, 0.00 Absolute Performed By: #### CBC, ADIFF, ANEU, BMP, GFR #### [address] [address] .NEUABS Collected: 03/18/2018 Status: F Source: [facility] 3:27 AM [facility] REPOSITORY TYPE CODE TESTS RESULT OUT OF REFERENCE UNITS RANGE LAB ANEU(LOINC) 2.25-8.10 10 3/mcL Neutrophil, 5.60 Absolute Performed By: #### CBC, ADIFF, ANEU, BMP, GFR #### [place] [address] BMP Collected: 03/18/2018 Status: F Source: [facility] 3:27 AM [facility] REPOSITORY TYPE CODE TESTS RESULT OUT OF REFERENCE UNITS RANGE LAB GLU(LOINC) 82-115 mg/dL Glucose Level 108 LAB NA(LOINC) 136-145 mEq/L Sodium Level 144 LAB K(LOINC) 3.5-5.0 mEq/L Low Potassium Level 3.3 LAB CL(LOINC) 98-110 mEq/L Chloride High 113 LAB CO2(LOINC) 22-32 mEq/L CO2 22 LAB EBAL(LOINC 4.0-15.0 mEq/L ) Electrolyte Balance 9.0 LAB BUN(LOINC) 8.0-22.0 mg/dL BUN 14.0 LAB CRE(LOINC) 0.60-1.40 mg/dL Creatinine Lvl (s) 1.06 LAB BC(LOINC) 10.0-22.0 ratio BUN/Creatinine 13.2 Ratio LAB CA(LOINC) 8.4-10.1 mg/dL Calcium Lvl 8.9 Performed By: #### CBC, ADIFF, ANEU, BMP, GFR #### [address] [address] .GFR Collected: 03/18/2018 Status: F Source: [facility] 3:27 AM [facility] REPOSITORY TYPE CODE TESTS RESULT OUT OF REFERENCE UNITS RANGE LAB GFRAA(LOINC ml/min/1.73 ) sqm GFR >60 [place] Result Comment: GFR Population mean for , Non- Americans Ages 20-29 = 116 mL/min/1.73 sq.m. Ages 30-39 = 107 mL/min/1.73 sq.m. Ages 40-49 = 99 mL/min/1.73 sq.m. Ages 50-59 = 93 mL/min/1.73 sq.m. Ages 60-69 = 85 mL/min/1.73 sq.m. Ages 70+ = 75 mL/min/1.73 sq.m. Chronic Kidney Disease: Less than 60 mL/min/1.73 square meters End Stage Renal Disease: Less than 15 mL/min/1.73 square meters LAB GFRNO(LOINC) ml/min/1.73sqm GFR Non- >60 Result Comment: GFR Population mean for , Non- Americans Ages 20-29 = 116 mL/min/1.73 sq.m. Ages 30-39 = 107 mL/min/1.73 sq.m. Ages 40-49 = 99 mL/min/1.73 sq.m. Ages 50-59 = 93 mL/min/1.73 sq.m. Ages 60-69 = 85 mL/min/1.73 sq.m. Ages 70+ = 75 mL/min/1.73 sq.m. Chronic Kidney Disease: Less than 60 mL/min/1.73 square meters End Stage Renal Disease: Less than 15 mL/min/1.73 square meters Performed By: #### CBC, ADIFF, ANEU, BMP, GFR #### [address] [address] K Collected: 03/17/2018 Status: F Source: [facility] 9:47 AM [facility] REPOSITORY TYPE CODE TESTS RESULT OUT OF REFERENCE UNITS RANGE LAB K(LOINC) 3.5-5.0 mEq/L Potassium Level 3.7 Performed By: #### K #### [address] [address] [address] HEAD OR BRAIN W/O Observed: 03/17/2018 Status: F Source: [facility] 5:00 AM [facility] RE[facility] ORIGINAL CT brain without contrast Clinical Statement: stroke, , intracranial hemorrhage, follow-up, Comparison: Outside CT 03/15/2018 TECHNIQUE:This exam was performed according to our departmental dose optimization program, and includes the following measures where applicable: automated exposure control, adjustment of the mAs and/or kVp according to patient size and/or exam, and an iterative reconstruction algorithm. FINDINGS: There is again demonstration of a hyperdense intraparenchymal hemorrhage in the region of the LEFT lateral thalamus extending to the adjacent internal capsule and caudate nucleus body. The size of the h emorrhage is not significantly changed. There is minimal surrounding edema/mass effect. Moderate amount of blood in the dependent portions of the lateral ventricles is slightly increased. There is moderate dilatation of the lateral and 3rd ventricles that has also mildly increased. There is persistent extensive symmetric hypodensity in the periventricular and subcortical deep cerebral wh ite matter. This is probably entirely from chronic microvascular angiopathy but transependymal exudation of fluid is another possibility. No acute territorial infarct or other intracranial hemorrhage is seen. There is a RIGHT sided mastoid and lateral occipital defect from previous craniotomy. Visualized paranasal sinuses and the LEFT mastoid are clear. IMPRESSION: There is mild increase in the amount of intraventricular blood and also suggestion of mild developing hydrocephalus compared to the earlier study. LEFT thalamic intraparenchymal hemorrhage is unchanged. Interpreted By: Shine Knutson MD Preliminary Report By: Shine Knutson MD Electronically Signed By: Shine Knutson MD Dictated Date: 03/17/2018 9:09:35 AM Prelim Date: 03/17/2018 9:09:35 AM Sign Date: 03/17/2018 9:13:55 AM CBC Collected: 03/17/2018 Status: F Source: [facility] 3:42 AM [facility] REPOSIT[facility] TYPE CODE TESTS RESULT OUT OF REFERENCE UNITS RANGE LAB WBC(LOINC) 4.50-10.80 10 3/mcL WBC 8.00 LAB RBCCT(LOINC 4.50-6.00 10 6/mcL ) RBC 5.19 LAB HGB(LOINC) 13.0-17.5 G/dL Hgb 15.5 LAB HCT(LOINC) 40.0-52.0 % Hct 45.5 LAB MCV(LOINC) 81.0-100.0 fL MCV 87.7 LAB MCH(LOINC) 27.0-33.0 pg MCH 29.9 LAB MCHC(LOINC) 32.0-36.0 G/dL MCHC 34.1 LAB RDW(LOINC) 11.5-15.5 % RDW 13.6 LAB PLT(LOINC) 150-450 10 3/mcL Platelet 190 LAB MPV(LOINC) 6.4-10.5 fL MPV 8.4 Performed By: #### CBC, ADIFF, ANEU, BMP, GFR, CK #### [address] [address] .AUTO DIFF Collected: 03/17/2018 Status: F Source: [facility] 3:42 AM [facility] REPOSITORY TYPE CODE TESTS RESULT OUT OF REFERENCE UNITS RANGE LAB JOE(LOINC) 50.0-75.0 % High Neutrophil % 78.7 LAB LYM(LOINC) 20.0-40.0 % Low Lymphocyte % 11.0 LAB MON(LOINC) 2.0-13.0 % Monocyte % 9.8 LAB EO(LOINC) 0.0-6.0 % Eosinophil % 0.1 LAB BAS(LOINC) 0.0-2.5 % Basophil % 0.4 LAB ABLYM(LOIN 0.90-4.32 10 3/mcL C) Lymphocyte, 0.90 Absolute LAB BINU(LOINC 0.09-1.40 10 3/mcL ) Monocyte, 0.80 Absolute LAB AEOS(LOINC 0.00-0.65 10 3/mcL ) Eosinophil, 0.00 Absolute LAB ABAS(LOINC 0.00-0.27 10 3/mcL ) Basophil, 0.00 Absolute Performed By: #### CBC, ADIFF, ANEU, BMP, GFR, CK #### [address] [address] .NEUABS Collected: 03/17/2018 Status: F Source: [facility] 3:42 AM [facility] REPOSITORY TYPE CODE TESTS RESULT OUT OF REFERENCE UNITS RANGE LAB ANEU(LOINC) 2.25-8.10 10 3/mcL Neutrophil, 6.30 Absolute Performed By: #### CBC, ADIFF, ANEU, BMP, GFR, CK #### [address] [address] BMP Collected: 03/17/2018 Status: F Source: [facility] 3:42 AM [facility] REPOSITORY TYPE CODE TESTS RESULT OUT OF REFERENCE UNITS RANGE LAB GLU(LOINC) 82-115 mg/dL Glucose Level 104 LAB NA(LOINC) 136-145 mEq/L Sodium Level 144 LAB K(LOINC) 3.5-5.0 mEq/L Low Potassium Level 3.0 LAB CL(LOINC) 98-110 mEq/L Chloride High 112 LAB CO2(LOINC) 22-32 mEq/L CO2 22 LAB EBAL(LOINC 4.0-15.0 mEq/L ) Electrolyte Balance 10.0 LAB BUN(LOINC) 8.0-22.0 mg/dL BUN 14.0 LAB CRE(LOINC) 0.60-1.40 mg/dL Creatinine Lvl (s) 1.21 LAB BC(LOINC) 10.0-22.0 ratio BUN/Creatinine 11.6 Ratio LAB CA(LOINC) 8.4-10.1 mg/dL Calcium Lvl 8.8 Performed By: #### CBC, ADIFF, ANEU, BMP, GFR, CK #### [facility] [address] [place] [address] .GFR Collected: 03/17/2018 Status: F Source: [facility] 3:42 AM [facility] REPOSITORY TYPE CODE TESTS RESULT OUT OF REFERENCE UNITS RANGE LAB GFRAA(LOINC ml/min/1.73 ) sqm GFR >60 [place] Result Comment: GFR Population mean for , Non- Americans Ages 20-29 = 116 mL/min/1.73 sq.m. Ages 30-39 = 107 mL/min/1.73 sq.m. Ages 40-49 = 99 mL/min/1.73 sq.m. Ages 50-59 = 93 mL/min/1.73 sq.m. Ages 60-69 = 85 mL/min/1.73 sq.m. Ages 70+ = 75 mL/min/1.73 sq.m. Chronic Kidney Disease: Less than 60 mL/min/1.73 square meters End Stage Renal Disease: Less than 15 mL/min/1.73 square meters LAB GFRNO(LOINC) ml/min/1.73sqm GFR Non- 60 Result Comment: GFR Population mean for , Non- Americans Ages 20-29 = 116 mL/min/1.73 sq.m. Ages 30-39 = 107 mL/min/1.73 sq.m. Ages 40-49 = 99 mL/min/1.73 sq.m. Ages 50-59 = 93 mL/min/1.73 sq.m. Ages 60-69 = 85 mL/min/1.73 sq.m. Ages 70+ = 75 mL/min/1.73 sq.m. Chronic Kidney Disease: Less than 60 mL/min/1.73 square meters End Stage Renal Disease: Less than 15 mL/min/1.73 square meters Performed By: #### CBC, ADIFF, ANEU, BMP, GFR, CK #### [place] [address] CK Collected: 03/17/2018 Status: F Source: [facility] 3:42 AM [facility] REPOSITORY TYPE CODE TESTS RESULT OUT OF RANGE REFERENCE UNITS LAB CK(LOINC) 7-185 U/L High CPK 1443 Performed By: #### CBC, ADIFF, ANEU, BMP, GFR, CK #### [place] [address] MG Collected: 03/16/2018 Status: F Source: [facility] 10:46 PM [facility] REPOSITORY TYPE CODE TESTS RESULT OUT OF REFERENCE UNITS RANGE LAB MG(LOINC) 1.6-2.4 mg/dL Magnesium Lvl 2.3 Performed By: #### MG, PHOS, BMP, GFR #### [place] [address] PHOS Collected: 03/16/2018 Status: F Source: [facility] 10:46 PM [facility] REPOSITORY TYPE CODE TESTS RESULT OUT OF REFERENCE UNITS RANGE LAB PHOS(LOINC 2.5-4.5 mg/dL ) Phosphorus 2.7 Performed By: #### MG, PHOS, BMP, GFR #### [place] [address] BMP Collected: 03/16/2018 Status: F Source: [facility] 10:46 PM [facility] REPOSITORY TYPE CODE TESTS RESULT OUT OF REFERENCE UNITS RANGE LAB GLU(LOINC) 82-115 mg/dL Glucose High Level 116 LAB NA(LOINC) 136-145 mEq/L Sodium Level 143 LAB K(LOINC) 3.5-5.0 mEq/L Potassium Level 3.6 LAB CL(LOINC) 98-110 mEq/L Chloride 110 LAB CO2(LOINC) 22-32 mEq/L CO2 26 LAB EBAL(LOINC 4.0-15.0 mEq/L ) Electrolyte Balance 7.0 LAB BUN(LOINC) 8.0-22.0 mg/dL BUN 14.0 LAB CRE(LOINC) 0.60-1.40 mg/dL Creatinine Lvl (s) 1.33 LAB BC(LOINC) 10.0-22.0 ratio BUN/Creatinine 10.5 Ratio LAB CA(LOINC) 8.4-10.1 mg/dL Calcium Lvl 9.5 Performed By: #### MG, PHOS, BMP, GFR #### [place] [address] .GFR Collected: 03/16/2018 Status: F Source: [facility] 10:46 PM FOUNDATION REPOSITORY TYPE CODE TESTS RESULT OUT OF REFERENCE UNITS RANGE LAB GFRAA(LOINC ml/min/1.73 ) sqm GFR >60 [place] Result Comment: GFR Population mean for , Non- Americans Ages 20-29 = 116 mL/min/1.73 sq.m. Ages 30-39 = 107 mL/min/1.73 sq.m. Ages 40-49 = 99 mL/min/1.73 sq.m. Ages 50-59 = 93 mL/min/1.73 sq.m. Ages 60-69 = 85 mL/min/1.73 sq.m. Ages 70+ = 75 mL/min/1.73 sq.m. Chronic Kidney Disease: Less than 60 mL/min/1.73 square meters End Stage Renal Disease: Less than 15 mL/min/1.73 square meters LAB GFRNO(LOINC) ml/min/1.73sqm GFR Non- 54 Result Comment: GFR Population mean for , Non- Americans Ages 20-29 = 116 mL/min/1.73 sq.m. Ages 30-39 = 107 mL/min/1.73 sq.m. Ages 40-49 = 99 mL/min/1.73 sq.m. Ages 50-59 = 93 mL/min/1.73 sq.m. Ages 60-69 = 85 mL/min/1.73 sq.m. Ages 70+ = 75 mL/min/1.73 sq.m. Chronic Kidney Disease: Less than 60 mL/min/1.73 square meters End Stage Renal Disease: Less than 15 mL/min/1.73 square meters Performed By: #### MG, PHOS, BMP, GFR #### [facility] [address] [place] [address] CK Collected: 03/16/2018 Status: F Source: [facility] 7:39 PM FOUNDATION REPOSITORY TYPE CODE TESTS RESULT OUT OF RANGE REFERENCE UNITS LAB CK(LOINC) 7-185 U/L High CPK 1256 Performed By: #### CK #### [facility] [address] [place] [address] EMERGENCY DEPARTMENT Observed: 03/16/2018 Status: F Source: [place] SUMMARY 5:[address] [facility]POSITORY [facility] Medical Records Department [address] [place] [address] Emergency Department Summary 03/16/18 1729 MR#: [id number] Acct: [id number] Name: RICARDO CHILDS Rep #: [id number] : 1950 67 From: Abran Ma MD PCP: Conrado Maya DO Status: REG ER - ER Visit Summary Date of Service: 03/16/18 Chief Complaint: Right-sided weakness, facial droop, speech difficulty History of Present Illness: The patient is a 67 M who around 11 AM started with the symptoms. He had weakness on the right side as well as a facial droop. When family returned to 4 PM he had the symptoms. He denies a headache, nausea or vomiting. He had a stroke, ischemic in September. states that he was on a blood thinner and aspirin but she did not refill the medication when it ran out and she does not believe he is taking any aspirin. Physical Examination: Vital signs reviewed. HEENT exam unremarkable. Heart is regular rate and rhythm without murmurs. Lungs are clear to auscultation. Abdomen is soft and nontender. Extremities reveal no edema. Skin exam normal. Neurologic exam shows right-sided weakness with facial droop and slurred speech. He does have some expressive aphasia. NIH score is 9 Test Results: CAT scan of the head reveals a left thalamic bleed with intraventricular extension. INR 1.2. Potassium 3.3. Emergency Department Course and Treatment: The neurologist, Dr. Robles was present at bedside upon patient's arrival. He dilated the CAT scan and recommended transfer. I discussed with family and they would like to be through to [facility]. I discussed to the emergency department and patient will be transferred through the emergency department there. 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 It may contain incorrect words, spelling, and punctuation that were not noted in review of the chart prior to signing ED Disposition - Plan for ED Patient: Chief Complaint: Neuro S/Sx Referrals: Conrado Maya, DO [Primary Care Provider] - What to do if you have Problems For any increased pain, shortness of breath, bleeding, nausea or vomiting, chest pain, or any unexpected problems, contact your Primary Care Provider. Call [facility] ([phone]) or report to the closest Emergency Room. Call 911 if necessary. 03/16/18 1733 <Electronically signed by Abran Ma MD> Date Abran Ma MD Cosigner Signature (If Indicated): Date CC: Conrado Maya DO CBC W/DIFF, AUTOMATED Collected: 03/16/2018 Status: F Source: [place] 4:[address] [facility] REPOSITORY TYPE CODE TESTS RESULT OUT OF RANGE REFERENCE UNITS LAB L100.1000 4.4-11.0 K/mm3 Normal WBC 9.6 LAB L100.1200 4.6-6.2 M/mm3 Normal RBC 4.99 LAB L100.1300 13.0-16.5 g/dl Normal HGB 15.1 LAB L100.1400 40-54 % Normal HCT 43.6 LAB L100.1500 80-94 fL Normal MCV 87.4 LAB L100.1600 27.0-32.0 pg Normal MCH 30.3 LAB L100.1700 32-36 g/gl Normal MCHC 34.6 LAB L100.1810 11.6-14.6 % Normal RDW CV 12.8 LAB L100.1820 35.1-43.9 fl Normal RDW SD 40.3 LAB L100.1900 150-450 K/mm3 Normal PLT 191 LAB L100.2000 6.2-12.0 fl Normal MPV 9.8 LAB L100.2100 47-70 % High NEUT% 89.3 LAB L100.2200 19-41 % Low LY% 3.8 LAB L100.2300 0-10 % Normal MONO% 6.6 LAB L100.2400 0-5 % Normal EO% 0.0 LAB L100.2500 0-1 % Normal BASO% 0.1 LAB L100.2550 0.0-0.9 % Normal IM GRAN % 0.200 Result Comment: IG% - Immature Granulocytes (promyelocytes, myelocytes and metamyelocytes) > 1% indicates that a LEFT SHIFT is Present. LAB L100.2620 2.0-7.7 X10 3/uL High Absolute Neut 8.6 LAB L100.2720 0.83-4.51 X10 3/ul Low Absolute Lymph 0.36 LAB L100.4500 SMEAR Normal COMMENT Result Comment: LYMPHOPENIA NOTED Performed By: #### L100.0100 #### [facility] [place], [place], [id number] PROTHROMBIN TIME W/INR Collected: 03/16/2018 Status: F Source: [place] 4:[address] [facility] REPOSITORY TYPE CODE TESTS RESULT OUT OF RANGE REFERENCE UNITS LAB L300.4150 11.7-14.9 SECONDS High PROTIME 15.2 LAB L300.4200 Normal INR 1.2 Performed By: #### L300.3900, L300.4310 #### [facility] [address] [place], [place], [id number] PARTIAL THROMBOPLAST Collected: 03/16/2018 Status: F Source: [place] TIME 4:[address] [facility] REPOSITORY TYPE CODE TESTS RESULT OUT OF RANGE REFERENCE UNITS LAB L300.4310 24.1-36.2 Seconds Normal PTT 25.0 Performed By: #### L300.3900, L300.4310 #### [facility] [address] [facility] [place], [place], [address] BASIC METABOLIC Collected: 03/16/2018 Status: F Source: [facility] PROFILE ([facility]) 4:[address] [facility] REPOSITORY TYPE CODE TESTS RESULT OUT OF RANGE REFERENCE UNITS LAB L501.0100 74-106 mg/dL Normal GLU 106 Result Comment: Fasting Glucose result from 100 to 125 mg/dL suggests IMPAIRED HOMEOSTASIS per A.D.A. criteria. Please note revised GLUCOSE reference range effective 2017. LAB L501.1000 7-18 mg/dL Normal BUN 16 LAB L501.1100 0.70-1.30 mg/dL High CREAT,SERUM 1.43 Result Comment: The validity of the calculated GFR AND GFRAA in patients over 70 years has not been determined. Clinical correlation is essential. LAB L501.1110 >60 mL/min Low EST GFR 52 Result Comment: Non- GFR Calc LAB L501.1115 >60 mL/min Normal EST GFR - AA 63 Result Comment: GFR Calc LAB L501.1255 ml/min Normal Estimated CRCL 46.87 LAB L501.1300 10-20 RATIO Normal BUN/CRE 11.2 LAB L501.2200 8.5-10 mg/dL Normal .1 CA 9.1 LAB L501.5300 136-14 mmol/L Normal 5 NA 141 LAB L501.5600 3.5-5. mmol/L Low 1 K 3.3 LAB L501.5900 98-107 mmol/L Normal CL 107 LAB L501.6100 21.0-3 mmol/L Normal 2.0 CO2 24.0 LAB L501.6200 5-15 Normal GAP 10 Performed By: #### L500.2500, L501.4010 #### [facility] [address] [facility] [address] [place], [place], [address] TROPONIN-I Collected: 03/16/2018 Status: F Source: [place] 4:[address] [facility] REPOSITORY TYPE CODE TESTS RESULT OUT OF RANGE REFERENCE UNITS LAB L501.4010 <0.045 ng/mL Normal < 0.015 TROPONIN-I Result Comment: TROPONIN-I EXPECTED VALUES <0.045 Negative 0.045 - 0.590 Consistent with Cardiac Damage > OR = 0.600 Critical Value Not every elevated troponin is indicative of SD. These values should be used with clinical judgement in examining the patient's clinical picture for diagnosis. To establish a diagnosis of SD versus myocardial injury, there must be a demonstrated rise and/or fall in the troponin values, in addition to ischemic symptoms, EKG changes, new regional wall motion abnormality, and/or angiographical evidence. PLEASE NOTE: REFERENCE RANGES EDITED 17 Performed By: #### L500.2500, L501.4010 #### [facility] [address] [facility] [place], [address] BEDSIDE GLUCOSE Collected: 03/16/2018 Status: F Source: [place] 4:[address] [facility] REPOSITORY TYPE CODE TESTS RESULT OUT OF REFERENCE UNITS RANGE LAB L501.080 70-110 mg/dL High BEDSIDE GLU 114 Result Comment: MANAGEMENT OF PATIENT CARE PER NURSING PROTOCOL Performed By: #### L501.080 #### [facility] Point of Care [address] [place] [address] CHEST 1 VIEW Observed: 03/16/2018 Status: F Source: [place] 4:[address] [facility] REPOSITORY [facility] Imaging Services [address] [place] [address] Chest 1 View MR#: [id number] Acct: [id number] Name: RICARDO CHILDS Rep #: [id number] : 1950 M 67 From: Ericka Eller MD PCP: Conrado Maya DO Status: REG ER Study: Chest 1 View Date of Exam: 03/16/18 Exam# [id number] Ordering Dr: Abran Ma MD STUDY: X-RAY CHEST REASON FOR EXAM: Male, 67 years old. Found on bathroom floor with right-sided facial droop. TECHNIQUE: Single frontal view of the chest. COMPARISON: September 27, 2017 FINDINGS: There is a vague nodular rounded opacity within the right mid/upper lung. Normal size heart. Normal mediastinum and mookie. Normal visualized pulmonary arteries. Normal visualized aortic arch and descending thoracic aorta. Normal visualized thoracic spine. Normal visualized ribs, clavicles, and shoulders. There is no demonstrated abnormality of the visualized soft tissue structures of the upper abdomen. RAD/Chest 1 View IMPRESSION: Vague nodular opacity within the right mid/upper lung that is likely secondary to a confluence of shadows however cannot exclude underlying nodule, a PA and lateral radiograph may be useful for further characterization. Electronically Signed: Ericka Eller MD at 17:15 EST Tel , Service support , CC: Abran Ma MD; Conrado Maya DO Information Security Analyst: Signed CTA HEAD W/WO Observed: 03/16/2018 Status: F Source: [facility] CONTRAST 4:[address] [facility]POSITORY [facility] Imaging Services [address] [place] [address] CTA Head W/WO Contrast MR#: [id number] Acct: [id number] Name: RICARDO CHILDS Rep #: [id number] : 1950 M 67 From: Italo Guadalupe MD PCP: Conrado Maya DO Status: REG ER Study: CTA Head W/WO Contrast Date of Exam: 03/16/18 Exam# [id number] Ordering Dr: Abran Ma MD STUDY: CTA OF THE BRAIN REASON FOR EXAM: Male, 67 years old. Stroke protocol RADIATION DOSAGE (If Supplied By Facility): CTDIvol = ( 24.80 ) mGy, DLP = ( 823.31 ) mGycm TECHNIQUE: CT angiography was performed with a multi-detector CT scanner. Data acquisition was obtained from the skull base through the vertex following intravenous administration of 100 ml of Isovue-370. MIP images were reconstructed from the axial data set. Post-processing of the angiographic images was performed, with multiplanar reformation and 3D reconstruction. Individualized dose optimization techniques were used for this CT. COMPARISON: CT brain March 16, 2018 and CTA brain September 27, 2017 FINDINGS: Normal bilateral petrous carotid arteries. Normal right cavernous carotid artery with a normal supraclinoid bifurcation. Normal left cavernous carotid artery with a normal supraclinoid bifurcation. Normal right A1 segments of the anterior cerebral artery. Normal left A1 segments of the anterior cerebral artery. Normal intact anterior communicating artery (ACOM). Normal bilateral A2 segments of the anterior cerebral arteries. Normal right M1 and M2 segments of the middle cerebral arteries, with a normal M1 bifurcation. Normal left M1 and M2 segments of the middle cerebral arteries, with a normal M1 bifurcation. There is non-visualization of the right posterior communicating artery (PCOM). There is non-visualization of the left posterior communicating artery (PCOM). Normal bilateral vertebral arteries. Normal basilar artery with a normal basilar bifurcation. The visualized bilateral superior cerebellar (SCA) arteries are normal. Normal bilateral P1, P2 and visualized P3 segments of the posterior cerebral arteries. There is no demonstrated aneurysm of the [place]. Dense intraparenchymal hemorrhage is again noted within the tail of the caudate on the left which appears essentially unchanged. Hematocrit effect is noted in the occipital horns bilaterally. IMPRESSION: Stable intraparenchymal hemorrhage left caudate tail and intraventricular hemorrhage otherwise Normal [place] without a demonstrated aneurysm or hemodynamically significant stenosis. Electronically Signed: Italo Guadalupe MD at 17:57 EST , Service support , CT/CTA Head W/WO Contrast CC: Abran Ma MD; Conrado Maya DO Information Security Analyst: Signed CTA NECK W/WO Observed: 03/16/2018 Status: F Source: [facility] 4:[address] [facility] REPOSITORY [facility] Imaging Services [address] [place] [address] CTA Neck W/WO Contrast MR#: [id number] Acct: [id number] Name: RICARDO CHILDS Rep #: [id number] : 1950 M 67 From: Italo Guadalupe MD PCP: Conrado Maya DO Status: REG ER Study: CTA Neck W/WO Contrast Date of Exam: 03/16/18 Exam# [id number] Ordering Dr: Abran Ma MD STUDY: CTA NECK WITH AND WITHOUT CONTRAST REASON FOR EXAM: Male, 67 years old. Stroke protocol RADIATION DOSAGE (If Supplied By Facility): CTDIvol = ( 24.80 ) mGy, DLP = ( 823.31 ) mGycm TECHNIQUE: CT angiography with multi-detector data acquisition was performed from the aortic arch to the skull base prior to and after intravenous administration of 100CC ml of Isovue 370 contrast. MIP images were reconstructed from the axial data set. Post-processing of the angiographic images was performed, with multiplanar reformation and 3D reconstruction. Individualized dose optimization techniques were used for this CT. COMPARISON: CT brain March 16, 2018 and CTA neck September 27, 2017 FINDINGS: AORTIC ARCH: Normal visualized aortic arch. Normal origins of the brachiocephalic, left common carotid, and left subclavian arteries. RIGHT CAROTID ARTERIES: Normal right common carotid artery (CCA). Normal right common carotid bulb. Normal origin of the right internal carotid (ICA) artery without a hemodynamically significant stenosis. Normal visualized cervical portion of the right internal carotid artery. Normal origin of the right external carotid artery (ECA). LEFT CAROTID ARTERIES: Normal left common carotid artery (CCA). Normal left common carotid bulb. Normal origin of the left internal carotid (ICA) artery without a hemodynamically significant stenosis. Normal visualized cervical portion of the left internal carotid artery. Normal origin of the left external carotid artery (ECA). VERTEBRAL ARTERIES: Normal bilateral vertebral arteries. CT/CTA Neck W/WO Contrast IMPRESSION: Normal bilateral cervical carotid and vertebral arteries. Electronically Signed: Italo Guadalupe MD at 18:01 EST , Service support , CC: Abran Ma MD; Conrado Maya DO Information Security Analyst: Signed BRAIN/HEAD WITHOUT Observed: 03/16/2018 Status: F Source: [facility] CONTR[facility] 4:[address] [facility]POS[facility]ORY [facility] Imaging Services [address] [place] [address] Brain/Head without Contrast MR#: [id number] Acct: [id number] Name: RICARDO CHILDS Rep #: [id number] : 1950 M 67 From: Ericka Eller MD PCP: Conrado Maya DO Status: DEP ER Study: Brain/Head without Contrast Date of Exam: 03/16/18 Exam# [id number] Ordering Dr: Abran Ma MD STUDY: CT BRAIN WITHOUT CONTRAST REASON FOR EXAM: Male, 67 years old. Stroke protocol. RADIATION DOSAGE (If Supplied By Facility): CTDIvol = ( ) mGy, DLP = ( ) mGycm TECHNIQUE: Transaxial CT imaging of the brain was performed without administration of intravenous contrast material. Individualized dose optimization techniques were used for this CT. COMPARISON: November 19, 2017 FINDINGS: Normal soft tissue structures. There are stable postsurgical changes from a right occipital craniotomy. There is mild cerebral atrophy with widening of the extra- axial spaces and ventricular dilatation. There are areas of decreased attenuation within the white matter tracts of the supratentorial brain, consistent with microvascular disease changes. There is an acute left thalamic hemorrhage measuring 1.6 x 2.4 cm. There is associated high attenuation fluid within the posterior horns of the lateral ventricles. Normal visualized paranasal sinuses. CT/Brain/Head without Contrast IMPRESSION: Acute left thalamic hemorrhage with subarachnoid extension of hemorrhage within the lateral ventricles. Small vessel ischemia. N.B. : The above information has been verbally conveyed by Ericka Eller MD to Abran Ma MD t, MD, on 03/16/2018 16:56:35 (ET). Electronically Signed: Ericka Eller MD at 16:57 EST Tel , Service support , CC: Abran Ma MD; Conrado Maya DO Information Security Analyst: Signed 12 LEAD ELECTROCARDIOGRAM Observed: 11/22/2017 Status: F Source: [facility] 1:[address] [facility] Cardiovascular Services [address] [place] [address] 12 Lead EKG 11/19/17 1745 MR#: [id number] Acct: [id number] Name: RICARDO CHILDS Rep #: [id number] : 1950 67 From: Yan Moore MD Attending Dr: Status: DEP ER Ordering Dr: Laquita aHrris MD Date: 11/19/17 Location: ED Sex: M C Admitted: Test Reason : Blood Pressure : / mmHG Vent. Rate : 061 BPM Atrial Rate : 061 BPM P-R Int : 136 ms QRS Dur : 094 ms QT Int : 426 ms P-R-T Axes : 068 028 030 degrees QTc Int : 428 ms Normal sinus rhythm Normal ECG Confirmed by CHACE WEST, YAN ([id number]), publication editor JENNIFER PEREZ ([id number]) on 11/22/2017 1:30:12 PM Referred By: KORI Confirmed By:YAN MOORE MD 11/22/17 1330 Date Yan Moore MD CC: Laquita Harris MD; Conrado Maya DO Signed EMERGENCY DEPARTMENT Observed: 11/19/2017 Status: F Source: [facility] SUMMARY 9:[address] [facility] Medical Records Department [address] [place] [address] Emergency Department Summary 11/19/17 1736 MR#: [id number] Acct: [id number] Name: RICARDO CHILDS Rep #: [id number] : 1950 67 From: Laquita Harris MD PCP: Conrado Maya DO Status: DEP ER - ER Visit Summary Date of Service: 11/19/17 Chief Complaint: Fall History of Present Illness: The patient is a 67 M presenting after fall. This occurred 2 days ago. Patient states that he was on a ledge pulling something off his house he lost his mobile developer and fell to the ground. He did hit his head but did not lose consciousness. He is on blood thinners, he does not know which medication he is on. He states that since that time he has felt dizzy. He has had no syncope. Denies other complaints. Physical Examination: Vitals are stable. Patient is afebrile. Alert no acute distress. HEENT exam is unremarkable. Neck is nontender Lungs are clear and equal bilaterally. Heart is regular rate and rhythm. Abdomen is soft nontender nondistended. Extremities are unremarkable. Skin is warm and dry. No focal neurologic deficit. Remainder of exam is unremarkable. Emergency Department Course and Treatment: EKG is sinus rate of 61, unchanged from previous. CBC, Chemistries unremarkable other than potassium 3.2, creatinine 1.47 which is at his baseline. Troponin is negative. CT head and neck showed no acute process. Patient is resting comfortably in the emergency room. He is able to ambulate without difficulty. He will follow-up with his primary care physician. Advised to return to ED for any worsening complaints. Disposition: Discharged home Impression: Closed head injury, dizziness This note was generated with [employer] dictation software. It may contain incorrect words, spelling, and punctuation that were not noted in review of the chart prior to signing ED Disposition - Plan for ED Patient: Chief Complaint: Fall Instructions: ED Mechanical Fall Referrals: Conrado Maya DO [Primary Care Provider] - What to do if you have Problems For any increased pain, shortness of breath, bleeding, nausea or vomiting, chest pain, or any unexpected problems, contact your Primary Care Provider. Call [facility] ([phone]) or report to the closest Emergency Room. Call 911 if necessary. 11/19/17 9280 <Electronically signed by Laquita Harris MD> Date Laquita Harris MD Cosigner Signature (If Indicated): Date CC: Conrado Maya DO DISCHARGE INSTRUCTION Observed: 11/19/2017 Status: F Source: [facility] 7:[address] [facility] Medical Records Department [address] [place] [address] Discharge Instruction 11/19/171914 MR#: [id number] Acct: [id number] Name: RICARDO CHILDS Rep #: [id number] : 1950 67 From: Laquita Harris MD PCP: Conrado Maya DO Status: REG ER ED Disposition - Plan for ED Patient: Chief Complaint: Fall Instructions: ED Mechanical Fall Referrals: Conrado Maya DO [Primary Care Provider] - What to do if you have Problems For any increased pain, shortness of breath, bleeding, nausea or vomiting, chest pain, or any unexpected problems, contact your Primary Care Provider. Call [facility] ([phone]) or report to the closest Emergency Room. Call 911 if necessary. 11/19/171914 <Electronically signed by Laquita Harris MD> Date Laquita Harris MD Cosigner Signature (If Indicated): Date CC: Conrado Maya DO CBC W/DIFF, AUTOMATED Collected: 11/19/2017 Status: F Source: [facility] 5:[address] [facility] REPOSITORY TYPE CODE TESTS RESULT OUT OF RANGE REFERENCE UNITS LAB L100.1000 4.4-11.0 K/mm3 Normal WBC 4.5 LAB L100.1200 4.6-6.2 M/mm3 Normal RBC 5.24 LAB L100.1300 13.0-16.5 g/dl Normal HGB 15.4 LAB L100.1400 40-54 % Normal HCT 45.8 LAB L100.1500 80-94 fL Normal MCV 87.4 LAB L100.1600 27.0-32.0 pg Normal MCH 29.4 LAB L100.1700 32-36 g/gl Normal MCHC 33.6 LAB L100.1810 11.6-14.6 % Normal RDW CV 12.9 LAB L100.1820 35.1-43.9 fl Normal RDW SD 41.3 LAB L100.1900 150-450 K/mm3 Normal PLT 180 LAB L100.2000 6.2-12.0 fl Normal MPV 9.7 LAB L100.2100 47-70 % Normal NEUT% 61.5 LAB L100.2200 19-41 % Normal LY% 24.7 LAB L100.2300 0-10 % High MONO% 11.1 LAB L100.2400 0-5 % Normal EO% 1.8 LAB L100.2500 0-1 % Normal BASO% 0.7 LAB L100.2550 0.0-0.9 % Normal IM GRAN % 0.200 Result Comment: IG% - Immature Granulocytes (promyelocytes, myelocytes and metamyelocytes) > 1% indicates that a LEFT SHIFT is Present. LAB L100.2620 2.0-7.7 X10 3/uL Normal Absolute Neut 2.8 LAB L100.2720 0.83-4.51 X10 3/ul Normal Absolute Lymph 1.11 Performed By: #### L100.0100 #### [facility] [address] [place], [place], [address] BASIC METABOLIC Collected: 11/19/2017 Status: F Source: [facility] PROFILE ([facility]) 5:[address] [facility] REPOSITORY TYPE CODE TESTS RESULT OUT OF RANGE REFERENCE UNITS LAB L501.0100 74-106 mg/dL Normal GLU 94 Result Comment: Please note revised GLUCOSE reference range effective 2017. LAB L501.1000 7-18 mg/dL Normal BUN 16 LAB L501.1100 0.70-1.30 mg/dL High CREAT,SERUM 1.47 Result Comment: The validity of the calculated GFR AND GFRAA in patients over 70 years has not been determined. Clinical correlation is essential. LAB L501.1110 >60 mL/min Low EST GFR 51 Result Comment: Non- GFR Calc LAB L501.1115 >60 mL/min Normal EST GFR - AA 61 Result Comment: GFR Calc LAB L501.1255 ml/min Normal Estimated CRCL 42.42 LAB L501.1300 10-20 RATIO Normal BUN/CRE 10.9 LAB L501.2200 8.5-10 mg/dL Normal .1 CA 9.3 LAB L501.5300 136-14 mmol/L Normal 5 NA 145 LAB L501.5600 3.5-5. mmol/L Low 1 K 3.2 LAB L501.5900 98-107 mmol/L High CL 109 LAB L501.6100 21.0-3 mmol/L Normal 2.0 CO2 24.0 LAB L501.6200 5-15 Normal GAP 12 Performed By: #### L500.2500, L501.4010 #### [facility] [address] [place], [address] TROPONIN-I Collected: 11/19/2017 Status: F Source: [place] 5:[address] [facility] REPOSITORY TYPE CODE TESTS RESULT OUT OF RANGE REFERENCE UNITS LAB L501.4010 <0.045 ng/mL Normal < 0.015 TROPONIN-I Result Comment: TROPONIN-I EXPECTED VALUES <0.045 Negative 0.045 - 0.590 Consistent with Cardiac Damage > OR = 0.600 Critical Value Not every elevated troponin is indicative of SD. These values should be used with clinical judgement in examining the patient's clinical picture for diagnosis. To establish a diagnosis of SD versus myocardial injury, there must be a demonstrated rise and/or fall in the troponin values, in addition to ischemic symptoms, EKG changes, new regional wall motion abnormality, and/or angiographical evidence. PLEASE NOTE: REFERENCE RANGES EDITED 17 Performed By: #### L500.2500, L501.4010 #### [facility] [address] [place], [address] BRAIN/HEAD WITHOUT Observed: 11/19/2017 Status: F Source: [place] CONTRAST 5:28 PM [facility] REPOS[facility] Imaging Services [address] [place] [address] Brain/Head without Contrast MR#: [id number] Acct: [id number] Name: RICARDO CHILDS Rep #: [id number] : 1950 M 67 From: Amarjit Croft MD PCP: Conrado Maya DO Status: PRE ER Study: Brain/Head without Contrast Date of Exam: 11/19/17 Exam# [id number] Ordering Dr: Laquita Harris MD STUDY: CT BRAIN WITHOUT CONTRAST REASON FOR EXAM: Male, 67 years old. Fall RADIATION DOSAGE (If Supplied By Facility): CTDIvol = ( 44.99 ) mGy, DLP = ( 829.85 ) mGycm TECHNIQUE: Transaxial CT imaging of the brain was performed without administration of intravenous contrast material. Individualized dose optimization techniques were used for this CT. COMPARISON: 09/27/2017 FINDINGS: There is no acute bleed or infarct. There are stable chronic ischemic and atrophic changes. The ventricles are normal in configuration. There is no hydrocephalus. The visualized paranasal sinuses are clear. The mastoid air cells are well aerated. There is no skull fracture. There are stable postsurgical changes from a right occipital craniotomy. CT/Brain/Head without Contrast IMPRESSION: No acute intracranial abnormality. Electronically Signed: Amarjit Croft, at 18:37 EDT Tel , Service support , CC: Laquita Harris MD; Conrado Maya DO Information Security Analyst: Signed SPINE CERVICAL Observed: 11/19/2017 Status: F Source: [place] WITHOUT CONTRAS 5:28 PM [facility]POS[facility] Imaging Services [address] [place] [address] Spine Cervical without Contras MR#: [id number] Acct: [id number] Name: RICARDO CHILDS Rep #: [id number] : 1950 M 67 From: Amarjit Croft MD PCP: Conrado Maya DO Status: PRE ER Study: Spine Cervical without Contras Date of Exam: 11/19/17 Exam# [id number] Ordering Dr: Laquita Harris MD STUDY: CT CERVICAL SPINE WITHOUT CONTRAST REASON FOR EXAM: Male, 67 years old. Fall RADIATION DOSAGE (If Supplied By Facility): CTDIvol = ( 23.24 ) mGy, DLP = ( 500.63 ) mGycm TECHNIQUE: High resolution transaxial imaging was performed without contrast material. Sagittal and coronal images were reconstructed. Individualized dose optimization techniques were used for this CT. COMPARISON: None available. FINDINGS: There is no evidence of fracture or dislocation in the cervical spine. The dens is intact. Alignment is normal. There are moderate degenerative changes in the lower cervical spine with disc space narrowing and osteophyte formation at C5/C6 and C6/C7. The visualized paraspinal soft tissues are within normal limits. CT/Spine Cervical without Contras IMPRESSION: No fracture or dislocation in the cervical spine. Moderate degenerative changes in the lower cervical spine. Electronically Signed: Amarjit Croft, at 18:42 EDT Tel , Service support , CC: Laquita Harris MD; Conrado Maya DO Information Security Analyst: Signed CONSULTATION Observed: 10/04/2017 Status: F Source: [place] 2:[address] [facility] REPOSITORY [facility] Medical Records Department [address] [place] [address] Consultation 09/28/17 1238 MR#: [id number] Acct: [id number] Name: RICARDO CHILDS Rep #: [id number] : 1950 67 From: Hemanth Robles MD PCP: Conrado Maya DO Status: DIS IN Y Location: [facility] [id number] Problem List (1) Altered mental status Status: Acute Qualifiers: Altered mental status type: unspecified Qualified Code(s): R41.82 - Altered mental status, unspecified (2) Ischemic stroke Status: Acute Reason for Consult Date of Consultation: 09/28/17 Reason for Consultation: Stroke, confusion History of Present Illness: The patient is a 67 year old CM with PMH HTN, HLD, H/O bilateral PE and DVT in February 2016, was on Eliquis, during the February 2016 admission he had suicidal ideation, diagnosed with depression and started on Lexapro, now admitted with altered mental status. History could not be obtained from patient, History is obtained from medical records. Per documentation on admission patient was confused, repeating words, had difficulty in performing simple tasks since 2 days (09/26/17), per ED documentation there was BINGHAM and blurred vision. At present patient has a sitter, continues to be confused, has agitation episodes, but denies any BINGHAM, visual disturbances, focal motor weakness or sensory loss. Per patient he lives with his , does not use cane or walker to ambulate, denies any frequent falls but complained of some difficulty in walking about 2 weeks ago. He denies any new onset memory issues or urinary incontinence. Per ED documentation NIHSS was 3 on admission since patient had left homonymous hemianopia. MRI brain done on admission reported to show tiny focus of restricted diffusion in the right paramedian piotr, right centrum semiovale and left basal ganglia (report per Dr. Fawn Perez but on my review probably there is only one area of tiny restricted diffusion in the right HOME VISITOR) and per Dr. 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 CTA head/neck reported not to show any hemodynamically significant stenosis or occlusion. Past Medical History Past Medical History (Chronic Problems): Chronic Problems Hypertension (Chronic) Allergies codeine Adverse Reaction (Verified 09/27/17 09:41) Unknown Home Medications: Ambulatory Orders Medication Instructions Recorded Multivitamin [Daily Multiple 1 each PO DAILY 01/30/16 Vitamin] Pravastatin [Pravachol] 40 mg PO QHS 01/30/16 Hydrocodone Bitart/Apap 5-325 1 tablet PO Q6H PRN PRN 03/03/16 Lives: Spouse/ Significant Other Smoking Status: Unknown if ever smoked Alcohol: None Drugs: None - *Family History Maternal History Items: No pertinent history Review of Systems Constitutional: Reports: - - complete ROS negative except as documented in HPI Patient Problems: Active and Suspected Problems Altered mental status (Acute) Ischemic stroke (Acute) Dyslipidemia (Acute) - Physical Exam General: - - awake, disoriented to place, oreinted to person and time at present. was able to tell his name and age. HEENT: Atraumatic Neck: Supple Lungs: Clear to auscultation Cardiovascular: Normal S1, Normal S2 Abdomen: Bowel Sounds Present Extremities: No cyanosis Skin: No rashes Musculoskeletal: No Tenderness to Palpation of Joints or Extremities Neurological: - - awake,disoriented to place, oreinted to person and time at present. was able to tell his name and age, AoAx2, CN 2-12 grossly intact except left homonymous hemianopia, power 5/5 all 4 extremities, denies any sensory loss, no cerebellar signs, Reflexes + B/L B/S/T/K/A, gait deferred. NIHSS 2 at present. Vital Signs Temp Pulse Resp BP Pulse Ox 97.9 F 64 18 160/95 H 97 09/28/17 12:11 09/28/17 12:11 09/28/17 12:11 09/28/17 12:11 09/28/17 12:11 Oxygen Delivery Method Room Air Weight: 80 kg Body Mass Index (BMI) 28.4 Intake and Output for Last 24 Hours Intake Total 240 / 240 Output Total 450 / 450 350 / 350 Balance -450 / -450 -110 / -110 Laboratory Tests Past 24 Hrs Sodium 143 Potassium 4.3 Chloride 109 H Carbon Dioxide 28.0 Anion Gap 6 BUN 11 Creatinine 1.40 H Estim Creat Clear Calc 46.20 POC Glucose POC Glucose 93 89 Assessment/Plan All Active Problems Altered mental status (Acute) Ischemic stroke (Acute) Dyslipidemia (Acute) Acute respiratory failure (Resolved) Pulmonary emboli (Acute) The patient is a 67 year old CM with PMH HTN, HLD, H/O bilateral PE and DVT in February 2016, was on Eliquis, during the February 2016 admission he had suicidal ideation, diagnosed with depression and started on Lexapro, now admitted with altered mental status. History could not be obtained from patient, History is obtained from medical records. Per documentation on admission patient was confused, repeating words, had difficulty in performing simple tasks since 2 days (09/26/17), per ED documentation there was BINGHAM and blurred vision. At present patient has a sitter, continues to be confused, has agitation episodes, but denies any BINGHAM, visual disturbances, focal motor weakness or sensory loss. Per patient he lives with his , does not use cane or walker to ambulate, denies any frequent falls but complained of some difficulty in walking about 2 weeks ago. He denies any new onset memory issues or urinary incontinence. Per ED documentation NIHSS was 3 on admission since patient had left homonymous hemianopia. MRI brain done on admission reported to show tiny focus of restricted diffusion in the right paramedian piotr, right centrum semiovale and left basal ganglia (report per Dr. Fawn Perez but on my review probably there is only one area of tiny restricted diffusion in the right HOME VISITOR) and per Dr. 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 CTA head/neck reported not to show any hemodynamically significant stenosis or occlusion. Impression Possible Small Right HOME VISITOR (right MCA) stroke Metabolic encephalopathy ? NPH Plan -On ASA, Start Plavix 75 mg PO once daily, dual AP for 3 weeks, then switch to single AP, Bleeding risks discussed in detail. Patient understands the same -On Lipitor 80 mg PO q hs -MRI brain images reviewed-reported to show tiny focus of restricted diffusion in the right paramedian piotr, right centrum semiovale and left basal ganglia (report per Dr. Fawn Perez but on my review probably there is only one area of tiny restricted diffusion in the right HOME VISITOR) and per Dr. Perez there is moderate ventriculomegaly may be a result of NPH -CTA head/neck- no hemodynamically significant stenosis or occlusion -LDL-78 -Await Hba1c -TTE-EF 60%, normal LA size, probable PFO -Recommend B/L LE venous Doppler -Recommend ophthalmology consult -Recommend Neurosurgery consult for possible NPH -Recommend Psychiatry consult -Goal BP < 130/80 mmHg and Hba1c <7% -Recommend EEG -Further medical management per primary team -Stroke risk factors discussed, stroke education provided -GI/DVT prophylaxis -Fall precautions -PT/OT/ST -Follow up with Neurology as outpatient in 2-3 weeks after discharge. -Please call with questions if any -Thank you for allowing us to participate in patient's care and management I spent 60 minutes taking history, doing physical examination, reviewing medical records, coordinating care and counseling the patient. Code Visit Inpatient E AND M: [id number] Init Hosp L3 10/04/17 6409 <Electronically signed by Hemanth Robles MD> Date Hemanth Javierigner Signature (if applicable): Date CC: Carrie Robles MD; Conrado Maya DO Signed 12 LEAD ELECTROCARDIOGRAM Observed: 10/02/2017 Status: F Source: [place] 3:[address] [facility] REPOSITORY [facility] Cardiovascular Services [address] [place] [address] 12 Lead EKG 09/27/17 1032 MR#: [id number] Acct: [id number] Name: RICARDO CHILDS Rep #: [id number] : 1950 67 From: Nicholas Isaac MD Attending Dr: Jamar Kasper MD Status: DIS IN Ordering Dr: Zeynep Hernandez DO Date: 09/27/17 Location: [facility] Sex: M C Admitted: 09/27/17 Test Reason : MS CHANGES Blood Pressure : / mmHG Vent. Rate : 063 BPM Atrial Rate : 063 BPM P-R Int : 134 ms QRS Dur : 096 ms QT Int : 430 ms P-R-T Axes : 066 028 025 degrees QTc Int : 440 ms Normal sinus rhythm Normal ECG Confirmed by NICHOLAS ISAAC MD ([id number]), publication editor JENNIFER PEREZ ([id number]) on 10/02/2017 3:38:35 PM Referred By: AARON Confirmed By:NICHOLAS ISAAC MD 10/02/17 1538 Date Nicholas Isaac MD CC: Jamar Ksaper MD; Zeynep Hernandez DO; Conrado Maya DO Signed AMMONIA Collected: 09/30/2017 Status: F Source: [facility] 9:41 AM SYSTEM REPOSITORY TYPE CODE TESTS RESULT OUT OF RANGE REFERENCE UNITS LAB NH33 9-30 umol/L Normal Ammonia 20 Performed By: #### NH33 #### [employer] [address] [place] [phone] HEMOGLOBIN A1C Collected: 09/30/2017 Status: F Source: [facility] 6:23 AM SYSTEM REPOSITORY TYPE CODE TESTS RESULT OUT OF RANGE REFERENCE UNITS LAB A1C2 4.0-5.7 % Normal Hemoglobin A1C 5.2 Result Comment: --HgbA1C levels may not be accurate in patients who have renal disease, received recent blood transfusions, are anemic, or who have dyshemoglobinemia. LAB EAG2 mg/dL Estimated Avg Glucose 103 Performed By: #### HA1C2, LIPD2, BMP3 #### [facility] [address] [phone] LIPID PANEL Collected: 09/30/2017 Status: F Source: [place] 6:23 AM SYSTEM REPOSITORY TYPE CODE TESTS RESULT OUT OF RANGE REFERENCE UNITS LAB 3CHOL < 200 mg/dL Normal Cholesterol 153 LAB 3TRIG <150 mg/dL Normal Triglyceride 66 LAB HDLC 40-60 mg/dL Low HDL Cholesterol 39 LAB LDL4 <100 mg/dL Low Density Abnormal Lipoprotein 101 LAB CHLHD NA Chol/HDL 4 Result Comment: Ref Range: < 3 Low Risk for CHD 3-6 Mod Risk for CHD > 6 High Risk for CHD Performed By: #### HA1C2, LIPD2, BMP3 #### [employer] [address] [place] [phone] BASIC METABOLIC PANEL Collected: 09/30/2017 Status: F Source: [facility] 6:23 AM SYSTEM REPOSITORY TYPE CODE TESTS RESULT OUT OF RANGE REFERENCE UNITS LAB NA3 137-145 mmol/L Sodium Normal 139 LAB K3 3.5-5.1 mmol/L Normal Potassium 3.8 LAB CL3 98-107 mmol/L Chloride Normal 107 LAB CO23 22-30 mmol/L Carbon Normal Dioxide 25 LAB ANIN3 NA Anion Gap 7 LAB GLUC3 70-100 mg/dL High Glucose 103 LAB BUN3 7-20 mg/dL Urea Normal Nitrogen 13 LAB CRET3 0.52-1.25 mg/dL Normal Creatinine 1.12 LAB GF3BR >60 mL/min eGFR > 60.0 LAB GF3WR >60 mL/min eGFR OTHER > 60.0 Result Comment: Source- MDRD equation with creatinine calibration to IDMS(NKDEP) eGFR not recommended for drug dose adjustment LAB CA3 8.4-10.4 mg/dL Normal Calcium 9.5 Performed By: #### HA1C2, LIPD2, BMP3 #### [employer] [address] [place] [phone] PROTEIN, CSF Collected: 09/29/2017 Status: F Source: [facility] 7:24 PM SYSTEM REPOSITORY TYPE CODE TESTS RESULT OUT OF RANGE REFERENCE UNITS LAB PRT3 12.0-60.0 mg/dL High Protein, 103.3 CSF Result Comment: Note collection time and date: Interpret results with caution. Performed By: #### CSFP3, CSFG3, CSFCC #### [employer] [address] [place] [phone] GLUCOSE, CSF Collected: 09/29/2017 Status: F Source: [facility] 7:24 PM SYSTEM REPOSITORY TYPE CODE TESTS RESULT OUT OF RANGE REFERENCE UNITS LAB GLC3 40-70 mg/dL Normal Glucose, 61 CSF Result Comment: Note collection date and time: Interpret results with caution. LAB APP3 NA Appearance see below Result Comment: Clear and colorless LAB SUPR3 NA Supernatant see below Result Comment: Clear and colorless Performed By: #### CSFP3, CSFG3, CSFCC #### [employer] [address] [place] [address] CELL COUNT,CSF Collected: 09/29/2017 Status: F Source: [facility] 7:24 PM SYSTEM REPOSITORY TYPE CODE TESTS RESULT OUT OF REFERENCE UNITS RANGE LAB APPSF NA Appearance see below Result Comment: Clear and colorless LAB SUPER NA Supernatant see below Result Comment: Clear and colorless LAB CSFNU 0-5 {cells}/uL Normal Nucleated Cells,CSF 1 Result Comment: Note collection date and time: Interpret results with caution. LAB RBCCF {RBC}/uL RBC Count,CSF 2 Result Comment: Note collection date and time: Interpret results with caution. Performed By: #### CSFP3, CSFG3, CSFCC #### [employer] [address] [phone] Observed: 09/29/2017 Status: F Source: [facility] STAIN GRAM 7:24 PM SYSTEM REPOSITORY Order Comment: Specimen Source Comment:CSF [facility]unt STAIN GRAM --> Status: F Rare polymorphonuclear cells/lpf. Rare mononuclear cells/lpf No organisms seen. Rare mononuclear cells/lpf No organisms seen. Performed By: #### S/GRM, CXFLD #### [employer] [address] [place] [phone] Observed: 09/29/2017 Status: F Source: [facility] CULTURE AND STAIN - 7:24 PM SYSTEM REPOSITORY FLUID Order Comment: Specimen Source Comment:CSF [facility]unt CULTURE & STAIN - FLUID --> Status: F No growth at 5 days. Performed By: #### S/GRM, CXFLD #### [facility] [address] [place] [address] Observed: Status: F Source: [employer] MENINGITIS/ENCEPHALITIS PCR 09/29/2017 7:24 PM [facility]ALTH [facility] PANEL REPOSITORY MENINGITIS/ENCEPHALITIS PCR PANEL --> Status: F NEGATIVE: No targets were detected by the [employer] Meningitis/Encephalitis PCR Panel. The [employer] Meningitis/Encephalitis Panel detects the following targets: Escherichia coli K1 Haemophilus influenzae Listeria monocytogenes Neisseria meningitidis Streptococcus agalactiae Streptococcus pneumoniae Cytomegalovirus Enterovirus Herpes simplex virus 1 Herpes simplex virus 2 Human Herpesvirus 6 Human Parechovirus Varicella zoster virus Cryptococcus neoformans/gattii - NOTE: The Meningitis/Encephalitis Panel does not distinguish between latent and active herpesvirus infections (e.g., CMV and HHV-6). Herpesvirus results should be used in conjunction with other clinical, laboratory, and epidemiological data. Meningitis/Encephalitis PCR Panel. The [employer] Meningitis/Encephalitis Panel detects the following targets: Escherichia coli K1 Haemophilus influenzae Listeria monocytogenes Neisseria meningitidis Streptococcus agalactiae Streptococcus pneumoniae Cytomegalovirus Enterovirus Herpes simplex virus 1 Herpes simplex virus 2 Human Herpesvirus 6 Human Parechovirus Varicella zoster virus Cryptococcus neoformans/gattii - NOTE: The Meningitis/Encephalitis Panel does not distinguish between latent and active herpesvirus infections (e.g., CMV and HHV-6). Herpesvirus results should be used in conjunction with other clinical, laboratory, and epidemiological data. Performed By: #### CSFBF #### [facility] [employer] [address] [phone] XA SPECIAL ANGIOGRAPHY Observed: 09/29/2017 Status: F Source: [facility] PROCEDURE 2:50 PM SYSTEM REPOSITORY Patient Name: RICARDO CHILDS Special Procedures Exam Date/Time 09/29/2017 14:33:58 EDT Exam XA Special Angiography Procedure Ordering Physician DO BARRETT TAHIRAH A Accession Number [id number] Reason For Exam LP Dx hydrocephalus Report CLINICAL HISTORY: Hydrocephalus. Procedures: Fluoroscopic-guided lumbar puncture. Physician: Dr. Garcia MEDICATIONS: Local lidocaine. EBL: Minimal. Contrast: None. Specimen sent: 12 mL clear CSF. COMPLICATIONS: None. Fluoroscopy time: 0.2 minutes. Angiographic runs: 0 Fluoroscopic spot images: 0 Fluoroscopic saved images were obtained. These images do NOT add additional exposure to ionizing radiation and were captured electronically from the imaging chain. Procedural details: All of the risk, benefits, and alternative treatments were explained to the patient and informed consent was obtained and documented. The patient was brought into the interventional radiology suite and placed in a decubitus position. The patient's lower back was interrogated with fluoroscopy and a suitable site for lumbar puncture was identified. The overlying skin was prepped and draped in the usual sterile fashion. The overlying subcutaneous tissues were anesthetized using 2 percent lidocaine. Under intermittent fluoroscopic observation, a 22-gauge spinal needle was advanced into the thecal sac at the L3 level. There was return of clear CSF fluid. The opening pressure was then measured. Following this, 12 mL of clear CSF fluid was obtained. The needle was then removed and hemostasis was obtained using manual pressure. FINDINGS: Opening pressure: 12 cm of H2O. IMPRESSION: Successful uncomplicated fluoroscopic-guided lumbar puncture. Report Dictated on Final Dictated: 09/29/2017 2:50 pm Dictating Physician: MD GARCIA YUN ROBERT Signed Date and Time: 09/29/2017 2:55 pm Signed by: MD GARCIA YUN ROBERT Transcribed Date and Time: 09/29/2017 2:50 HEMOGRAM Collected: 09/29/2017 Status: F Source: [facility] 1:07 AM SYSTEM REPOSITORY TYPE CODE TESTS RESULT OUT OF RANGE REFERENCE UNITS LAB IWBC 3.6-10.7 10*3/uL WBC Normal 6.2 LAB RBC 4.40-5.90 10*6/uL RBC Normal 5.09 LAB HGB 13.0-18.0 g/dL Normal Hemoglobin 15.3 LAB HCT 40.0-52.0 % Normal Hematocrit 44.2 LAB MCV 80.0-98.0 fL MCV Normal 86.8 LAB MCH 26.0-34.0 pg MCH Normal 30.1 LAB MCHC 32.0-36.0 % MCHC Normal 34.6 LAB RDW 11.5-14.5 % RDW Normal 13.5 LAB PLT 140-440 10*3/uL Platelet Normal 182 LAB MPV 7.4-10.4 fL MPV Normal 8.2 Performed By: #### HEMOG, CMP3M, PT, APTT, TSH4, FOLT3, B12 #### [facility] [address] [place] [phone] COMP PANEL WITH MG Collected: 09/29/2017 Status: F Source: [employer] 1:07 AM SYSTEM REPOSITORY TYPE CODE TESTS RESULT OUT OF RANGE REFERENCE UNITS LAB NA3 137-145 mmol/L Sodium Normal 144 LAB K3 3.5-5.1 mmol/L Normal Potassium 4.0 LAB CL3 98-107 mmol/L High Chloride 110 LAB CO23 22-30 mmol/L Carbon Normal Dioxide 28 LAB ANIN3 NA Anion Gap 6 LAB GLUC3 70-100 mg/dL Glucose Normal 97 LAB BUN3 7-20 mg/dL Urea Normal Nitrogen 14 LAB CRET3 0.52-1.25 mg/dL High Creatinine 1.40 LAB GF3BR >60 mL/min eGFR > 60.0 LAB GF3WR >60 mL/min eGFR OTHER 50.5 Result Comment: Source- MDRD equation with creatinine calibration to IDMS(NKDEP) eGFR not recommended for drug dose adjustment LAB CA3 8.4-10.4 mg/dL Calcium Normal 10.1 LAB ALB3 3.5-5.0 g/dL Albumin, Serum Normal 4.1 LAB TP3 6.3-8.2 g/dL Total Protein Normal 6.8 LAB BILT3 0.2-1.3 mg/dL Normal Bilirubin,Total 0.8 LAB ALKP3 38-126 U/L Alkaline Normal Phosphatase 83 LAB ALT3 13-69 U/L ALT (SGPT) Normal 20 LAB AST3 15-46 U/L AST (SGOT) Normal 22 Performed By: #### HEMOG, CMP3M, PT, APTT, TSH4, FOLT3, B12 #### [employer] [address] [place] [phone] PROTHROMBIN TIME Collected: 09/29/2017 Status: F Source: [facility] 1:07 AM SYSTEM REPOSITORY TYPE CODE TESTS RESULT OUT OF REFERENCE UNITS RANGE LAB PROTM 9.0-12.0 s Prothrombin Normal Time 10.9 Result Comment: . LAB INR 0.9-1.1 NA Normal INR 1.0 Result Comment: Recommended Anticoagulant Therapy: SEE BELOW ----- INR of 2.0 - 3.0 : - Prophylaxis of Venous Thrombosis (high-risk surgery) - Treatment of Venous Thrombosis - Treatment of Pulmonary Embolism (Includes tissue heart valves, Acute Myocardial Infarction to prevent systemic embolism, Valvular Heart Disease, and Atrial Fibrillation) ----- INR of 2.5 - 3.5 : - Mechanical Prosthetic Valves (high risk) - If oral anticoagulant therapy is used to prevent Myocardial Infarction Performed By: #### HEMOG, CMP3M, PT, APTT, TSH4, FOLT3, B12 #### [employer] [address] [place] [address] APTT Collected: 09/29/2017 Status: F Source: [facility] 1:07 AM SYSTEM REPOSITORY TYPE CODE TESTS RESULT OUT OF RANGE REFERENCE UNITS LAB PTTA 20.0-30.5 s Normal APTT 22.7 Result Comment: NOTE: The therapeutic time for Heparin anticoagulation, based on Xa activity inhibition, is an APTT of 46-80 seconds. Performed By: #### HEMOG, CMP3M, PT, APTT, TSH4, FOLT3, B12 #### [employer] [address] [place] [phone] THYROID STIM. Collected: 09/29/2017 Status: F Source: [facility] [place] 1:07 AM SYSTEM REPOSITORY TYPE CODE TESTS RESULT OUT OF RANGE REFERENCE UNITS LAB TSH4 0.465-4.680 uU/mL Normal Thyroid Stim. 3.689 Hormone Performed By: #### HEMOG, CMP3M, PT, APTT, TSH4, FOLT3, B12 #### [employer] [address] [place] [id number] FOLATE Collected: 09/29/2017 Status: F Source: Gangkr 1:07 AM SYSTEM REPOSITORY TYPE CODE TESTS RESULT OUT OF RANGE REFERENCE UNITS LAB 3FOLT 2.8-20.0 ng/mL Normal Folate 4.9 Performed By: #### HEMOG, CMP3M, PT, APTT, TSH4, FOLT3, B12 #### [employer] [address] [place] [address] VITAMIN B12 Collected: 09/29/2017 Status: F Source: Gangkr 1:07 AM SYSTEM REPOSITORY TYPE CODE TESTS RESULT OUT OF RANGE REFERENCE UNITS LAB B12 239-931 pg/mL Normal Vitamin B12 511 Performed By: #### HEMOG, CMP3M, PT, APTT, TSH4, FOLT3, B12 #### [employer] [address] [place] [address] VENOUS DUPLEX LOWER Observed: 09/28/2017 Status: F Source: BURBANK EXTREMITY 7:[address] [facility] REPOSITORY [facility] Cardiovascular Services [address] [place] [address] Venous Duplex - [facility] 09/28/17 1446 MR#: [id number] Acct: [id number] Name: RICARDO CHILDS Rep #: [id number] : 1950 67 From: Conrado Lundy MD [facility] Status: ADM IN Ordering Dr: Hemanth Robles MD Date: 09/28/17 Location: [facility] Sex: M C Admitted: 09/27/17 Reason For Study: DVT RIGHT LEFT GSV is normal. GSV is normal. CFV is compressible, spontaneous, phasic, CFV is compressible, spontaneous, phasic, competent and demonstrates normal competent, and demonstrates normal augmentation. augmentation. FV is compressible, spontaneous, phasic, FV is compressible, spontaneous, phasic, competent and demonstrates normal competent and demonstrates normal augmentation. augmentation. POP V is compressible, spontaneous, phasic, POP V is compressible, spontaneous, phasic, competent and demonstrates normal competent and demonstrates normal augmentation. augmentation. T/P Trunk is compressible. T/P Trunk is compressible. PTV is compressible. PTV is compressible. RT PerV is compressible. LT PerV is compressible. Procedure Exam performed portable in patient room. The exam was diagnostic. A preliminary report was called and/or faxed to the pt's RN. Interpretation Summary No evidence for acute deep venous thrombosis bilateral lower extremities with patent and compressible bilateral great saphenous veins. Ordering Physician: Carrie Robles Performed By: Octavio Morgan RVT 09/28/171914 Date Conrado Lundy MD CC: Carrie Robles MD; Jamar Kasper MD; Conrado Maya DO Date Dictated: 09/28/17 1446 Date Transcribed: 09/28/171914 Information Security Analyst: Signed URINE DRUG SCREEN Collected: 09/28/2017 Status: F Source: OSCAR (VISTA) 5:[address] [facility] REPOSITORY TYPE CODE TESTS RESULT OUT OF RANGE REFERENCE UNITS LAB L505.0075 TO BE Normal CONFIRMED Result Comment: CONFIRMATORY TESTING FOR ALL POSITIVE URINE DRUG SCREEN RESULTS WILL ONLY BE SENT OUT UPON PHYSICIAN ORDER. VISTA Urine Drug Screen methods provide only preliminary analytical test results. A more specific alternate chemical method must be used in order to obtain a confirmed analytical result. Gas chromatography/mass spectrometery (GC/MS) is the preferred confirmatory method. Clinical consideration and professional judgement should be applied to any drug of abuse test result, particularly when preliminary positive results are used. URINE TCA TESTING MUST BE ORDERED SEPARATELY. USE TEST MNEMONIC: [facility] LAB L505.5005 VISTA UDS PH 6 Normal LAB L505.5015 <1000 ng/mL AMPHETAMINES Normal NEGATIVE LAB L505.5025 < 200 ng/mL BARBITIURATES Normal NEGATIVE LAB L505.5035 < 200 ng/mL BENZODIAZIPINE Normal NEGATIVE LAB L505.5045 < 300 ng/mL COCAINE Normal NEGATIVE LAB L505.5055 < 500 ng/mL ECSTACY Normal NEGATIVE LAB L505.5065 < 300 ng/mL METHADONE Normal NEGATIVE LAB L505.5075 < 300 ng/mL OPIATES Normal NEGATIVE LAB L505.5085 < 25 ng/mL PCP Normal NEGATIVE LAB L505.5095 < 50 ng/mL THC Normal NEGATIVE Performed By: #### L505.5000 #### [facility] [address] [place], [address] URINALYSIS, COMPLETE Collected: 09/28/2017 Status: F Source: BURBANK 5:[address] [facility] REPOSITORY Order Comment: How was Urine Obtained? CLEAN CATCH TYPE CODE TESTS RESULT OUT OF RANGE REFERENCE UNITS LAB L400.3000 Yellow COLOR Normal Yellow LAB L400.3050 Clear Normal CLARITY Clear LAB L400.3200 Normal mg/dl Normal GLUCOSE, UR Normal LAB L400.3300 Negative mg/dL Normal BILIRUBIN URINE Negative LAB L400.3400 Negative mg/dl Normal KETONE UR Negative LAB L400.3465 1.002-1.030 Normal SP.GR. DIPSTX 1.010 LAB L400.3550 5.0 - 8.0 pH UR Normal 6.5 LAB L400.3600 Negative mg/dl PROT Normal DIPSTX Negative LAB L400.3700 Normal mg/dl Normal UROBILI Normal LAB L400.3750 Negative Normal NITRITE UR Negative LAB L400.3780 Negative /ul High 10 OCCULT BLOOD-UR LAB L400.3800 Negative /ul High LEUK 25 ESTERASE LAB L400.4050 0-5 /hpf WBC Normal 0-5 SEEN LAB L400.4100 0-5 /hpf 0 Normal RBC-UA SEEN LAB L400.4150 0-5 /hpf SQUAM 0 Normal EPI SEEN LAB L400.4300 None Seen /hpf 0 Normal BACTERIA SEEN LAB L400.4350 <or=2+ /hpf 0 Normal MUCUS, URINE SEEN Performed By: #### L400.0001 #### [facility] [address] [facility] [place], [address] DISCHARGE SUMMARY Observed: 09/28/2017 Status: F Source: BURBANK 4:[address] [facility] REPOSITORY [facility] Medical Records Department [address] [place] [address] Discharge Summary 09/28/17 1407 MR#: [id number] Acct: [id number] Name: RICARDO CHILDS Rep #: [id number] : 1950 67 From: Yarelis Ruffin ARTISTIC DIRECTOR-C PCP: Conrado Maya DO Status: ADM IN Y Location: [place] [address] <Yarelis Ruffin - Last Filed: 09/28/17 14:17> Discharge Date and Diagnosis Date of Admission: 09/27/17 Date of Discharge: 09/28/17 - Primary Discharge Diagnosis Active and Suspected Problems 1. Acute metabolic encephalopathy 2. Acute small right MCA stroke 3. NPH 4. Acute kidney injury - Secondary Discharge Diagnosis Chronic Problems Hypertension (Chronic) Hospital Course and Treatment Imaging Results: Diagnostic Data Brain CT 09/27/17 09:57 IMPRESSION: Chronic involutional changes. No acute intracranial abnormality. Electronically Signed: Lee Ruffin DO at 10:34 EDT Tel , Service support , Chest X-Ray 09/27/17 09:57 IMPRESSION: Degenerative changes, as described above. No demonstrated acute cardiopulmonary process. Electronically Signed: Lee Ruffin DO at 11:19 EDT Tel , Service support , Head CTA 09/27/17 11:51 IMPRESSION: Normal bilateral cervical carotid and vertebral arteries. Electronically Signed: Kwadwo Marcos DO at 13:10 EDT Tel [phone], Service support , Neck CTA 09/27/17 11:51 IMPRESSION: Normal bilateral cervical carotid and vertebral arteries. Electronically Signed: Kwadwo Marcos DO at 13:10 EDT Tel [phone], Service support , Brain MRI 09/27/17 13:14 IMPRESSION: 1. Involutional changes of the brain, as described above. 2. Multiple scattered tiny infarcts as described. 3. Moderate ventriculomegaly may be the result of normal pressure hydrocephalus. N.B. : The above information has been verbally conveyed by Fawn Perez MD to Sheryl Green, RN, Hospital- In-Patient RN, on 09/28/2017 11:14:22 (ET). Electronically Signed: Fawn Perez MD at 11:17 EDT , Service support , N.B. : The above information has been verbally conveyed by Fawn Perez MD to Sheryl Green, RN, Hospital- In-Patient RN, on 09/28/2017 11:14:22 (ET). Dr. Robles- Neurology Operations: None Procedures: 2-D Echocardiogram Summary of Care Provided: The patient is a 67 year old M admitted 09/27/2017 due to altered mental status. He has a past medical history of PE/DVT, hypertension, hyperlipidemia, depression with history of suicidal ideation, bipolar disorder. Acute metabolic encephalopathy, unclear etiology. Patient's noted to have small right MCA infarct. Possible NPH. Neurology consulted. Patient started on aspirin 81 mg daily, Plavix 75 mg once daily. Patient will continue dual antiplatelet therapy for 3 weeks. Continue Lipitor 80 mg p.o. nightly. MRI of brain completed, see report above. Neurology recommending transfer to tertiary care facility for neurosurgery evaluation of NPH. Recommend psychiatric and ophthalmology consult. Venous duplex ultrasound and EEG not completed prior to discharge but recommended per neurology. Patient's mental status improved but remains confused. Echocardiogram showed an EF of 60%, stage I diastolic dysfunction, mild tricuspid valve insufficiency, pulmonary artery systolic pressure 25 mmHg. Acute kidney injury improving with IV fluids. Patient stable for transfer to [facility] for evaluation of NPH. Patient seen exam prior to discharge. Alert, confused, no acute distress. Lungs clear. Heart regular in rate and rhythm. Skin intact. No edema. No tenderness to palpation of joints or extremities. Neuro grossly intact. Abdomen soft, nontender. Vital signs stable. This patient was seen by CELSO Trevino under the supervision of Dr. Kasper. Home Medications: Medications to take at Discharge Multivitamin [Daily Multiple Vitamin] 1 each PO DAILY 01/30/16 Pravastatin [Pravachol] 40 mg PO QHS 01/30/16 Hydrocodone Bitart/Apap 5-325 [Boise 5/325] 1 tablet PO Q6H PRN PRN 03/03/16 Ramipril [Altace] 5 mg PO DAILY 03/03/16 Escitalopram Oxalate [Lexapro] 10 mg PO DAILY 09/27/17 Polyethylene Glycol 3350 [Miralax] 17 gm PO DAILY 09/27/17 Primary Care Physician: Conrado Maya DO [Primary Care Provider] - Disposition: Acute care Hospital Minutes spent on discharge:: 35 Patient Condition:: Stable Medical Necessity - Tobacco Use Smoking Status: Unknown if ever smoked Meaningful Use Info Meaningful Use Diagnoses (Choose all that apply): Ischemic CVA - CVA Therapy Assessed for PT,OT and/or ST?: Yes - Ischemic Stroke Antithrombotic order at d/c?: Yes Dx of Atrial fib/flutter?: No Statins at discharge?: Yes Primary Dx Acute Ischemic CVA?: Yes IV tPA ordered during stay?: No Reason IV t-PA not ordered: Medical Contraindication <Jamar Kasper - Last Filed: 09/28/17 16:37> Discharge Date and Diagnosis - Primary Discharge Diagnosis History of depression and psychosis - Secondary Discharge Diagnosis Chronic Problems Hypertension (Chronic) Hospital Course and Treatment Summary of Care Provided: This patient was seen in conjunction with ARTISTIC DIRECTOR, Yarelis. I have independently interviewed and examined the patient and reviewed pertinent history, examination findings, laboratory and plan of management. I have reviewed the note and agree with the documented findings with the few additional points. In brief, patient is 67 year old M with history of bilateral extensive PE and DVT in February 2016 was on Eliquis until early part of the year (reason for discontinuation unclear possible noncompliance) was brought in by ambulance altered mental status and not able to see on left side as per the . Patient was confused, not able to understand or comprehend the speech, repeating words, not able to recognize common things and perform simple tasks since yesterday morning. As per the , patient was asking repeated cues as he is not able to understand. He also complained of occipital and parietal headache which is new to him. Also noted to have slight left facial droop. Patient denies weakness, numbness, tingling, bowel or bladder incontinence or seizure or syncope. Patient denies any previous history of stroke or SD or cardiac stent. [] In ED, EKG shows normal sinus rhythm at [address] head without contrast does not show any acute change. Patient also had agitation, confusion and was put on one-to-one watch and was given Haldol Patient was admitted on PCU floor as per stroke protocol CT angiogram of head and neck does not show any major stenosis or occlusion. The patient was seen and examined today General: Not cooperative, Confused, Disoriented - To time, place and situation. HEENT: Atraumatic, PERRLA, EOMI, Normocephalic Oral: Moist Mucosa Neck: Supple, No JVD, Negative Carotid Bruits Lungs: Clear to auscultation, No rhonchi, No wheeze, Diminished - Bilateral lung bases Cardiovascular: Regular rate, Regular Rhythm, Normal S1, Normal S2, No murmurs Abdomen: Bowel Sounds Present, Soft, Non Tender, Non-Distended Extremities: No edema, Capillary Refill Less than 3 Seconds Skin: No rashes, No breakdown Musculoskeletal: No Tenderness to Palpation of Joints or Extremities Neurological: Muscle tone normal, Sensory exam intact to light touch and pain, difficult to assess neurologically as patient is not able to comprehend the command. Slight left-sided facial palsy. Inability to comprehend visual, written or spoken language Psych/Mental Status: Normal Affect, Appropriate His further hospital course as follows MRI brain office today reported multiple scattered tiny infarcts and moderate ventriculomegaly suggestive of possible NPH. As per neurologist, he appreciates only tiny acute infarct on the right paramedian piotr but is more concerned of moderate ventriculomegaly, change in mental status, gait abnormality (patient complaining of balance/disequilibrium about 1-2 weeks ago as per the neurologist), symptom complex suggestive of possible NPH. He suggested transfer to tertiary neurosurgery center for further evaluation of NPH and potential lumbar drainage and monitor for improvement of symptoms. [place] CT transfer line was called and clinical information, hospital course was exchanged. Patient is accepted in [facility] and in the process of being transferred. I have discussed my assessment with Yarelis RENE and orders have been reviewed. [] Clinical Impression(s) from Imaging Studies Brain CT 09/27/17 09:57 IMPRESSION: Chronic involutional changes. No acute intracranial abnormality. Electronically Signed: Lee Ruffin DO at 10:34 EDT Tel , Service support , Chest X-Ray 09/27/17 09:57 IMPRESSION: Degenerative changes, as described above. No demonstrated acute cardiopulmonary process. Electronically Signed: Lee DO Augustin at 11:19 EDT Tel , Service support , Head CTA 09/27/17 11:51 IMPRESSION: Normal bilateral cervical carotid and vertebral arteries. Electronically Signed: Kwadwo Marcos DO at 13:10 EDT Tel [phone], Service support , Neck CTA 09/27/17 11:51 IMPRESSION: Normal bilateral cervical carotid and vertebral arteries. Electronically Signed: Kwadwo Marcos DO at 13:10 EDT Tel [phone], Service support , Brain MRI 09/27/17 13:14 IMPRESSION: 1. Involutional changes of the brain, as described above. 2. Multiple scattered tiny infarcts as described. 3. Moderate ventriculomegaly may be the result of normal pressure hydrocephalus. Code Visit Inpatient E AND M: 09302 Disch Hosp 09/28/17 1417 <Electronically signed by Yarelis Ruffin ARTISTIC DIRECTOR-C> Date Yarelis Ruffin ARTISTIC DIRECTOR-C 09/28/17 1637<Electronically signed by Jamar Kasper MD> Cosigner Signature (if applicable): Date Jamar Kasper MD CC: ARTISTIC DIRECTOR-C Yarelis Ruffin; Jamar Kasper MD; Conrado Maya DO Signed BEDSIDE GLUCOSE Collected: 09/28/2017 Status: F Source: OSCAR 4:[address] [facility] REPOSITORY TYPE CODE TESTS RESULT OUT OF RANGE REFERENCE UNITS LAB L501.080 70-110 mg/dL Normal BEDSIDE GLU 98 Result Comment: MANAGEMENT OF PATIENT CARE PER NURSING PROTOCOL Performed By: #### L501.080 #### [facility] Point of Care [address] [place] [address] ECHOCARDIOGRAM COMPLETE Observed: 09/28/2017 Status: F Source: BURBANK 12:[address] [facility] REPOSITORY [facility] Cardiovascular Services [address] [place] [address] Echo Complete 09/28/17 0821 MR#: [id number] Acct: [id number] Name: RICARDO CHILDS Rep #: [id number] : 1950 67 From: Nicholas Isaac MD Attending Dr: Jamar Kasper MD Status: ADM IN Ordering Dr: Jamar Kasper MD Date: 09/27/17 Location: U Sex: M C Admitted: 09/27/17 Reason For Study: TIA Procedure This was a 2D Doppler, Color Flow transthoracic echocardiogram. Pt has altered mental status s/p TIA . Exam performed portable in patient room. Left Ventricle Normal LV size. Left ventricular systolic function is normal. The estimated ejection fraction is 60 %. Transmitral diastolic flow velocities suggest mild (stage 1) diastolic dysfunction (reversed pattern). No regional wall motion abnormalities noted. Right Ventricle Normal RV size. Normal systolic function. Atria Normal left atrium. Normal right atrium. Probable patent foramen ovale. Mitral Valve Normal mitral valve. Mild (1+) eccentric mitral valve insufficiency. Tricuspid Valve Normal tricuspid valve. Mild (1+) tricuspid valve insufficiency. Pulmonary artery systolic pressure is 25 mmHg. Aortic Valve Normal aortic valve. Trisinus/trileaflet aortic valve. Pulmonic Valve Normal pulmonic valve. Great Vessels Normal aortic root. The pulmonary artery is normal size. Normal inferior vena cava. Pericardium/Pleural No pericardial effusion. Medication Performed a rapid injection of agitated mix of 9 cc saline and 1cc air to assess for atrial septal defect. MMode/2D Measurements AND Calculations LVIDd: 4.6 cm IVSd: 0.88 cm Ao root diam: 3.8 cm LVIDs: 2.7 cm LVPWd: 0.92 cm RVDd: 4.0 cm FS: 42.0 % LAV(MOD-bp): 52.4 ml LAV(MOD-bp) Indexed: 27.6 ml/m2 LA A4 area: 10.3 cm2 RA A4 area: 8.2 cm2 LAV(MOD-sp2): 68.3 ml LAV(MOD-sp4): 23.6 ml Time Measurements MV dec time: 0.29 sec Doppler Measurements AND Calculations MV E max ozzie: 57.5 cm/sec Lat Peak E' Ozzie: 7.7 cm/sec Med Peak E' Ozzie: 6.8 cm/sec MV A max ozzie: 66.1 cm/sec E/E' lat: 7.4 E/E' med: 8.4 MV E/A: 0.87 Ao V2 max: 88.2 cm/sec LV V1 max: 68.6 cm/sec TR max ozzie: 234.8 cm/sec Ao max P.1 mmHg LV V1 max P.9 mmHg TR max P.1 mmHg Interpretation Summary Normal LV size. Left ventricular systolic function is normal. The estimated ejection fraction is 60 %. Transmitral diastolic flow velocities suggest mild (stage 1) diastolic dysfunction (reversed pattern). Mild (1+) tricuspid valve insufficiency. Pulmonary artery systolic pressure is 25 mmHg. Ordering Physician: Jamar Kasper Referring Physician: CONRADO MAYA Performed By: Madison Lee, JAVED, RVT 09/28/17 1218 Date Nicholas Isaac MD CC: Jamar Kasper MD; Conrado Maya DO Date Dictated: 09/28/17820 Date Transcribed: 09/28/171217 Information Security Analyst: Signed BEDSIDE GLUCOSE Collected: 09/28/2017 Status: F Source: OSCAR 5:[address] [facility] REPOSITORY TYPE CODE TESTS RESULT OUT OF RANGE REFERENCE UNITS LAB L501.080 70-110 mg/dL Normal BEDSIDE GLU 93 Result Comment: MANAGEMENT OF PATIENT CARE PER NURSING PROTOCOL Performed By: #### L501.080 #### [facility] Point of Care [address] [place] [address] BASIC METABOLIC Collected: 09/28/2017 Status: F Source: BURBANK PROFILE (BMP) 5:[address] [facility] REPOSITORY TYPE CODE TESTS RESULT OUT OF RANGE REFERENCE UNITS LAB L501.0100 74-106 mg/dL Normal GLU 102 Result Comment: Fasting Glucose result from 100 to 125 mg/dL suggests IMPAIRED HOMEOSTASIS per A.D.A. criteria. Please note revised GLUCOSE reference range effective 2017. LAB L501.1000 7-18 mg/dL Normal BUN 11 LAB L501.1100 0.70-1.30 mg/dL High CREAT,SERUM 1.40 Result Comment: The validity of the calculated GFR AND GFRAA in patients over 70 years has not been determined. Clinical correlation is essential. LAB L501.1110 >60 mL/min Low EST GFR 54 Result Comment: Non- GFR Calc LAB L501.1115 >60 mL/min Normal EST GFR - AA 65 Result Comment: GFR Calc LAB L501.1255 ml/min Normal Estimated CRCL 46.20 LAB L501.1300 10-20 RATIO Low BUN/CRE 7.9 LAB L501.2200 8.5-10 mg/dL Normal .1 CA 9.5 LAB L501.5300 136-14 mmol/L Normal 5 NA 143 LAB L501.5600 3.5-5. mmol/L Normal 1 K 4.3 LAB L501.5900 98-107 mmol/L High CL 109 LAB L501.6100 21.0-3 mmol/L Normal 2.0 CO2 28.0 LAB L501.6200 5-15 Normal GAP 6 Performed By: #### L500.2500, L500.4100 #### [facility] [address] [place], [address] LIPID PROFILE Collected: 09/28/2017 Status: F Source: OSCAR 5:[address] [facility] REPOSITORY TYPE CODE TESTS RESULT OUT OF RANGE REFERENCE UNITS LAB L501.4900 200 mg/dL Normal CHOL 147 Result Comment: <200 mg/dL Desirable 200-240 mg/dL Borderline >240 mg/dL High Risk LAB L501.5000 mg/dL Normal TRIG 51 Result Comment: The drugs N-Acetylcysteine and Metamizole may falsely depress this assay. Serum Triglycerides Reference Interval Normal <150 mg/dL Borderline high 150 - 199 mg/dL High 200 - 499 mg/dL Very High > or = 500 mg/dL LAB L501.6400 mg/dL Normal HDL 59 Result Comment: The drugs N-Acetylcysteine and Metamizole may falsely depress this assay. Reference Range HDL <40 mg/dL Low HDL Cholesterol HDL >or= 60 mg/dL High HDL Cholesterol LAB L501.6500 0-130 mg/dL Normal LDL 78 LAB L501.6600 5-40 mg/dL Normal VLDL 10 Performed By: #### L500.2500, L500.4100 #### [facility] [address] [place], [address] BEDSIDE GLUCOSE Collected: 09/27/2017 Status: F Source: OSCAR 4:[address] [facility] REPOSITORY TYPE CODE TESTS RESULT OUT OF RANGE REFERENCE UNITS LAB L501.080 70-110 mg/dL Normal BEDSIDE GLU 89 Result Comment: MANAGEMENT OF PATIENT CARE PER NURSING PROTOCOL Performed By: #### L501.080 #### [facility] Point of Care [address] [place], [place] [address] ALCOHOL, BLOOD Collected: 09/27/2017 Status: F Source: BURBANK (MEDICAL)-SERUM 1:[address] [facility] REPOSITORY TYPE CODE TESTS RESULT OUT OF RANGE REFERENCE UNITS LAB L501.9100 mg/dL Normal SERUM < 3.0 ETOH Result Comment: The serum:whole blood ethanol ratio is approximately 1.14 and varies slightly with hematocrit. Medical Alcohol reference interval and critical value in non-tolerant individuals; 50 - 100 Impairment 100 Intoxication 100 - 250 Severe Poisoning 250 - 400 Deep/possible fatal coma Performed By: #### L501.9100 #### [facility] [address] [place], [place], [address] AMMONIA Collected: 09/27/2017 Status: F Source: B[place]BANK 1:[address] [facility] REPOSITORY TYPE CODE TESTS RESULT OUT OF REFERENCE UNITS RANGE LAB L503.5510 11-32 umol/L Low AMMONIA < 10.0 Performed By: #### L503.5510 #### [facility] [address] [place], [place], [address] LIVER PROFILE Collected: 09/27/2017 Status: F Source: [place] 1:[address] [facility] REPOSITORY TYPE CODE TESTS RESULT OUT OF RANGE REFERENCE UNITS LAB L501.1500 6.4-8.2 g/dL Normal T PROT 7.0 LAB L501.1800 3.2-5.0 g/dL Normal ALB 3.6 LAB L501.1950 2.2-4.2 g/dL Normal GLOB 3.4 LAB L501.4100 15-37 U/L Normal AST 16 LAB L501.4305 45-117 U/L Normal ALK P 98 LAB L501.4405 16-61 U/L Normal ALT 16 LAB L501.4600 0.20-1.00 mg/dL Normal T BILI 0.50 LAB L501.4700 0.00-0.30 mg/dL Normal D BILI 0.15 Performed By: #### L500.3400, L501.4010, L501.9520 #### [facility] [address] [place], [address] TROPONIN-I Collected: 09/27/2017 Status: F Source: OSCAR 1:[address] [facility] REPOSITORY TYPE CODE TESTS RESULT OUT OF RANGE REFERENCE UNITS LAB L501.4010 <0.045 ng/mL Normal < 0.015 TROPONIN-I Result Comment: TROPONIN-I EXPECTED VALUES <0.045 Negative 0.045 - 0.590 Consistent with Cardiac Damage > OR = 0.600 Critical Value Not every elevated troponin is indicative of SD. These values should be used with clinical judgement in examining the patient's clinical picture for diagnosis. To establish a diagnosis of SD versus myocardial injury, there must be a demonstrated rise and/or fall in the troponin values, in addition to ischemic symptoms, EKG changes, new regional wall motion abnormality, and/or angiographical evidence. PLEASE NOTE: REFERENCE RANGES EDITED 17 Performed By: #### L500.3400, L501.4010, L501.9520 #### [facility] [address] [place], [address] THYROID STIM HORMONE Collected: 09/27/2017 Status: F Source: [facility] (TSH) 1:[address] [facility] REPOSITORY TYPE CODE TESTS RESULT OUT OF RANGE REFERENCE UNITS LAB L501.9520 0.358-3.74 uIU/mL Normal TSH 1.47 Performed By: #### L500.3400, L501.4010, L501.9520 #### [facility] [address] [place], [address] BRAIN WITHOUT Observed: 09/27/2017 Status: F Source: [place]SCAR CONTRAST 1:[address] [facility] REPOSITORY [facility] Imaging Services [address] [place] [address] Brain without Contrast MR#: [id number] Acct: [id number] Name: RICARDO CHILDS Rep #: [id number] : 1950 M 67 From: Fawn Perez MD PCP: Conrado Maya DO Status: ADM IN Study: Brain without Contrast Date of Exam: 09/27/17 Exam# [id number] Ordering Dr: Ranjith, Jamar MD STUDY: MRI BRAIN WITHOUT CONTRAST REASON FOR EXAM: Male, 67 years old. Confusion. Patient is unable to follow instructions. TECHNIQUE: Standardized multiplanar fat and water weighted pulse sequences were obtained. COMPARISON: CT of the head dated September 27, 2017. FINDINGS: There is mild cerebral atrophy with widening of the extra- axial spaces and moderate ventricular dilatation. There are multiple white matter hyperintensities, distributed throughout the deep white matter tracts of the cerebral hemispheres, consistent with moderate chronic white matter ischemic changes. There is a tiny focus of restricted diffusion within the right paramedian piotr that suggest sequela of an acute infarct. There is a small focus of restricted diffusion within the right centrum semiovale ovale consistent with an acute infarct. There is a tiny focus of restricted diffusion and the left basal ganglia suggesting sequela of acute infarct. Normal T2* images of the brain without demonstrated susceptibility artifact. There is no demonstrated hemosiderin stain. Normal bilateral basal ganglia. Normal thalami. There is no extra-axial fluid accumulation. Normal flow voids within the major intracranial circulation suggesting patency by spin echo criteria. There is tortuosity of the vertebrobasilar arteries. Normal sella turcica, pituitary gland, infundibular stalk, optic chiasm and hypothalamus. Normal tectal plate and pineal gland. Normal midbrain, piotr and medulla. There are multiple small areas of encephalomalacia in the cerebellum consistent with old infarcts. There are mild involutional changes of the cerebellum. There are large basal cisterns. Normal bilateral temporal bones. Normal bilateral internal auditory canals. No demonstrated orbital abnormality, within the constraints of a routine brain study. Normal visualized paranasal sinuses. There is mild mucoperiosteal thickening in ethmoid sinuses. There is moderate deviation of the nasal septum towards the right. Normal visualized soft tissue structures. Normal visualized upper cervical spine. MRI/Brain without Contrast IMPRESSION: 1. Involutional changes of the brain, as described above. 2. Multiple scattered tiny infarcts as described. 3. Moderate ventriculomegaly may be the result of normal pressure hydrocephalus. N.B. : The above information has been verbally conveyed by Fawn Perez MD to Sheryl Green, RN, Hospital- In-Patient RN, on 09/28/2017 11:14:22 (ET). Electronically Signed: Fawn Perez MD at 11:17 EDT , Service support , N.B. : The above information has been verbally conveyed by Fawn Perez MD to Sheryl Green, RN, Hospital- In-Patient RN, on 09/28/2017 11:14:22 (ET). CC: Jamar Kasper MD; Conrado Maya DO Information Security Analyst: Signed HISTORY AND PHYSICAL Observed: 09/27/2017 Status: F Source: [facility] EXAM 12:[address] [facility] REPOSITORY [facility] Medical Records Department [address] [place] [address] History and Physical 09/27/17 1218 MR#: [id number] Acct: [id number] Name: RICARDO CHILDS Rep #: [id number] : 1950 67 From: Jamar Kasper MD PCP: Conrado Maya DO Status: ADM IN Y Location: [address] Problem List (1) Pulmonary emboli Status: Acute (2) Acute respiratory failure Status: Resolved (3) Altered mental status Status: Acute (4) Ischemic stroke Status: Acute (5) Hypertension Status: Chronic (6) Dyslipidemia Status: Acute History of Present Illness Date of Admission: 09/27/17 Chief Complaint: Altered mental status since yesterday The patient is a 67 year old M with history of bilateral extensive PE and DVT in February 2016 was on Eliquis until early part of the year was brought in by ambulance after patient was not acting right as per the . Patient was confused, not able to understand or comprehend the speech, repeating words, not able to recognize common things and perform simple tasks since yesterday morning. As per the , patient was asking repeated cues as he is not able to understand. He also complained of blurry vision both eyes and to me left eye. Complain of occipital and parietal headache which is new to him. Also noted to have slight left facial droop. Patient denies weakness, numbness, tingling, bowel or bladder incontinence or seizure or syncope. Patient denies any previous history of stroke or SD or cardiac stent. [] In ED, EKG shows normal sinus rhythm at [address] head without contrast does not show any acute change Past Medical History Past Medical History (Chronic Problems): Chronic Problems Hypertension (Chronic) Allergies codeine Adverse Reaction (Verified 09/27/17 09:41) Unknown Home Medications: Ambulatory Orders Medication Instructions Recorded Smoking Status: Former smoker - *Family History Maternal History Items: No pertinent history Review of Systems Constitutional: Denies: Fever Eyes: Reports: Vision Change HEENT: Reports: Head Aches Cardiovascular: Denies: Chest Pain Respiratory: Denies: Shortness of Breath Unable to obtain accurate/complete ROS d/t: Patient is not able to comprehend verbal command or his speech. VTE Information - Inpt Only VTE Present on Admission: No VTE Mechan Device Prophylaxis: SCD's VTE Pharm Prophylaxis ordered?: Yes Patient Problems: Active and Suspected Problems Altered mental status (Acute) Ischemic stroke (Acute) Dyslipidemia (Acute) - Physical Exam General: Cooperative, Confused, Disoriented - To time, place and situation HEENT: Atraumatic, PERRLA, EOMI, Normocephalic Oral: Moist Mucosa Neck: Supple, No JVD, Negative Carotid Bruits Lungs: Clear to auscultation, No rhonchi, No wheeze, Diminished - Bilateral lung bases Cardiovascular: Regular rate, Regular Rhythm, Normal S1, Normal S2, No murmurs Abdomen: Bowel Sounds Present, Soft, Non Tender, Non-Distended Extremities: No edema, Capillary Refill Less than 3 Seconds Skin: No rashes, No breakdown Musculoskeletal: No Tenderness to Palpation of Joints or Extremities Neurological: Muscle tone normal, Sensory exam intact to light touch and pain, - - Possible loss of vision on left side although difficult to say definitely as patient is not able to comprehend the command. Slight left-sided facial palsy. Inability to comprehend visual, written or spoken language NIH stroke scale although difficult to calculate but seems to be 5-7 Psych/Mental Status: Normal Affect, Appropriate Vital Signs Temp Pulse Resp BP Pulse Ox 98.4 F 80 16 123/85 H 98 09/27/17 09:42 09/27/17 09:42 09/27/17 09:42 09/27/17 09:42 09/27/17 09:42 Oxygen Delivery Method Room Air Weight: 180 lb Body Mass Index (BMI) 29.0 Laboratory Tests Past 24 Hrs WBC 5.1 RBC 5.21 Hgb 15.5 Hct 45.1 MCV 86.6 MCH 29.8 MCHC 34.4 RDW 12.6 RDW Differential 39.7 Assessment/Plan All Active Problems Altered mental status (Acute) Ischemic stroke (Acute) Dyslipidemia (Acute) Acute respiratory failure (Resolved) Pulmonary emboli (Acute) The patient is a 67 year old M with history of bilateral extensive PE and DVT in February 2016 was on Eliquis until early part of the year was brought in by ambulance after patient was not acting right as per the . Patient was confused, not able to understand or comprehend the speech, repeating words, not able to recognize common things and perform simple tasks since yesterday morning. As per the , patient was asking repeated cues as he is not able to understand. He also complained of blurry vision both eyes and to me left eye. Complain of occipital and parietal headache which is new to him. Also noted to have slight left facial droop. Patient denies weakness, numbness, tingling, bowel or bladder incontinence or seizure or syncope. Patient denies any previous history of stroke or SD or cardiac stent. [] In ED, EKG shows normal sinus rhythm at [address] head without contrast does not show any acute change. In ED, NIH stroke scale calculated 5, 2 points for LOC questions, partial gaze palsy and complete hemianopia 1. Possible acute/subacute ischemic stroke: Patient has multiple neurological symptoms including severe language aphasia, altered mental status, disorganized behavior probably related to acute ischemic stroke. Patient is being admitted in PCU. Ischemic stroke workup ordered including CT angiogram of head and neck, MRI of brain. Discussed with neurologist Dr. Robles and he advised CTA of head and neck and primary stroke workup. BP and glucose control as per stroke guidelines. 2D echo ordered. On aspirin and a statin. NIH stroke scale 2. Acute encephalopathy possible related to acute stroke/metabolic encephalopathy: U tox, serum alcohol ordered. UA is ordered. 3. Acute kidney injury possibly prerenal: Patient did not had any recent kidney function evaluated. Last creatinine 0.9 in February 2016 with estimated creatinine clearance 72 mL/min. IV fluid normal saline ordered. Monitor electrolytes and kidney function 4. Other chronic problems include chronic back pain, hypertension and dyslipidemia history of pulmonary embolism and DVT in 2016, : Blood pressure is controlled within stroke guidelines. Home medication reconciliation done. DVT prophylaxis: On heparin 5000 subcutaneous twice daily and bilateral SCDs. Laboratory Results 09/27/17 10:10: WBC 5.1, RBC 5.21, Hgb 15.5, Hct 45.1, MCV 86.6, MCH 29.8, MCHC 34.4, RDW 12.6, RDW Differential 39.7, Plt Count 187, MPV 9.9, Immature Gran % (Auto) 0.200, Neut % (Auto) 75.0 H, Lymph % (Auto) 14.0 L, Mccreary % (Auto) 8.4, Eos % (Auto) 1.6, Baso % (Auto) 0.8, Absolute Neuts (auto) 3.9, Absolute Lymphs (auto) 0.72 L, Total Counted Not Reportable 09/27/17 10:10: Sodium 141, Potassium 3.5, Chloride 110 H, Carbon Dioxide 26.0, Anion Gap 5, BUN 14, Creatinine 1.46 H, Estim Creat Clear Calc 44.31, Est GFR (MDRD) Af Amer 62, Est GFR (MDRD) Non-Af 51 L, BUN/Creatinine Ratio 9.6 L, Glucose 111 H, Calcium 8.9, Troponin I < 0.015 Clinical Impression(s) from Imaging Studies Brain CT 09/27/17 09:57 IMPRESSION: Chronic involutional changes. No acute intracranial abnormality. Chest X-Ray 09/27/17 09:57 IMPRESSION: Degenerative changes, as described above. No demonstrated acute cardiopulmonary process. Code Visit Inpatient E AND M: 20197 Init Hosp L3 09/27/17 1257 <Electronically signed by Jamar Kasper MD> Date Jamar Kasper MD Cosigner Signature: Date (if applicable) CC: Jamar Kasper MD; Conrado Maya DO Signed CTA HEAD W/WO Observed: 09/27/2017 Status: F Source: [place] CONTRAST 11:[address] [facility] REPOSITORY [facility] Imaging Services [address] [place] [address] CTA Head W/WO Contrast MR#: [id number] Acct: [id number] Name: RICARDO CHILDS Rep #: [id number] : 1950 M 67 From: Kwadwo Marcos DO PCP: Conrado Maya DO Status: ADM IN Study: CTA Head W/WO Contrast Date of Exam: 09/27/17 Exam# [id number] Ordering Dr: Jamar Kasper MD STUDY: CTA OF THE BRAIN REASON FOR EXAM: Male, 67 years old. Stroke RADIATION DOSAGE (If Supplied By Facility): CTDIvol = ( 29.70 ) mGy, DLP = ( 1361.83 ) mGycm TECHNIQUE: CT angiography was performed with a multi-detector CT scanner. Data acquisition was obtained from the skull base through the vertex following intravenous administration of 75 ml of Isovue-370. MIP images were reconstructed from the axial data set. Post-processing of the angiographic images was performed, with multiplanar reformation and 3D reconstruction. Individualized dose optimization techniques were used for this CT. COMPARISON: None. FINDINGS: Normal bilateral petrous carotid arteries. Normal right cavernous carotid artery with a normal supraclinoid bifurcation. Normal left cavernous carotid artery with a normal supraclinoid bifurcation. Normal right A1 segments of the anterior cerebral artery. Normal left A1 segments of the anterior cerebral artery. Normal intact anterior communicating artery (ACOM). Normal bilateral A2 segments of the anterior cerebral arteries. Normal right M1 and M2 segments of the middle cerebral arteries, with a normal M1 bifurcation. Normal left M1 and M2 segments of the middle cerebral arteries, with a normal M1 bifurcation. Nonvisualization of the posterior communicating arteries (PCOM). Normal bilateral vertebral arteries. Normal basilar artery with a normal basilar bifurcation. The visualized bilateral superior cerebellar (SCA) arteries are normal. Normal bilateral P1, P2 and visualized P3 segments of the posterior cerebral arteries. There is no demonstrated aneurysm of the [place]. There are chronic age-related changes of the visualized brain. IMPRESSION: Normal [place] without a demonstrated aneurysm or hemodynamically significant stenosis. Electronically Signed: Kwadwo Marcos DO at 13:09 EDT Tel [phone], Service support , STUDY: CTA NECK WITH CONTRAST REASON FOR EXAM: Male, 67 years old. Stroke TECHNIQUE: CT angiography with multi-detector data acquisition was performed from the aortic arch to the skull base following intravenous administration of 75ML ml of Isovue 370 contrast. MIP images were reconstructed from the axial data set. Post-processing of the angiographic images was performed, with multiplanar reformation and 3D reconstruction. Individualized dose optimization techniques were used for this CT. COMPARISON: None. FINDINGS: AORTIC ARCH: Minimal atherosclerotic aspirations of the visualized aortic arch. Normal origins of the brachiocephalic, left common carotid, and left subclavian arteries. RIGHT CAROTID ARTERIES: Normal right common carotid artery (CCA). Normal right common carotid bulb. Normal origin of the right internal carotid (ICA) artery without a hemodynamically significant stenosis. Normal visualized cervical portion of the right internal carotid artery. Normal origin of the right external carotid artery (ECA). LEFT CAROTID ARTERIES: Normal left common carotid artery (CCA). Normal left common carotid bulb. Normal origin of the left internal carotid (ICA) artery without a hemodynamically significant stenosis. Normal visualized cervical portion of the left internal carotid artery. Normal origin of the left external carotid artery (ECA). VERTEBRAL ARTERIES: Normal bilateral vertebral arteries. CT/CTA Head W/WO Contrast IMPRESSION: Normal bilateral cervical carotid and vertebral arteries. Electronically Signed: Kwadwo Marcos DO at 13:10 EDT Tel [phone], Service support , CC: Jamar Kasper MD; Conrado Maya DO Information Security Analyst: Signed CTA NECK W/WO Observed: 09/27/2017 Status: F Source: [place] CONTRAST 11:[address] [facility] REPOSITORY [facility] Imaging Services [address] [place] [address] CTA Neck W/WO Contrast MR#: [id number] Acct: [id number] Name: RICARDO CHILDS Rep #: [id number] : 1950 M 67 From: Kwadwo Marcos DO PCP: Conrado Maya DO Status: ADM IN Study: CTA Neck W/WO Contrast Date of Exam: 09/27/17 Exam# [id number] Ordering Dr: Jamar Kasper MD STUDY: CTA OF THE BRAIN REASON FOR EXAM: Male, 67 years old. Stroke RADIATION DOSAGE (If Supplied By Facility): CTDIvol = ( 29.70 ) mGy, DLP = ( 1361.83 ) mGycm TECHNIQUE: CT angiography was performed with a multi-detector CT scanner. Data acquisition was obtained from the skull base through the vertex following intravenous administration of 75 ml of Isovue-370. MIP images were reconstructed from the axial data set. Post-processing of the angiographic images was performed, with multiplanar reformation and 3D reconstruction. Individualized dose optimization techniques were used for this CT. COMPARISON: None. FINDINGS: Normal bilateral petrous carotid arteries. Normal right cavernous carotid artery with a normal supraclinoid bifurcation. Normal left cavernous carotid artery with a normal supraclinoid bifurcation. Normal right A1 segments of the anterior cerebral artery. Normal left A1 segments of the anterior cerebral artery. Normal intact anterior communicating artery (ACOM). Normal bilateral A2 segments of the anterior cerebral arteries. Normal right M1 and M2 segments of the middle cerebral arteries, with a normal M1 bifurcation. Normal left M1 and M2 segments of the middle cerebral arteries, with a normal M1 bifurcation. Nonvisualization of the posterior communicating arteries (PCOM). Normal bilateral vertebral arteries. Normal basilar artery with a normal basilar bifurcation. The visualized bilateral superior cerebellar (SCA) arteries are normal. Normal bilateral P1, P2 and visualized P3 segments of the posterior cerebral arteries. There is no demonstrated aneurysm of the [place]. There are chronic age-related changes of the visualized brain. IMPRESSION: Normal [place] without a demonstrated aneurysm or hemodynamically significant stenosis. Electronically Signed: Kwadwo Marcos DO at 13:09 EDT Tel [phone], Service support , STUDY: CTA NECK WITH CONTRAST REASON FOR EXAM: Male, 67 years old. Stroke TECHNIQUE: CT angiography with multi-detector data acquisition was performed from the aortic arch to the skull base following intravenous administration of 75ML ml of Isovue 370 contrast. MIP images were reconstructed from the axial data set. Post-processing of the angiographic images was performed, with multiplanar reformation and 3D reconstruction. Individualized dose optimization techniques were used for this CT. COMPARISON: None. FINDINGS: AORTIC ARCH: Minimal atherosclerotic aspirations of the visualized aortic arch. Normal origins of the brachiocephalic, left common carotid, and left subclavian arteries. RIGHT CAROTID ARTERIES: Normal right common carotid artery (CCA). Normal right common carotid bulb. Normal origin of the right internal carotid (ICA) artery without a hemodynamically significant stenosis. Normal visualized cervical portion of the right internal carotid artery. Normal origin of the right external carotid artery (ECA). LEFT CAROTID ARTERIES: Normal left common carotid artery (CCA). Normal left common carotid bulb. Normal origin of the left internal carotid (ICA) artery without a hemodynamically significant stenosis. Normal visualized cervical portion of the left internal carotid artery. Normal origin of the left external carotid artery (ECA). VERTEBRAL ARTERIES: Normal bilateral vertebral arteries. CT/CTA Neck W/WO Contrast IMPRESSION: Normal bilateral cervical carotid and vertebral arteries. Electronically Signed: Kwadwo Marcos DO at 13:10 EDT Tel [phone], Service support , CC: Jamar Kasper MD; Conrado Maya DO Information Security Analyst: Signed EMERGENCY DEPARTMENT Observed: 09/27/2017 Status: F Source: [place] SUMMARY 11:[address] [facility] REPOSITORY [facility] Medical Records Department [address] [place] [address] Emergency Department Summary 09/27/17 1043 MR#: [id number] Acct: [id number] Name: RICARDO CHILDS Rep #: [id number] : 1950 67 From: Zeynep [place] DO PCP: Conrado Maya DO Status: ADM VINCENT ADDENDUM by Zeynep [place] DO on 09/27/17 at 1102 Patient's NIH stroke scale actually was a 3 due to loss of vision in the left eye. The initial dictation stated NIH stroke scale of 0 which was not correct. Exam of the left eye revealed that patient claimed to see shadows with the left eye but was unable to see how many fingers I was holding up. There was no blinking with confrontation of the left eye. Date Zeynep [place] DO cc: Conrado Maya DO * Signed - ER Visit Summary Date of Service: 09/27/17 Chief Complaint: [Mental status change] History of Present Illness: The patient is a 67 M [presents to the emergency department with complaint of mental status change since yesterday morning. Patient states that he developed a sudden onset of a headache and also blurred vision from both eyes. states that patient was confused yesterday and had a hard time figuring out how to open the door to their bedroom. Patient also walked here today and did not recognize areas of town that he should have known. Patient also has been repeating himself. There have been no falls or head injuries. No recent illness. No new medications. Patient has a history of hypertension, high cholesterol, and history of PEs. Patient has been off his Eliquis since the early part of the year. Currently patient rates his headache as an 8 out of 10.] Physical Examination: [HEENT-PERRLA, EOMI. Cranial nerves II through XII grossly intact. TMs clear. Mucous membranes moist. No adenopathy. Cardiovascular-regular rate and rhythm without murmur or ectopy Lungs-clear to auscultation, chest wall stable without crepitus or subcu emphysema Abdomen-normoactive bowel sounds, soft, nontender, no rebound or rigidity, no peritoneal signs. Neuro ruio-vdsljs-swdn and heel bello testing within normal limits, negative Romberg, negative pronator drift. No focal weakness noted. Extremities-intact 4, normal range of motion, normal pulses, atraumatic] Test Results: [EKG obtained on arrival showed a sinus rhythm with a ventricular rate of 63 bpm with no acute ST segment changes noted. CT scan of the brain without contrast showed chronic involutional changes otherwise nothing acute. CBC with differential showing a 5.1, hemoglobin 15, hematocrit 45, platelets 187. Chemistries unremarkable. BUN was 14 and creatinine 1.46. Troponin was less than 0.015.] Emergency Department Course and Treatment: [] Treatment Plan: [Admit for further workup and evaluation as the etiology of symptoms unclear at this time. There is still some concern for possibility of stroke. Patient is not a thrombolytic candidate as symptoms have been ongoing for more than 24 hours and his NIH stroke scale here is 0.] Disposition: [Admit] Impression: [Mental status change-etiology uncertain Cephalgia] This note was generated with [employer] dictation software. It may contain incorrect words, spelling, and punctuation that were not noted in review of the chart prior to signing ED Disposition - Plan for ED Patient: Chief Complaint: Mental Status Change Referrals: Conrado Maya DO [Primary Care Provider] - What to do if you have Problems For any increased pain, shortness of breath, bleeding, nausea or vomiting, chest pain, or any unexpected problems, contact your Primary Care Provider. Call [facility] ([phone]) or report to the closest Emergency Room. Call 911 if necessary. 09/27/17 1047 <Electronically signed by Zeynep [place] DO> Date Zeynep [place] DO Cosigner Signature (If Indicated): Date CC: Conrado Francesco DO CBC W/DIFF, AUTOMATED Collected: 09/27/2017 Status: F Source: [facility] 10:[address] [facility] REPOSITORY TYPE CODE TESTS RESULT OUT OF RANGE REFERENCE UNITS LAB L100.1000 4.4-11.0 K/mm3 Normal WBC 5.1 LAB L100.1200 4.6-6.2 M/mm3 Normal RBC 5.21 LAB L100.1300 13.0-16.5 g/dl Normal HGB 15.5 LAB L100.1400 40-54 % Normal HCT 45.1 LAB L100.1500 80-94 fL Normal MCV 86.6 LAB L100.1600 27.0-32.0 pg Normal MCH 29.8 LAB L100.1700 32-36 g/gl Normal MCHC 34.4 LAB L100.1810 11.6-14.6 % Normal RDW CV 12.6 LAB L100.1820 35.1-43.9 fl Normal RDW SD 39.7 LAB L100.1900 150-450 K/mm3 Normal PLT 187 LAB L100.2000 6.2-12.0 fl Normal MPV 9.9 LAB L100.2100 47-70 % High NEUT% 75.0 LAB L100.2200 19-41 % Low LY% 14.0 LAB L100.2300 0-10 % Normal MONO% 8.4 LAB L100.2400 0-5 % Normal EO% 1.6 LAB L100.2500 0-1 % Normal BASO% 0.8 LAB L100.2550 0.0-0.9 % Normal IM GRAN % 0.200 Result Comment: IG% - Immature Granulocytes (promyelocytes, myelocytes and metamyelocytes) > 1% indicates that a LEFT SHIFT is Present. LAB L100.2620 2.0-7.7 X10 3/uL Normal Absolute Neut 3.9 LAB L100.2720 0.83-4.51 X10 3/ul Low Absolute Lymph 0.72 Performed By: #### L100.0100 #### [facility] [address] [place], [address] BASIC METABOLIC Collected: 09/27/2017 Status: F Source: OSCAR PROFILE (BMP) 10:[address] [facility] REPOSITORY TYPE CODE TESTS RESULT OUT OF RANGE REFERENCE UNITS LAB L501.0100 74-106 mg/dL High GLU 111 Result Comment: Fasting Glucose result from 100 to 125 mg/dL suggests IMPAIRED HOMEOSTASIS per A.D.A. criteria. Please note revised GLUCOSE reference range effective 2017. LAB L501.1000 7-18 mg/dL Normal BUN 14 LAB L501.1100 0.70-1.30 mg/dL High CREAT,SERUM 1.46 Result Comment: The validity of the calculated GFR AND GFRAA in patients over 70 years has not been determined. Clinical correlation is essential. LAB L501.1110 >60 mL/min Low EST GFR 51 Result Comment: Non- GFR Calc LAB L501.1115 >60 mL/min Normal EST GFR - AA 62 Result Comment: GFR Calc LAB L501.1255 ml/min Normal Estimated CRCL 44.31 LAB L501.1300 10-20 RATIO Low BUN/CRE 9.6 LAB L501.2200 8.5-10 mg/dL Normal .1 CA 8.9 LAB L501.5300 136-14 mmol/L Normal 5 NA 141 LAB L501.5600 3.5-5. mmol/L Normal 1 K 3.5 LAB L501.5900 98-107 mmol/L High CL 110 LAB L501.6100 21.0-3 mmol/L Normal 2.0 CO2 26.0 LAB L501.6200 5-15 Normal GAP 5 Performed By: #### L500.2500, L501.4010 #### [facility] [address] [place], [address] TROPONIN-I Collected: 09/27/2017 Status: F Source: OSCAR 10:[address] [facility] REPOSITORY TYPE CODE TESTS RESULT OUT OF RANGE REFERENCE UNITS LAB L501.4010 <0.045 ng/mL Normal < 0.015 TROPONIN-I Result Comment: TROPONIN-I EXPECTED VALUES <0.045 Negative 0.045 - 0.590 Consistent with Cardiac Damage > OR = 0.600 Critical Value Not every elevated troponin is indicative of SD. These values should be used with clinical judgement in examining the patient's clinical picture for diagnosis. To establish a diagnosis of SD versus myocardial injury, there must be a demonstrated rise and/or fall in the troponin values, in addition to ischemic symptoms, EKG changes, new regional wall motion abnormality, and/or angiographical evidence. PLEASE NOTE: REFERENCE RANGES EDITED 17 Performed By: #### L500.2500, L501.4010 #### [facility] [address] [place], [address] HEMOGLOBIN A1C Collected: 09/27/2017 Status: F Source: BURBANK 10:[address] [facility] REPOSITORY Order Comment: ADD ON TYPE CODE TESTS RESULT OUT OF RANGE REFERENCE UNITS LAB L501.9985 4.2-6.3 % Normal HGB A1C 5.4 Performed By: #### L501.9985 #### [facility] [address] [place], [address] BRAIN/HEAD WITHOUT Observed: 09/27/2017 Status: F Source: BURBANK CONTRAST 9:[address] [facility] REPOSITORY [facility] Imaging Services [address] [place] [address] Brain/Head without Contrast MR#: [id number] Acct: [id number] Name: RICARDO CHILDS [employer] Rep #: [id number] : 1950 M 67 From: Lee Ruffin DO PCP: Conrado Maya DO Status: REG ER Study: Brain/Head without Contrast Date of Exam: 09/27/17 Exam# [id number] Ordering Dr: Zeynep Hernandez DO STUDY: CT BRAIN WITHOUT CONTRAST REASON FOR EXAM: Male, 67 years old. Confusion RADIATION DOSAGE (If Supplied By Facility): CTDIvol = ( 44.99 ) mGy, DLP = ( 812.98 ) mGycm TECHNIQUE: Transaxial CT imaging of the brain was performed without administration of intravenous contrast material. Sagittal and coronal reconstructed images are provided and reviewed. Individualized dose optimization techniques were used for this CT. COMPARISON: None. FINDINGS: Normal soft tissue structures. Normal calvarium. There is moderate cerebral atrophy with widening of the extra- axial spaces and ventricular dilatation. Normal white matter tracts of the cerebral hemispheres. Normal basal ganglia and thalami. Normal brainstem. Normal cerebellum. There is no intracranial hemorrhage. There are no findings of an acute ischemic infarction. Normal visualized paranasal sinuses. CT/Brain/Head without Contrast IMPRESSION: Chronic involutional changes. No acute intracranial abnormality. Electronically Signed: Lee Ruffin DO at 10:34 EDT Tel , Service support , CC: Zeynep Hernandez DO; Conrado Maya DO Information Security Analyst: Signed CHEST 1 VIEW Observed: 09/27/2017 Status: F Source: OSCAR (PORTABLE) 9:[address] [facility] REPOSITORY [facility] Imaging Services [address] [place] [address] Chest 1 View (Portable) MR#: [id number] Acct: [id number] Name: AMADEORICARDO Kodak Rep #: [id number] : 1950 M 67 From: Lee Ruffin DO PCP: Conrado Maya DO Status: REG ER Study: Chest 1 View (Portable) Date of Exam: 09/27/17 Exam# [id number] Ordering Dr: Zeynep Hernandez DO STUDY: X-RAY CHEST REASON FOR EXAM: Male, 67 years old. Confusion, mental status change TECHNIQUE: Single AP portable view of the chest. COMPARISON: 03/03/2016 FINDINGS: Cardiac monitoring leads overlie the chest. The lungs are clear and expanded. There is no demonstrated pleural abnormality. Normal size heart. Normal mediastinum and mookie. Normal visualized pulmonary arteries. There is atherosclerotic tortuosity of the aortic arch and descending thoracic aorta. There are diffuse degenerative changes of the visualized thoracic spine. Normal visualized ribs, clavicles, and shoulders. There is no demonstrated abnormality of the visualized soft tissue structures of the upper abdomen. RAD/Chest 1 View (Portable) IMPRESSION: Degenerative changes, as described above. No demonstrated acute cardiopulmonary process. Electronically Signed: Lee Ruffin DO at 11:19 EDT Tel , Service support , CC: Zeynep Hernandez DO; Conrado Maya DO Information Security Analyst: Signed LIPID Collected: 07/12/2017 Status: F Source: AwesomePiece 10:28 AM [facility] REPOSITORY TYPE CODE TESTS RESULT OUT OF REFERENCE UNITS RANGE LAB CHOL(LOINC 131-200 mg/dL ) Cholesterol 144 Result Comment: Cholesterol Reference Interval: Less than 200 Desirable 200-239 Borderline high risk 240 and above High risk LAB TRIG(LOINC) 40-150 mg/dL Triglycerides 83 Result Comment: Triglyceride Reference Interval: Less than 150 Normal 150-199 Borderline high risk 200-499 High risk 500 or higher Very high risk LAB HD(LOINC) 35-90 mg/dL HDL Cholesterol 51 Result Comment: HDL Reference Interval: Less than 40 Low - high risk 60 or above Optimal/lowers risk LAB LDL(LOINC) 0-130 mg/dL LDL Cholesterol 76 Result Comment: LDL is a calculated result and requires a 12-hr fast. LDL Reference Interval: Less than 100 Optimal 100-129 Near or above optimal 130-159 Borderline high risk 160-189 High risk 190 and above Very high risk Performed By: #### LIPID, CMP, GFR, TSH #### [address] [address] #### B12, FOL #### [address] [address] CMP Collected: 07/12/2017 Status: F Source: AwesomePiece 10:28 AM [facility] REPOSITORY TYPE CODE TESTS RESULT OUT OF REFERENCE UNITS RANGE LAB 1547-9 80-115 mg/dL GLUCOSE 96 LAB NA(LOINC) 136-146 mEq/L Sodium Level 141 LAB K(LOINC) 3.5-5.1 mEq/L Potassium Level 4.2 LAB CL(LOINC) 98-107 mEq/L Chloride 106 LAB CO2(LOINC) 23-31 mEq/L CO2 24 LAB EBAL(LOINC mEq/L ) Electrolyte Balance 11.0 LAB BUN(LOINC) 7.0-18.0 mg/dL BUN 11.8 LAB CRE(LOINC) 0.6-1.2 mg/dL Creatinine High Lvl (s) 1.5 LAB BC(LOINC) 7-27 ratio BUN/Creatinine 8 Ratio LAB CA(LOINC) 8.4-10.2 mg/dL Calcium Lvl 9.8 LAB PROT(LOINC 6.0-8.3 G/dL ) Total Protein 6.9 LAB ALB(LOINC) 3.4-4.8 G/dL Albumin Level 4.4 LAB GLB(LOINC) G/dL Globulin 2.5 LAB AG(LOINC) 1.1-2.5 ratio A/G Ratio 1.8 LAB BILT(LOINC 0.2-1.0 mg/dL ) Bili Total 0.7 LAB AP(LOINC) 40-135 IU/L Alk Phos 101 LAB AST(LOINC) 10-40 IU/L AST/SGOT 25 LAB ALT(LOINC) 10-35 IU/L ALT/SGPT 26 Performed By: #### LIPID, CMP, GFR, TSH #### [address] [address] #### B12, FOL #### [address] [address] .GFR Collected: 07/12/2017 Status: F Source: [facility] 10:28 AM [facility] REPOSITORY TYPE CODE TESTS RESULT OUT OF REFERENCE UNITS RANGE LAB GFRAA(LOINC ml/min/1.73 ) sqm GFR 55 Chilean Result Comment: GFR Population mean for , Non- Americans Ages 20-29 = 116 mL/min/1.73 sq.m. Ages 30-39 = 107 mL/min/1.73 sq.m. Ages 40-49 = 99 mL/min/1.73 sq.m. Ages 50-59 = 93 mL/min/1.73 sq.m. Ages 60-69 = 85 mL/min/1.73 sq.m. Ages 70+ = 75 mL/min/1.73 sq.m. Chronic Kidney Disease: Less than 60 mL/min/1.73 square meters End Stage Renal Disease: Less than 15 mL/min/1.73 square meters LAB GFRNO(LOINC) ml/min/1.73sqm GFR Non- 45 Result Comment: GFR Population mean for , Non- Americans Ages 20-29 = 116 mL/min/1.73 sq.m. Ages 30-39 = 107 mL/min/1.73 sq.m. Ages 40-49 = 99 mL/min/1.73 sq.m. Ages 50-59 = 93 mL/min/1.73 sq.m. Ages 60-69 = 85 mL/min/1.73 sq.m. Ages 70+ = 75 mL/min/1.73 sq.m. Chronic Kidney Disease: Less than 60 mL/min/1.73 square meters End Stage Renal Disease: Less than 15 mL/min/1.73 square meters Performed By: #### LIPID, CMP, GFR, TSH #### [address] [address] #### B12, FOL #### [place] [address] TSH Collected: 07/12/2017 Status: F Source: [facility] 10:28 AM [facility] REPOSITORY TYPE CODE TESTS RESULT OUT OF RANGE REFERENCE UNITS LAB TSH(LOINC) 0.27-4.20 mcIU/mL TSH 2.10 Performed By: #### LIPID, CMP, GFR, TSH #### [address] [address] #### B12, FOL #### [place] [address] B12 Collected: 07/12/2017 Status: F Source: [facility] 10:28 AM [facility] REPOSITORY TYPE CODE TESTS RESULT OUT OF REFERENCE UNITS RANGE LAB B12(LOINC) 211-911 pg/mL Vitamin B12 328 Lvl Performed By: #### LIPID, CMP, GFR, TSH #### [address] [address] #### B12, FOL #### [facility] [address] [place] [address] FOL Collected: 07/12/2017 Status: F Source: [facility] 10:28 AM [facility] REPOSITORY TYPE CODE TESTS RESULT OUT OF REFERENCE UNITS RANGE LAB FOL(LOINC) 1.1-20.0 ng/mL Folate 9.0 Performed By: #### LIPID, CMP, GFR, TSH #### [facility] [address] [place], [place] [address] #### B12, FOL #### [facility] [address] [place] [address] CREATININE FINGERSTICK Collected: 05/17/2017 Status: F Source: BURBANK 1:[address] [facility] REPOSITORY TYPE CODE TESTS RESULT OUT OF REFERENCE UNITS RANGE LAB L9100.0210 0.70-1.30 mg/dL High CREATININE WB 1.8 LAB L9100.0220 >60 mL/min Low EGFR WB 40.0000 Performed By: #### L9100.0200 #### [facility] Point of Care [address] [place] [address] CT ABD/PELVIS W/WO Observed: 05/17/2017 Status: F Source: BURBANK CONTRAST 1:[address] [facility] REPOSITORY [facility] Imaging Services [address] [place] [address] CT Abd/Pelvis W/WO Contrast MR#: [id number] Acct: [id number] Name: RICARDO CHILDS [employer] Rep #: [id number] : 1950 M 66 From: Jennifer Mckinney MD PCP: Conrado Maya DO Status: REG CLI Study: CT Abd/Pelvis W/WO Contrast Date of Exam: 05/17/17 Exam# [id number] Ordering Dr: Neyda Roberts ARTISTIC DIRECTOR-C CT Abdomen And Pelvis WO/W Contrast INDICATION: Gross hematuria intermittently. Prior cholecystectomy, lumbar. COMPARISON: None TECHNIQUE: Precontrast CT of the abdomen and postcontrast CT of the abdomen and pelvis with coronal and sagittal reformatted images. 75 mL of Isovue-300 were given intravenously. Radiation dose optimization technique applied. FINDINGS: Precontrast images demonstrate numerous bilateral nonobstructing renal calculi, measuring between less than 1 mm and 3 mm on the right and less than 1 mm and 1.5 mm on the left. There is no evidence of hydronephrosis at this time. There is symmetric cortical renal enhancement. A right cortical renal cyst measures 3.8 cm in size, a left cortical renal cyst measures 2.2 cm in size. There is evidence of a heterogeneously enhancing 1.9 cm mass arising from the superior pole region of the right kidney, most compatible with a small renal cell carcinoma. The visualized lung bases are clear. The liver is prominent in size, measuring 20 cm in craniocaudal dimension. The gallbladder is surgically absent. The spleen is normal in size. Adrenal glands and pancreas are unremarkable. The bowel loops are nondistended. The appendix is unremarkable. The urinary bladder is unremarkable. The prostate gland is mildly enlarged and heterogenous, measuring 4 cm in diameter. There is no evidence of free air or free fluid. Osseous structures demonstrate multilevel degenerative disc disease, endplate degenerative changes and facet arthritic changes with lumbar spinal stenosis most severe at L3-4 and L4-5. CT/CT Abd/Pelvis W/WO Contrast IMPRESSION: 1.9 cm mass arising from the superior pole region of the right kidney with heterogenous enhancement, most compatible with a renal cell carcinoma. Bilateral nephrolithiasis. Bilateral cortical renal cysts. No evidence of hydronephrosis at this time. Hepatomegaly. Status post cholecystectomy. Degenerative changes of the lumbar spine with multilevel lumbar spinal stenosis. at 2210 Reported and signed by: Jennifer Mckinney MD N.B. : Dr. Hoskins, Covering Physician, confirmed on 05/17/2017 22:35:17 (ET) that the referring physician received the results and did not require a verbal consultation. Electronically Signed: Jennifer Mckinney MD at 21:09 EST Tel , Service support , N.B. : Dr. Hoskins, Covering Physician, confirmed on 05/17/2017 22:35:17 (ET) that the referring physician received the results and did not require a verbal consultation. CC: Neyda Roberts ARTISTIC DIRECTOR; Conrado Maya DO Information Security Analyst: Signed PSA,TOTAL - ANNUAL Collected: 05/10/2017 Status: F Source: OSCAR SCREEN 10:[address] [facility] REPOSITORY TYPE CODE TESTS RESULT OUT OF RANGE REFERENCE UNITS LAB L501.9910 0.00-4.00 ng/mL Normal PSA,TOT 0.76 SCREEN Result Comment: This test was performed using the TPSA assay method for the [employer] chemistry system. Values obtained with different assay methods cannot be used interchangably. When changing PSA assays in the course of monitoring a patient, additional sequential testing should be carried out to confirm baseline values. Performed By: #### L501.9910 #### [facility] [address] [place], [address] KIDNEY AND BLADDER Observed: 05/01/2017 Status: F Source: OSCAR 10:[address] [facility] REPOSITORY [facility] Imaging Services [address] [place] [address] Kidney and Bladder MR#: [id number] Acct: [id number] Name: RICARDO CHILDS [employer] Rep #: [id number] : 1950 M 66 From: Ericka Eller MD PCP: Conrado Maya DO Status: REG CLI Study: Kidney and Bladder Date of Exam: 05/01/17 Exam# [id number] Ordering Dr: Conrado Maya DO STUDY: RENAL ULTRASOUND - COMPLETE REASON FOR EXAM: Male, 66 years old. Hematuria TECHNIQUE: Ultrasound evaluation of the kidneys was performed with real-time and static mata-scale imaging. COMPARISON: None. FINDINGS: RIGHT KIDNEY: Normal location of the right kidney, which is normal in size. The right kidney measures 10.7 x 4.9 x 3.7 cm. There is a normal cortex of the right kidney. There is a right renal cyst which measures 3.5 x 3.4 x 1.9 cm. There is a nonobstructing calculus within the lower pole of the right kidney which measures up to 5 mm. There is no right hydronephrosis. DISTAL RIGHT URETER: There is a visualized right ureteral jet. LEFT KIDNEY: Normal location of the left kidney, which is normal in size. The left kidney measures 12.2 x 4.6 x 4.8 cm. There is a normal cortex of the left kidney. . There is a left renal cyst which measures 2.2 x 1.9 x 2.1 cm. There are nonobstructing left renal calculi. There is no left hydronephrosis. DISTAL LEFT URETER: There is no demonstrated left ureteral jet. I.V.C.: The IVC is patent. BLADDER: The bladder is incompletely distended with a volume of 156.7 There is a normal wall thickness of the distended urinary bladder. There is no demonstrated mass within the urinary bladder. There are no demonstrated bladder calculi. The prostate volume measures 38.4 mL. There is a calcification within the prostate gland. US/Kidney and Bladder IMPRESSION: Enlarged prostate gland. Bilateral nonobstructing renal calculi. Bilateral renal cysts. Electronically Signed: Ericka Eller MD at 22:14 EST Tel , Service support , CC: Conrado Maya DO Information Security Analyst: Signed ALLERGIES ALLERGIES DATE TYPE / CODE NAME / CODE REACTION SEVERITY SOURCE 04/14/2018 Drug codeine/F006 Unknown Unknown [facility] Allergy/4160 977185([facility] 11157(SNOMED M) Repository CT) ENCOUNTERS ENCOUNTERS ADMIT/DISCHARGE ACCOUNT NUMBER ADMITTING ENCOUNTER LOCATION SOURCE CLASS 04/14/2018/04/17/19 [id number] [facility], Inpatient Oscar Otis 19 Jamar Encounter [facility] ding:PCURoom Repository : [id number]: 1 04/14/2018 [id number] [facility], Ambulatory BMSBuilding: Oscar Jamar BMS.On license of [facility] Repository 04/14/2018 [id number] [facility], Ambulatory BMSBuilding: Otis Jamar BMS.On license of [facility] Repository 04/14/2018 [id number] [facility], Ambulatory BMSBuilding: Oscar Jamar BMS.On license of [facility] Repository 04/14/2018 [id number] Ranjith, Ambulatory BMSBuilding: Otis Jamar BMS.On license of [facility] Repository 04/14/2018 [id number] Ambulatory [facility] ding:OLS.WHL Repository TCC 04/11/2018 [id number] Ambulatory ABuilding:XR [facility] Repository 04/11/2018 [id number] Ambulatory [facility] ding:OLS.WHL Repository TCC 04/04/2018 [id number] Ambulatory [facility] ding:OLS.WHL Repository TCC 03/16/2018/03/29/19 [id number] [facility], Inpatient ABuilding:ME Tenisha 19 AYSE Encounter 5SRoom: Health 5659Bed: [facility] Repository 03/16/2018/03/16/20 [id number] Emergency [address] ding:ED Repository 02/13/2018 [id number] Ambulatory ABuilding:XR [facility] Repository 02/12/2018/02/13/20 [id number] Ambulatory ABuilding:XR [address] Repository 11/19/2017/11/20/19 [id number] Emergency [address] ding:ED Repository 09/28/2017 [id number] [address] [place] [address] Encounter 3WRoom: System [id number]: Repository [id number] 09/27/2017/09/29/19 [id number] [place], Inpatient Otis Otis 18 [place] Encounter [facility] ding:PCURoom Repository : [id number]: 1 09/27/2017 [id number] [place], Ambulatory BMSBuilding: Otis [place] BMS.On license of [facility] Repository 09/27/2017 [id number] [place], Ambulatory BMSBuilding: Oscar [place] BMS.On license of [facility] Repository 09/27/2017/09/29/19 [id number] Ambulatory BMSBuilding: Oscar 18 BMS.CF.[facility] Repository 09/27/2017/09/29/19 [id number] Ambulatory BMSBuilding: Oscar 18 [facility] Hospital Repository 07/12/2017/07/17/19 [id number] Ambulatory TENISHA Tenisha 18 [facility] ding:DROP [facility] Repository 05/17/2017 [id number] Ambulatory [facility] ding:CT Repository 05/10/2017 [id number] Ambulatory [facility] ding:LAB Repository 05/01/2017 [id number] Ambulatory [facility] ding:US Repository PAYERS PAYERS ENCOUNTER GUARANTOR PAYER SUBSCRIBER SOURCE 04/14/2018 RICARDO Candelario Primary RICARDO D [place] Insurance:ROMAN LEB: [facility] HEALTHY [id number] MEDICARE PPOPolicy [id number] Hospital [place] Number: [place] [id number] [address]Kke: (330) e Date:[id number] [phone] () [address] [place] [address]DW: 04/14/2018 Secondary NOT GIVENUNK Oscar Insurance:SELF PAY [facility] Number: Effective Repository Date:2018-04-14 04/14/2018 RICARDO D Primary RICARDO D [place] Insurance:ROMAN LEB: [facility] HEALTHY [id number] MEDICARE PPOPolicy [id number] Hospital [place] Number: [place] [id number] [address]Otc: (330) e Date:0712-03-93TJ [phone] () [address], [place] [address]LN: 04/14/2018 Secondary NOT GIVENUNK Oscar Insurance:SELF PAY [facility] Number: Effective Repository Date:2018-04-14 04/14/2018 RICARDO D Primary RICARDO D Oscar [place] Insurance:ROMAN LEB: [facility] HEALTHY [id number] MEDICARE PPOPolicy [id number] Hospital [place] Number: [place]ository [place] [id number] [address]Csv: (330) e Date:[id number] [phone] () [id number] [place] [address]CL: 04/14/2018 Secondary NOT GIVENUNK Otis Insurance:SELF PAY [facility] Number: Effective Repository Date:2018-04-14 04/14/2018 RICARDO D Primary RICARDO D [place] Insurance:ROMAN LEB: [facility] HEALTHY [id number] MEDICARE PPOPolicy [id number] CenterCBURG Number: Repository ENA ri [id number]: (330) e Date:4740-56-89RB [phone] () [id number] [place] [address]NI: 04/14/2018 Secondary NOT GIVENUNK Otis Insurance:SELF PAY [facility] Number: Effective Repository Date:2018-04-14 04/14/2018 RICARDO D Primary RICARDO D [place] Insurance:ROMAN LEB: Community HEALTHY [id number] MEDICARE PPOPolicy [id number] Comprehensive Health CenterCBURG Number: Repository salty [place] [id number] [address]Whf: (330) e Date:[id number] [phone] () [address], [place] [address]HF: 04/14/2018 Secondary NOT GIVENUNK Otis Insurance:SELF PAY [facility] Number: Effective Repository Date:2018-04-14 04/14/2018 RICARDO Candelario [id number] Primary NOT GIVENUNK Otis [facility] [place], [place] Insurance:SELF PAY [facility] [address]Qdi: (330) [facility] [phone] () Number: Effective Repository Date:2018-04-14 04/11/2018 RICARDO LEB: Primary RICARDO Candelario [facility] [id number] [facility] Insurance:[place]: [facility] RDWHARJIT[place], [place] [facility] [id number] Repository [address]Qrp: (330) Number: 66 ICKES [phone] () [id number] [place], [place] e Date:2018-03-29 [address]Sds: [phone] [id number] [phone] Name:NPO Box (HP)Tel: (000) [phone], 000- (WP) 699[address]WW: 04/11/2018 RICARDO Candelario Primary NOT GIVENUNK [place] Insurance:SELF PAY Community HEALTHY [id number] [facility] Number: Effective [place]ository [place] Date:2018-04-11 [id number]: (HP) 04/04/2018 RICARDO [id number] Primary NOT GIVENUNK [place] [facility] [place] Insurance[place]SELF PAY [facility] [address]Fpz: (330) [facility] [phone] () Number: Effective Repository Date:2018-04-04 03/16/2018 RICARDO LEB: Primary RICARDO D [facility] Insurance:[facility]: [place] MEDIBLUEPolicy [id number] Repository [address]Vrq: (330) Number: 66 DREA [phone] () [id number] [place], [place] e Date:2018-03-16 565[address]Zuq: [phone] [id number] [phone] Name:NPO Box (HP)Tel: (000) [phone], 000-0000 (WP) 07[address]EW: 03/16/2018 Secondary RICARDO Candelario [facility] Foundation PART A INSCOPolicy [id number] Repository Number: 66 DREA [id number] [place] Date:2018-03-16 614[address]Pzm: [phone] [id number] [phone] Name:MMail Code AG (HP)Tel: (000) [phone] (WP) [id number], [place] [address]XX: 03/16/2018 RICARDO [id number] Primary RICARDO Kodak Moore [facility] [place]: [facility] [id number]: (330) MEDICARE PPOPolicy [id number] Hospital [phone] (HP) Number: Repository [id number] e Date:1266-03-22AJ [address] [address]NM: 03/16/2018 Secondary NOT GIVENUNK [place] Insurance:SELF PAY [facility] Number: Effective Repository Date:2018-03-16 02/13/2018 RICARDO LEB: Primary RICARDO Candelario [facility] Insurance:ROMAN LEB: [facility] [id number] Repository 43749Ziz: (330) Number: [address] [facility] [phone] ()Tel: [id number] [place] ([place]) e Date:2018-02-12 88801Lpx: [phone] [phone] Name:[address] ()Tel: (000) [phone], [place] 000-0000 (WP) 382[address]WJ: 02/12/2018 RICARDO LEB: Primary RICARDO Kodak [facility] [id number] ICKES Insurance:[place]ISH: [facility] [id number] Repository 36349Rat: (371) Number: [address] [facility] [phone] (HP)Tel: [id number] [place] ([place]) e Date:2018-01-25 44865Jjj: [phone] [id number] [phone] Name:[address] ()Tel: (000) [phone] [place] 000-0000 (WP) 50204XY: 11/19/2017 Ricardo Childs7766 Primary Ricardo Candelario [place] [address] [address] Insurance:[facility] AmadeoB: [facility] [id number]: (185) MEDICARE PPOPolicy [id number] Hospital [phone] () Number: Repository [id number] e Date:7087-89-17LQ [address] [place] [address] 73734YY: 11/19/2017 Secondary NOT GIVENUNK [place] Insurance:SELF PAY [facility] Number: Effective Repository Date:2017-11-19 09/28/2017 Ricardo LeB: Primary Ricardo [facility] Insurance:Roman LeB: [place] [address], [place] [employer] [place] [id number] Repository 72334Ctn: (168) [facility] Number: [phone] () Effective Date: 09/28/2017 Secondary Ricardo [facility] Insurance:MedicarePo MimiB: System licy Number: [id number] Repository Effective Date: 09/27/2017 Ricardo [id number] Primary Ricardo Candelario [place] [address] Insurance:ROMAN LeB: [facility] [id number]: (840) MEDICARE PPOPolicy [id number] Hospital [phone] () Number: Repository [id number] e Date:0419-10-82YX [address] [place] [address] 26979FI: 09/27/2017 Secondary NOT GIVENUNK [place] Insurance:SELF PAY [facility] Number: Effective Repository Date:2017-09-27 09/27/2017 Ricardo [id number] Primary Ricardo D [address] [address] Insurance:[facility] LeB: [facility] [id number]: ([phone]) MEDICARE PPOPolicy [id number] Hospital [phone] () Number: Repository [id number] e Date:3345-55-86TW [address] [place] [address] 42689JI: 09/27/2017 Secondary NOT GIVENUNK [place] Insurance:SELF PAY [facility] Number: Effective Repository Date:2017-09-27 09/27/2017 Ricardo Kodak [id number] Primary Ricardo Candelario [place] Insurance[place]AN LeB: [facility] 00634Xem: (330) MEDICARE PPOPolicy [id number] [phone] () Number: Repository [id number] e Date:7054-24-63ZQ[address] [address]HH: 09/27/2017 Secondary NOT GIVENUNK Oscar Insurance:SELF PAY [facility] Number: Effective Repository Date:2017-09-27 09/27/2017 Ricardo Kodak [id number] Primary Ricardo Candelario [place] [facility] [place] Insurance:[place]AN LeB: [facility] [id number]: (330) MEDICARE PPOPolicy [id number] [place] [phone] () Number: Repository [id number] e Date:5015-79-36ZM [address] [address]ZD: 09/27/2017 Secondary NOT GIVENUNK [place] Insurance:SELF PAY [facility] Number: Effective Repository Date:2017-09-27 09/27/2017 Ricardo Kodak [id number] Primary Ricardo [facility] [place] Insurance:[place]: [facility] 37925Jbn: (330) MEDICARE PPOPolicy [id number] [place] [address] () Number: Repository [id number] e Date:6273-08-16QU[address] [address]LU: 09/27/2017 Secondary NOT GIVENUNK Oscar Insurance:SELF PAY [facility] Number: Effective Repository Date:2017-09-27 07/12/2017 RICARDO PARISH: Primary RICARDO Candelario [facility] [id number] [facility] Insurance:[place]ISH: [facility] [id number] Repository 69406Itw: (330) Number: [address] [place] [address] ()Tel: [id number] [place], [place] () e Date:2017-07-12 02785Sbm: [phone] [id number] [phone] Name:[facility] Petrona ()Tel: [phone] [place] 000-0000 () 23[address]ER: 05/17/2017 Ricardo Candelario [id number] Primary Ricardo Candelario [place] [address] Insurance:[place] Le: [facility] [id number]: (030) MEDICARE PPOPolicy [id number] [place] [id number] () Number: Repository [id number] e Date:7379-37-32GY[address] [address]UF: 05/17/2017 Secondary NOT GIVENUNK [place] Insurance:SELF PAY [facility] Number: Effective Repository Date:2017-05-10 05/10/2017 Ricardo Candelario [id number] Primary Ricardo [place] [address] Insurance:[place] Le: [facility] 08366Muh: (728) MEDICARE PPOPolicy [id number] [place] [address] () Number: Repository [id number] e Date:0717-24-54BA[address] [address]TP: 05/10/2017 Secondary NOT GIVENUNK [place] Insurance:SELF PAY [facility] Number: Effective Repository Date:2017-05-10 05/01/2017 Ricardo Candelario [id number] Primary Ricardo D [place] [address] [address] Insurance:[place] Le: [facility] [id number]: (330) MEDICARE PPOPolicy [id number] [place] [phone] () Number: Repository [id number] e Date:6123-32-01CF [address] [place] [address]16[address]VT: 05/01/2017 Secondary NOT GIVENUNK Oscar Insurance:SELF PAY [facility]: Effective Repository Date:2017-04-28
== END 2018-04-17 16:29 | disposition hospice, inpatient (51) | DRG 682 ==
LOC: ED 12:06 → PCU 14:10
PROVIDERS: Family Medicine; Internal Medicine Nephrology; Admitting Provider Internal Medicine; Emergency Provider Emergency Medicine; Family Provider Preventive Medicine Occupational Medicine; PCP Preventive Medicine Occupational Medicine
DX: N17.9 Acute kidney failure, unspecified (principal); E43 Unspecified severe protein-calorie malnutrition; G93.41 Metabolic encephalopathy; I69.151 Hemiplegia and hemiparesis following nontraumatic intracerebral hemorrhage affecting right dominant side; E87.2 Acidosis; R65.10 Systemic inflammatory response syndrome (SIRS) of non-infectious origin without acute organ dysfunction; Z66 Do not resuscitate; Z87.891 Personal history of nicotine dependence; L89.151 Pressure ulcer of sacral region, stage 1; I69.120 Aphasia following nontraumatic intracerebral hemorrhage; Z86.711 Personal history of pulmonary embolism; E78.5 Hyperlipidemia, unspecified; Z68.28 Body mass index [BMI] 28.0-28.9, adult; E87.5 Hyperkalemia; Z51.5 Encounter for palliative care; I10 Essential (primary) hypertension
CPT/HCPCS: 36415; 71045; 74176; 80048; 80069; 80076; 81001; 82550; 82570; 83520; 83605; 83690; 83735; 84165; 84166; 84300; 85025; 86038; 86160; 86225; 86235; 86256; 86431; 86704; 86705; 86706; 86708; 86709; 86803; 87040; 87086; 87205; 87340; 87633; 87641; 92526; 93005; 94640; 97162; 97165; 97530; 97535; 97802; 99283; J7030; J7040; J7050; J7120; A4216